=== PATIENT | female | born 1955 | race Caucasian/White ===

== ENCOUNTER 2019-06-20 14:08 | Inpatient (IN) | payer MEDICARE, MEDICAID ==
[~2019-06-20] VITALS: Ht 167.6 cm; Wt 67.1 kg
[~2019-06-20 14:08] MED LIST: ACETAMINOP160 MG/54 ORAL; ALBUTEROL2.5 MG/3 M INH; ATIVAN0.5 MG ORAL; DOCUSATE SODIU100 MG ORAL; FLEET ENEMA133 ML RECTAL; HEPARIN SO5000 UNIT2 SUBQ; KEPPRA500 MG ORAL; LOPRESSOR25 M1 ORAL; PRAVACHOL20 MG ORAL; ZANTAC150 MG ORAL
--- NOTE | 2019-06-20 14:40 | NUR ---
ED Nurse Note: Patient brought in by ambulance from [facility] due to dislodged g-tube since 1000 AM this morning. unknown size. g-tube stoma noted, no tube was noted on the stoma. dressing applied. patient changed into hospital gown.
[2019-06-20 15:42] VITALS: BP 98/62
[2019-06-20 15:54] LABS: BASOPHILS % (AUTO) 1.5 % (0.0-2.0); EOSINOPHILS % (AUTO) 0.7 % (0.0-3.0); HEMATOCRIT 43.5 % (37.0-47.0); HEMOGLOBIN 14.6 G/DL (12.0-16.0); LYMPHOCYTES % (AUTO) 27.4 % (20.0-45.0); MEAN CORPUSCULAR VOLUME 91 FL (80-99); MONOCYTES % (AUTO) 8.1 % (1.0-10.0); NEUTROPHILS % (AUTO) 62.3 % (45.0-75.0); PLATELET COUNT 241 K/UL (150-450); RED BLOOD COUNT 4.79 M/UL (4.20-5.40); RED CELL DISTRIBUTION WIDTH 11.3 % (11.6-14.8); WHITE BLOOD COUNT 6.9 K/UL (4.8-10.8)
--- NOTE | 2019-06-20 16:01 | Emergency Room Report ---
History of Present Illness General Chief Complaint: Malfunctioning Gastric Tube Source: Medical Record, EMS, PMD Present Illness HPI 63-year-old female here for G-tube replacement. It came out, it is unclear when. Patient is bedbound nonverbal she is not able to give any kind of history. The charts note that the last time she was here was 2014. She does not appear to be in any distress. 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 Hx Seizures: Yes Review of Systems All Other Systems: negative except mentioned in HPI Physical Exam Vital Signs Date Time Temp Pulse Resp B/P (MAP) Pulse Ox O2 Delivery O2 Flow Rate FiO2 06/20/19 14:31 98.1 68 18 94/64 (74) 99 Room Air Sp02 EP Interpretation: reviewed, normal General Appearance: non-toxic, other - nad, Chronically Ill Head: normocephalic, atraumatic Eyes: bilateral eye normal inspection, bilateral eye PERRL, bilateral eye EOMI ENT: normal ENT inspection, normal pharynx, moist mucus membranes Neck: normal inspection, full range of motion, supple Respiratory: normal inspection, lungs clear, normal breath sounds, no respiratory distress, no wheezing, speaking full sentences, chest symmetrical Cardiovascular #1: normal inspection, regular rate, rhythm, normal capillary refill Cardiovascular #2: 2+ radial (R), 2+ radial (L) Gastrointestinal: non tender, soft, non-distended, no guarding, other - G-tube stoma appears closed or very small. Minimal surrounding erythema. Nontender exam Musculoskeletal: back normal, non-tender Neurologic: alert, other - nonverbal Medical Decision Making Diagnostic Impression: Primary Impression: Dislodged gastrostomy tube ER Course 63-year-old female here for dislodged G-tube DDX: disLodged G-tube Plan: Obtain labs, ua, EKG, CXR ER course: Patient has been monitored during ED stay, HD stable I attempted to place G-tube twice, once with a 18 [place] and another with 14 [place]. Was unsuccessful point both times Disposition: Patient is to be admitted to [facility] D/W hospitalist Dr Choi Please note that this Emergency Department Report was dictated using [employer]food critic technology software, occasionally this can lead to erroneous entry secondary to interpretation by the dictation equipment. EKG Diagnostic Results EP Interpretation: Yes Rate: normal Rhythm: NSR ST Segments: No acute changes ASA given to patient: No Rhythm Strip EP Interpretation: Yes Rate: 90 Rhythm: NSR, no PVCs, no ectopy Chest X-ray CXR: Ordered: Yes 1 view Indication: Preop EP interpretation: Yes Interpretation: No consolidation, no effusion, no PTX, no acute cardiopulmonary disease Impression: No acute disease Electronically signed by Benigno Chaudhary MD Laboratory Tests Test 06/20/19 15:36 06/20/19 16:15 White Blood Count 6.9 K/UL (4.8-10.8) Red Blood Count 4.79 M/UL (4.20-5.40) Hemoglobin 14.6 G/DL (12.0-16.0) Hematocrit 43.5 % (37.0-47.0) Mean Corpuscular Volume 91 FL (80-99) Mean Corpuscular Hemoglobin 30.6 PG (27.0-31.0) Mean Corpuscular Hemoglobin Concent 33.6 G/DL (32.0-36.0) Red Cell Distribution Width 11.3 % (11.6-14.8) L Platelet Count 241 K/UL (150-450) Mean Platelet Volume 6.4 FL (6.5-10.1) L Neutrophils (%) (Auto) 62.3 % (45.0-75.0) Lymphocytes (%) (Auto) 27.4 % (20.0-45.0) Monocytes (%) (Auto) 8.1 % (1.0-10.0) Eosinophils (%) (Auto) 0.7 % (0.0-3.0) Basophils (%) (Auto) 1.5 % (0.0-2.0) Prothrombin Time 10.3 SEC (9.30-11.50) Prothrombin Time INR 1.0 (0.9-1.1) PTT 27 SEC (23-33) Sodium Level 142 MMOL/L (136-145) Potassium Level 4.3 MMOL/L (3.5-5.1) Chloride Level 105 MMOL/L (98-107) Carbon Dioxide Level 26 MMOL/L (21-32) Anion Gap 11 mmol/L (5-15) Blood Urea Nitrogen 21 mg/dL (7-18) H Creatinine 0.7 MG/DL (0.55-1.30) Estimate Glomerular Filtration Rate > 60 mL/min (>60) Glucose Level 73 MG/DL (74-106) L Calcium Level 9.0 MG/DL (8.5-10.1) Total Bilirubin Pending Aspartate Amino Transferase (AST) Pending Alanine Aminotransferase (ALT) Pending Alkaline Phosphatase Pending Total Protein Pending Albumin Pending Globulin Pending Last Vital Signs Date Time Temp Pulse Resp B/P (MAP) Pulse Ox O2 Delivery O2 Flow Rate FiO2 06/20/19 15:42 98.1 62 17 98/62 100 Room Air Disposition: ADMITTED INPATIENT Condition: Serious Benigno Chaudhary M.D. Jun 20, 2019 16:01
--- NOTE | 2019-06-20 16:24 | NUR ---
ED Nurse Note: Dr. Chaudhary attempted to place the gtube, unsuccessful.
[2019-06-20] MEDS ORDERED: VIMPAT50 MG GT (16:37)
--- NOTE | 2019-06-20 16:59 | Diagnostic Imaging Report ---
Indication: Dyspnea Comparison: 08/18/2015 A single view chest radiograph was obtained. Findings: There is scarring in the right perihilar region in a configuration and appearance very similar to 2015. Lung volumes are low bilaterally. Bones are osteopenic. Heart is borderline enlarged. The aorta is mildly ectatic. Apparent osseous structures are noted in the right shoulder region may be soft tissue in nature. IMPRESSION: No acute disease
[2019-06-20 17:08] LABS: ANION GAP 11 mmol/L (5-15); BLOOD UREA NITROGEN 21 mg/dL (7-18); CARBON DIOXIDE 26 MMOL/L (21-32); CHLORIDE 105 MMOL/L (98-107); CREATININE 0.7 MG/DL (0.55-1.30); POTASSIUM 4.3 MMOL/L (3.5-5.1); SODIUM 142 MMOL/L (136-145)
[2019-06-20 17:24] LABS: ALANINE AMINOTRANSFERASE 36 U/L (12-78); ALBUMIN 3.3 G/DL (3.4-5.0); ALBUMIN/GLOBULIN RATIO 0.8 (1.0-2.7); ALKALINE PHOSPHATASE 83 U/L (46-116); ASPARTATE AMINO TRANSFERASE 21 U/L (15-37)
--- NOTE | 2019-06-20 18:37 | NUR ---
ED Nurse Note: Report given to Afsoon RN, endorsed all plan of care to Afsoon RN.
--- NOTE | 2019-06-20 18:42 | NUR ---
ED Nurse Note: patient transferred to 4 E with all of her belongings.
--- NOTE | 2019-06-20 18:50 | NUR ---
NURSE NOTES: Received pt from ER. Pt is nonverbal. all belongings are with pt. pt is in RA, no SOB or acute respiratory distress noted. pt has a g tube site on the abd. pt has intact iv access LFA 20G. V/S stable. all needs attended, bed is locked and is in the lowest position, call light within easy reach. will continue to monitor.
[2019-06-20 19:00] VITALS: BP 143/73
--- NOTE | 2019-06-20 19:19 | NUR ---
HAND-OFF: Report given to RN LUISA/GUTIERREZ. Endorsed to F/U for consent.
[2019-06-20 20:00] VITALS: BP_SYST 102; BP_SYST 142; BP_DIAS 52; BP_DIAS 85
--- NOTE | 2019-06-20 20:00 | NUR ---
NURSE NOTES: received pt in bed. flat affect, passive behavior and non-verbal response. pt was removed G-tube Addendum: 06/21/19 at 0217 by Lynda Escamilla RN IV fluid 1/2 NS running @ 60 ml/hr. no acute distress this time. call light within reach and bed is the lowest position. will continue to provide plan of care.
--- NOTE | 2019-06-20 20:30 | NUR ---
NURSE NOTES: Admission orders received from Dr. Brasher. Will carry out as ordered.
--- NOTE | 2019-06-20 21:00 | NUR ---
NURSE NOTES: consent for PEG placement authorized by pt's daughter(Sumi Scott) by phone call. witness by 2 RN's (Mikala and Lynda) d/t pt is non-verbal.
[2019-06-20] MEDS ORDERED: DOCUSATE SODIU100 M2 GT (22:27)
[2019-06-20] MEDS ORDERED: MILK OF MA400 MG/51 GT (22:27)
[2019-06-20] MEDS ORDERED: ACETAMINOPHEN325 M1 GT (22:27)
[2019-06-21] VITALS (9 sets, daily range): BP systolic 98–131; BP diastolic 43–80
[2019-06-21] MEDS ORDERED: ceFAZolin sod 1 GM in D5W 55 ML IVPB SCH (05:30)
[2019-06-21] MEDS ORDERED: Midazolam 2mg/2ml Inj IVP PRN (06:30)
[2019-06-21] MEDS ORDERED: DiphenhydrAMINE 50mg/ml Inj IVP PRN (06:30)
[2019-06-21] MEDS ORDERED: Atropine Inj 1mg/10ml Syr IV PRN (06:30)
[2019-06-21] MEDS ORDERED: fentaNYL 100 mcg/2 mL IV PRN (06:30)
--- NOTE | 2019-06-21 06:33 | Anethesia Preoperative Eval ---
Anesthesia Pre-op PMH/ROS General Date of Evaluation: Jun 21, 2019 Time of Evaluation: 06:29 Anesthesiologist: edgardo ASA Score: ASA 4 Mallampati Score Class I : Soft palate, uvula, fauces, pillars visible Class II: Soft palate, uvula, fauces visible Class III: Soft palate, base of uvula visible Class IV: Only hard plate visible Mallampati Classification: Class II Surgeon: luly Diagnosis: dislodged g-tube Surgical Procedure: g-tube placement Anesthesia History: none Social History: smoking - nonsmoker Family History: no anesthesia problems Allergies: Coded Allergies: CHLORHEXIDINE (Verified Allergy, Mild, 07/12/15) Medications: see eMAR Patient NPO?: Yes Past Medical History Cardiovascular: Reports: HTN, other - hypercholesterolemia, Pulmonary: Reports: other - respiratory failure Gastrointestinal/Genitourinary: Reports: GERD, other - dialysis, bladder dysfunction Neurologic/Psychiatric: Reports: CVA, depression/anxiety, other - seizure dz, encephalitis, hemiparesis, dysphasia Anesthesia Pre-op Phys. Exam Physician Exam Last Vital Signs Date Time Temp Pulse Resp B/P (MAP) Pulse Ox O2 Delivery O2 Flow Rate FiO2 06/21/19 04:00 97.6 81 20 131/80 (97) 94 06/20/19 19:30 Room Air Constitutional: NAD Neurologic: CN 2-12 intact, other - hemiparesis, contracted right upper extremity Cardiovascular: RRR Respiratory: CTA Gastrointestinal: other - stoma for previous g-tube Airway Exam Mallampati Score: Class II MO: limited Neck: flexible TMD: 2fb ROM: limited Teeth: missing Anesthesia Pre-op A/P Labs Hematology Test 06/20/19 15:36 White Blood Count 6.9 K/UL (4.8-10.8) Red Blood Count 4.79 M/UL (4.20-5.40) Hemoglobin 14.6 G/DL (12.0-16.0) Hematocrit 43.5 % (37.0-47.0) Mean Corpuscular Volume 91 FL (80-99) Mean Corpuscular Hemoglobin 30.6 PG (27.0-31.0) Mean Corpuscular Hemoglobin Concent 33.6 G/DL (32.0-36.0) Red Cell Distribution Width 11.3 % (11.6-14.8) L Platelet Count 241 K/UL (150-450) Mean Platelet Volume 6.4 FL (6.5-10.1) L Neutrophils (%) (Auto) 62.3 % (45.0-75.0) Lymphocytes (%) (Auto) 27.4 % (20.0-45.0) Monocytes (%) (Auto) 8.1 % (1.0-10.0) Eosinophils (%) (Auto) 0.7 % (0.0-3.0) Basophils (%) (Auto) 1.5 % (0.0-2.0) Coagulation Test 06/20/19 15:36 Prothrombin Time 10.3 SEC (9.30-11.50) Prothromb Time International Ratio 1.0 (0.9-1.1) Activated Partial Thromboplast Time 27 SEC (23-33) Chemistry Test 06/20/19 16:15 Sodium Level 142 MMOL/L (136-145) Potassium Level 4.3 MMOL/L (3.5-5.1) Chloride Level 105 MMOL/L (98-107) Carbon Dioxide Level 26 MMOL/L (21-32) Anion Gap 11 mmol/L (5-15) Blood Urea Nitrogen 21 mg/dL (7-18) H Creatinine 0.7 MG/DL (0.55-1.30) Estimat Glomerular Filtration Rate > 60 mL/min (>60) Glucose Level 73 MG/DL (74-106) L Calcium Level 9.0 MG/DL (8.5-10.1) Total Bilirubin 1.0 MG/DL (0.2-1.0) Aspartate Amino Transf (AST/SGOT) 21 U/L (15-37) Alanine Aminotransferase (ALT/SGPT) 36 U/L (12-78) Alkaline Phosphatase 83 U/L (46-116) Total Protein 7.3 G/DL (6.4-8.2) Albumin 3.3 G/DL (3.4-5.0) L Globulin 4.0 g/dL Albumin/Globulin Ratio 0.8 (1.0-2.7) L Risk Assessment & Plan Assessment: asa4 Plan: mac Status Change Before Surgery: No Pre-Antibiotics Drug: Snow Henson MD Jun 21, 2019 06:33
--- NOTE | 2019-06-21 06:54 | General Progress Note ---
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 Subjective Allergies: Coded Allergies: CHLORHEXIDINE (Verified Allergy, Mild, 07/12/15) Subjective GI CONSULT cc: ATSP for GT re-insertion HPI: 63 y/o WW with chronic GT here since GT fell out and ostomy closed. Patient non-verbal. 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 SNF, no recent smoke/EtOH, Daughters make decisions ROS Unobtainable Objective Last 24 Hour Vital Signs Date Time Temp Pulse Resp B/P (MAP) Pulse Ox O2 Delivery O2 Flow Rate FiO2 06/21/19 04:00 97.6 81 20 131/80 (97) 94 06/21/19 00:00 97.1 70 20 98/63 (75) 95 06/20/19 20:00 97.3 63 20 102/52 (69) 94 06/20/19 19:30 Room Air 06/20/19 19:00 98.1 70 18 143/73 (96) 97 06/20/19 18:41 98.1 62 17 98/62 100 Room Air 06/20/19 15:42 98.1 62 17 98/62 100 Room Air 06/20/19 14:31 98.1 68 18 94/64 (74) 99 Room Air Intake and Output 06/20/19 06/21/19 18:59 06:59 Intake Total 445 ml Output Total 0 ml Balance 0 ml 445 ml Intake IV Total 445 ml Output Urine Total 0 ml # Voids 2 # Bowel Movements 1 Laboratory Tests 06/20/19 15:36: White Blood Count 6.9, Red Blood Count 4.79, Hemoglobin 14.6, Hematocrit 43.5, Mean Corpuscular Volume 91, Mean Corpuscular Hemoglobin 30.6, Mean Corpuscular Hemoglobin Concent 33.6, Red Cell Distribution Width 11.3L, Platelet Count 241, Mean Platelet Volume 6.4L, Neutrophils (%) (Auto) 62.3, Lymphocytes (%) (Auto) 27.4, Monocytes (%) (Auto) 8.1, Eosinophils (%) (Auto) 0.7, Basophils (%) (Auto ) 1.5, Prothrombin Time 10.3, Prothromb Time International Ratio 1.0, Activated Partial Thromboplast Time 27 06/20/19 16:15: Sodium Level 142, Potassium Level 4.3, Chloride Level 105, Carbon Dioxide Level 26, Anion Gap 11, Blood Urea Nitrogen 21H, Creatinine 0.7, Estimat Glomerular Filtration Rate > 60, Glucose Level 73L, Calcium Level 9.0, Total Bilirubin 1.0 , Aspartate Amino Transf (AST/SGOT) 21, Alanine Aminotransferase (ALT/SGPT) 36, Alkaline Phosphatase 83, Total Protein 7.3, Albumin 3.3L, Globulin 4.0, Albumin/ Globulin Ratio 0.8L Height (Feet): 5 Height (Inches): 6.00 Weight (Pounds): 148 Objective PE HEENT: Surgical defect, (L) skull supple CTA RRR abd soft, close prior GT site no edema awake, non verbal, non cooperative Miguel Boyce MD Jun 21, 2019 06:54
--- NOTE | 2019-06-21 06:54 | Pre-Procedure Note/Attestation ---
Pre-Procedure Note/Attestation Complete Prior to Procedure Planned Procedure: not applicable Procedure Narrative: EGD / PEG Indications for Procedure Pre-Operative Diagnosis: dysphagia Attestation I attest that I discussed the nature of the procedure; its benefits; risks and complications; and alternatives (and the risks and benefits of such alternatives ), prior to the procedure, with the patient (or the patient's legal manufacturing sales representative). I attest that, if there was a reasonable possibility of needing a blood transfusion, the patient (or the patient's legal manufacturing sales representative) was given the [facility] standardized written summary, pursuant to the Chris Oliver Blood Safety Act ([place] Health and Safety Code # 1645, as amended). I attest that I re-evaluated the patient just prior to the surgery and that there has been no change in the patient's H&P, except as documented below: Miguel Boyce MD Jun 21, 2019 06:54
[2019-06-21] MEDS ORDERED: Lidocaine 1% MPF 10mg/ml 5ml ONE (07:00)
[2019-06-21] MEDS ORDERED: Propofol 200mg/20ml IV ONE (07:00)
--- NOTE | 2019-06-21 07:17 | NUR ---
HAND-OFF: Report given to Aisha GARG.
--- NOTE | 2019-06-21 07:25 | NUR ---
NURSE NOTES: Received pt from RN NARA/GUTIERREZ. Pt is nonverbal. pt is in RA, no SOB or acute respiratory distress noted. pt has a g tube site on the abd. pt has intact iv access LFA 20G is running well. pt is NPO. all needs attended, bed is locked and is in the lowest position, call light within easy reach. Pt left unit to gi lab now.
--- NOTE | 2019-06-21 07:28 | NUR ---
NURSE NOTES: Patient transported by Dr. Boyce to GI lab for procedure.
[2019-06-21] MEDS ORDERED: NS 500ML IVPB ONE (07:40)
--- NOTE | 2019-06-21 08:52 | NUR ---
NURSE NOTES: pT CAME BACK FROM GI lab, awake and non verbal. no stress. gt has g tube on abd covered with abd binder. will continue to monitor.
--- NOTE | 2019-06-21 10:25 | Immediate Post-Op Evaluation ---
Immediate Post-Op Evalulation Immediate Post-Op Evalulation Procedure: g-tube placement Date of Evaluation: Jun 21, 2019 Time of Evaluation: 08:24 IV Fluids: 400ml 0.9ns Blood Products: none Estimated Blood Loss: neglgible Blood Pressure Systolic: 116 Blood Pressure Diastolic: 59 Pulse Rate: 65 Respiratory Rate: 18 O2 Sat by Pulse Oximetry: 100 Temperature (Fahrenheit): 97.1 Pain Score (1-10): 0 Nausea: No Vomiting: No Complications none Patient Status: awake, reacts, patent Hydration Status: adequate Drug: Snow Henson MD Jun 21, 2019 10:25
--- NOTE | 2019-06-21 10:26 | 48 Hour Post Anesthesia Eval ---
Post Anesthesia Evaluation Procedure: g-tube placement Date of Evaluation: Jun 21, 2019 Time of Evaluation: 08:24 Blood Pressure Systolic: 119 0: 43 Pulse Rate: 64 Respiratory Rate: 18 Temperature (Fahrenheit): 97.1 O2 Sat by Pulse Oximetry: 100 Airway: patent Nausea: No Vomiting: No Pain Intensity: 0 Hydration Status: adequate Cardiopulmonary Status: stable Mental Status/LOC: patient returned to baseline Post-Anesthesia Complications: none Follow-up care needed: N/A Snow Cassidy MD Jun 21, 2019 10:26
--- NOTE | 2019-06-21 13:37 | NUR ---
DISCHARGE PLANNING DISCHARGE ORDER NOTED Patient has been accepted to; [facility] [id number] [place] [address] Bed:30-B Skilled [phone] for Nurse to Nurse report [facility] ETA for transportation: 14:45
--- NOTE | 2019-06-21 15:09 | NUR ---
NURSE NOTES: Pt has discharge order, all discharge assessments and instructions done and pt verbally confirmed to understand all. pt is stable, V/S stable. g tube feeding started as order with 10ml/hr and pt tolerated well. pt given bed bath and g tube4 dressing changed and pt tolerated well. Report given to SNF [facility]ART[facility]. IV access D/C and pt left hospital with accompany of hospital personnel.
[2019-06-21] MEDS ORDERED: Tubing IV Secondary IV ONE (15:13)
[2019-06-21] MEDS ORDERED: 1/2 NS 1000ml IV ONE (15:13)
--- NOTE | 2019-06-21 16:44 | Cardiology Report ---
APPROVED REPORT EKG Measurement Heart [id number] Suspect arm lead reversal, interpretation assumes no reversal Normal sinus rhythm Right axis deviation Abnormal ECG
--- NOTE | 2019-06-21 16:46 | Cardiology Report ---
APPROVED REPORT EKG Measurement Heart [id number] Normal sinus rhythm Low voltage QRS Borderline ECG
--- NOTE | 2019-06-21 17:31 | Endoscopy Procedure Note ---
Endoscopy Procedure Note General Indication for Procedure: Dysphagia Procedures Performed: EGD, PEG Operative Findings/Diagnosis: thickened antrum folds - biopsied Specimen: yes Pt Tolerated Procedure Well: Yes Estimated Blood Loss: none Anesthesia Anesthesiologist: Vasquez Denise Anesthesia: MAC, moderate sedation Medications Medication Given: see anesthesia record Inserted Devices Implant(s) used?: No GI Core Measures 50 yrs or older w/o bx or poly: Not Applicable 10yrs. F/U recommended: Not Applicable Miguel Boyce MD Jun 21, 2019 17:31
--- NOTE | 2019-06-21 17:35 | Brief Operative Note ---
Immediate Post Operative Note Operative Note Chief Complaint: dysphagia Pre-op Diagnosis: dysphagia Procedure: EGD, PEG, Bx Post-op Diagnosis: gastric folds - biopsed PEG placed once prior orifice opened Surgeon: luly Anesthesiologist: Vasquez Denise Anesthesia: MAC Specimen: yes Complications: none Condition: stable Fluids: see anesth record Implant(s) used?: No Miguel Boyce MD Jun 21, 2019 17:35
--- NOTE | 2019-06-21 19:15 | History and Physical Report ---
DATE OF ADMISSION: 06/20/2019 HISTORY OF PRESENT ILLNESS: The patient also had G-tube removed. The nursing staff were not able to put a Sweeney to keep the stoma open. The patient needs a feeding tube. The patient denies any acute events. Initial plan is to admit him for observation for PEG placement and if there is no complications, afterwards no issues, afterwards we will discharge the patient once cleared by Dr. Boyce. The patient denies nausea, vomiting, or diarrhea. No fever or chills. PAST MEDICAL HISTORY: Hypertension, history of gastrointestinal bleed, history of neuromuscular dysfunction of the bladder, history of seizures, history of CVA with right-sided weakness, hypertension, constipation. PAST SURGICAL HISTORY: PEG. MEDICATIONS: Vimpat, Colace, hydralazine. ALLERGIES: Chlorhexidine. FAMILY HISTORY: Noncontributory. SOCIAL HISTORY: No history of alcohol or illicit drugs. Comes from a senior care. REVIEW OF SYSTEMS: HEENT: Denies headaches. RESPIRATORY: Denies shortness of breath. Denies cough. CARDIOVASCULAR: Denies chest pain. Denies nausea, vomiting, diarrhea. EXTREMITIES: The patient is currently a poor historian. PHYSICAL EXAMINATION: VITAL SIGNS: Temperature 97.6, pulse 81, blood pressure is 131/80. HEENT: PERRLA. NECK: Supple. No lymphadenopathy. CHEST: Clear to auscultation. CARDIOVASCULAR: Regular rate and rhythm ABDOMEN: Soft. Positive bowel sounds. EXTREMITIES: No edema. Reflexes on both sides. Right-sided weakness from previous stroke. LABORATORY DATA: WBC of 6.9, hemoglobin of 14.6, platelets 241. Sodium 142, potassium 4.3, BUN of 21, creatinine 0.7, glucose of 73. ASSESSMENT: Dysphagia, needs PEG replacement. The patient has a lot of comorbidities. Dr. Boyce has been consulted for PEG placement. Ruthann Brasher M.D. DR: Kimmy JOB#: [id number] CC:
--- NOTE | 2019-06-21 20:00 | Procedure Note ---
DATE OF PROCEDURE: 06/21/2019 GASTROENTEROLOGY PROCEDURE PROCEDURE: Upper gastrointestinal endoscopy with gastrostomy tube placement and biopsy. SURGEON: Miguel Boyce M.D. ANESTHESIA: Please see the separate anesthesiologist notes for details. PRE-ENDOSCOPIC DIAGNOSIS: Dysphagia. POST-ENDOSCOPIC DIAGNOSES: 1. Thickened fold in the gastric antrum of doubtful significance, status post biopsy. 2. Status post gastrostomy tube placement. DESCRIPTION OF PROCEDURE: The procedure, its risks, indications, alternatives, and possible complications were explained to the patient's family and informed consent was obtained. The diagnostic upper endoscope was introduced into oropharynx and advanced to the duodenum. The mucosa was examined carefully. Some thickening of the antral folds were identified, which were biopsied, but this was of doubtful significance. The gastrostomy site appeared to be close and initial plans were made to create a separate gastrostomy site; however, after insufflation , a small distinct amount of blood was seen coming through and therefore a guidewire was used to place through the hole into the stomach, which was grabbed and brought out through the mouth and attached to a gastrostomy device, which was placed using a standard pull technique. The patient was sent to recovery in good condition. COMPLICATIONS: None. RECOMMENDATIONS: 1. Resume tube feeding diet. 2. Follow up biopsy results. Miguel Boyce M.D. DR: ARTHUR JOB#: [id number] CC:
--- NOTE | 2019-06-23 08:28 | Discharge Summary ---
Discharge Summary Discharge Summary _ DATE OF ADMISSION: 06/20/2019 DATE OF DISCHARGE: 06/21/2019 DISCHARGED BY: Dr. Brasher REASON FOR ADMISSION: 63 years old female with past medical history of CVA with right-sided weakness, seizure disorder, hypertension, presented from the alf facility for G-tube replacement. Apparently G-tube came out at the facility. Patient by herself was bedbound, nonverbal and was unable to provide any kind of history. Vital signs were stable . Patient did not appear to be in any distress. Laboratory work-up revealed no leukocytosis , stable hemoglobin and hematocrit. Stable electrolytes and renal parameters. Albumin 3.3. Chest x-ray revealed no acute cardiopulmonary pathology. EKG revealed sinus rhythm , no acute ischemic changes. Emergency room physician attempted to place G-tube twice: once with a 18 Faroese gauge and another with a 14 Faroese gauge . However, both attempts were unsuccessful. Patient subsequently admitted to medical surgical floor for replacement of G tube. CONSULTANTS: GI specialist Dr. Boyce [facility] COURSE: Patient admitted to medical surgical floor and started on the IV fluids. GI specialist consulted. Patient subsequently undergone upper endoscopy with gastrostomy tube placement and biopsy. Patient tolerated procedure well. During the procedure was found thickened fold in the gastric antrum of doubtful significance. Pathology of the gastric antrum revealed benign mucosa with no significant histopathological abnormality. Negative for H. pylori. Negative for intestinal metaplasia, dysplasia, or malignancy. Patient started on tube feeding with strict aspiration/reflux precautions. G-tube site care provided. SNF medication resumed. Pain management was addressed as needed. Patient was able to tolerate tube feeding . Patient was stable for transfer back to alf facility for continuation of care. Due to rapid and unexpected improvement in patient condition, patient was discharged in 1 day. FINAL DIAGNOSES: Dislodged G-tube Status post upper endoscopy with gastrostomy tube placement and biopsy Dysphagia History of CVA DISCHARGE MEDICATIONS: See Medication Reconciliation list. DISCHARGE INSTRUCTIONS: Patient was discharged to the alf facility. Follow up with medical doctor at the facility. I have been assigned to dictate discharge summary for this account. I was not involved in the patient's management. Sandy Puga NP Jun 23, 2019 08:28
== END 2019-06-21 15:14 | DRG 394 ==
LOC: EDBD 14:08 → EMR 14:40 → 4E 16:17 → EDBEDREQ 16:54
PROC: 0DH63UZ Insertion of Feeding Device into Stomach, Percutaneous Approach (ICD-10-PCS; principal; 2019-06-21 07:44)
PROC: 0DB78ZX Excision of Stomach, Pylorus, Via Natural or Artificial Opening Endoscopic, Diagnostic (ICD-10-PCS; principal; 2019-06-21 07:44)
DX: Z43.1 Encounter for attention to gastrostomy (principal); I69.351 Hemiplegia and hemiparesis following cerebral infarction affecting right dominant side; R13.10 Dysphagia, unspecified; F03.90 Unspecified dementia, unspecified severity, without behavioral disturbance, psychotic disturbance, mood disturbance, and anxiety; G40.909 Epilepsy, unspecified, not intractable, without status epilepticus
CPT/HCPCS: 36415; 71045; 80053; 85025; 85610; 85730; 87081; 93005; 94003; 94150; 96361; 96374; 99285; J7030

== ENCOUNTER 2020-05-05 08:40 | Inpatient (IN) | payer MEDICARE, MEDICAID ==
[~2020-05-05] VITALS: Ht 167.6 cm; Wt 75.0 kg
[~2020-05-05 08:40] MED LIST changes: +ACETAMINOPHEN325 M1 GT; +DOCUSATE SODIU100 M2 GT; +MILK OF MA400 MG/51 GT; +VIMPAT50 MG GT
--- NOTE | 2020-05-05 08:44 | Emergency Room Report ---
History of Present Illness General Chief Complaint: G-tube malfunction Source: Medical Record, EMS, PMD - Dr. Brasher Present Illness HPI Patient is a 64-year-old female brought into the emergency room from her extended care facility by EMS after pulling out her G-tube. Per patient's primary care physician she also is altered from her baseline. Unable to obtain further history at this time as the patient is nonverbal. Allergies: Coded Allergies: CHLORHEXIDINE (Verified Allergy, Mild, 07/12/15) Patient History Reviewed Nursing Documentation: PMH: Agreed; PSxH: Agreed Review of Systems All Other Systems: limited - non-verbal Physical Exam Sp02 EP Interpretation: reviewed, normal - 98% on room air General Appearance: other - Nonverbal Head: normocephalic, atraumatic ENT: dry mucus membranes Neck: full range of motion, supple Respiratory: no accessory muscle use Cardiovascular #1: regular rate, rhythm Gastrointestinal: non tender, soft, no guarding, no rebound, other - G-tube stoma in the epigastric region with dark red gastric contents, overweight Rectal: deferred Neurologic: oriented x3 - Alert and oriented x0 patient is nonverbal Psychiatric: other - Unable to assess as patient is nonverbal Skin: no rash Lymphatic: no adenopathy Procedures Critical Care Time Critical Care Time Total critical care time: Approximately 35 minutes. Due to a high probability of clinically significant, life threatening deterioration, the patient required my highest level of preparedness to intervene emergently and I personally spent this critical care time directly and personally managing the patient. This critical care time included obtaining a history; examining the patient; pulse oximetry; ordering and review of studies; arranging urgent treatment with development of a management plan; evaluation of patient's response to treatment ; frequent reassessment; and, discussions with other providers.This critical care time was performed to assess and manage the high probability of imminent, life-threatening deterioration that could result in multi-organ failure. It was exclusive of separately billable procedures and treating other patients and teaching time. Please see MDM section and the rest of the note for further information on patient assessment and treatment. Additional Procedure Procedure Narrative G-tube replacement 14 Libyan Epigastric region 5 cc of normal saline inflated in the cuff X-ray ordered for confirmation Medical Decision Making Diagnostic Impression: Primary Impression: Dislodged gastrostomy tube Additional Impression: GI bleed ER Course Initially Gastrografin injected by bedside RN to the balloon port. The Gastrografin has been removed and a new x-ray has been ordered. Patient has an upper GI bleed. Patient given 80 mg of IV Protonix and started on a drip at 8 mg/h. Patient also has UTI. Urine sent for culture. Patient started on Rocephin IV. Patient will be admitted for further treatment and evaluation. Laboratory Tests Test 05/05/20 09:20 White Blood Count 10.8 K/UL (4.8-10.8) Red Blood Count 4.51 M/UL (4.20-5.40) Hemoglobin 13.6 G/DL (12.0-16.0) Hematocrit 41.0 % (37.0-47.0) Mean Corpuscular Volume 91 FL (80-99) Mean Corpuscular Hemoglobin 30.2 PG (27.0-31.0) Mean Corpuscular Hemoglobin Concent 33.3 G/DL (32.0-36.0) Red Cell Distribution Width 14.2 % (11.6-14.8) Platelet Count 262 K/UL (150-450) Mean Platelet Volume 6.4 FL (6.5-10.1) L Neutrophils (%) (Auto) 81.6 % (45.0-75.0) H Lymphocytes (%) (Auto) 13.0 % (20.0-45.0) L Monocytes (%) (Auto) 3.9 % (1.0-10.0) Eosinophils (%) (Auto) 1.3 % (0.0-3.0) Basophils (%) (Auto) 0.2 % (0.0-2.0) Prothrombin Time 10.9 SEC (9.30-11.50) Prothrombin Time INR 1.0 (0.9-1.1) Activated Partial Thromboplast Time 24 SEC (23-33) Urine Color Pale yellow Urine Appearance Turbid Urine pH 8 (4.5-8.0) Urine Specific [place] 1.015 (1.005-1.035) Urine Protein Negative (NEGATIVE) Urine Glucose (UA) Negative (NEGATIVE) Urine Ketones 1+ (NEGATIVE) H Urine Blood 2+ (NEGATIVE) H Urine Nitrite Negative (NEGATIVE) Urine Bilirubin Negative (NEGATIVE) Urine Urobilinogen Normal MG/DL (0.0-1.0) Urine Leukocyte Esterase 3+ (NEGATIVE) H Urine RBC 10-15 /HPF (0 - 2) H Urine WBC Tntc /HPF (0 - 2) H Urine Squamous Epithelial Cells Moderate /LPF (NONE/OCC) H Urine Amorphous Sediment Many /LPF (NONE) H Urine Bacteria Moderate /HPF (NONE) H Sodium Level 136 MMOL/L (136-145) Potassium Level 3.9 MMOL/L (3.5-5.1) Chloride Level 100 MMOL/L (98-107) Carbon Dioxide Level 32 MMOL/L (21-32) Anion Gap 4 mmol/L (5-15) L Blood Urea Nitrogen 18 mg/dL (7-18) Creatinine 0.7 MG/DL (0.55-1.30) Estimated Glomerular Filtration Rate > 60 mL/min (>60) Glucose Level 99 MG/DL (74-106) Lactic Acid Level 1.10 mmol/L (0.4-2.0) Calcium Level 8.3 MG/DL (8.5-10.1) L Magnesium Level 2.2 MG/DL (1.8-2.4) Total Bilirubin 0.6 MG/DL (0.2-1.0) Aspartate Amino Transferase (AST) 22 U/L (15-37) Alanine Aminotransferase (ALT) 36 U/L (12-78) Alkaline Phosphatase 90 U/L (46-116) Total Creatine Kinase 56 U/L (26-308) Troponin I 0.000 ng/mL (0.000-0.056) Pro-B-Type Natriuretic Peptide 258 pg/mL (0-125) H Total Protein 6.4 G/DL (6.4-8.2) Albumin 2.5 G/DL (3.4-5.0) L Globulin 3.9 g/dL Albumin/Globulin Ratio 0.6 (1.0-2.7) L EKG Diagnostic Results EKG Time: 08:49 EP Interpretation: Angelika Jones MD Rhythm: NSR ST Segments: no acute changes ASA given to the pt in ED: No Rhythm Strip Diag. Results Rhythm Strip Time: 08:58 EP Interpretation: yes - Angelika Jones MD Rate: 85 bpm Rhythm: NSR, no PVC's, no ectopy Chest X-Ray Diagnostic Results Chest X-Ray Diagnostic Results : Chest X-Ray Ordered: Yes # of Views/Limited/Complete: 1 View Indication: Other - Altered mental status EP Interpretation: Yes Interpretation: no consolidation, no effusion, no pneumothorax, other - Low lung volumes Impression: No acute disease Electronically Signed by: Angelika Jones MD Other X-Ray Diagnostic Results Other X-Ray Diagnostic Results : X-Ray ordered: abdomen # of Views/Limited Vs Complete: 1 View Indication: Other - g-tube replacement EP Interpretation: Yes Interpretation: nonspecific bowel gas, no sbo, other - Gastrografin appears to be within the stomach Impression: Other - Satisfactory G-tube replacement Electronically Signed by: Angelika Jones MD Disposition: ADMITTED INPATIENT - Telemetry Condition: Critical Physician Consult: Additional Instructions: Please note that this report is being documented using [employer] technology. This can lead to erroneous entry secondary to incorrect interpretation by the dictating instrument. Angelika Jones M.D. May 05, 2020 08:44
[2020-05-05] MEDS ORDERED: Gastrograffin 30ml ORAL ONE (08:45)
[2020-05-05 08:50] VITALS: BP 106/67
[2020-05-05] MEDS ORDERED: Pantoprazole 80 MG in NS 250 ML IV ONE (09:00)
[2020-05-05] MEDS ORDERED: Pantoprazole Inj IVP ONE (09:00)
[2020-05-05 10:11] LABS: BASOPHILS % (AUTO) 0.2 % (0.0-2.0); EOSINOPHILS % (AUTO) 1.3 % (0.0-3.0); HEMOGLOBIN 13.6 G/DL (12.0-16.0); MEAN CORPUSCULAR VOLUME 91 FL (80-99); MONOCYTES % (AUTO) 3.9 % (1.0-10.0); NEUTROPHILS % (AUTO) 81.6 % (45.0-75.0); PLATELET COUNT 262 K/UL (150-450); RED BLOOD COUNT 4.51 M/UL (4.20-5.40); RED CELL DISTRIBUTION WIDTH 14.2 % (11.6-14.8); WHITE BLOOD COUNT 10.8 K/UL (4.8-10.8)
[2020-05-05 10:13] LABS: ANION GAP 4 mmol/L (5-15); BLOOD UREA NITROGEN 18 mg/dL (7-18); CALCIUM 8.3 MG/DL (8.5-10.1); CARBON DIOXIDE 32 MMOL/L (21-32); CHLORIDE 100 MMOL/L (98-107); CREATININE 0.7 MG/DL (0.55-1.30); POTASSIUM 3.9 MMOL/L (3.5-5.1); SODIUM 136 MMOL/L (136-145)
[2020-05-05 10:16] LABS: APPEARANCE,URINE TURBID; BILIRUBIN, URINE NEGATIVE (NEGATIVE); COLOR,URINE PALE YELLOW; GLUCOSE, URINE (UA) NEGATIVE (NEGATIVE); KETONES,URINE 1+ (NEGATIVE); LEUKOCYTE ESTERASE ,URINE 3+ (NEGATIVE); NITRITE,URINE NEGATIVE (NEGATIVE); PH,URINE 8 (4.5-8.0); PROTEIN,URINE NEGATIVE (NEGATIVE); UROBILINOGEN,URINE NORMAL MG/DL (0.0-1.0)
[2020-05-05 10:28] LABS: ALANINE AMINOTRANSFERASE 36 U/L (12-78); ALBUMIN 2.5 G/DL (3.4-5.0); ALBUMIN/GLOBULIN RATIO 0.6 (1.0-2.7); ALKALINE PHOSPHATASE 90 U/L (46-116); ASPARTATE AMINO TRANSFERASE 22 U/L (15-37); BILIRUBIN,TOTAL 0.6 MG/DL (0.2-1.0); CREATINE KINASE 56 U/L (26-308)
[2020-05-05] MEDS ORDERED: cefTRIAXone 1 GM in NS 55 ML IVPB ONE (10:30)
--- NOTE | 2020-05-05 10:55 | Diagnostic Imaging Report ---
EXAM: XR Abdomen, 2 Views CLINICAL HISTORY: PAIN TECHNIQUE: Frontal view of the abdomen/pelvis with upright view of the abdomen. COMPARISON: Abdominal radiograph on 05/05/2020 at 953 hours FINDINGS: Hardware: Contrast injected through the G-tube is noted within the stomach, suggesting correct placement of the G-tube. Abdomen: Nonobstructive bowel gas pattern. No free air. Bones: Degenerative changes of the spine. Soft tissues: Normal. Lower chest: Prominent elevation of the right hemidiaphragm. IMPRESSION: Contrast injected through the G-tube is noted within the stomach, suggesting correct placement of the G-tube.
[2020-05-05 11:44] VITALS: BP 102/61
--- NOTE | 2020-05-05 15:34 | Cardiac Electrophysiology PN ---
Subjective Subjective [id number] Objective Last 24 Hour Vital Signs Date Time Temp Pulse Resp B/P (MAP) Pulse Ox O2 Delivery O2 Flow Rate FiO2 05/05/20 11:44 98.9 81 18 102/61 98 Room Air 05/05/20 08:50 98.5 76 17 106/67 96 Room Air 05/05/20 08:41 97.7 90 20 112/74 (87) 92 Room Air Laboratory Tests Test 05/05/20 09:20 White Blood Count 10.8 K/UL (4.8-10.8) Red Blood Count 4.51 M/UL (4.20-5.40) Hemoglobin 13.6 G/DL (12.0-16.0) Hematocrit 41.0 % (37.0-47.0) Mean Corpuscular Volume 91 FL (80-99) Mean Corpuscular Hemoglobin 30.2 PG (27.0-31.0) Mean Corpuscular Hemoglobin Concent 33.3 G/DL (32.0-36.0) Red Cell Distribution Width 14.2 % (11.6-14.8) Platelet Count 262 K/UL (150-450) Mean Platelet Volume 6.4 FL (6.5-10.1) L Neutrophils (%) (Auto) 81.6 % (45.0-75.0) H Lymphocytes (%) (Auto) 13.0 % (20.0-45.0) L Monocytes (%) (Auto) 3.9 % (1.0-10.0) Eosinophils (%) (Auto) 1.3 % (0.0-3.0) Basophils (%) (Auto) 0.2 % (0.0-2.0) Prothrombin Time 10.9 SEC (9.30-11.50) Prothromb Time International Ratio 1.0 (0.9-1.1) Activated Partial Thromboplast Time 24 SEC (23-33) Urine Color Pale yellow Urine Appearance Turbid Urine pH 8 (4.5-8.0) Urine Specific [place] 1.015 (1.005-1.035) Urine Protein Negative (NEGATIVE) Urine Glucose (UA) Negative (NEGATIVE) Urine Ketones 1+ (NEGATIVE) H Urine Blood 2+ (NEGATIVE) H Urine Nitrite Negative (NEGATIVE) Urine Bilirubin Negative (NEGATIVE) Urine Urobilinogen Normal MG/DL (0.0-1.0) Urine Leukocyte Esterase 3+ (NEGATIVE) H Urine RBC 10-15 /HPF (0 - 2) H Urine WBC Tntc /HPF (0 - 2) H Urine Squamous Epithelial Cells Moderate /LPF (NONE/OCC) H Urine Amorphous Sediment Many /LPF (NONE) H Urine Bacteria Moderate /HPF (NONE) H Sodium Level 136 MMOL/L (136-145) Potassium Level 3.9 MMOL/L (3.5-5.1) Chloride Level 100 MMOL/L (98-107) Carbon Dioxide Level 32 MMOL/L (21-32) Anion Gap 4 mmol/L (5-15) L Blood Urea Nitrogen 18 mg/dL (7-18) Creatinine 0.7 MG/DL (0.55-1.30) Estimat Glomerular Filtration Rate > 60 mL/min (>60) Glucose Level 99 MG/DL (74-106) Lactic Acid Level 1.10 mmol/L (0.4-2.0) Calcium Level 8.3 MG/DL (8.5-10.1) L Magnesium Level 2.2 MG/DL (1.8-2.4) Total Bilirubin 0.6 MG/DL (0.2-1.0) Aspartate Amino Transf (AST/SGOT) 22 U/L (15-37) Alanine Aminotransferase (ALT/SGPT) 36 U/L (12-78) Alkaline Phosphatase 90 U/L (46-116) Total Creatine Kinase 56 U/L (26-308) Troponin I 0.000 ng/mL (0.000-0.056) Pro-B-Type Natriuretic Peptide 258 pg/mL (0-125) H Total Protein 6.4 G/DL (6.4-8.2) Albumin 2.5 G/DL (3.4-5.0) L Globulin 3.9 g/dL Albumin/Globulin Ratio 0.6 (1.0-2.7) L Microbiology Date/Time Source Procedure Growth Status 05/05/20 09:20 Nasopharynx SARS-CoV-2 RdRp Gene Assay - Final Complete Salas Reyez MD May 05, 2020 15:34
[2020-05-05 16:00] VITALS: BP 93/59
[2020-05-05 20:00] VITALS: BP 93/60
--- NOTE | 2020-05-05 21:00 | Consultation ---
DATE OF CONSULTATION: 05/05/2020 GASTROLOGY CONSULTATION REFERRING PHYSICIAN: Ruthann Brasher M.D. CHIEF COMPLAINT: I was asked to see this patient by Dr. Ruthann Brasher today for evaluation of gastrostomy tube complication. HISTORY OF PRESENT ILLNESS: The patient is a 64-year-old white woman with dementia. A gastrostomy tube was brought into the hospital since she pulled her gastrostomy tube. gastrostomy tube was recently placed at an outside hospital, so details are not clear and the patient is unable to give any history. The patient does have a previous history of gastrostomy tube placement back in late 2019, but it is not clear whether this is the same gastrostomy placed back then. The gastrostomy tract was intubated by the emergency room physician with a 14-gauge gastrostomy replacement catheter and subsequent contrast x-rays confirmed placement in the stomach. The patient is not able to provide any further history and most of the information is only available from her chart. PAST MEDICAL HISTORY: History of hypertension, history of gastrointestinal bleeding, history of neuromuscular dysfunction of the bladder, seizure disorder, stroke with right-sided weakness, hypertension, constipation. FAMILY HISTORY: Noncontributory. SOCIAL HISTORY: The patient has had no chart history of smoking or drinking. She usually resides in a long term. REVIEW OF SYSTEMS: Otherwise negative. PHYSICAL EXAMINATION: GENERAL: A debilitated white woman, seen in the emergency room. HEENT: Normocephalic and atraumatic. NECK: Supple. CHEST: Clear to auscultation. CARDIOVASCULAR: Regular rate. ABDOMEN: Soft with a 14-Haitian gastrostomy catheter. EXTREMITIES: No edema. NEUROLOGIC: Significant for obtundation. LABORATORY DATA: Noted. ASSESSMENT: This patient has had a gastrostomy tube replaced with a 14-Haitian catheter. It is not clear to me how this original gastrostomy was. Therefore, I will wait until next week to find out. She may need some more time for the tract to mature before a larger gastrostomy tube can be placed. In the meantime, the current gastrostomy catheter is appropriately placed and feeding can be resumed as needed. RECOMMENDATIONS: Per above discussion and per orders written in the chart. Thank you for asking me to participate in the care of this patient. Miguel Boyce M.D. DR: REGINE JOB#: [id number] CC:
--- NOTE | 2020-05-05 22:29 | Consultation ---
DATE OF CONSULTATION: 05/05/2020 Cardiology Consultation REFERRING PHYSICIAN: Ruthann Brasher M.D. REASON FOR CONSULTATION: Tachycardia. HISTORY OF PRESENT ILLNESS: The patient is a 64-year-old lady with history of advanced dementia, nonverbal, dysphagia, status post G-tube placement, who was brought to the emergency room after pulling out her G-tube. The patient also had dark blood coming from it. The patient was evaluated by Infectious Disease and GI for GI bleed. The patient Protonix. Cardiology consultation was obtained for further evaluation. REVIEW OF SYSTEMS: Cannot be obtained. PAST MEDICAL HISTORY: As mentioned above. FAMILY HISTORY: Noncontributory. SOCIAL HISTORY: She is a alf resident. PHYSICAL EXAMINATION: VITAL SIGNS: Blood pressure 102/61, pulse is 95, respirations 18, and temperature 98. HEAD AND NECK: No JVD. LUNGS: Coarse rhonchi. CARDIOVASCULAR: Regular S1 and S2 with no gallop. ABDOMEN: Soft with G-tube. EXTREMITIES: No pitting edema. LABORATORY AND DIAGNOSTIC DATA: White count of 10.8, hemoglobin 13.2, hematocrit of 41, and platelet count is 262. Sodium 136, potassium 3.9, BUN of 18, creatinine of 0.7, and glucose 99. Troponin was negative. ASSESSMENT AND PLAN: 1. Tachycardia, sinus tach, due to probable GI bleed. We will repeat the EKG and get an echocardiogram for further evaluation. 2. Possible GI bleed. Further evaluation by GI. 3. Dysphagia, status post PEG placement. 4. Dementia. 5. Urinary tract infection. The patient received ceftriaxone. Thank you very much for allowing me to participate in the care of this patient. Please do not hesitate to contact me for any questions regarding my evaluation. Salas Reyez M.D. DR: Jonnathan JOB#: [id number] CC:
[2020-05-06] VITALS: BP 109/59
--- NOTE | 2020-05-06 01:45 | History and Physical Report ---
DATE OF ADMISSION: 05/05/2020 HISTORY: The patient is nonverbal, poor historian, cannot get reliable history from her. The patient removed the G-tube again, and the patient has been admitted for UTI and GI bleed, blood is coming out from the G-tube. Admitted for those reasons. I also spoke with the daughter deeply and the patient is DNR and she is thinking of comfort measures. She is going to think it over and talk with the licensed clinical social worker in the meanwhile. Again, cannot get any history from the patient. PAST MEDICAL HISTORY: Advanced dementia as well as dysphagia. Also constipation, history of aneurysm. PAST SURGICAL HISTORY: Feeding tube. ALLERGIES: Chlorhexidine. FAMILY HISTORY: Noncontributory. SOCIAL HISTORY: Unable to obtain. REVIEW OF SYSTEMS: Unable to obtain. The patient is nonverbal. PHYSICAL EXAMINATION: VITAL SIGNS: Temperature is 97.7, pulse is 90, blood pressure 112/74. HEENT: PERRLA. CHEST: Clear to auscultation. CARDIOVASCULAR: Regular rate and rhythm. ABDOMEN: Soft. G-tube is replaced. No organomegaly. EXTREMITIES: No edema. NEUROLOGIC: Does not follow neurological exam. Dorsalis pedis pulses are present. LABORATORY DATA: WBC of 10.8, hemoglobin of 13.6. up to 62. Sodium 136, potassium 3.9, BUN of 18, creatinine 0.7. ASSESSMENT/PLAN: G-tube is removed by the patient. . The patient also has GI bleed, dark red blood coming from the feeding tube. The patient has also been admitted for UTI. Again, assessment and plan is UTI, GI bleed, removal of PEG. DNR. I have consulted Dr. Srinivasan, Dr. Reyez, Dr. Nowak, and Dr. Francesco Howell to see the patient for the agitation and acute as well as for the NG tube and GI bleed as well as for further treatment of the UTI. Antibiotics per Dr. Francesco Howell. Ruthann Brasher M.D. DR: LEIDA JOB#: [id number] CC:
[2020-05-06 04:00] VITALS: BP 104/62
[2020-05-06 08:35] VITALS: BP 108/58
[2020-05-06 10:16] LABS: HEMATOCRIT 43.6 % (37.0-47.0); HEMOGLOBIN 13.8 G/DL (12.0-16.0); MEAN CORPUSCULAR VOLUME 92 FL (80-99); PLATELET COUNT 230 K/UL (150-450); RED BLOOD COUNT 4.72 M/UL (4.20-5.40); RED CELL DISTRIBUTION WIDTH 14.6 % (11.6-14.8); WHITE BLOOD COUNT 9.7 K/UL (4.8-10.8)
[2020-05-06 10:39] LABS: ALANINE AMINOTRANSFERASE 30 U/L (12-78); ALBUMIN 2.3 G/DL (3.4-5.0); ALBUMIN/GLOBULIN RATIO 0.6 (1.0-2.7); ALKALINE PHOSPHATASE 71 U/L (46-116); ANION GAP 8 mmol/L (5-15); ASPARTATE AMINO TRANSFERASE 23 U/L (15-37); BILIRUBIN,TOTAL 1.1 MG/DL (0.2-1.0); BLOOD UREA NITROGEN 17 mg/dL (7-18); CALCIUM 7.8 MG/DL (8.5-10.1); CARBON DIOXIDE 27 MMOL/L (21-32); CHLORIDE 103 MMOL/L (98-107); CREATININE 0.8 MG/DL (0.55-1.30); POTASSIUM 4.5 MMOL/L (3.5-5.1); SODIUM 138 MMOL/L (136-145)
[2020-05-06 10:42] LABS: BILIRUBIN,DIRECT 0.2 MG/DL (0.0-0.3)
[2020-05-06 12:00] VITALS: BP 110/62
[2020-05-06] MEDS ORDERED: cefTRIAXone 1 GM in D5W 55 ML IVPB SCH (15:15)
[2020-05-06 16:00] VITALS: BP 114/62
[2020-05-06] MEDS ORDERED: Vancomycin 1.25gm/NS Premix IVPB ONE (17:00)
--- NOTE | 2020-05-06 19:02 | Cardiac Electrophysiology PN ---
Assessment/Plan Assessment/Plan 1. Sinus tachycardia, due to probable GI bleed. Echocardiogram pending 2. Possible GI bleed. Further evaluation by GI. 3. Dysphagia, status post PEG placement. 4. Dementia. 5. Urinary tract infection. The patient received ceftriaxone. Subjective Subjective Blood Cx now positive for GPC on iv Abx. Non verbal. PEG is clamped and is NPO on iv fluids Objective Last 24 Hour Vital Signs Date Time Temp Pulse Resp B/P (MAP) Pulse Ox O2 Delivery O2 Flow Rate FiO2 05/06/20 16:00 104 05/06/20 16:00 98.4 104 17 114/62 (79) 96 05/06/20 12:00 97.6 87 18 110/62 (78) 97 05/06/20 12:00 91 05/06/20 08:35 98.8 83 19 108/58 (75) 98 05/06/20 08:26 Room Air 05/06/20 08:00 90 05/06/20 04:00 97.5 100 22 104/62 (76) 95 05/06/20 04:00 82 05/06/20 00:00 97.3 74 20 109/59 (76) 94 05/06/20 00:00 96 05/05/20 21:00 Room Air 05/05/20 20:00 72 05/05/20 20:00 97.5 80 18 93/60 (71) 98 Intake and Output 05/05/20 05/06/20 19:00 07:00 Intake Total 0 ml 430 ml Output Total 650 ml Balance 0 ml -220 ml Intake Oral 0 ml IV Total 430 ml Output Urine Total 650 ml # Bowel Movements 1 Laboratory Tests Test 05/06/20 09:30 White Blood Count 9.7 K/UL (4.8-10.8) Red Blood Count 4.72 M/UL (4.20-5.40) Hemoglobin 13.8 G/DL (12.0-16.0) Hematocrit 43.6 % (37.0-47.0) Mean Corpuscular Volume 92 FL (80-99) Mean Corpuscular Hemoglobin 29.3 PG (27.0-31.0) Mean Corpuscular Hemoglobin Concent 31.7 G/DL (32.0-36.0) L Red Cell Distribution Width 14.6 % (11.6-14.8) Platelet Count 230 K/UL (150-450) Mean Platelet Volume 6.7 FL (6.5-10.1) Neutrophils (%) (Auto) % (45.0-75.0) Lymphocytes (%) (Auto) % (20.0-45.0) Monocytes (%) (Auto) % (1.0-10.0) Eosinophils (%) (Auto) % (0.0-3.0) Basophils (%) (Auto) % (0.0-2.0) Differential Total Cells Counted 100 Neutrophils % (Manual) 85 % (45-75) H Lymphocytes % (Manual) 8 % (20-45) L Monocytes % (Manual) 5 % (1-10) Eosinophils % (Manual) 2 % (0-3) Basophils % (Manual) 0 % (0-2) Band Neutrophils 0 % (0-8) Platelet Estimate Adequate Platelet Morphology Normal Red Blood Cell Morphology Normal Sodium Level 138 MMOL/L (136-145) Potassium Level 4.5 MMOL/L (3.5-5.1) Chloride Level 103 MMOL/L (98-107) Carbon Dioxide Level 27 MMOL/L (21-32) Anion Gap 8 mmol/L (5-15) Blood Urea Nitrogen 17 mg/dL (7-18) Creatinine 0.8 MG/DL (0.55-1.30) Estimat Glomerular Filtration Rate > 60 mL/min (>60) Glucose Level 84 MG/DL (74-106) Calcium Level 7.8 MG/DL (8.5-10.1) L Total Bilirubin 1.1 MG/DL (0.2-1.0) H Direct Bilirubin 0.2 MG/DL (0.0-0.3) Aspartate Amino Transf (AST/SGOT) 23 U/L (15-37) Alanine Aminotransferase (ALT/SGPT) 30 U/L (12-78) Alkaline Phosphatase 71 U/L (46-116) Total Protein 6.1 G/DL (6.4-8.2) L Albumin 2.3 G/DL (3.4-5.0) L Globulin 3.8 g/dL Albumin/Globulin Ratio 0.6 (1.0-2.7) L Microbiology Date/Time Source Procedure Growth Status 05/05/20 09:20 Blood Blood Culture - Preliminary Resulted 05/05/20 09:20 Nasopharynx SARS-CoV-2 RdRp Gene Assay - Final Complete Objective HEAD AND NECK: No JVD. LUNGS: Coarse rhonchi. CARDIOVASCULAR: Regular S1 and S2 with no gallop. ABDOMEN: Soft with G-tube. EXTREMITIES: No pitting edema. Salas Reyez MD May 06, 2020 19:02
[2020-05-06 20:00] VITALS: BP 123/52
--- NOTE | 2020-05-06 21:11 | General Progress Note ---
Assessment/Plan Problem List: (1) Sepsis ICD Codes: A41.9 - Sepsis, unspecified organism SNOMED: 47365940 (2) Dislodged gastrostomy tube ICD Codes: Z43.1 - Encounter for attention to gastrostomy SNOMED: 133429704 (3) GI bleed ICD Codes: K92.2 - Gastrointestinal hemorrhage, unspecified SNOMED: 93425662 Status: progressing Assessment/Plan: check h/h gi bleed afebrile replaced peg dnr comfort care Subjective ROS Limited/Unobtainable: Yes Allergies: Coded Allergies: CHLORHEXIDINE (Verified Allergy, Mild, 07/12/15) Objective Last 24 Hour Vital Signs Date Time Temp Pulse Resp B/P (MAP) Pulse Ox O2 Delivery O2 Flow Rate FiO2 05/06/20 16:00 104 05/06/20 16:00 98.4 104 17 114/62 (79) 96 05/06/20 12:00 97.6 87 18 110/62 (78) 97 05/06/20 12:00 91 05/06/20 08:35 98.8 83 19 108/58 (75) 98 05/06/20 08:26 Room Air 05/06/20 08:00 90 05/06/20 04:00 97.5 100 22 104/62 (76) 95 05/06/20 04:00 82 05/06/20 00:00 97.3 74 20 109/59 (76) 94 05/06/20 00:00 96 Intake and Output 05/05/20 05/06/20 19:00 07:00 Intake Total 0 ml 430 ml Output Total 650 ml Balance 0 ml -220 ml Intake Oral 0 ml IV Total 430 ml Output Urine Total 650 ml # Bowel Movements 1 Laboratory Tests 05/06/20 09:30: White Blood Count 9.7, Red Blood Count 4.72, Hemoglobin 13.8, Hematocrit 43.6, Mean Corpuscular Volume 92, Mean Corpuscular Hemoglobin 29.3, Mean Corpuscular Hemoglobin Concent 31.7L, Red Cell Distribution Width 14.6, Platelet Count 230, Mean Platelet Volume 6.7, Neutrophils (%) (Auto) , Lymphocytes (%) (Auto) , Monocytes (%) (Auto) , Eosinophils (%) (Auto) , Basophils (%) (Auto) , Differential Total Cells Counted 100, Neutrophils % (Manual) 85H, Lymphocytes % (Manual) 8L, Monocytes % (Manual) 5, Eosinophils % (Manual) 2, Basophils % ( Manual) 0, Band Neutrophils 0, Platelet Estimate Adequate, Platelet Morphology Normal, Red Blood Cell Morphology Normal, Sodium Level 138, Potassium Level 4.5 , Chloride Level 103, Carbon Dioxide Level 27, Anion Gap 8, Blood Urea Nitrogen 17, Creatinine 0.8, Estimat Glomerular Filtration Rate > 60, Glucose Level 84, Calcium Level 7.8L, Total Bilirubin 1.1H, Direct Bilirubin 0.2, Aspartate Amino Transf (AST/SGOT) 23, Alanine Aminotransferase (ALT/SGPT) 30, Alkaline Phosphatase 71, Total Protein 6.1L, Albumin 2.3L, Globulin 3.8, Albumin/ Globulin Ratio 0.6L Height (Feet): 5 Height (Inches): 6.00 Weight (Pounds): 154 Ruthann Brasher MD May 06, 2020 21:11
--- NOTE | 2020-05-06 22:01 | General Progress Note ---
Assessment/Plan Status: progressing Assessment/Plan: Assessment - OBS - s/p Recent PEG placement - s/p dislodged GT --> replaced with 14 Fr catheter and verified Recommendations - GT site care - GT to be upsized once tract mature Subjective Allergies: Coded Allergies: CHLORHEXIDINE (Verified Allergy, Mild, 07/12/15) Subjective Above noted calm, NAD no bleeding from GT per RN Objective Last 24 Hour Vital Signs Date Time Temp Pulse Resp B/P (MAP) Pulse Ox O2 Delivery O2 Flow Rate FiO2 05/06/20 16:00 104 05/06/20 16:00 98.4 104 17 114/62 (79) 96 05/06/20 12:00 97.6 87 18 110/62 (78) 97 05/06/20 12:00 91 05/06/20 08:35 98.8 83 19 108/58 (75) 98 05/06/20 08:26 Room Air 05/06/20 08:00 90 05/06/20 04:00 97.5 100 22 104/62 (76) 95 05/06/20 04:00 82 05/06/20 00:00 97.3 74 20 109/59 (76) 94 05/06/20 00:00 96 Intake and Output 05/05/20 05/06/20 19:00 07:00 Intake Total 0 ml 430 ml Output Total 650 ml Balance 0 ml -220 ml Intake Oral 0 ml IV Total 430 ml Output Urine Total 650 ml # Bowel Movements 1 Laboratory Tests 05/06/20 09:30: White Blood Count 9.7, Red Blood Count 4.72, Hemoglobin 13.8, Hematocrit 43.6, Mean Corpuscular Volume 92, Mean Corpuscular Hemoglobin 29.3, Mean Corpuscular Hemoglobin Concent 31.7L, Red Cell Distribution Width 14.6, Platelet Count 230, Mean Platelet Volume 6.7, Neutrophils (%) (Auto) , Lymphocytes (%) (Auto) , Monocytes (%) (Auto) , Eosinophils (%) (Auto) , Basophils (%) (Auto) , Differential Total Cells Counted 100, Neutrophils % (Manual) 85H, Lymphocytes % (Manual) 8L, Monocytes % (Manual) 5, Eosinophils % (Manual) 2, Basophils % ( Manual) 0, Band Neutrophils 0, Platelet Estimate Adequate, Platelet Morphology Normal, Red Blood Cell Morphology Normal, Sodium Level 138, Potassium Level 4.5 , Chloride Level 103, Carbon Dioxide Level 27, Anion Gap 8, Blood Urea Nitrogen 17, Creatinine 0.8, Estimat Glomerular Filtration Rate > 60, Glucose Level 84, Calcium Level 7.8L, Total Bilirubin 1.1H, Direct Bilirubin 0.2, Aspartate Amino Transf (AST/SGOT) 23, Alanine Aminotransferase (ALT/SGPT) 30, Alkaline Phosphatase 71, Total Protein 6.1L, Albumin 2.3L, Globulin 3.8, Albumin/ Globulin Ratio 0.6L Height (Feet): 5 Height (Inches): 6.00 Weight (Pounds): 154 Objective Elderly woman NAD NCAT supple CTA RR abd soft (+) GT no edema Miguel Boyce MD May 06, 2020 22:01
--- NOTE | 2020-05-06 22:59 | Consultation ---
DATE OF CONSULTATION: 05/06/2020 INFECTIOUS DISEASE CONSULTATION CONSULTING PHYSICIAN: Francesco Howell MD. PRIMARY ATTENDING: Ruthann Brasher MD. REASON FOR CONSULTATION: Pyuria, UTI. HISTORY OF PRESENT ILLNESS: Patient is a 64-year-old white female admitted yesterday from a nursing facility after she took her G-tube out. According to primary physician also has altered mental status. Patient's G-tube was replaced in ER. Patient is not a source of history. PAST MEDICAL HISTORY: She has a history of CVA, right hemiplegia. Has history of GI bleeding, hypertension. Had admission to [facility] in 2019 with dislodgment of G-tube. Has constipation, seizure disorder. Seems to have left craniotomy. ALLERGIES: Allergic to chlorhexidine. MEDICATIONS: Getting sodium chloride. SOCIAL HISTORY: , residential resident. No other history obtainable by the patient. CODE STATUS: DNR. PHYSICAL EXAMINATION: VITAL SIGNS: Temperature 97.6, pulse 87, blood pressure 110/62. GENERAL APPEARANCE: No acute distress. Seems to be confused. HEAD AND NECK: Prospect conjunctivae. HEART: Normal rate. LUNGS: Clear. ABDOMEN: Soft. There is a tubing placed. EXTREMITIES: Has no edema. Has flexion contracture of right wrist. LABORATORY DATA: COVID-19 test was negative. UA showed wbc too numerous to count, rbc 10 to 15, nitrite negative, blood 2+. WBC 9.7, hemoglobin 13.8, hematocrit 43.6, platelets 230. Sodium 130, potassium 4.5, chloride 103, bicarb 27, BUN 17, creatinine 0.8, glucose 84. Albumin is 2.3. IMPRESSION: Pyuria. May have UTI. According to primary attending has some altered mental status. Has dislodgment of G-tube that was replaced. Has hypertension. Has CVA with aphasia and right hemiparesis, seizure disorder. RECOMMENDATION: May benefit from short-term antibiotic. Started on ceftriaxone. We will follow up the cultures. At the end of my exam, I thank Dr. Brasher for involving me in the care of this patient. Francesco Howell M.D. DR: BRANDON JOB#: [id number] CC:
[2020-05-06] MEDS ORDERED: Pantoprazole Inj IVP SCH (23:00)
[2020-05-07] VITALS (12 sets, daily range): BP systolic 66–127; BP diastolic 38–82
[2020-05-07] MEDS ORDERED: DiphenhydrAMINE 25mg/10ml Elixir GT PRN ×2 (00:50→07:00)
[2020-05-07] MEDS ORDERED: Acetaminophen 650mg/20.3ml GT PRN ×2 (03:30→04:17)
[2020-05-07] MEDS ORDERED: Milk of Magnesia 30ml Ud GT PRN (04:00)
[2020-05-07] MEDS ORDERED: Vancomycin 750mg/NS 275ml IVPB SCH ×2 (05:00)
[2020-05-07 07:17] LABS: HEMATOCRIT 43.3 % (37.0-47.0); HEMOGLOBIN 13.9 G/DL (12.0-16.0); MEAN CORPUSCULAR VOLUME 92 FL (80-99); PLATELET COUNT 202 K/UL (150-450); RED BLOOD COUNT 4.73 M/UL (4.20-5.40); RED CELL DISTRIBUTION WIDTH 14.5 % (11.6-14.8); WHITE BLOOD COUNT 19.9 K/UL (4.8-10.8)
[2020-05-07] MEDS ORDERED: Solu-MEDROL 125mg Inj IVP SCH (08:30)
[2020-05-07] MEDS: Lacosamide 50mg tablet ORAL SCH ×2 (08:36→22:15)
[2020-05-07] MEDS: Docusate 100mg cap ORAL SCH (08:37)
--- NOTE | 2020-05-07 08:46 | Consultation ---
Consult Note Consult Note I received a message from Dr. Choi evaluated this patient who was in telemetry and transfer to ICU for an allergic reaction. Patient nurse Nusrat. States that the patient had allergic reaction to vancomycin Currently the patient has a blood pressure of around 80 systolic. The patient is DNR/DNI. Patient originally admitted 2 days ago. Admitting diagnosis UTI and altered level of consciousness and also dislodged G-tube On examination the patient is nonverbal, tachycardic, blood pressure 70-80 systolic, Not in respiratory distress. Pulse ox 96%. . Assessment/Plan Hypotension: Likely due to Vancomycin allergy Labs indicative of normal renal parameters Suggestions: 1 dose of Solu-Medrol 125 mg IV IV bolus Albumin then Saline IV fluid No labs were drawn today. Will order stat chemistry panel CBC and electrolytes. Will clarify the extent of our treatment plan while the patient currently in ICU however is DNR and DNI !!!! Sid Boo MD May 07, 2020 08:46
[2020-05-07] MEDS ORDERED: Pantoprazole Inj IVP SCH (09:00)
--- NOTE | 2020-05-07 09:20 | Infectious Diseases Prog Note ---
Assessment/Plan Assessment/Plan IMPRESSION: SIRS Pyuria/ UTI. Positive blood culture Allergic drug reaction to Vancomycin Altered mental status. Dislodgment of G-tube that was replaced. Hypertension. Has CVA with aphasia and right hemiparesis, Seizure disorder. RECOMMENDATION: Continue ceftriaxone. Will f/u cultures Case was D/W microbiology Subjective ROS Limited/Unobtainable: Yes Constitutional: Reports: fever, other - Lt=238.4, transferred to ICU Skin: Reports: rash Allergies: Coded Allergies: CHLORHEXIDINE (Verified Allergy, Mild, 07/12/15) VANCOMYCIN (Verified Adverse Reaction, Severe, red man syndrome, pruritus , 05/07/20) Objective Last 24 Hour Vital Signs Date Time Temp Pulse Resp B/P (MAP) Pulse Ox O2 Delivery O2 Flow Rate FiO2 05/07/20 09:00 97.7 87 23 67/38 (48) 97 05/07/20 08:00 83 05/07/20 08:00 97.7 97 23 66/49 (55) 96 05/07/20 06:00 96.2 104 26 74/60 (65) 96 05/07/20 05:00 100.3 117 24 104/41 (62) 98 05/07/20 04:00 103.4 124 29 89/56 (67) 97 05/07/20 03:42 129 05/07/20 02:35 100.6 98/50 (66) 05/07/20 01:45 147 05/07/20 01:00 Room Air 05/07/20 00:00 99.1 126 28 109/54 (72) 100 05/07/20 00:00 126 05/06/20 21:00 Room Air 05/06/20 20:00 98.1 72 28 123/52 (75) 100 05/06/20 20:00 130 05/06/20 16:00 104 05/06/20 16:00 98.4 104 17 114/62 (79) 96 05/06/20 12:00 97.6 87 18 110/62 (78) 97 05/06/20 12:00 91 Height (Feet): 5 Height (Inches): 6.00 Weight (Pounds): 154 HEENT: mucous membranes moist, other - scar of Left craniotomy Respiratory/Chest: lungs clear Cardiovascular: normal rate Abdomen: soft, non tender Extremities: no edema, other - Contracted R hand Skin: rash Neurologic/Psychiatric: responsive, aphasia Microbiology Date/Time Source Procedure Growth Status 05/05/20 09:20 Blood Blood Culture - Preliminary Resulted 05/05/20 09:20 Blood Blood Culture - Preliminary NO GROWTH AFTER 24 HOURS Resulted 05/05/20 09:20 Nasopharynx SARS-CoV-2 RdRp Gene Assay - Final Complete 05/05/20 17:15 Rectum - Final NO CARBAPENEM-RESISTANT ENTEROBACTERI... Complete 05/05/20 09:20 Rectum VRE Culture - Final Enterococcus Faecalis - Vre Complete Laboratory Tests Test 05/06/20 09:30 05/07/20 05:50 White Blood Count 9.7 K/UL (4.8-10.8) 19.9 K/UL (4.8-10.8) #H Red Blood Count 4.72 M/UL (4.20-5.40) 4.73 M/UL (4.20-5.40) Hemoglobin 13.8 G/DL (12.0-16.0) 13.9 G/DL (12.0-16.0) Hematocrit 43.6 % (37.0-47.0) 43.3 % (37.0-47.0) Mean Corpuscular Volume 92 FL (80-99) 92 FL (80-99) Mean Corpuscular Hemoglobin 29.3 PG (27.0-31.0) 29.5 PG (27.0-31.0) Mean Corpuscular Hemoglobin Concent 31.7 G/DL (32.0-36.0) L 32.2 G/DL (32.0-36.0) Red Cell Distribution Width 14.6 % (11.6-14.8) 14.5 % (11.6-14.8) Platelet Count 230 K/UL (150-450) 202 K/UL (150-450) Mean Platelet Volume 6.7 FL (6.5-10.1) 6.8 FL (6.5-10.1) Neutrophils (%) (Auto) % (45.0-75.0) % (45.0-75.0) Lymphocytes (%) (Auto) % (20.0-45.0) % (20.0-45.0) Monocytes (%) (Auto) % (1.0-10.0) % (1.0-10.0) Eosinophils (%) (Auto) % (0.0-3.0) % (0.0-3.0) Basophils (%) (Auto) % (0.0-2.0) % (0.0-2.0) Differential Total Cells Counted 100 100 Neutrophils % (Manual) 85 % (45-75) H 94 % (45-75) H Lymphocytes % (Manual) 8 % (20-45) L 4 % (20-45) L Monocytes % (Manual) 5 % (1-10) 1 % (1-10) Eosinophils % (Manual) 2 % (0-3) 1 % (0-3) Basophils % (Manual) 0 % (0-2) 0 % (0-2) Band Neutrophils 0 % (0-8) 0 % (0-8) Platelet Estimate Adequate Adequate Platelet Morphology Normal Normal Red Blood Cell Morphology Normal Normal Sodium Level 138 MMOL/L (136-145) Potassium Level 4.5 MMOL/L (3.5-5.1) Chloride Level 103 MMOL/L (98-107) Carbon Dioxide Level 27 MMOL/L (21-32) Anion Gap 8 mmol/L (5-15) Blood Urea Nitrogen 17 mg/dL (7-18) Creatinine 0.8 MG/DL (0.55-1.30) Estimat Glomerular Filtration Rate > 60 mL/min (>60) Glucose Level 84 MG/DL (74-106) Calcium Level 7.8 MG/DL (8.5-10.1) L Total Bilirubin 1.1 MG/DL (0.2-1.0) H Direct Bilirubin 0.2 MG/DL (0.0-0.3) Aspartate Amino Transf (AST/SGOT) 23 U/L (15-37) Alanine Aminotransferase (ALT/SGPT) 30 U/L (12-78) Alkaline Phosphatase 71 U/L (46-116) Total Protein 6.1 G/DL (6.4-8.2) L Albumin 2.3 G/DL (3.4-5.0) L Globulin 3.8 g/dL Albumin/Globulin Ratio 0.6 (1.0-2.7) L Current Medications Medications (Trade) Dose Ordered Sig/Veronika Route PRN Reason Start Time Stop Time Status Last Admin Dose Admin Acetaminophen (Tylenol) 650 mg Q4H PRN GT Temp >100.5 05/07/20 04:17 06/06/20 04:16 Acetaminophen (Tylenol) 650 mg Q4H PRN ORAL MILD/TEMP 05/07/20 04:00 06/06/20 03:59 Albumin Human 500 ml @ 0 mls/hr Q0M IV 05/07/20 08:45 05/07/20 10:00 Ceftriaxone Sodium 1 gm/ Dextrose 55 ml @ 110 mls/hr Q24H IVPB 05/07/20 15:15 05/13/20 15:14 Dextrose/Sodium Chloride 1,000 ml @ 100 mls/hr Q10H IV 05/07/20 09:00 06/06/20 08:59 Diphenhydramine HCl (Benadryl) 25 mg Q6H PRN GT Itching/Pruritis 05/07/20 07:00 06/06/20 00:49 Docusate Sodium (Colace) 200 mg DAILY ORAL 05/07/20 09:00 06/06/20 08:59 05/07/20 08:37 Lacosamide (Vimpat) 50 mg Q12HR ORAL 05/07/20 09:00 08/05/20 08:59 05/07/20 08:36 Magnesium Hydroxide (Mom) 30 ml DAILY PRN GT Constipation 05/07/20 04:00 06/06/20 03:59 Methylprednisolone Sodium Succinate (Solu-MEDROL) 125 mg ONCE IVP 05/07/20 08:30 05/07/20 10:00 05/07/20 08:37 Pantoprazole (Protonix) 40 mg DAILY IVP 05/07/20 09:00 06/05/20 22:59 05/07/20 08:37 Francesco Howell MD May 07, 2020 09:20
[2020-05-07] MEDS: D5NS 1,000 ML IV SCH ×2 (10:00→12:22)
--- NOTE | 2020-05-07 10:31 | Diagnostic Imaging Report ---
EXAM: XRAY Abdomen 1v HISTORY: Abdominal pain COMPARISON: None. TECHNIQUE: Frontal view of the abdomen obtained. FINDINGS: There is a nonobstructed bowel gas pattern. There is a G-tube in place. The apparent button/bumper of the G-tube appears radiopaque. No definite pathologic calcifications identified. There is no sign of free air. Right hemidiaphragm is elevated with colonic interposition. IMPRESSION: APPARENT G-TUBE IN PLACE. NO ACUTE ABNORMALITY SEEN.
--- NOTE | 2020-05-07 10:32 | Diagnostic Imaging Report ---
Procedure: XRAY Chest 1v Reason for study: Shortness of breath. Comparison films: 05/05/2020. FINDINGS: Right hemidiaphragm is elevated. Vascularity is normal. The lung lin are clear bilaterally. Cardiac and mediastinal silhouette are within normal limits. CP angles are sharp. The bony thorax appear unremarkable. IMPRESSION: Elevated right hemidiaphragm. No acute alveolar process.
--- NOTE | 2020-05-07 10:42 | General Progress Note ---
Advance Care Planning Advance Care Planning Advance Care Planning Additional 30 minutes of non face to face time was spent in review of medical records, arrangement of care and discussion with consultants involved with care Date of Discussion: 05/07/20 A [id number] discussion with the patient regarding the patient's advanced care planning took place during this hospitalization on the above date. The discussion included the explanation and discussion of advance directives and associated forms/documents, as well as the patient's current code status. We also discussed at length the patient's medical conditions (both acute and chronic), general prognosis, treatment options, and goals of care. The following summarizes the discussion: Advance Care Planning/Goals of Care: - Will attempt to fill out an AD and/or POLST with the patient prior to discharge, if not already completed - Continue current evaluation and management of any acute and chronic medical issues - Will continue to support the patient/family - Will continue to discuss both short- and long-term goals of care DPOA-HC/Surrogate Decision Maker: None currently appointed : family Code Status: DNR Advanced Care Planning Forms/Documents Completed: Deferred until later encounter A total of 31 minutes was spent on this discussion, including counseling, answering questions, and completing, if any, pertinent advanced care planning forms/documents. Time of note may not reflect time of encounter. Leander Golden MD May 07, 2020 10:42
--- NOTE | 2020-05-07 10:44 | Consultation ---
Consult Note Consult Note DATE OF CONSULTATION: 05/07/2020 Pulmonary Consultation REFERRING PHYSICIAN: Ruthann Brasher M.D. REASON FOR CONSULTATION: Tachycardia and hypotension HISTORY OF PRESENT ILLNESS: The patient is a 64-year-old lady with history of advanced dementia, nonverbal, dysphagia, status post G-tube placement, who was brought to the emergency room after pulling out her G-tube. The patient also had dark blood coming from it. The patient was evaluated by Infectious Disease and GI for GI bleed. The patient started on Protonix. She was transferred to ICU for hypotension REVIEW OF SYSTEMS: Cannot be obtained. PAST MEDICAL HISTORY: As mentioned above. FAMILY HISTORY: Noncontributory. SOCIAL HISTORY: She is a snf resident. PHYSICAL EXAMINATION: VITAL SIGNS: Blood pressure 102/61, pulse is 95, respirations 18, and temperature 98. HEAD AND NECK: No JVD. LUNGS: Coarse rhonchi. CARDIOVASCULAR: Regular S1 and S2 with no gallop. ABDOMEN: Soft with G-tube. EXTREMITIES: No pitting edema. LABORATORY AND DIAGNOSTIC DATA: White count of 10.8, hemoglobin 13.2, hematocrit of 41, and platelet count is 262. Sodium 136, potassium 3.9, BUN of 18, creatinine of 0.7, and glucose 99. Troponin was negative. ASSESSMENT AND PLAN: 1. Tachycardia, sinus tach, due to probable GI bleed. 2. Possible GI bleed. Further evaluation by GI. 3. Dysphagia, status post PEG placement. 4. Dementia. 5. Urinary tract infection. The patient received ceftriaxone. 6. Hypotension; family refused pressors; Will transfer to med surg Comfort care Leander Duckworth M.D., MD May 07, 2020 10:44
--- NOTE | 2020-05-07 12:05 | General Progress Note ---
Assessment/Plan Status: progressing Assessment/Plan: Assessment - OBS - s/p Recent PEG placement - s/p dislodged GT --> replaced with 14 Fr catheter and verified Recommendations - GT site care - GT to be upsized once tract mature Subjective ROS Limited/Unobtainable: No Allergies: Coded Allergies: CHLORHEXIDINE (Verified Allergy, Mild, 07/12/15) VANCOMYCIN (Verified Adverse Reaction, Severe, red man syndrome, pruritus , 05/07/20) Objective Last 24 Hour Vital Signs Date Time Temp Pulse Resp B/P (MAP) Pulse Ox O2 Delivery O2 Flow Rate FiO2 05/07/20 11:00 93 27 99/50 (66) 97 05/07/20 10:00 90 26 96/53 (67) 97 05/07/20 09:00 97.7 87 23 67/38 (48) 97 05/07/20 08:00 83 05/07/20 08:00 97.7 97 23 66/49 (55) 96 05/07/20 06:00 96.2 104 26 74/60 (65) 96 05/07/20 05:00 100.3 117 24 104/41 (62) 98 05/07/20 04:00 103.4 124 29 89/56 (67) 97 05/07/20 03:42 129 05/07/20 02:35 100.6 98/50 (66) 05/07/20 01:45 147 05/07/20 01:00 Room Air 05/07/20 00:00 99.1 126 28 109/54 (72) 100 05/07/20 00:00 126 05/06/20 21:00 Room Air 05/06/20 20:00 98.1 72 28 123/52 (75) 100 05/06/20 20:00 130 05/06/20 16:00 104 05/06/20 16:00 98.4 104 17 114/62 (79) 96 05/06/20 12:00 97.6 87 18 110/62 (78) 97 05/06/20 12:00 91 Intake and Output 05/06/20 05/07/20 19:00 07:00 Intake Total 100 ml Output Total 500 ml 370 ml Balance -500 ml -270 ml IV Total 100 ml Output Urine Total 500 ml 370 ml Laboratory Tests 05/07/20 05:50: White Blood Count 19.9#H, Red Blood Count 4.73, Hemoglobin 13.9, Hematocrit 43.3 , Mean Corpuscular Volume 92, Mean Corpuscular Hemoglobin 29.5, Mean Corpuscular Hemoglobin Concent 32.2, Red Cell Distribution Width 14.5, Platelet Count 202, Mean Platelet Volume 6.8, Neutrophils (%) (Auto) , Lymphocytes (%) ( Auto) , Monocytes (%) (Auto) , Eosinophils (%) (Auto) , Basophils (%) (Auto) , Differential Total Cells Counted 100, Neutrophils % (Manual) 94H, Lymphocytes % (Manual) 4L, Monocytes % (Manual) 1, Eosinophils % (Manual) 1, Basophils % ( Manual) 0, Band Neutrophils 0, Platelet Estimate Adequate, Platelet Morphology Normal, Red Blood Cell Morphology Normal Height (Feet): 5 Height (Inches): 6.00 Weight (Pounds): 154 General Appearance: lethargic EENT: normal ENT inspection Neck: supple Cardiovascular: normal rate Respiratory/Chest: decreased breath sounds Abdomen: normal bowel sounds, non tender, soft Extremities: non-tender Natan Nowak MD May 07, 2020 12:05
[2020-05-07 14:16] LABS: HEMATOCRIT 40.3 % (37.0-47.0); HEMOGLOBIN 13.2 G/DL (12.0-16.0); MEAN CORPUSCULAR VOLUME 91 FL (80-99); PLATELET COUNT 196 K/UL (150-450); RED BLOOD COUNT 4.41 M/UL (4.20-5.40); RED CELL DISTRIBUTION WIDTH 14.1 % (11.6-14.8); WHITE BLOOD COUNT 21.7 K/UL (4.8-10.8)
[2020-05-07 14:25] LABS: CALCIUM 7.6 MG/DL (8.5-10.1); CREATININE 1.1 MG/DL (0.55-1.30); POTASSIUM 4.4 MMOL/L (3.5-5.1)
[2020-05-07 14:37] LABS: ALBUMIN/GLOBULIN RATIO 0.6 (1.0-2.7); BILIRUBIN,TOTAL 1.2 MG/DL (0.2-1.0); PHOSPHORUS 2.6 MG/DL (2.5-4.9)
[2020-05-07 14:38] LABS: BILIRUBIN,DIRECT 0.2 MG/DL (0.0-0.3)
--- NOTE | 2020-05-07 14:52 | Cardiac Electrophysiology PN ---
Assessment/Plan Assessment/Plan 1. Sinus tachycardia, due to GI bleed and sepsis. Echocardiogram pending 2. Hypotension. Better after iv fluid and Decadron and Benadryl Allergic drug reaction to Vancomycin 3. GI bleed. Further evaluation by GI. 4. Dysphagia, status post PEG placement. 5. Urinary tract infection. The patient received ceftriaxone. 6. DRI and DNI. 7. Dementia DW RN Subjective Subjective Blood Cx positive for GPC on iv Abx. Non verbal. PEG is clamped and is NPO on iv fluids. Developed hypotension after allergic reaction to Vanco and transferred to ICU but family made her DNR and DNI and now on non monitored bed. BP in 90s now Objective Last 24 Hour Vital Signs Date Time Temp Pulse Resp B/P (MAP) Pulse Ox O2 Delivery O2 Flow Rate FiO2 05/07/20 12:30 100.6 112 28 92/52 (65) 84 05/07/20 11:00 93 27 99/50 (66) 97 05/07/20 10:00 90 26 96/53 (67) 97 05/07/20 09:00 97.7 87 23 67/38 (48) 97 05/07/20 08:00 83 05/07/20 08:00 97.7 97 23 66/49 (55) 96 05/07/20 06:00 96.2 104 26 74/60 (65) 96 05/07/20 05:00 100.3 117 24 104/41 (62) 98 05/07/20 04:00 103.4 124 29 89/56 (67) 97 05/07/20 03:42 129 05/07/20 02:35 100.6 98/50 (66) 05/07/20 01:45 147 05/07/20 01:00 Room Air 05/07/20 00:00 99.1 126 28 109/54 (72) 100 05/07/20 00:00 126 05/06/20 21:00 Room Air 05/06/20 20:00 98.1 72 28 123/52 (75) 100 05/06/20 20:00 130 05/06/20 16:00 104 05/06/20 16:00 98.4 104 17 114/62 (79) 96 Intake and Output 05/06/20 05/07/20 19:00 07:00 Intake Total 100 ml Output Total 500 ml 370 ml Balance -500 ml -270 ml IV Total 100 ml Output Urine Total 500 ml 370 ml Laboratory Tests Test 05/07/20 05:50 05/07/20 14:00 White Blood Count 19.9 K/UL (4.8-10.8) #H 21.7 K/UL (4.8-10.8) H Red Blood Count 4.73 M/UL (4.20-5.40) 4.41 M/UL (4.20-5.40) Hemoglobin 13.9 G/DL (12.0-16.0) 13.2 G/DL (12.0-16.0) Hematocrit 43.3 % (37.0-47.0) 40.3 % (37.0-47.0) Mean Corpuscular Volume 92 FL (80-99) 91 FL (80-99) Mean Corpuscular Hemoglobin 29.5 PG (27.0-31.0) 30.0 PG (27.0-31.0) Mean Corpuscular Hemoglobin Concent 32.2 G/DL (32.0-36.0) 32.9 G/DL (32.0-36.0) Red Cell Distribution Width 14.5 % (11.6-14.8) 14.1 % (11.6-14.8) Platelet Count 202 K/UL (150-450) 196 K/UL (150-450) Mean Platelet Volume 6.8 FL (6.5-10.1) 7.2 FL (6.5-10.1) Neutrophils (%) (Auto) % (45.0-75.0) % (45.0-75.0) Lymphocytes (%) (Auto) % (20.0-45.0) % (20.0-45.0) Monocytes (%) (Auto) % (1.0-10.0) % (1.0-10.0) Eosinophils (%) (Auto) % (0.0-3.0) % (0.0-3.0) Basophils (%) (Auto) % (0.0-2.0) % (0.0-2.0) Differential Total Cells Counted 100 Neutrophils % (Manual) 94 % (45-75) H Pending Lymphocytes % (Manual) 4 % (20-45) L Pending Monocytes % (Manual) 1 % (1-10) Eosinophils % (Manual) 1 % (0-3) Basophils % (Manual) 0 % (0-2) Band Neutrophils 0 % (0-8) Platelet Estimate Adequate Pending Platelet Morphology Normal Pending Red Blood Cell Morphology Normal Sodium Level 132 MMOL/L (136-145) L Potassium Level 4.4 MMOL/L (3.5-5.1) Chloride Level 101 MMOL/L (98-107) Carbon Dioxide Level 19 MMOL/L (21-32) L Anion Gap 12 mmol/L (5-15) Blood Urea Nitrogen 18 mg/dL (7-18) Creatinine 1.1 MG/DL (0.55-1.30) Estimat Glomerular Filtration Rate 50.0 mL/min (>60) Glucose Level 118 MG/DL (74-106) H Uric Acid 5.2 MG/DL (2.6-7.2) Calcium Level 7.6 MG/DL (8.5-10.1) L Phosphorus Level 2.6 MG/DL (2.5-4.9) Magnesium Level 1.6 MG/DL (1.8-2.4) L Total Bilirubin 1.2 MG/DL (0.2-1.0) H Direct Bilirubin 0.2 MG/DL (0.0-0.3) Aspartate Amino Transf (AST/SGOT) 20 U/L (15-37) Alanine Aminotransferase (ALT/SGPT) 21 U/L (12-78) Alkaline Phosphatase 60 U/L (46-116) C-Reactive Protein, Quantitative 17.6 mg/dL (0.00-0.90) H Pro-B-Type Natriuretic Peptide 714 pg/mL (0-125) H Total Protein 5.6 G/DL (6.4-8.2) L Albumin 2.0 G/DL (3.4-5.0) L Globulin 3.6 g/dL Albumin/Globulin Ratio 0.6 (1.0-2.7) L Thyroid Stimulating Hormone (TSH) 0.337 uiU/mL (0.358-3.740) Microbiology Date/Time Source Procedure Growth Status 05/05/20 09:20 Blood Blood Culture - Preliminary Resulted 05/05/20 09:20 Blood Blood Culture - Preliminary NO GROWTH AFTER 24 HOURS Resulted 05/05/20 09:20 Nasal Nares MRSA Culture - Final Staphylococcus Aureus - Mrsa Complete 05/05/20 09:20 Nasopharynx SARS-CoV-2 RdRp Gene Assay - Final Complete 05/05/20 17:15 Rectum - Final NO CARBAPENEM-RESISTANT ENTEROBACTERI... Complete 05/05/20 09:20 Rectum VRE Culture - Final Enterococcus Faecalis - Vre Complete Objective HEAD AND NECK: No JVD. LUNGS: Coarse rhonchi. CARDIOVASCULAR: Regular S1 and S2 with no gallop. ABDOMEN: Soft with G-tube. EXTREMITIES: No pitting edema. Salas Reyez MD May 07, 2020 14:52
[2020-05-07] MEDS ORDERED: cefTRIAXone 1 GM in D5W 55 ML IVPB SCH (15:15)
--- NOTE | 2020-05-07 22:15 | General Progress Note ---
Assessment/Plan Problem List: (1) Sepsis ICD Codes: A41.9 - Sepsis, unspecified organism SNOMED: 99604969 (2) Dislodged gastrostomy tube ICD Codes: Z43.1 - Encounter for attention to gastrostomy SNOMED: 822075178 (3) GI bleed ICD Codes: K92.2 - Gastrointestinal hemorrhage, unspecified SNOMED: 51631382 Status: progressing Assessment/Plan: went to icu for hypoentive and then went back to floor since ángelwe wants comfort care afebrile no acute ends replaced peg dnr comfort care Subjective ROS Limited/Unobtainable: Yes Allergies: Coded Allergies: CHLORHEXIDINE (Verified Allergy, Mild, 07/12/15) VANCOMYCIN (Verified Adverse Reaction, Severe, red man syndrome, pruritus , 05/07/20) Objective Last 24 Hour Vital Signs Date Time Temp Pulse Resp B/P (MAP) Pulse Ox O2 Delivery O2 Flow Rate FiO2 05/07/20 16:00 97.7 105 20 94/55 (68) 93 05/07/20 15:16 97.7 05/07/20 12:30 100.6 112 28 92/52 (65) 84 05/07/20 11:00 93 27 99/50 (66) 97 05/07/20 10:00 90 26 96/53 (67) 97 05/07/20 09:00 97.7 87 23 67/38 (48) 97 05/07/20 08:00 83 05/07/20 08:00 97.7 97 23 66/49 (55) 96 05/07/20 06:00 96.2 104 26 74/60 (65) 96 05/07/20 05:00 100.3 117 24 104/41 (62) 98 05/07/20 04:00 103.4 124 29 89/56 (67) 97 05/07/20 03:42 129 05/07/20 02:35 100.6 98/50 (66) 05/07/20 01:45 147 05/07/20 01:00 Room Air 05/07/20 00:00 99.1 126 28 109/54 (72) 100 05/07/20 00:00 126 Intake and Output 05/06/20 05/07/20 19:00 07:00 Intake Total 100 ml Output Total 500 ml 370 ml Balance -500 ml -270 ml IV Total 100 ml Output Urine Total 500 ml 370 ml Laboratory Tests 05/07/20 05:50: White Blood Count 19.9#H, Red Blood Count 4.73, Hemoglobin 13.9, Hematocrit 43.3 , Mean Corpuscular Volume 92, Mean Corpuscular Hemoglobin 29.5, Mean Corpuscular Hemoglobin Concent 32.2, Red Cell Distribution Width 14.5, Platelet Count 202, Mean Platelet Volume 6.8, Neutrophils (%) (Auto) , Lymphocytes (%) ( Auto) , Monocytes (%) (Auto) , Eosinophils (%) (Auto) , Basophils (%) (Auto) , Differential Total Cells Counted 100, Neutrophils % (Manual) 94H, Lymphocytes % (Manual) 4L, Monocytes % (Manual) 1, Eosinophils % (Manual) 1, Basophils % ( Manual) 0, Band Neutrophils 0, Platelet Estimate Adequate, Platelet Morphology Normal, Red Blood Cell Morphology Normal 05/07/20 14:00: White Blood Count 21.7H, Red Blood Count 4.41, Hemoglobin 13.2, Hematocrit 40.3 , Mean Corpuscular Volume 91, Mean Corpuscular Hemoglobin 30.0, Mean Corpuscular Hemoglobin Concent 32.9, Red Cell Distribution Width 14.1, Platelet Count 196, Mean Platelet Volume 7.2, Neutrophils (%) (Auto) , Lymphocytes (%) ( Auto) , Monocytes (%) (Auto) , Eosinophils (%) (Auto) , Basophils (%) (Auto) , Differential Total Cells Counted 100, Neutrophils % (Manual) 90H, Lymphocytes % (Manual) 3L, Monocytes % (Manual) 6, Eosinophils % (Manual) 1, Basophils % ( Manual) 0, Band Neutrophils 0, Platelet Estimate Adequate, Platelet Morphology Normal, Red Blood Cell Morphology Normal, Sodium Level 132L, Potassium Level 4.4 , Chloride Level 101, Carbon Dioxide Level 19L, Anion Gap 12, Blood Urea Nitrogen 18, Creatinine 1.1, Estimat Glomerular Filtration Rate 50.0, Glucose Level 118H, Uric Acid 5.2, Calcium Level 7.6L, Phosphorus Level 2.6, Magnesium Level 1.6L, Total Bilirubin 1.2H, Direct Bilirubin 0.2, Aspartate Amino Transf ( AST/SGOT) 20, Alanine Aminotransferase (ALT/SGPT) 21, Alkaline Phosphatase 60, C -Reactive Protein, Quantitative 17.6H, Pro-B-Type Natriuretic Peptide 714H, Total Protein 5.6L, Albumin 2.0L, Globulin 3.6, Albumin/Globulin Ratio 0.6L, Thyroid Stimulating Hormone (TSH) 0.337L Height (Feet): 5 Height (Inches): 6.00 Weight (Pounds): 154 Ruthann Brasher MD May 07, 2020 22:15
[2020-05-08] VITALS: BP 101/68
[2020-05-08 04:00] VITALS: BP 99/54
[2020-05-08] MEDS: D5NS 1,000 ML IV SCH ×2 (05:00→09:39)
[2020-05-08 08:00] VITALS: BP 98/49
--- NOTE | 2020-05-08 08:49 | General Progress Note ---
Assessment/Plan Status: progressing Assessment/Plan: Assessment - OBS - s/p Recent PEG placement - s/p dislodged GT --> replaced with 14 Fr catheter and verified Recommendations - GT site care - GT to be upsized once tract mature -start GTF Subjective ROS Limited/Unobtainable: No Allergies: Coded Allergies: CHLORHEXIDINE (Verified Allergy, Mild, 07/12/15) VANCOMYCIN (Verified Adverse Reaction, Severe, red man syndrome, pruritus , 05/07/20) Objective Last 24 Hour Vital Signs Date Time Temp Pulse Resp B/P (MAP) Pulse Ox O2 Delivery O2 Flow Rate FiO2 05/08/20 04:00 100.0 109 20 99/54 (69) 05/08/20 00:00 96.8 110 20 101/68 (79) 05/07/20 21:00 Room Air 05/07/20 20:00 98.2 92 21 127/82 (97) 96 05/07/20 16:00 97.7 105 20 94/55 (68) 93 05/07/20 15:16 97.7 05/07/20 12:30 100.6 112 28 92/52 (65) 84 05/07/20 11:00 93 27 99/50 (66) 97 05/07/20 10:00 90 26 96/53 (67) 97 05/07/20 09:00 97.7 87 23 67/38 (48) 97 Intake and Output 05/07/20 05/08/20 19:00 07:00 Output Total 120 ml 50 ml Balance -120 ml -50 ml Output Urine Total 120 ml 50 ml Laboratory Tests 05/07/20 14:00: White Blood Count 21.7H, Red Blood Count 4.41, Hemoglobin 13.2, Hematocrit 40.3 , Mean Corpuscular Volume 91, Mean Corpuscular Hemoglobin 30.0, Mean Corpuscular Hemoglobin Concent 32.9, Red Cell Distribution Width 14.1, Platelet Count 196, Mean Platelet Volume 7.2, Neutrophils (%) (Auto) , Lymphocytes (%) ( Auto) , Monocytes (%) (Auto) , Eosinophils (%) (Auto) , Basophils (%) (Auto) , Differential Total Cells Counted 100, Neutrophils % (Manual) 90H, Lymphocytes % (Manual) 3L, Monocytes % (Manual) 6, Eosinophils % (Manual) 1, Basophils % ( Manual) 0, Band Neutrophils 0, Platelet Estimate Adequate, Platelet Morphology Normal, Red Blood Cell Morphology Normal, Sodium Level 132L, Potassium Level 4.4 , Chloride Level 101, Carbon Dioxide Level 19L, Anion Gap 12, Blood Urea Nitrogen 18, Creatinine 1.1, Estimat Glomerular Filtration Rate 50.0, Glucose Level 118H, Uric Acid 5.2, Calcium Level 7.6L, Phosphorus Level 2.6, Magnesium Level 1.6L, Total Bilirubin 1.2H, Direct Bilirubin 0.2, Aspartate Amino Transf ( AST/SGOT) 20, Alanine Aminotransferase (ALT/SGPT) 21, Alkaline Phosphatase 60, C -Reactive Protein, Quantitative 17.6H, Pro-B-Type Natriuretic Peptide 714H, Total Protein 5.6L, Albumin 2.0L, Globulin 3.6, Albumin/Globulin Ratio 0.6L, Thyroid Stimulating Hormone (TSH) 0.337L Height (Feet): 5 Height (Inches): 6.00 Weight (Pounds): 154 General Appearance: no apparent distress EENT: normal ENT inspection Neck: supple Cardiovascular: normal rate Respiratory/Chest: decreased breath sounds Abdomen: normal bowel sounds, non tender, soft Extremities: non-tender Natan Nowak MD May 08, 2020 08:49
[2020-05-08] MEDS ORDERED: Solu-MEDROL 125mg Inj IVP SCH (09:30)
--- NOTE | 2020-05-08 09:32 | Nephrology Progress Note ---
Assessment/Plan Problem List: (1) Hypotension (2) UTI (urinary tract infection) (3) Allergic reaction due to antibacterial drug (4) PEG (percutaneous endoscopic gastrostomy) status (5) DNR no code (do not resuscitate) Assessment Allergic reaction to vancomycin, episode of hypotension treated with Solu-Medrol UTI, sepsis Previous GI bleed PEG Dementia DNR/DNI Plan Discussed with RN IV site is swollen needs to be fixed Will decrease IV fluid to 50 cc an hour Another dose of Solu-Medrol [id number]-[id number] Benadryl through GT Continue to monitor electrolytes Patient remains DNR/DNI Subjective ROS Limited/Unobtainable: Yes Objective Objective Last 24 Hour Vital Signs Date Time Temp Pulse Resp B/P (MAP) Pulse Ox O2 Delivery O2 Flow Rate FiO2 05/08/20 08:00 99.1 78 19 98/49 (65) 91 05/08/20 04:00 100.0 109 20 99/54 (69) 05/08/20 00:00 96.8 110 20 101/68 (79) 05/07/20 21:00 Room Air 05/07/20 20:00 98.2 92 21 127/82 (97) 96 05/07/20 16:00 97.7 105 20 94/55 (68) 93 05/07/20 15:16 97.7 05/07/20 12:30 100.6 112 28 92/52 (65) 84 05/07/20 11:00 93 27 99/50 (66) 97 05/07/20 10:00 90 26 96/53 (67) 97 Intake and Output 05/07/20 05/08/20 19:00 07:00 Output Total 120 ml 50 ml Balance -120 ml -50 ml Output Urine Total 120 ml 50 ml Current Medications Medications (Trade) Dose Ordered Sig/Veronika Route PRN Reason Start Time Stop Time Status Last Admin Dose Admin Acetaminophen (Tylenol) 650 mg Q4H PRN GT Temp >100.5 05/07/20 04:17 06/06/20 04:16 05/07/20 14:46 Acetaminophen (Tylenol) 650 mg Q4H PRN ORAL MILD/TEMP 05/07/20 04:00 06/06/20 03:59 Ceftriaxone Sodium 1 gm/ Dextrose 55 ml @ 110 mls/hr Q24H IVPB 05/07/20 15:15 05/13/20 15:14 05/07/20 14:44 Dextrose/Sodium Chloride 1,000 ml @ 50 mls/hr Q20H IV 05/09/20 09:00 06/06/20 08:59 UNV Diphenhydramine HCl (Benadryl) 25 mg Q6H PRN GT Itching/Pruritis 05/07/20 07:00 06/06/20 00:49 Docusate Sodium (Colace) 200 mg DAILY ORAL 05/07/20 09:00 06/06/20 08:59 05/07/20 08:37 Lacosamide (Vimpat) 50 mg Q12HR ORAL 05/07/20 09:00 08/05/20 08:59 05/07/20 22:15 Magnesium Hydroxide (Mom) 30 ml DAILY PRN GT Constipation 05/07/20 04:00 06/06/20 03:59 Pantoprazole (Protonix) 40 mg Q12HR IVP 05/08/20 21:00 06/05/20 22:59 UNV Laboratory Tests 05/07/20 14:00: White Blood Count 21.7H, Red Blood Count 4.41, Hemoglobin 13.2, Hematocrit 40.3 , Mean Corpuscular Volume 91, Mean Corpuscular Hemoglobin 30.0, Mean Corpuscular Hemoglobin Concent 32.9, Red Cell Distribution Width 14.1, Platelet Count 196, Mean Platelet Volume 7.2, Neutrophils (%) (Auto) , Lymphocytes (%) ( Auto) , Monocytes (%) (Auto) , Eosinophils (%) (Auto) , Basophils (%) (Auto) , Differential Total Cells Counted 100, Neutrophils % (Manual) 90H, Lymphocytes % (Manual) 3L, Monocytes % (Manual) 6, Eosinophils % (Manual) 1, Basophils % ( Manual) 0, Band Neutrophils 0, Platelet Estimate Adequate, Platelet Morphology Normal, Red Blood Cell Morphology Normal, Sodium Level 132L, Potassium Level 4.4 , Chloride Level 101, Carbon Dioxide Level 19L, Anion Gap 12, Blood Urea Nitrogen 18, Creatinine 1.1, Estimat Glomerular Filtration Rate 50.0, Glucose Level 118H, Uric Acid 5.2, Calcium Level 7.6L, Phosphorus Level 2.6, Magnesium Level 1.6L, Total Bilirubin 1.2H, Direct Bilirubin 0.2, Aspartate Amino Transf ( AST/SGOT) 20, Alanine Aminotransferase (ALT/SGPT) 21, Alkaline Phosphatase 60, C -Reactive Protein, Quantitative 17.6H, Pro-B-Type Natriuretic Peptide 714H, Total Protein 5.6L, Albumin 2.0L, Globulin 3.6, Albumin/Globulin Ratio 0.6L, Thyroid Stimulating Hormone (TSH) 0.337L Height (Feet): 5 Height (Inches): 6.00 Weight (Pounds): 154 General Appearance: mild distress, other - Allergic skin reaction over the thighs and lower abdomen Abdomen: other - GT in place Sid Boo MD May 08, 2020 09:32
[2020-05-08] MEDS: Docusate 100mg cap ORAL SCH (09:38)
[2020-05-08] MEDS: DiphenhydrAMINE 25mg/10ml Elixir GT SCH ×3 (09:38→21:05)
[2020-05-08] MEDS: Lacosamide 50mg tablet ORAL SCH ×2 (09:38→21:05)
--- NOTE | 2020-05-08 10:13 | Cardiac Electrophysiology PN ---
Assessment/Plan Assessment/Plan 1. Sinus tachycardia due to GI bleed and sepsis. Echocardiogram pending 2. Hypotension. Better after iv fluid and Decadron and Benadryl Allergic drug reaction to Vancomycin 3. GI bleed. Further evaluation by GI. 4. Dysphagia, status post PEG placement. 5. Urinary tract infection. The patient received ceftriaxone. 6. DRI and DNI. 7. Dementia DW RN Subjective Subjective Blood Cx positive for GPC on iv Abx. Non verbal. PEG is clamped and is NPO on iv fluids. Developed hypotension after allergic reaction to Vanco and transferred to ICU but family made her DNR and DNI Confused in restraints Objective Last 24 Hour Vital Signs Date Time Temp Pulse Resp B/P (MAP) Pulse Ox O2 Delivery O2 Flow Rate FiO2 05/08/20 08:00 99.1 78 19 98/49 (65) 91 05/08/20 04:00 100.0 109 20 99/54 (69) 05/08/20 00:00 96.8 110 20 101/68 (79) 05/07/20 21:00 Room Air 05/07/20 20:00 98.2 92 21 127/82 (97) 96 05/07/20 16:00 97.7 105 20 94/55 (68) 93 05/07/20 15:16 97.7 05/07/20 12:30 100.6 112 28 92/52 (65) 84 05/07/20 11:00 93 27 99/50 (66) 97 Intake and Output 05/07/20 05/08/20 19:00 07:00 Output Total 120 ml 50 ml Balance -120 ml -50 ml Output Urine Total 120 ml 50 ml Laboratory Tests Test 05/07/20 14:00 White Blood Count 21.7 K/UL (4.8-10.8) H Red Blood Count 4.41 M/UL (4.20-5.40) Hemoglobin 13.2 G/DL (12.0-16.0) Hematocrit 40.3 % (37.0-47.0) Mean Corpuscular Volume 91 FL (80-99) Mean Corpuscular Hemoglobin 30.0 PG (27.0-31.0) Mean Corpuscular Hemoglobin Concent 32.9 G/DL (32.0-36.0) Red Cell Distribution Width 14.1 % (11.6-14.8) Platelet Count 196 K/UL (150-450) Mean Platelet Volume 7.2 FL (6.5-10.1) Neutrophils (%) (Auto) % (45.0-75.0) Lymphocytes (%) (Auto) % (20.0-45.0) Monocytes (%) (Auto) % (1.0-10.0) Eosinophils (%) (Auto) % (0.0-3.0) Basophils (%) (Auto) % (0.0-2.0) Differential Total Cells Counted 100 Neutrophils % (Manual) 90 % (45-75) H Lymphocytes % (Manual) 3 % (20-45) L Monocytes % (Manual) 6 % (1-10) Eosinophils % (Manual) 1 % (0-3) Basophils % (Manual) 0 % (0-2) Band Neutrophils 0 % (0-8) Platelet Estimate Adequate Platelet Morphology Normal Red Blood Cell Morphology Normal Sodium Level 132 MMOL/L (136-145) L Potassium Level 4.4 MMOL/L (3.5-5.1) Chloride Level 101 MMOL/L (98-107) Carbon Dioxide Level 19 MMOL/L (21-32) L Anion Gap 12 mmol/L (5-15) Blood Urea Nitrogen 18 mg/dL (7-18) Creatinine 1.1 MG/DL (0.55-1.30) Estimat Glomerular Filtration Rate 50.0 mL/min (>60) Glucose Level 118 MG/DL (74-106) H Uric Acid 5.2 MG/DL (2.6-7.2) Calcium Level 7.6 MG/DL (8.5-10.1) L Phosphorus Level 2.6 MG/DL (2.5-4.9) Magnesium Level 1.6 MG/DL (1.8-2.4) L Total Bilirubin 1.2 MG/DL (0.2-1.0) H Direct Bilirubin 0.2 MG/DL (0.0-0.3) Aspartate Amino Transf (AST/SGOT) 20 U/L (15-37) Alanine Aminotransferase (ALT/SGPT) 21 U/L (12-78) Alkaline Phosphatase 60 U/L (46-116) C-Reactive Protein, Quantitative 17.6 mg/dL (0.00-0.90) H Pro-B-Type Natriuretic Peptide 714 pg/mL (0-125) H Total Protein 5.6 G/DL (6.4-8.2) L Albumin 2.0 G/DL (3.4-5.0) L Globulin 3.6 g/dL Albumin/Globulin Ratio 0.6 (1.0-2.7) L Thyroid Stimulating Hormone (TSH) 0.337 uiU/mL (0.358-3.740) Microbiology Date/Time Source Procedure Growth Status 05/05/20 17:15 Rectum - Final NO CARBAPENEM-RESISTANT ENTEROBACTERI... Complete Objective HEAD AND NECK: No JVD. LUNGS: Coarse rhonchi. CARDIOVASCULAR: Regular S1 and S2 with no gallop. ABDOMEN: Soft with G-tube. EXTREMITIES: No pitting edema. Salas Reyez MD May 08, 2020 10:13
--- NOTE | 2020-05-08 10:21 | Pulmonology Progress Note ---
Subjective ROS Limited/Unobtainable: Yes Interval Events: None new HEENT: Repors: no symptoms Respiratory: Reports: no symptoms Cardiovascular: Reports: no symptoms Gastrointestinal/Abdominal: Reports: no symptoms Skin: Reports: rash Allergies: Coded Allergies: CHLORHEXIDINE (Verified Allergy, Mild, 07/12/15) VANCOMYCIN (Verified Adverse Reaction, Severe, red man syndrome, pruritus , 05/07/20) Objective Last 24 Hour Vital Signs Date Time Temp Pulse Resp B/P (MAP) Pulse Ox O2 Delivery O2 Flow Rate FiO2 05/08/20 09:00 Room Air 05/08/20 08:00 99.1 78 19 98/49 (65) 91 05/08/20 04:00 100.0 109 20 99/54 (69) 05/08/20 00:00 96.8 110 20 101/68 (79) 05/07/20 21:00 Room Air 05/07/20 20:00 98.2 92 21 127/82 (97) 96 05/07/20 16:00 97.7 105 20 94/55 (68) 93 05/07/20 15:16 97.7 05/07/20 12:30 100.6 112 28 92/52 (65) 84 05/07/20 11:00 93 27 99/50 (66) 97 Intake and Output 05/07/20 05/08/20 19:00 07:00 Output Total 120 ml 50 ml Balance -120 ml -50 ml Output Urine Total 120 ml 50 ml General Appearance: no acute distress HEENT: normocephalic Respiratory: chest wall non-tender Cardiovascular: normal peripheral pulses Abdomen: normal bowel sounds Microbiology Date/Time Source Procedure Growth Status 05/05/20 17:15 Rectum - Final NO CARBAPENEM-RESISTANT ENTEROBACTERI... Complete Laboratory Tests 05/07/20 14:00: White Blood Count 21.7H, Red Blood Count 4.41, Hemoglobin 13.2, Hematocrit 40.3 , Mean Corpuscular Volume 91, Mean Corpuscular Hemoglobin 30.0, Mean Corpuscular Hemoglobin Concent 32.9, Red Cell Distribution Width 14.1, Platelet Count 196, Mean Platelet Volume 7.2, Neutrophils (%) (Auto) , Lymphocytes (%) ( Auto) , Monocytes (%) (Auto) , Eosinophils (%) (Auto) , Basophils (%) (Auto) , Differential Total Cells Counted 100, Neutrophils % (Manual) 90H, Lymphocytes % (Manual) 3L, Monocytes % (Manual) 6, Eosinophils % (Manual) 1, Basophils % ( Manual) 0, Band Neutrophils 0, Platelet Estimate Adequate, Platelet Morphology Normal, Red Blood Cell Morphology Normal, Sodium Level 132L, Potassium Level 4.4 , Chloride Level 101, Carbon Dioxide Level 19L, Anion Gap 12, Blood Urea Nitrogen 18, Creatinine 1.1, Estimat Glomerular Filtration Rate 50.0, Glucose Level 118H, Uric Acid 5.2, Calcium Level 7.6L, Phosphorus Level 2.6, Magnesium Level 1.6L, Total Bilirubin 1.2H, Direct Bilirubin 0.2, Aspartate Amino Transf ( AST/SGOT) 20, Alanine Aminotransferase (ALT/SGPT) 21, Alkaline Phosphatase 60, C -Reactive Protein, Quantitative 17.6H, Pro-B-Type Natriuretic Peptide 714H, Total Protein 5.6L, Albumin 2.0L, Globulin 3.6, Albumin/Globulin Ratio 0.6L, Thyroid Stimulating Hormone (TSH) 0.337L Current Medications Medications (Trade) Dose Ordered Sig/Veronika Route PRN Reason Start Time Stop Time Status Last Admin Dose Admin Acetaminophen (Tylenol) 650 mg Q4H PRN GT Temp >100.5 05/07/20 04:17 06/06/20 04:16 05/07/20 14:46 Acetaminophen (Tylenol) 650 mg Q4H PRN ORAL MILD/TEMP 05/07/20 04:00 06/06/20 03:59 Ceftriaxone Sodium 1 gm/ Dextrose 55 ml @ 110 mls/hr Q24H IVPB 05/07/20 15:15 05/13/20 15:14 05/07/20 14:44 Dextrose/Sodium Chloride 1,000 ml @ 50 mls/hr Q20H IV 05/08/20 09:30 06/07/20 09:29 05/08/20 09:39 Diphenhydramine HCl (Benadryl) 25 mg Q6H GT 05/08/20 10:00 06/07/20 09:59 05/08/20 09:38 Diphenhydramine HCl (Benadryl) 25 mg Q6H PRN GT Itching/Pruritis 05/07/20 07:00 06/06/20 00:49 Docusate Sodium (Colace) 200 mg DAILY ORAL 05/07/20 09:00 06/06/20 08:59 05/08/20 09:38 Lacosamide (Vimpat) 50 mg Q12HR ORAL 05/07/20 09:00 08/05/20 08:59 05/08/20 09:38 Magnesium Hydroxide (Mom) 30 ml DAILY PRN GT Constipation 05/07/20 04:00 06/06/20 03:59 Methylprednisolone Sodium Succinate (Solu-MEDROL) 125 mg ONCE IVP 05/08/20 09:30 05/08/20 12:00 05/08/20 09:38 Pantoprazole (Protonix) 40 mg Q12HR IVP 05/08/20 21:00 06/05/20 22:59 Assessment/Plan Assessment/Plan ASSESSMENT AND PLAN: 1. Tachycardia, sinus tach, due to probable GI bleed. 2. Possible GI bleed. Further evaluation by GI. 3. Dysphagia, status post PEG placement. 4. Dementia. 5. Urinary tract infection. The patient received ceftriaxone. 6. Hypotension; family refused pressors; Now in med surg Comfort care She is running low garde temp BP and SaO2 low Leander Duckworth M.D., MD May 08, 2020 10:21
--- NOTE | 2020-05-08 11:08 | Infectious Diseases Prog Note ---
Assessment/Plan Assessment/Plan IMPRESSION: SIRS Proteus UTI. Positive blood culture, likely contamination Allergic drug reaction to Vancomycin Altered mental status. Dislodgment of G-tube that was replaced. Hypertension. Has CVA with aphasia and right hemiparesis, Seizure disorder. RECOMMENDATION: Change ceftriaxone to Meropenem Subjective ROS Limited/Unobtainable: Yes Constitutional: Reports: fever, other - T=100 Neurologic: Reports: confusion, other - on restraint Allergies: Coded Allergies: CHLORHEXIDINE (Verified Allergy, Mild, 07/12/15) VANCOMYCIN (Verified Adverse Reaction, Severe, red man syndrome, pruritus , 05/07/20) Objective Last 24 Hour Vital Signs Date Time Temp Pulse Resp B/P (MAP) Pulse Ox O2 Delivery O2 Flow Rate FiO2 05/08/20 09:00 Room Air 05/08/20 08:00 99.1 78 19 98/49 (65) 91 05/08/20 04:00 100.0 109 20 99/54 (69) 05/08/20 00:00 96.8 110 20 101/68 (79) 05/07/20 21:00 Room Air 05/07/20 20:00 98.2 92 21 127/82 (97) 96 05/07/20 16:00 97.7 105 20 94/55 (68) 93 05/07/20 15:16 97.7 05/07/20 12:30 100.6 112 28 92/52 (65) 84 Height (Feet): 5 Height (Inches): 6.00 Weight (Pounds): 154 General Appearance: no acute distress Respiratory/Chest: lungs clear Cardiovascular: normal rate Abdomen: soft, non tender, other - GT feeding Extremities: no edema Skin: other - decreasing rash Neurologic/Psychiatric: alert, responsive, aphasia Microbiology Date/Time Source Procedure Growth Status 05/05/20 17:15 Rectum - Final NO CARBAPENEM-RESISTANT ENTEROBACTERI... Complete Laboratory Tests Test 05/07/20 14:00 White Blood Count 21.7 K/UL (4.8-10.8) H Red Blood Count 4.41 M/UL (4.20-5.40) Hemoglobin 13.2 G/DL (12.0-16.0) Hematocrit 40.3 % (37.0-47.0) Mean Corpuscular Volume 91 FL (80-99) Mean Corpuscular Hemoglobin 30.0 PG (27.0-31.0) Mean Corpuscular Hemoglobin Concent 32.9 G/DL (32.0-36.0) Red Cell Distribution Width 14.1 % (11.6-14.8) Platelet Count 196 K/UL (150-450) Mean Platelet Volume 7.2 FL (6.5-10.1) Neutrophils (%) (Auto) % (45.0-75.0) Lymphocytes (%) (Auto) % (20.0-45.0) Monocytes (%) (Auto) % (1.0-10.0) Eosinophils (%) (Auto) % (0.0-3.0) Basophils (%) (Auto) % (0.0-2.0) Differential Total Cells Counted 100 Neutrophils % (Manual) 90 % (45-75) H Lymphocytes % (Manual) 3 % (20-45) L Monocytes % (Manual) 6 % (1-10) Eosinophils % (Manual) 1 % (0-3) Basophils % (Manual) 0 % (0-2) Band Neutrophils 0 % (0-8) Platelet Estimate Adequate Platelet Morphology Normal Red Blood Cell Morphology Normal Sodium Level 132 MMOL/L (136-145) L Potassium Level 4.4 MMOL/L (3.5-5.1) Chloride Level 101 MMOL/L (98-107) Carbon Dioxide Level 19 MMOL/L (21-32) L Anion Gap 12 mmol/L (5-15) Blood Urea Nitrogen 18 mg/dL (7-18) Creatinine 1.1 MG/DL (0.55-1.30) Estimat Glomerular Filtration Rate 50.0 mL/min (>60) Glucose Level 118 MG/DL (74-106) H Uric Acid 5.2 MG/DL (2.6-7.2) Calcium Level 7.6 MG/DL (8.5-10.1) L Phosphorus Level 2.6 MG/DL (2.5-4.9) Magnesium Level 1.6 MG/DL (1.8-2.4) L Total Bilirubin 1.2 MG/DL (0.2-1.0) H Direct Bilirubin 0.2 MG/DL (0.0-0.3) Aspartate Amino Transf (AST/SGOT) 20 U/L (15-37) Alanine Aminotransferase (ALT/SGPT) 21 U/L (12-78) Alkaline Phosphatase 60 U/L (46-116) C-Reactive Protein, Quantitative 17.6 mg/dL (0.00-0.90) H Pro-B-Type Natriuretic Peptide 714 pg/mL (0-125) H Total Protein 5.6 G/DL (6.4-8.2) L Albumin 2.0 G/DL (3.4-5.0) L Globulin 3.6 g/dL Albumin/Globulin Ratio 0.6 (1.0-2.7) L Thyroid Stimulating Hormone (TSH) 0.337 uiU/mL (0.358-3.740) Current Medications Medications (Trade) Dose Ordered Sig/Veronika Route PRN Reason Start Time Stop Time Status Last Admin Dose Admin Acetaminophen (Tylenol) 650 mg Q4H PRN GT Temp >100.5 05/07/20 04:17 06/06/20 04:16 05/07/20 14:46 Acetaminophen (Tylenol) 650 mg Q4H PRN ORAL MILD/TEMP 05/07/20 04:00 06/06/20 03:59 Ceftriaxone Sodium 1 gm/ Dextrose 55 ml @ 110 mls/hr Q24H IVPB 05/07/20 15:15 05/13/20 15:14 05/07/20 14:44 Dextrose/Sodium Chloride 1,000 ml @ 50 mls/hr Q20H IV 05/08/20 09:30 06/07/20 09:29 05/08/20 09:39 Diphenhydramine HCl (Benadryl) 25 mg Q6H GT 05/08/20 10:00 06/07/20 09:59 05/08/20 09:38 Diphenhydramine HCl (Benadryl) 25 mg Q6H PRN GT Itching/Pruritis 05/07/20 07:00 06/06/20 00:49 Docusate Sodium (Colace) 200 mg DAILY ORAL 05/07/20 09:00 06/06/20 08:59 05/08/20 09:38 Lacosamide (Vimpat) 50 mg Q12HR ORAL 05/07/20 09:00 08/05/20 08:59 05/08/20 09:38 Magnesium Hydroxide (Mom) 30 ml DAILY PRN GT Constipation 05/07/20 04:00 06/06/20 03:59 Methylprednisolone Sodium Succinate (Solu-MEDROL) 125 mg ONCE IVP 05/08/20 09:30 05/08/20 12:00 05/08/20 09:38 Pantoprazole (Protonix) 40 mg Q12HR IVP 05/08/20 21:00 06/05/20 22:59 Francesco Howell MD May 08, 2020 11:08
[2020-05-08 12:00] VITALS: BP 112/62
[2020-05-08] MEDS: Meropenem 500 MG in NS 55 ML IVPB SCH ×2 (14:53→21:06)
[2020-05-08] MEDS ORDERED: D5NS 1000ml IV ONE (15:33)
[2020-05-08 16:00] VITALS: BP 147/64
[2020-05-08 20:00] VITALS: BP 103/54
[2020-05-08] MEDS: Pantoprazole Inj IVP SCH (21:13)
--- NOTE | 2020-05-08 21:26 | General Progress Note ---
Assessment/Plan Problem List: (1) Sepsis ICD Codes: A41.9 - Sepsis, unspecified organism SNOMED: 21251368 (2) Dislodged gastrostomy tube ICD Codes: Z43.1 - Encounter for attention to gastrostomy SNOMED: 494515459 (3) GI bleed ICD Codes: K92.2 - Gastrointestinal hemorrhage, unspecified SNOMED: 65004185 Status: progressing Assessment/Plan: replaced peg dc to snf per dpoa she wants comfort care nonverbal dnr comfort care Subjective ROS Limited/Unobtainable: Yes Allergies: Coded Allergies: CHLORHEXIDINE (Verified Allergy, Mild, 07/12/15) VANCOMYCIN (Verified Adverse Reaction, Severe, red man syndrome, pruritus , 05/07/20) Objective Last 24 Hour Vital Signs Date Time Temp Pulse Resp B/P (MAP) Pulse Ox O2 Delivery O2 Flow Rate FiO2 05/08/20 20:00 97.8 102 26 103/54 (70) 95 05/08/20 16:00 98.2 113 20 147/64 (91) 95 05/08/20 12:00 98.2 78 18 112/62 (79) 100 05/08/20 09:00 Room Air 05/08/20 08:00 99.1 78 19 98/49 (65) 91 05/08/20 04:00 100.0 109 20 99/54 (69) 05/08/20 00:00 96.8 110 20 101/68 (79) Intake and Output 05/07/20 05/08/20 19:00 07:00 Output Total 120 ml 50 ml Balance -120 ml -50 ml Output Urine Total 120 ml 50 ml Height (Feet): 5 Height (Inches): 6.00 Weight (Pounds): 154 Ruthann Brasher MD May 08, 2020 21:26
[2020-05-09] VITALS: BP 129/57
[2020-05-09 04:00] VITALS: BP 117/56
[2020-05-09] MEDS: DiphenhydrAMINE 25mg/10ml Elixir GT SCH ×3 (05:00→16:51)
[2020-05-09] MEDS: D5NS 1,000 ML IV SCH (05:08)
[2020-05-09] MEDS: Meropenem 500 MG in NS 55 ML IVPB SCH ×2 (05:11→13:12)
[2020-05-09 08:00] VITALS: BP 92/50
--- NOTE | 2020-05-09 08:25 | General Progress Note ---
Assessment/Plan Status: progressing Assessment/Plan: Assessment - OBS - s/p Recent PEG placement - s/p dislodged GT --> replaced with 14 Fr catheter and verified Recommendations - GT site care - GT to be upsized once tract mature -GTF Subjective ROS Limited/Unobtainable: No Allergies: Coded Allergies: CHLORHEXIDINE (Verified Allergy, Mild, 07/12/15) VANCOMYCIN (Verified Adverse Reaction, Severe, red man syndrome, pruritus, 05/07/20) Objective Last 24 Hour Vital Signs Date Time Temp Pulse Resp B/P (MAP) Pulse Ox O2 Delivery O2 Flow Rate FiO2 05/09/20 04:00 97.2 78 20 117/56 (76) 95 05/09/20 00:00 97.7 108 26 129/57 (81) 93 05/08/20 21:00 Room Air 05/08/20 20:00 97.8 102 26 103/54 (70) 95 05/08/20 16:00 98.2 113 20 147/64 (91) 95 05/08/20 12:00 98.2 78 18 112/62 (79) 100 05/08/20 09:00 Room Air Intake and Output 05/08/20 05/09/20 19:00 07:00 Output Total 300 ml Balance -300 ml Output Urine Total 300 ml Height (Feet): 5 Height (Inches): 6.00 Weight (Pounds): 154 General Appearance: no apparent distress EENT: normal ENT inspection Neck: supple Cardiovascular: normal rate Respiratory/Chest: decreased breath sounds Abdomen: normal bowel sounds, non tender, soft Extremities: non-tender Natan Nowak MD May 09, 2020 08:25
[2020-05-09] MEDS: Docusate 100mg cap ORAL SCH (09:36)
[2020-05-09] MEDS: Lacosamide 50mg tablet ORAL SCH (09:36)
[2020-05-09] MEDS: Pantoprazole Inj IVP SCH (09:36)
--- NOTE | 2020-05-09 10:22 | Pulmonology Progress Note ---
Subjective ROS Limited/Unobtainable: No Interval Events: None new Constitutional: Reports: fever, other - T=100 HEENT: Repors: no symptoms Respiratory: Reports: no symptoms Cardiovascular: Reports: no symptoms Gastrointestinal/Abdominal: Reports: no symptoms Skin: Reports: rash Allergies: Coded Allergies: CHLORHEXIDINE (Verified Allergy, Mild, 07/12/15) VANCOMYCIN (Verified Adverse Reaction, Severe, red man syndrome, pruritus, 05/07/20) Objective Last 24 Hour Vital Signs Date Time Temp Pulse Resp B/P (MAP) Pulse Ox O2 Delivery O2 Flow Rate FiO2 05/09/20 08:00 97.2 71 19 92/50 (64) 94 05/09/20 04:00 97.2 78 20 117/56 (76) 95 05/09/20 00:00 97.7 108 26 129/57 (81) 93 05/08/20 21:00 Room Air 05/08/20 20:00 97.8 102 26 103/54 (70) 95 05/08/20 16:00 98.2 113 20 147/64 (91) 95 05/08/20 12:00 98.2 78 18 112/62 (79) 100 Intake and Output 05/08/20 05/09/20 19:00 07:00 Output Total 300 ml Balance -300 ml Output Urine Total 300 ml General Appearance: no acute distress HEENT: normocephalic Respiratory: chest wall non-tender Cardiovascular: normal peripheral pulses Abdomen: normal bowel sounds Current Medications Medications (Trade) Dose Ordered Sig/Veronika Route PRN Reason Start Time Stop Time Status Last Admin Dose Admin Acetaminophen (Tylenol) 650 mg Q4H PRN GT Temp >100.5 05/07/20 04:17 06/06/20 04:16 05/07/20 14:46 Acetaminophen (Tylenol) 650 mg Q4H PRN ORAL MILD/TEMP 05/07/20 04:00 06/06/20 03:59 Dextrose/Sodium Chloride 1,000 ml @ 50 mls/hr Q20H IV 05/08/20 09:30 06/07/20 09:29 05/09/20 05:08 Diphenhydramine HCl (Benadryl) 25 mg Q6H GT 05/08/20 10:00 06/07/20 09:59 05/09/20 05:00 Diphenhydramine HCl (Benadryl) 25 mg Q6H PRN GT Itching/Pruritis 05/07/20 07:00 06/06/20 00:49 Docusate Sodium (Colace) 200 mg DAILY ORAL 05/07/20 09:00 06/06/20 08:59 05/09/20 09:36 Lacosamide (Vimpat) 50 mg Q12HR ORAL 05/07/20 09:00 08/05/20 08:59 05/09/20 09:36 Magnesium Hydroxide (Mom) 30 ml DAILY PRN GT Constipation 05/07/20 04:00 06/06/20 03:59 Meropenem 500 mg/ Sodium Chloride 55 ml @ 110 mls/hr EVERY 8 HOURS IVPB 05/08/20 14:00 05/13/20 13:59 05/09/20 05:11 Pantoprazole (Protonix) 40 mg Q12HR IVP 05/08/20 21:00 06/05/20 22:59 05/09/20 09:36 Assessment/Plan Assessment/Plan ASSESSMENT AND PLAN: 1. Tachycardia, sinus tach, due to probable GI bleed. 2. Possible GI bleed. Further evaluation by GI. 3. Dysphagia, status post PEG placement. 4. Dementia. 5. Urinary tract infection. The patient received ceftriaxone. 6. Hypotension; family refused pressors; Now in med surg Comfort care She is running low garde temp BP and SaO2 low Leander Duckworth M.D., MD May 09, 2020 10:22
--- NOTE | 2020-05-09 10:27 | Nephrology Progress Note ---
Assessment/Plan Problem List: (1) Hypotension (2) UTI (urinary tract infection) (3) Allergic reaction due to antibacterial drug (4) PEG (percutaneous endoscopic gastrostomy) status (5) DNR no code (do not resuscitate) Assessment Allergic reaction to vancomycin, episode of hypotension treated with Solu-Medrol UTI, sepsis Previous GI bleed PEG Dementia DNR/DNI Plan May 09: No chemistry panel today. Will order labs for tomorrow. We will start the patient on Midodrin. Will change IV Protonix to Pepcid through the GI tract. Medication list reviewed. Continue to rest. Previously: Discussed with RN IV site is swollen needs to be fixed Will decrease IV fluid to 50 cc an hour Another dose of Solu-Medrol [id number] Benadryl through GT Continue to monitor electrolytes Patient remains DNR/DNI Subjective ROS Limited/Unobtainable: No Constitutional: Reports: malaise, weakness Objective Objective Last 24 Hour Vital Signs Date Time Temp Pulse Resp B/P (MAP) Pulse Ox O2 Delivery O2 Flow Rate FiO2 05/09/20 08:00 97.2 71 19 92/50 (64) 94 05/09/20 04:00 97.2 78 20 117/56 (76) 95 05/09/20 00:00 97.7 108 26 129/57 (81) 93 05/08/20 21:00 Room Air 05/08/20 20:00 97.8 102 26 103/54 (70) 95 05/08/20 16:00 98.2 113 20 147/64 (91) 95 05/08/20 12:00 98.2 78 18 112/62 (79) 100 Intake and Output 05/08/20 05/09/20 19:00 07:00 Output Total 300 ml Balance -300 ml Output Urine Total 300 ml Height (Feet): 5 Height (Inches): 6.00 Weight (Pounds): 154 General Appearance: no apparent distress Cardiovascular: tachycardia, other - Variable rate Respiratory/Chest: decreased breath sounds Abdomen: distended Sid Boo MD May 09, 2020 10:27
[2020-05-09 12:00] VITALS: BP 92/55
[2020-05-09] MEDS ORDERED: Acetaminophen 650mg/20.3ml GT PRN (13:00)
[2020-05-09] MEDS ORDERED: MEROPENEM500 MG IV (14:04)
--- NOTE | 2020-05-09 14:54 | Infectious Diseases Prog Note ---
Assessment/Plan Assessment/Plan IMPRESSION: SIRS Proteus UTI. Positive blood culture, likely contamination Allergic drug reaction to Vancomycin Altered mental status. Dislodgment of G-tube that was replaced. Hypertension. Has CVA with aphasia and right hemiparesis, Seizure disorder. RECOMMENDATION: Continue Meropenem X 4 days If IV antibiotic is not possible Fosfomyciin 3 gram X1 by GT Daniel D/W RN Subjective ROS Limited/Unobtainable: Yes Allergies: Coded Allergies: CHLORHEXIDINE (Verified Allergy, Mild, 07/12/15) VANCOMYCIN (Verified Adverse Reaction, Severe, red man syndrome, pruritus, 05/07/20) Objective Last 24 Hour Vital Signs Date Time Temp Pulse Resp B/P (MAP) Pulse Ox O2 Delivery O2 Flow Rate FiO2 05/09/20 12:00 97.5 69 18 92/55 (67) 93 05/09/20 09:00 Room Air 05/09/20 08:00 97.2 71 19 92/50 (64) 94 05/09/20 04:00 97.2 78 20 117/56 (76) 95 05/09/20 00:00 97.7 108 26 129/57 (81) 93 05/08/20 21:00 Room Air 05/08/20 20:00 97.8 102 26 103/54 (70) 95 05/08/20 16:00 98.2 113 20 147/64 (91) 95 Height (Feet): 5 Height (Inches): 6.00 Weight (Pounds): 154 General Appearance: no acute distress HEENT: mucous membranes moist, other - left teporal craniotomy scar Respiratory/Chest: lungs clear Cardiovascular: normal rate Abdomen: soft, non tender, other - GT feeding Extremities: other - contracted R hand Skin: rash Neurologic/Psychiatric: other - sleeping Current Medications Medications (Trade) Dose Ordered Sig/Veronika Route PRN Reason Start Time Stop Time Status Last Admin Dose Admin Acetaminophen (Tylenol) 650 mg Q4H PRN GT Temp >100.5 05/07/20 04:17 06/06/20 04:16 05/07/20 14:46 Acetaminophen (Tylenol) 650 mg Q4H PRN GT Mild Pain (Pain Scale 1-3) 05/09/20 13:00 06/08/20 12:59 Dextrose/Sodium Chloride 1,000 ml @ 50 mls/hr Q20H IV 05/08/20 09:30 06/07/20 09:29 05/09/20 05:08 Diphenhydramine HCl (Benadryl) 25 mg Q6H GT 05/08/20 10:00 06/07/20 09:59 05/09/20 11:12 Diphenhydramine HCl (Benadryl) 25 mg Q6H PRN GT Itching/Pruritis 05/07/20 07:00 06/06/20 00:49 Docusate Sodium (Colace) 200 mg DAILY GT 05/10/20 09:00 06/09/20 08:59 Famotidine (Pepcid) 20 mg BID GT 05/09/20 11:30 08/07/20 11:29 05/09/20 11:13 Lacosamide (Vimpat) 50 mg Q12HR ORAL 05/09/20 21:00 08/07/20 20:59 Magnesium Hydroxide (Mom) 30 ml DAILY PRN GT Constipation 05/07/20 04:00 06/06/20 03:59 Meropenem 500 mg/ Sodium Chloride 55 ml @ 110 mls/hr EVERY 8 HOURS IVPB 05/08/20 14:00 05/13/20 13:59 05/09/20 13:12 Midodrine (Pro-Amatine) 2.5 mg Q6HR GT 05/09/20 12:00 08/07/20 11:59 05/09/20 11:13 Francesco Howell MD May 09, 2020 14:54
[2020-05-09 16:00] VITALS: BP 94/56
--- NOTE | 2020-05-09 16:59 | Cardiology Progress Note ---
Assessment/Plan Status: stable Assessment/Plan Assessment/Plan Assessment/Plan 1. Sinus tachycardia due to GI bleed and sepsis. Echocardiogram pending 2. Hypotension. Better after iv fluid and Decadron and Benadryl Allergic drug reaction to Vancomycin 3. GI bleed. Further evaluation by GI. 4. Dysphagia, status post PEG placement. 5. Urinary tract infection. The patient received ceftriaxone. 6. DRI and DNI. 7. Dementia Subjective Cardiovascular: Reports: no symptoms Respiratory: Reports: no symptoms Gastrointestinal/Abdominal: Reports: no symptoms Genitourinary: Reports: no symptoms Subjective C[employer]AGE FOR [employer] Objective Last 24 Hour Vital Signs Date Time Temp Pulse Resp B/P (MAP) Pulse Ox O2 Delivery O2 Flow Rate FiO2 05/09/20 12:00 97.5 69 18 92/55 (67) 93 05/09/20 09:00 Room Air 05/09/20 08:00 97.2 71 19 92/50 (64) 94 05/09/20 04:00 97.2 78 20 117/56 (76) 95 05/09/20 00:00 97.7 108 26 129/57 (81) 93 05/08/20 21:00 Room Air 05/08/20 20:00 97.8 102 26 103/54 (70) 95 General Appearance: no apparent distress, alert EENT: PERRL/EOMI, normal ENT inspection, TMs normal Neck: non-tender, normal alignment, supple Rhythm: NSR Cardiovascular: normal peripheral pulses, normal rate, regular rhythm Respiratory/Chest: chest wall non-tender, lungs clear, normal breath sounds Abdomen: normal bowel sounds, non tender, soft Extremities: normal range of motion, non-tender, normal inspection, no calf tenderness, no swelling 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
[2020-05-09] MEDS ORDERED: Lacosamide 50mg tablet ORAL SCH (21:00)
--- NOTE | 2020-05-09 21:08 | General Progress Note ---
Subjective ROS Limited/Unobtainable: Yes Allergies: Coded Allergies: CHLORHEXIDINE (Verified Allergy, Mild, 07/12/15) VANCOMYCIN (Verified Adverse Reaction, Severe, red man syndrome, pruritus, 05/07/20) Objective Last 24 Hour Vital Signs Date Time Temp Pulse Resp B/P (MAP) Pulse Ox O2 Delivery O2 Flow Rate FiO2 05/09/20 16:00 97.9 89 18 94/56 (69) 93 05/09/20 12:00 97.5 69 18 92/55 (67) 93 05/09/20 09:00 Room Air 05/09/20 08:00 97.2 71 19 92/50 (64) 94 05/09/20 04:00 97.2 78 20 117/56 (76) 95 05/09/20 00:00 97.7 108 26 129/57 (81) 93 Intake and Output 05/08/20 05/09/20 19:00 07:00 Output Total 300 ml Balance -300 ml Output Urine Total 300 ml Height (Feet): 5 Height (Inches): 6.00 Weight (Pounds): 154 Assessment/Plan Problem List: (1) Sepsis ICD Codes: A41.9 - Sepsis, unspecified organism SNOMED: 27513264 (2) Dislodged gastrostomy tube ICD Codes: Z43.1 - Encounter for attention to gastrostomy SNOMED: 626325710 (3) GI bleed ICD Codes: K92.2 - Gastrointestinal hemorrhage, unspecified SNOMED: 83334670 Status: stable Assessment/Plan: DAUGHTER wants comfort care gave dc order to snf gi bleed s/p replacement of peg dnr comfort care Ruthann Brasher MD May 09, 2020 21:08
--- NOTE | 2020-05-09 21:42 | Cardiology Report ---
APPROVED REPORT EXAM: Two-dimensional and M-mode echocardiogram with Doppler and color Doppler. INDICATION Tachycardia M-Mode DIMENSIONS IVSd0.8 (0.7-1.1cm)Left Atrium (MM)3.0 (1.6-4.0cm) LVDd4.4 (3.5-5.6cm)Aortic Root3.1 (2.0-3.7cm) PWd1.0 (0.7-1.1cm)Aortic Cusp Exc.1.6 (1.5-2.0cm) IVSs0.9 cm LVDs2.7 (2.5-4.0cm) PWs1.3 cm <Conclusion> Technically difficult study due to poor acoustical windows. Normal left ventricular chamber size, systolic function and wall motion to extent visualized. Left ventricular ejection fraction estimated to be 60%. Anterior Echo-free space, may be due to pericardial fat or effusion. All other cardiac chamber sizes are within normal limits. Calcification of aortic valve with adequate cusp excursion. Thickened mitral valve leaflets with normal excursion. Mitral annulus and aortic root calcification. Pulmonic valve not well visualized. Normal tricuspid valve structure. IVC at normal size with physiologic collapse. Dilated coronary sinus. A color flow and spectral Doppler study was performed and revealed: Trace mitral regurgitation. Mitral diastolic velocities suggest reduced left ventricular relaxation c/w mild LV diastolic dysfunction (Grade I ). Trace to mild tricuspid regurgitation. Tricuspid systolic velocities suggests peak right ventricular systolic pressure of 15 mmHg.
[2020-05-10] MEDS ORDERED: Docusate 100mg/10ml Liq GT SCH (09:00)
--- NOTE | 2020-05-11 08:54 | Discharge Summary ---
Discharge Summary Discharge Summary _ DATE OF ADMISSION: 05/05/2020 DATE OF DISCHARGE: 05/09/2020 DISCHARGED BY: Dr. 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 In emergency department G-tube was replaced by emergency room physician. KUB confirmed placement. Chest x-ray revealed no acute cardiopulmonary process. Laboratory work-up revealed no leukocytosis, stable hemoglobin, hematocrit and platelet count. Stable electrolytes and renal parameters. Troponin negative, pro BNP 258. In epigastric region noted dark red gastric contents, suggestive of possible GI bleeding. Urinalysis revealed pyuria ,+3 leukocyte esterase , and moderate bacteria. Patient received IV Protonix and started on Protonix drip. Patient pancultured, started on empiric antibiotic . Patient subsequently admitted to medical surgical floor for further management. Rapid COVID-19 was negative CONSULTANTS: collet maker Dr. Moe pulmonary Dr. Golden ID specialist Dr. Francesco Howell GI specialist Dr. Nowak associate professor of art history Dr. Boo HOSPITAL COURSE: Patient admitted to medical surgical floor and started on IV fluids and empiric antibiotics. GI specialist seen and evaluated . Per GI specialist, current gastrostomy catheter was appropriately placed . GI specialist cleared to start tube feeding with strict aspiration precaution. G-tube site care provided. GI prophylaxis provided. GI specialist recommended upsize the G-tube when tract matured. No evidence of further GI bleeding. Hemoglobin and hematocrit remained stable. Antibiotic provided as per ID specialist recommendation. Blood culture revealed Staph coagulase negative , 1 out of 2, likely contaminant. Urine culture revealed Proteus mirabilis ESBL. Antibiotic optimized as per ID recommendation . Patient will need to continue antibiotic for additional 4 days at the facility. Patient developed leukocytosis and had intermittent fevers , antibiotic continued as per ID specialist recommendations. Patient demonstrated sinus tachycardia . Fur Glazer followed. Echocardiogram demonstrated preserved ejection fraction of 60%. No evidence of wall motion abnormality to the extent visualized. Noted hypotension , but family declined pressors Blood pressure responded to IV hydration and steroid. Patient started on midodrine . Blood pressure improved. Seizure precaution maintained. Vimpat continued. No evidence of seizure activity while in the hospital. Patient is a DNR/DNI status . Family requested comfort care. Patient clinically stabilized and was ready fro transfer to the alf facility for comfort care. FINAL DIAGNOSES: Dislodged G-tube ( status post replacement with 14 [place] catheter and verification with KUB) Status post recent PEG placement Possible GI bleeding Proteus ESBL UTI Sepsis Hypotension Seizure disorder CVA with aphasia and right hemiparesis Dementia DNR/DNI status DISCHARGE MEDICATIONS: See Medication Reconciliation list. DISCHARGE INSTRUCTIONS: Patient was discharged to the alf facility. Follow up with medical doctor at the facility. I have been assigned to dictate discharge summary for this account. I was not involved in the patient's management. Sandy Puga NP May 11, 2020 08:55
== END 2020-05-09 21:30 | DRG 872 ==
LOC: EDBD 08:40 → EMR 08:50 → EDBEDREQ 08:54 → 2E 09:08 → EDBEDREQ 10:29 → ICU 05-07 04:00 → 4E 05-07 11:30
PROC: 0D20XUZ Change Feeding Device in Upper Intestinal Tract, External Approach (ICD-10-PCS; principal; 2020-05-05)
DX: A41.9 Sepsis, unspecified organism (principal); Z43.1 Encounter for attention to gastrostomy; K92.2 Gastrointestinal hemorrhage, unspecified; I69.359 Hemiplegia and hemiparesis following cerebral infarction affecting unspecified side; N39.0 Urinary tract infection, site not specified; I69.351 Hemiplegia and hemiparesis following cerebral infarction affecting right dominant side; Z51.5 Encounter for palliative care; B96.4 Proteus (mirabilis) (morganii) as the cause of diseases classified elsewhere; Z66 Do not resuscitate; I69.320 Aphasia following cerebral infarction; G40.909 Epilepsy, unspecified, not intractable, without status epilepticus; Z88.8 Allergy status to other drugs, medicaments and biological substances; I69.318 Other symptoms and signs involving cognitive functions following cerebral infarction; I69.391 Dysphagia following cerebral infarction; R13.10 Dysphagia, unspecified; I10 Essential (primary) hypertension; I95.2 Hypotension due to drugs; T36.8X5A Adverse effect of other systemic antibiotics, initial encounter; R00.0 Tachycardia, unspecified
CPT/HCPCS: 36415; 71045; 74018; 80053; 81003; 82248; 82550; 83605; 83735; 83880; 84100; 84443; 84484; 84550; 85007; 85025; 85610; 85730; 86140; 86850; 86900; 86901; 87040; 87081; 87086; 87181; 93306; 96365; 96367; 96375; 99291; J7030; U0002

== ENCOUNTER 2020-05-22 10:13 | Inpatient (IN) | payer MEDICARE, MEDICAID ==
[~2020-05-22] VITALS: Ht 162.6 cm; Wt 66.3 kg
[2020-05-22 10:13] VITALS: BP 112/75
[~2020-05-22 10:13] MED LIST changes: +MEROPENEM500 MG IV
--- NOTE | 2020-05-22 10:13 | NUR ---
ED Nurse Note: Patient from [facility] and brought in by [facility] for G tube replacement. Per EMS, pt pulled out her G tube size 14 Fr found at the bed side. Pt is awake but non verbal. No signs of distress. Noted dry dressing on G tube site with no block attached.
[2020-05-22] MEDS ORDERED: CALAZIME TOPIC (10:18)
--- NOTE | 2020-05-22 10:45 | Emergency Room Report ---
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 Patient History Reviewed Nursing Documentation: PMH: Agreed; PSxH: Agreed Nursing Documentation-PMH Past Medical History: No History, Except For Hx Cardiac Problems: Yes Hx Hypertension: Yes Hx Gastrointestinal Problems: Yes - dysphagia Hx Dialysis: No - NEUROMUSCULAR DYSFUNCTION OF BLADDER Hx Neurological Problems: Yes - dysphagia Hx Cerebrovascular Accident: Yes - rupt aneurysm 2012,2014 Hx Seizures: Yes Hx Dysphasia: Yes - dysphagia Hx Neurologic Surgery: Yes - crainiotomy Physical Exam Vital Signs Date Time Temp Pulse Resp B/P (MAP) Pulse Ox O2 Delivery O2 Flow Rate FiO2 05/22/20 10:13 97.5 98 24 112/75 98 Room Air Procedures Critical Care Time Critical Care Time Total Critical Care Time: 90 min bedside evaluation and treatment excludes procedures (EKG, G-tube replacement). Reason for critical care: Evaluation of respiratory distress, subtle signs of sepsis, IV bolus, antibiotics, respiratory distress Possible complications: hypotension, hypertension, CO, shock, arrhythmias, metabolic acidosis, end organ damage, respiratory failure. Interventions: G-tube insertion, sepsis work-up, sepsis resuscitation, antibiotic administration, repeat evaluations, discussion of level of care, evaluation of blood gas, BiPAP Course: Patient presented for G-tube replacement. Based on physical examination patient with respiratory distress. Sepsis evaluation reveals right lower lobe pneumonia, UTI and elevated lactate. 30 mg/kg bolus administered with antibiotic coverage. Patient developed respiratory distress. COVID-19 testing negative. Nebulized treatment ineffective for relieving respiratory distress. BiPAP ordered. Improvement on BiPAP. Radiologist discussion with possible extravasation of Gastrografin with a G-tube. CT scan ordered. CT scan excludes extravasation of Gastrografin. Patient improved with treatment. Consultations: nursing staff, EMS, respiratory therapy, radiologist, admitting physician Performed by: Dr. Tate Tolerated well condition = serious Additional Procedure Procedure Narrative G-tube inserted with ease. Good flush and aspiration. Guaiac + material. Abdominal film ordered. Patient tolerated well. Medical Decision Making Diagnostic Impression: Primary Impression: Sepsis Qualified Codes: A41.9 - Sepsis, unspecified organism Additional Impressions: RLL pneumonia Qualified Codes: J18.9 - Pneumonia, unspecified organism UTI (urinary tract infection) Qualified Codes: N39.0 - Urinary tract infection, site not specified Malfunction of gastrostomy tube UGI bleed COVID-19 ruled out by laboratory testing ER Course Patient sent in for G-tube replacement. Clinically however the patient appears ill with dyspnea. In addition there is guaiac positive material at the G-tube site. The G-tube will be replaced. However due to the ill appearance with subtle but obvious respiratory distress we need to exclude sepsis, pneumonia, urinary tract infection, acute myocardial infarction and others. In addition the patient has guaiac positive material from the gastrostomy tube. Protonix is ordered. There is no inflammation of the skin in that area. Evaluation of POLST for appropriateness of work-up and treatment. After evaluation a full septic work-up ordered. G-tube replaced with ease. No aspiration of coffee grounds. EKG sinus tachycardia. Chest x-ray with right lower lobe dense infiltrate. Normal white count without left shift. Labs with elevated BUN normal renal function. Normal troponin. Elevated C-reactive protein. Elevated lactate. Bolus and abx. 1212 sepsis reevaluation. Patient still without respiratory distress at this time. Mentation unchanged. Capillary refill normal. The patient developed fairly acute resp distress. Duoneb ordered. Still with resp distress. BIPAP ordered and increased level of care 1332 This was discussed in detail with admitting physician. Patient markedly improved on BiPAP. Repeat lactic acid improved. 1510 Question of if G tube might have peritoneal leak as reported by radiologist.. CT ordered. CT without extravasation of Gastrografin. Patient improved and admitted to stepdown unit. Condition improved but guarded prognosis. Laboratory Tests Test 05/22/20 11:00 05/22/20 11:33 05/22/20 11:52 05/22/20 13:37 White Blood Count 7.9 K/UL (4.8-10.8) Red Blood Count 4.56 M/UL (4.20-5.40) Hemoglobin 13.2 G/DL (12.0-16.0) Hematocrit 40.6 % (37.0-47.0) Mean Corpuscular Volume 89 FL (80-99) Mean Corpuscular Hemoglobin 29.0 PG (27.0-31.0) Mean Corpuscular Hemoglobin Concent 32.6 G/DL (32.0-36.0) Red Cell Distribution Width 13.9 % (11.6-14.8) Platelet Count 428 K/UL (150-450) Mean Platelet Volume 6.0 FL (6.5-10.1) L Neutrophils (%) (Auto) 62.8 % (45.0-75.0) Lymphocytes (%) (Auto) 23.3 % (20.0-45.0) Monocytes (%) (Auto) 9.0 % (1.0-10.0) Eosinophils (%) (Auto) 2.7 % (0.0-3.0) Basophils (%) (Auto) 2.3 % (0.0-2.0) H Prothrombin Time 10.7 SEC (9.30-11.50) Prothrombin Time INR 1.0 (0.9-1.1) Activated Partial Thromboplast Time 22 SEC (23-33) L Sodium Level 142 MMOL/L (136-145) Potassium Level 4.8 MMOL/L (3.5-5.1) Chloride Level 107 MMOL/L (98-107) Carbon Dioxide Level 27 MMOL/L (21-32) Anion Gap 8 mmol/L (5-15) Blood Urea Nitrogen 20 mg/dL (7-18) H Creatinine 0.8 MG/DL (0.55-1.30) Estimated Glomerular Filtration Rate > 60 mL/min (>60) Glucose Level 117 MG/DL (74-106) H Lactic Acid Level 3.10 mmol/L (0.4-2.0) H 1.60 mmol/L (0.66-2.22) Calcium Level 8.9 MG/DL (8.5-10.1) Magnesium Level 2.1 MG/DL (1.8-2.4) Ferritin 186 NG/ML (8-388) Total Bilirubin 0.5 MG/DL (0.2-1.0) Aspartate Amino Transferase (AST) 35 U/L (15-37) Alanine Aminotransferase (ALT) 24 U/L (12-78) Alkaline Phosphatase 117 U/L (46-116) H Lactate Dehydrogenase 306 U/L (81-234) H Total Creatine Kinase 57 U/L (26-308) Troponin I 0.000 ng/mL (0.000-0.056) C-Reactive Protein, Quantitative 2.0 mg/dL (0.00-0.90) H Pro-B-Type Natriuretic Peptide 144 pg/mL (0-125) H Total Protein 7.5 G/DL (6.4-8.2) Albumin 2.8 G/DL (3.4-5.0) L Globulin 4.7 g/dL Albumin/Globulin Ratio 0.6 (1.0-2.7) L Lipase 110 U/L (73-393) Urine Color Pale yellow Urine Appearance Cloudy Urine pH 8 (4.5-8.0) Urine Specific [place] 1.010 (1.005-1.035) Urine Protein 2+ (NEGATIVE) H Urine Glucose (UA) Negative (NEGATIVE) Urine Ketones Negative (NEGATIVE) Urine Blood 5+ (NEGATIVE) H Urine Nitrite Negative (NEGATIVE) Urine Bilirubin Negative (NEGATIVE) Urine Urobilinogen Normal MG/DL (0.0-1.0) Urine Leukocyte Esterase 3+ (NEGATIVE) H Urine RBC 20-30 /HPF (0 - 2) H Urine WBC 15-20 /HPF (0 - 2) H Urine Squamous Epithelial Cells Few /LPF (NONE/OCC) Urine Amorphous Sediment Many /LPF (NONE) H Urine Bacteria Few /HPF (NONE) Venous Blood pH 7.378 Venous Blood Partial Pressure CO2 46.9 Venous Blood Partial Pressure O2 41.2 Venous Blood HCO3 27.0 Venous Blood Total Carbon Dioxide 46.9 Venous Blood Base Excess 1.3 Venous Blood Carboxyhemoglobin 0.2 % (0.5-1.5) L Methemoglobin 0.5 Microbiology Date/Time Source Procedure Growth Status 05/22/20 11:14 Nasopharynx SARS-CoV-2 RdRp Gene Assay - Final Complete Rhythm Strip Diag. Results EP Interpretation: yes Rhythm: no PVC's, no ectopy, other - ST Chest X-Ray Diagnostic Results Chest X-Ray Diagnostic Results : Chest X-Ray Ordered: Yes # of Views/Limited/Complete: 1 View Indication: Shortness of Breath EP Interpretation: Yes Interpretation: no pneumothorax, other - RLL dense infiltrate, possible collapse, cannot exclude effusion Impression: Other Electronically Signed by: Electronically signed by Jean-Paul Tate MD Other X-Ray Diagnostic Results Other X-Ray Diagnostic Results : X-Ray ordered: abd # of Views/Limited Vs Complete: 3 View Indication: Other EP Interpretation: Yes Interpretation: nonspecific bowel gas, no sbo, other - gastrograffin in stomach but also might be in peritoneum. RLL infiltrate and ? effusion CT/MRI/US Diagnostic Results CT/MRI/US Diagnostic Results : Imaging Test Ordered: Abdomen and pelvis Impression 1. No evidence of contrast extravasation in the peritoneum. Appropriate positioned gastrostomy tube in the gastric lumen. 2. Indeterminate right renal mass. Consider further evaluation on nonemergent basis with MRI or CT with contrast (renal protocol) to exclude neoplasm. 3. Cholelithiasis without evidence of acute cholecystitis. 4. Colonic diverticulosis without evidence of acute diverticulitis. 5. Right lower lobe airspace consolidation, which likely represents compressive atelectasis given elevation right hemidiaphragm, but pneumonia should be excluded on a clinical basis Last Vital Signs Date Time Temp Pulse Resp B/P (MAP) Pulse Ox O2 Delivery O2 Flow Rate FiO2 05/22/20 20:10 Nasal Cannula 2.0 05/22/20 20:00 85 05/22/20 19:30 20 100 40 05/22/20 18:13 97.2 129/80 (96) Status: improved Disposition: ADMITTED INPATIENT Condition: Serious Jean-Paul Tate MD May 22, 2020 10:45
[2020-05-22] MEDS ORDERED: Pantoprazole Inj IVP ONE (11:00)
--- NOTE | 2020-05-22 11:00 | NUR ---
ED Nurse Note: Noted pt to be tachypneic at 24-26 RR/min. Sats 95-97% in room air.
[2020-05-22 11:15] LABS: BASOPHILS % (AUTO) 2.3 % (0.0-2.0); EOSINOPHILS % (AUTO) 2.7 % (0.0-3.0); HEMATOCRIT 40.6 % (37.0-47.0); HEMOGLOBIN 13.2 G/DL (12.0-16.0); LYMPHOCYTES % (AUTO) 23.3 % (20.0-45.0); MEAN CORPUSCULAR VOLUME 89 FL (80-99); NEUTROPHILS % (AUTO) 62.8 % (45.0-75.0); PLATELET COUNT 428 K/UL (150-450); RED BLOOD COUNT 4.56 M/UL (4.20-5.40); RED CELL DISTRIBUTION WIDTH 13.9 % (11.6-14.8); WHITE BLOOD COUNT 7.9 K/UL (4.8-10.8)
[2020-05-22 11:30] LABS: ANION GAP 8 mmol/L (5-15); BLOOD UREA NITROGEN 20 mg/dL (7-18); CALCIUM 8.9 MG/DL (8.5-10.1); CARBON DIOXIDE 27 MMOL/L (21-32); CHLORIDE 107 MMOL/L (98-107); CREATININE 0.8 MG/DL (0.55-1.30); POTASSIUM 4.8 MMOL/L (3.5-5.1); SODIUM 142 MMOL/L (136-145)
[2020-05-22 11:45] LABS: APPEARANCE,URINE CLOUDY; BILIRUBIN, URINE NEGATIVE (NEGATIVE); GLUCOSE, URINE (UA) NEGATIVE (NEGATIVE); KETONES,URINE NEGATIVE (NEGATIVE); LEUKOCYTE ESTERASE ,URINE 3+ (NEGATIVE); NITRITE,URINE NEGATIVE (NEGATIVE); PH,URINE 8 (4.5-8.0); PROTEIN,URINE 2+ (NEGATIVE); UROBILINOGEN,URINE NORMAL MG/DL (0.0-1.0)
[2020-05-22 11:48] LABS: ALANINE AMINOTRANSFERASE 24 U/L (12-78); ALBUMIN 2.8 G/DL (3.4-5.0); ALBUMIN/GLOBULIN RATIO 0.6 (1.0-2.7); ALKALINE PHOSPHATASE 117 U/L (46-116); ASPARTATE AMINO TRANSFERASE 35 U/L (15-37); BILIRUBIN,TOTAL 0.5 MG/DL (0.2-1.0); CREATINE KINASE 57 U/L (26-308); FERRITIN 186 NG/ML (8-388); LACTATE DEHYDROGENASE 306 U/L (81-234)
[2020-05-22 11:58] LABS: COLOR,URINE PALE YELLOW
[2020-05-22 12:10] VITALS: BP 125/69
[2020-05-22] MEDS ORDERED: cefTRIAXone 1 GM in NS 55 ML IVPB ONE (12:15)
--- NOTE | 2020-05-22 12:55 | NUR ---
ED Nurse Note: Repeat lactic acid sent.
--- NOTE | 2020-05-22 13:00 | NUR ---
ED Nurse Note: Noted audible wheezing sounds. Dr Tate aware. Waiting for new orders.
[2020-05-22] MEDS ORDERED: Albuterol/Ipratropium 3ml neb HHN ONE (13:15)
--- NOTE | 2020-05-22 13:30 | NUR ---
ED Nurse Note: RT at the bed side for breathing treatment. Dr Tate ordered Bipap at this time.
[2020-05-22 14:10] VITALS: BP 129/83
--- NOTE | 2020-05-22 15:37 | Diagnostic Imaging Report ---
Indication: Reason For Exam: TUBE PLCMT Technique: AP views of the abdomen before and after injection of contrast through indwelling gastrostomy tube. Comparison: Abdominal radiographs dated 05/05/2020 Findings: Bowel gas pattern is nonobstructive. Gastrostomy tube projects over the mid upper abdomen. After injection of contrast, there is opacification of gastric rugae and proximal duodenal loops. There is additional hyperdensity which appears extra gastric. Lung bases demonstrate elevation right hemidiaphragm. There is a right pleural effusion with associated atelectasis. IMPRESSION: Injection of indwelling gastrostomy tube with contrast, demonstrating at least partial positioning within the lumen given appropriate opacification of the stomach. However, additional contrast pattern cannot be explained by luminal contrast, and may be intraperitoneal or extracorporeal. Further evaluation with abdominal CT is recommended. Discussed with Dr. Tate at 1330 on 05/22/2020
--- NOTE | 2020-05-22 15:55 | NUR ---
ED Nurse Note: Patient taken to CT with oxygen via NR at 15LPM.
[2020-05-22 16:05] VITALS: BP 122/72
--- NOTE | 2020-05-22 16:08 | NUR ---
ED Nurse Note: Patient came back from CT with non rebreather mask at 15LPM.
--- NOTE | 2020-05-22 16:21 | Diagnostic Imaging Report ---
CT ABDOMEN AND PELVIS WITHOUT CONTRAST INDICATION: Abdominal pain; concern for gastrostomy tube dislodgment. TECHNIQUE: Continuous helical transaxial imaging of the abdomen and pelvis was obtained from the lung bases to the pubic symphysis. Coronal 2-D reformats were also obtained. Study obtained in a Siemens sensation [address] Automatic Exposure Control was utilized. Total Dose length Product (DLP): 454.[address] Dose Index Volume (CTDIvol): 8.2 mGy COMPARISON: Same day abdominal radiograph FINDINGS: Study limited due to motion artifact. Lower chest:: There is elevation right hemidiaphragm. There is a trace right pleural effusion with associated compressive atelectasis there is left basilar subsegmental atelectasis. Hepatobiliary:: Cholelithiasis without CT evidence of acute cholecystitis. Genitourinary:: No hydronephrosis or nephrolithiasis. Punctate nonobstructing left nephrolithiasis. There is a exophytic left renal cyst. There is an intermediate density mass in the right midpole measuring 4.2 x 4.3 cm Adrenals:: Unremarkable Pancreas:: Unremarkable Gastrointestinal:: Gastrostomy tube in good position within the gastric lumen. No evidence of contrast extravasation. No evidence of obstruction. Appendix is normal. Scattered colonic diverticulosis without evidence of acute diverticulitis. Spleen: : Unremarkable Peritoneum:: Small low anterior abdominal wall hernia containing nonobstructed loops of bowel. Bones and soft tissues:: Hyperdense material is noted layering along the patient's anterior abdominal skin at the level of the gastrostomy. There are multilevel discogenic degenerative changes of the visualized spine. Mild multilevel wedging of T11-L2, likely chronic. Grade 1 retrolisthesis of L4 on L5 without associated pars fracture. Vasculature:: Incompletely evaluated in the absence of intravenous contrast. Severe aortoiliac atherosclerotic calcification. IMPRESSION: 1. No evidence of contrast extravasation in the peritoneum. Appropriate positioned gastrostomy tube in the gastric lumen. 2. Indeterminate right renal mass. Consider further evaluation on nonemergent basis with MRI or CT with contrast (renal protocol) to exclude neoplasm. 3. Cholelithiasis without evidence of acute cholecystitis. 4. Colonic diverticulosis without evidence of acute diverticulitis. 5. Right lower lobe airspace consolidation, which likely represents compressive atelectasis given elevation right hemidiaphragm, but pneumonia should be excluded on a clinical basis The CT scanner at [facility] is accredited by the [employer] and the scans are performed using protocols designed to limit radiation exposure to as low as reasonably achievable to attain images of sufficient resolution adequate for diagnostic evaluation
--- NOTE | 2020-05-22 16:23 | Diagnostic Imaging Report ---
Indication: Reason For Exam: DYSPNEA Technique: Single AP view of the chest. Comparison: Same day CT abdomen and pelvis; chest radiograph dated 05/05/2020 Findings: The cardiomediastinal silhouette is unchanged in appearance. Persistent elevation of the right hemidiaphragm. Likely trace right pleural effusion with associated patchy airspace opacities. Left basilar subsegmental atelectasis. No acute osseous abnormality. IMPRESSION: Suspected trace right pleural effusion with associated airspace opacity which likely represents compressive atelectasis but pneumonia should be excluded clinically.
--- NOTE | 2020-05-22 16:45 | NUR ---
ED Nurse Note: Report given to Neyda GARG of SDU.
[2020-05-22] MEDS ORDERED: Acetaminophen 650mg/20.3ml GT PRN ×2 (17:00)
[2020-05-22] MEDS ORDERED: Milk of Magnesia 30ml Ud ORAL PRN (17:15)
[2020-05-22 18:13] VITALS: BP 129/80
[2020-05-22] MEDS: D5 1/2NS 1,000 ML IV SCH (18:15)
--- NOTE | 2020-05-22 18:15 | NUR ---
NURSE NOTES: Received report from BENY Duncan RN. Pt is transfered via gurney. On non-rebreather mask, tachypneic, SOB. family support specialist initiated, belongings checked, vital signs taken and recorded. Pt is put on Bipap 15/5, FiO2 40%, Pressure support 18. Sinus Rhythm on the 90s. Vital signs stable. GT oozing from the stoma, and dressing soaked. IV on the right forearm G 20. Skin issues noted. Will continue to monitor pt.
[2020-05-22] MEDS ORDERED: Albuterol/Ipratropium 3ml neb HHN SCH (19:00)
[2020-05-22] MEDS ORDERED: Milk of Magnesia 30ml Ud GT PRN (19:00)
--- NOTE | 2020-05-22 19:23 | NUR ---
NURSE HAND-OFF REPORT: Important Events on Shift:new admission from ER Patient Status: DNR with comfort measures Diet: vital AF @50 Pending Orders: cbc, cmp sonu Pending Results/Labs:[] Pending MD notification:[] Latest Vital Signs: Temperature 97.2 , Pulse 93 , B/P 129 /80 , Respiratory Rate 22 , O2 SAT 97 , Bi-pap, O2 Flow Rate . Vital Sign Comment: stable EKG Rhythm: Sinus Rhythm Rhythm change?: MD Notified?: - MD Response: Latest [place] Fall Score: 35 Fall Risk: Safety Measures: Call light , Bed Alarm , Side Rails , Bed position . Fall Precautions: Report given to wendy contreras.
--- NOTE | 2020-05-22 19:56 | NUR ---
NURSE NOTES: Report received from BRITANY Gabriel. New admit. Pt lying in the bed, confused, aphasic. SR on compliance monitor. On bipap at this time, saturating at 100%, will try to wean to NC if pt can tolerate, wheezing noted. GT intact, GT feeding will be started. Purewick in-placed. Redness on perineal area, picture will be taken and uploaded. IV on R FA 20G, running D5 1/2 NS at 75cc.hr. Bed in the lowest position. Side rails up x3. Will continue to monitor.
[2020-05-22 20:00] VITALS: BP 127/68
[2020-05-22] MEDS: Lacosamide 50mg tablet ORAL SCH (20:57)
[2020-05-22] MEDS: Heparin 5000 units/ml inj SUBQ SCH (20:59)
--- NOTE | 2020-05-22 23:00 | NUR ---
NURSE NOTES: Noted pt upper body becomes red and warm, wheezing noted, saturating 98% on NC 2L, notified and new order received and carried out.
[2020-05-22] MEDS: DiphenhydrAMINE 25mg/10ml Elixir GT PRN (23:07)
--- NOTE | 2020-05-22 23:19 | Pulmonology Progress Note ---
Subjective ROS Limited/Unobtainable: Yes Allergies: Coded Allergies: CHLORHEXIDINE (Verified Allergy, Mild, 07/12/15) VANCOMYCIN (Verified Adverse Reaction, Severe, red man syndrome, pruritus, 05/07/20) Objective Last 24 Hour Vital Signs Date Time Temp Pulse Resp B/P (MAP) Pulse Ox O2 Delivery O2 Flow Rate FiO2 05/22/20 21:00 2.0 28 05/22/20 20:10 Nasal Cannula 2.0 05/22/20 20:00 85 05/22/20 19:30 86 20 100 40 05/22/20 18:13 97.2 93 22 129/80 (96) 97 05/22/20 18:07 79 20 98 Bi-Pap 40 05/22/20 18:02 79 20 98 40 05/22/20 17:36 98.7 79 16 118/73 99 Bi-pap 40 05/22/20 16:05 98.2 84 19 122/72 100 Bi-pap 40 05/22/20 14:10 97.5 82 16 129/83 100 Bi-pap 40 05/22/20 13:45 91 18 99 40 05/22/20 13:45 40 05/22/20 13:26 90 26 98 Room Air 21 79 26 90 05/22/20 12:10 97.5 72 22 125/69 95 Room Air 05/22/20 10:13 97.5 98 24 112/75 (87) 98 Room Air 05/22/20 10:13 97.5 98 24 112/75 98 Room Air Microbiology Date/Time Source Procedure Growth Status 05/22/20 11:14 Nasopharynx SARS-CoV-2 RdRp Gene Assay - Final Complete Laboratory Tests 05/22/20 11:00: White Blood Count 7.9, Red Blood Count 4.56, Hemoglobin 13.2, Hematocrit 40.6, Mean Corpuscular Volume 89, Mean Corpuscular Hemoglobin 29.0, Mean Corpuscular Hemoglobin Concent 32.6, Red Cell Distribution Width 13.9, Platelet Count 428, Mean Platelet Volume 6.0L, Neutrophils (%) (Auto) 62.8, Lymphocytes (%) (Auto) 23.3, Monocytes (%) (Auto) 9.0, Eosinophils (%) (Auto) 2.7, Basophils (%) (Auto) 2.3H, Prothrombin Time 10.7, Prothromb Time International Ratio 1.0, Activated Partial Thromboplast Time 22L, Sodium Level 142, Potassium Level 4.8, Chloride Level 107, Carbon Dioxide Level 27, Anion Gap 8, Blood Urea Nitrogen 20H, Creatinine 0.8, Estimat Glomerular Filtration Rate > 60, Glucose Level 117H, Lactic Acid Level 3.10H, Calcium Level 8.9, Magnesium Level 2.1, Ferritin 186, Total Bilirubin 0.5, Aspartate Amino Transf (AST/SGOT) 35, Alanine Aminotransferase (ALT/SGPT) 24, Alkaline Phosphatase 117H, Lactate Dehydrogenase 306H, Total Creatine Kinase 57, Troponin I 0.000, C-Reactive Protein, Quantitative 2.0H, Pro-B-Type Natriuretic Peptide 144H, Total Protein 7.5, Albumin 2.8L, Globulin 4.7, Albumin/Globulin Ratio 0.6L, Lipase 110 05/22/20 11:33: Urine Color Pale yellow, Urine Appearance Cloudy, Urine pH 8, Urine Specific [place] 1.010, Urine Protein 2+H, Urine Glucose (UA) Negative, Urine Ketones Negative, Urine Blood 5+H, Urine Nitrite Negative, Urine Bilirubin Negative, Urine Urobilinogen Normal, Urine Leukocyte Esterase 3+H, Urine RBC 20-30H, Urine WBC 15-20H, Urine Squamous Epithelial Cells Few, Urine Amorphous Sediment ManyH, Urine Bacteria Few 05/22/20 11:52: Venous Blood pH 7.378, Venous Blood Partial Pressure CO2 46.9, Venous Blood Partial Pressure O2 41.2, Venous Blood HCO3 27.0, Venous Blood Total Carbon Dioxide 46.9, Venous Blood Base Excess 1.3, Venous Blood Carboxyhemoglobin 0.2L, Methemoglobin 0.5 05/22/20 13:37: Lactic Acid Level 1.60 Current Medications Medications (Trade) Dose Ordered Sig/Veronika Route PRN Reason Start Time Stop Time Status Last Admin Dose Admin Acetaminophen (Tylenol) 650 mg Q6H PRN GT Mild Pain (Pain Scale 1-3) 05/22/20 17:00 06/21/20 16:59 Acetaminophen (Tylenol) 650 mg Q6H PRN GT Temp >100.5 05/22/20 17:00 06/21/20 16:59 Albuterol/ Ipratropium (Albuterol/ Ipratropium) 3 ml Q6HRT HHN 9/29/20 19:00 05/27/20 18:59 Dextrose/Sodium Chloride 1,000 ml @ 75 mls/hr [id number] IV 05/22/20 17:15 05/23/20 06:00 05/22/20 18:15 Diphenhydramine HCl (Benadryl) 25 mg Q6H PRN GT Itching 05/22/20 23:00 06/21/20 22:59 05/22/20 23:07 Docusate Sodium (Colace) 200 mg DAILY GT 05/23/20 09:00 06/22/20 08:59 Heparin Sodium (Porcine) (Heparin 5000 units/ml) 5,000 units EVERY 12 HOURS SUBQ 05/22/20 21:00 07/06/20 20:59 05/22/20 20:59 Lacosamide (Vimpat) 50 mg Q12HR ORAL 05/22/20 21:00 08/20/20 20:59 05/22/20 20:57 Magnesium Hydroxide (Mom) 30 ml DAILYPRN PRN GT Constipation 05/22/20 19:00 06/21/20 17:14 Meropenem 500 mg/ Sodium Chloride 55 ml @ 110 mls/hr DAILY IVPB 05/23/20 09:00 05/28/20 08:59 UNV Pantoprazole (Protonix) 40 mg DAILY IVP 05/23/20 09:00 06/22/20 08:59 Assessment/Plan Assessment/Plan PULMONARY CONSULTATION HISTORY OF PRESENT ILLNESS: Patient is a 64-year-old white female admitted from a nursing facility after her G-tube became dislodged. H/o previous CVA, aneurism clipped, craniotomy, AMS, on meropenem for UTI. Patient's G-tube was replaced in ER. Noted to have skin erythema, possible allergic reaction, Cefrtriaxone DC,Benadryl PRN PAST MEDICAL HISTORY: Hypertension, CVA, aneurism ruptute , Craniotomy, right hemiplegia. H/o GI bleeding, h/o constipation, seizure disorder,bladder dysfunction ALLERGIES: Allergic to chlorhexidine,Vancomycin. SOCIAL HISTORY: , long-term resident. FH:NC ROS:NA CODE STATUS: DNR. Physical Exam Vital Signs Noted Date Time Temp Pulse Resp B/P (MAP) Pulse Ox O2 Delivery O2 Flow Rate FiO2 05/22/20 10:13 97.5 98 24 112/75 98 Room Air GENERAL APPEARANCE: No acute distress. AMS HEAD AND NECK: Previous Craniotomy HEART: Normal rate. LUNGS: Clear. ABDOMEN: Soft. GT CDI EXTREMITIES: Has no edema. Has flexion contracture of right wrist. 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 UA evidence UTI EKG sinus tachycardia. 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 - Monitor labs Laboratory Tests noted Test 05/22/20 11:00 05/22/20 11:33 05/22/20 11:52 05/22/20 13:37 White Blood Count 7.9 K/UL (4.8-10.8) Red Blood Count 4.56 M/UL (4.20-5.40) Hemoglobin 13.2 G/DL (12.0-16.0) Hematocrit 40.6 % (37.0-47.0) Mean Corpuscular Volume 89 FL (80-99) Mean Corpuscular Hemoglobin 29.0 PG (27.0-31.0) Mean Corpuscular Hemoglobin Concent 32.6 G/DL (32.0-36.0) Red Cell Distribution Width 13.9 % (11.6-14.8) Platelet Count 428 K/UL (150-450) Mean Platelet Volume 6.0 FL (6.5-10.1) L Neutrophils (%) (Auto) 62.8 % (45.0-75.0) Lymphocytes (%) (Auto) 23.3 % (20.0-45.0) Monocytes (%) (Auto) 9.0 % (1.0-10.0) Eosinophils (%) (Auto) 2.7 % (0.0-3.0) Basophils (%) (Auto) 2.3 % (0.0-2.0) H Prothrombin Time 10.7 SEC (9.30-11.50) Prothrombin Time INR 1.0 (0.9-1.1) Activated Partial Thromboplast Time 22 SEC (23-33) L Sodium Level 142 MMOL/L (136-145) Potassium Level 4.8 MMOL/L (3.5-5.1) Chloride Level 107 MMOL/L (98-107) Carbon Dioxide Level 27 MMOL/L (21-32) Anion Gap 8 mmol/L (5-15) Blood Urea Nitrogen 20 mg/dL (7-18) H Creatinine 0.8 MG/DL (0.55-1.30) Estimated Glomerular Filtration Rate > 60 mL/min (>60) Glucose Level 117 MG/DL (74-106) H Lactic Acid Level 3.10 mmol/L (0.4-2.0) H 1.60 mmol/L (0.66-2.22) Calcium Level 8.9 MG/DL (8.5-10.1) Magnesium Level 2.1 MG/DL (1.8-2.4) Ferritin 186 NG/ML (8-388) Total Bilirubin 0.5 MG/DL (0.2-1.0) Aspartate Amino Transferase (AST) 35 U/L (15-37) Alanine Aminotransferase (ALT) 24 U/L (12-78) Alkaline Phosphatase 117 U/L (46-116) H Lactate Dehydrogenase 306 U/L (81-234) H Total Creatine Kinase 57 U/L (26-308) Troponin I 0.000 ng/mL (0.000-0.056) C-Reactive Protein, Quantitative 2.0 mg/dL (0.00-0.90) H Pro-B-Type Natriuretic Peptide 144 pg/mL (0-125) H Total Protein 7.5 G/DL (6.4-8.2) Albumin 2.8 G/DL (3.4-5.0) L Globulin 4.7 g/dL Albumin/Globulin Ratio 0.6 (1.0-2.7) L Lipase 110 U/L (73-393) Urine Color Pale yellow Urine Appearance Cloudy Urine pH 8 (4.5-8.0) Urine Specific [place] 1.010 (1.005-1.035) Urine Protein 2+ (NEGATIVE) H Urine Glucose (UA) Negative (NEGATIVE) Urine Ketones Negative (NEGATIVE) Urine Blood 5+ (NEGATIVE) H Urine Nitrite Negative (NEGATIVE) Urine Bilirubin Negative (NEGATIVE) Urine Urobilinogen Normal MG/DL (0.0-1.0) Urine Leukocyte Esterase 3+ (NEGATIVE) H Urine RBC 20-30 /HPF (0 - 2) H Urine WBC 15-20 /HPF (0 - 2) H Urine Squamous Epithelial Cells Few /LPF (NONE/OCC) Urine Amorphous Sediment Many /LPF (NONE) H Urine Bacteria Few /HPF (NONE) Venous Blood pH 7.378 Venous Blood Partial Pressure CO2 46.9 Venous Blood Partial Pressure O2 41.2 Venous Blood HCO3 27.0 Venous Blood Total Carbon Dioxide 46.9 Venous Blood Base Excess 1.3 Venous Blood Carboxyhemoglobin 0.2 % (0.5-1.5) L Methemoglobin 0.5 Chest X-Ray: no pneumothorax, other - RLL infiltrate versus atelectasis CT; Abdomen and pelvis 1. No evidence of contrast extravasation in the peritoneum. Appropriate positioned gastrostomy tube in the gastric lumen. 2. Indeterminate right renal mass. Consider further evaluation on nonemergent basis with MRI or CT with contrast (renal protocol) to exclude neoplasm. 3. Cholelithiasis without evidence of acute cholecystitis. 4. Colonic diverticulosis without evidence of acute diverticulitis. 5. Right lower lobe airspace consolidation, which likely represents compressive atelectasis given elevation right hemidiaphragm, but pneumonia should be excluded on a clinical basis Jean-Paul Angel MD May 22, 2020 23:18
[2020-05-22] MEDS ORDERED: HydrALAZINE 25mg tab GT PRN (23:45)
[2020-05-22] MEDS ORDERED: Albuterol/Ipratropium 3ml neb HHN PRN (23:45)
[2020-05-23] VITALS: BP 119/73
[2020-05-23] MEDS: D5 1/2NS 1,000 ML IV SCH (00:36)
--- NOTE | 2020-05-23 01:00 | History and Physical Report ---
DATE OF ADMISSION: 05/22/2020 HISTORY OF PRESENT ILLNESS: The patient is being admitted for sepsis, pneumonia, UTI, on BiPAP, hypoxia, DNR. PEG was pulled out, replaced by the ER doctor. The patient also basically is coming in today, poor historian, cannot get any history from the patient, and the patient was admitted for those reasons. The patient requires BiPAP and is altered and is being admitted for sepsis, UTI, pneumonia, and respiratory failure. PAST MEDICAL HISTORY: Hypertension, dysphagia, history of CVA, history of seizures, and constipation. PAST SURGICAL HISTORY: PEG and craniotomy. ALLERGIES: Vancomycin and chlorhexidine. MEDICATIONS: Colace, Vimpat, and magnesium. FAMILY HISTORY: Noncontributory. SOCIAL HISTORY: Denies history of smoking, alcohol, or illicit drugs. Comes from a half-way. REVIEW OF SYSTEMS: Unable to obtain. Poor historian. PHYSICAL EXAMINATION: VITAL SIGNS: Temperature 98.2, pulse 84, and blood pressure 120/70. HEENT: PERRLA. CHEST: Bibasilar rales. CARDIOVASCULAR: Regular rate and rhythm. No murmurs or extra sounds. GI: Soft and nontender. G-tube site is intact. Positive bowel sounds. No organomegaly. EXTREMITIES: No edema. NEUROLOGICAL: Does not follow neurological exam, which is her baseline. Dorsalis pedis pulses are present. LABORATORY DATA: WBC of 7.9, hemoglobin 13.2, platelets 428. Sodium 142, potassium 4.8, BUN of 20, creatinine 0.8, and glucose of 117. ASSESSMENT AND PLAN: Hypoxia, respiratory insufficiency, on BiPAP, pneumonia, sepsis, UTI, and history of cancer. I have consulted Dr. Francesco Howell, Dr. Angel, Dr. Miguel Boyce, Dr. Reyez, and Dr. Nowak to help with the management of the above-mentioned abnormalities and symptoms and abnormal imaging findings to help with the management of this complex patient. Ruthnan Brasher M.D. DR: Miguel JOB#: [id number] CC:
[2020-05-23 04:00] VITALS: BP 103/59
[2020-05-23 05:14] LABS: HEMOGLOBIN 11.4 G/DL (12.0-16.0); MEAN CORPUSCULAR VOLUME 90 FL (80-99); PLATELET COUNT 398 K/UL (150-450); RED BLOOD COUNT 3.89 M/UL (4.20-5.40); RED CELL DISTRIBUTION WIDTH 14.2 % (11.6-14.8); WHITE BLOOD COUNT 8.5 K/UL (4.8-10.8)
[2020-05-23 05:28] LABS: ANION GAP 9 mmol/L (5-15); BLOOD UREA NITROGEN 16 mg/dL (7-18); CARBON DIOXIDE 25 MMOL/L (21-32); CHLORIDE 109 MMOL/L (98-107); CREATININE 0.7 MG/DL (0.55-1.30); POTASSIUM 3.5 MMOL/L (3.5-5.1); SODIUM 143 MMOL/L (136-145)
--- NOTE | 2020-05-23 06:36 | Consultation ---
History of Present Illness General Chief Complaint: Malfunctioning Gastric Tube Present Illness Allergies: Coded Allergies: CHLORHEXIDINE (Verified Allergy, Mild, 07/12/15) VANCOMYCIN (Verified Adverse Reaction, Severe, red man syndrome, pruritus, 05/07/20) Medication History Scheduled Docusate Sodium (Docusate Sodium), 200 MG GT DAILY, (Reported) Lacosamide (Vimpat), 50 MG GT Q12HR, (Reported) Meropenem (Meropenem), 500 MG IV Q8HR, (Reported) Scheduled PRN Acetaminophen* (Acetaminophen 325MG Tablet*), 650 MG GT Q4H PRN for Mild Pain/Temp > 100.5, (Reported) Magnesium Hydroxide* (Milk Of Magnesia*), 30 ML GT DAILY PRN for Constipation, (Reported) Miscellaneous Medications [Calazime], (Reported) Patient History Healthcare decision maker Resuscitation status Advanced Directive on File Physical Exam Last 24 Hour Vital Signs Date Time Temp Pulse Resp B/P (MAP) Pulse Ox O2 Delivery O2 Flow Rate FiO2 05/23/20 04:00 Nasal Cannula 2.0 05/23/20 04:00 99.0 101 24 103/59 (74) 96 05/23/20 04:00 2.0 05/23/20 04:00 102 05/23/20 00:00 Nasal Cannula 2.0 05/23/20 00:00 2.0 05/23/20 00:00 88 05/23/20 00:00 98.1 86 24 119/73 (88) 96 05/22/20 21:00 2.0 28 05/22/20 20:10 Nasal Cannula 2.0 05/22/20 20:00 85 05/22/20 20:00 98.2 86 12 127/68 (87) 100 05/22/20 19:30 86 20 100 40 05/22/20 18:13 97.2 93 22 129/80 (96) 97 05/22/20 18:07 79 20 98 Bi-Pap 40 05/22/20 18:02 79 20 98 40 05/22/20 17:36 98.7 79 16 118/73 99 Bi-pap 40 05/22/20 16:05 98.2 84 19 122/72 100 Bi-pap 40 05/22/20 14:10 97.5 82 16 129/83 100 Bi-pap 40 05/22/20 13:45 91 18 99 40 05/22/20 13:45 40 05/22/20 13:26 90 26 98 Room Air 21 79 26 90 05/22/20 12:10 97.5 72 22 125/69 95 Room Air 05/22/20 10:13 97.5 98 24 112/75 (87) 98 Room Air 05/22/20 10:13 97.5 98 24 112/75 98 Room Air Intake and Output 05/22/20 05/23/20 18:59 06:59 Intake Total 3055 ml 1050 ml Output Total 200 ml Balance 3055 ml 850 ml Intake Oral 0 ml Free Water 130 ml IV Total 3055 ml 670 ml Tube Feeding 250 ml Output Urine Total 200 ml # Bowel Movements 2 Laboratory Tests Test 05/22/20 11:00 05/22/20 11:33 05/22/20 11:52 05/22/20 13:37 White Blood Count 7.9 K/UL (4.8-10.8) Red Blood Count 4.56 M/UL (4.20-5.40) Hemoglobin 13.2 G/DL (12.0-16.0) Hematocrit 40.6 % (37.0-47.0) Mean Corpuscular Volume 89 FL (80-99) Mean Corpuscular Hemoglobin 29.0 PG (27.0-31.0) Mean Corpuscular Hemoglobin Concent 32.6 G/DL (32.0-36.0) Red Cell Distribution Width 13.9 % (11.6-14.8) Platelet Count 428 K/UL (150-450) Mean Platelet Volume 6.0 FL (6.5-10.1) L Neutrophils (%) (Auto) 62.8 % (45.0-75.0) Lymphocytes (%) (Auto) 23.3 % (20.0-45.0) Monocytes (%) (Auto) 9.0 % (1.0-10.0) Eosinophils (%) (Auto) 2.7 % (0.0-3.0) Basophils (%) (Auto) 2.3 % (0.0-2.0) H Prothrombin Time 10.7 SEC (9.30-11.50) Prothromb Time International Ratio 1.0 (0.9-1.1) Activated Partial Thromboplast Time 22 SEC (23-33) L Sodium Level 142 MMOL/L (136-145) Potassium Level 4.8 MMOL/L (3.5-5.1) Chloride Level 107 MMOL/L (98-107) Carbon Dioxide Level 27 MMOL/L (21-32) Anion Gap 8 mmol/L (5-15) Blood Urea Nitrogen 20 mg/dL (7-18) H Creatinine 0.8 MG/DL (0.55-1.30) Estimat Glomerular Filtration Rate > 60 mL/min (>60) Glucose Level 117 MG/DL (74-106) H Lactic Acid Level 3.10 mmol/L (0.4-2.0) H 1.60 mmol/L (0.66-2.22) Calcium Level 8.9 MG/DL (8.5-10.1) Magnesium Level 2.1 MG/DL (1.8-2.4) Ferritin 186 NG/ML (8-388) Total Bilirubin 0.5 MG/DL (0.2-1.0) Aspartate Amino Transf (AST/SGOT) 35 U/L (15-37) Alanine Aminotransferase (ALT/SGPT) 24 U/L (12-78) Alkaline Phosphatase 117 U/L (46-116) H Lactate Dehydrogenase 306 U/L (81-234) H Total Creatine Kinase 57 U/L (26-308) Troponin I 0.000 ng/mL (0.000-0.056) C-Reactive Protein, Quantitative 2.0 mg/dL (0.00-0.90) H Pro-B-Type Natriuretic Peptide 144 pg/mL (0-125) H Total Protein 7.5 G/DL (6.4-8.2) Albumin 2.8 G/DL (3.4-5.0) L Globulin 4.7 g/dL Albumin/Globulin Ratio 0.6 (1.0-2.7) L Lipase 110 U/L (73-393) Urine Color Pale yellow Urine Appearance Cloudy Urine pH 8 (4.5-8.0) Urine Specific [place] 1.010 (1.005-1.035) Urine Protein 2+ (NEGATIVE) H Urine Glucose (UA) Negative (NEGATIVE) Urine Ketones Negative (NEGATIVE) Urine Blood 5+ (NEGATIVE) H Urine Nitrite Negative (NEGATIVE) Urine Bilirubin Negative (NEGATIVE) Urine Urobilinogen Normal MG/DL (0.0-1.0) Urine Leukocyte Esterase 3+ (NEGATIVE) H Urine RBC 20-30 /HPF (0 - 2) H Urine WBC 15-20 /HPF (0 - 2) H Urine Squamous Epithelial Cells Few /LPF (NONE/OCC) Urine Amorphous Sediment Many /LPF (NONE) H Urine Bacteria Few /HPF (NONE) Venous Blood pH 7.378 Venous Blood Partial Pressure CO2 46.9 Venous Blood Partial Pressure O2 41.2 Venous Blood HCO3 27.0 Venous Blood Total Carbon Dioxide 46.9 Venous Blood Base Excess 1.3 Venous Blood Carboxyhemoglobin 0.2 % (0.5-1.5) L Methemoglobin 0.5 Test 05/23/20 02:40 White Blood Count 8.5 K/UL (4.8-10.8) Red Blood Count 3.89 M/UL (4.20-5.40) L Hemoglobin 11.4 G/DL (12.0-16.0) L Hematocrit 35.0 % (37.0-47.0) L Mean Corpuscular Volume 90 FL (80-99) Mean Corpuscular Hemoglobin 29.3 PG (27.0-31.0) Mean Corpuscular Hemoglobin Concent 32.5 G/DL (32.0-36.0) Red Cell Distribution Width 14.2 % (11.6-14.8) Platelet Count 398 K/UL (150-450) Mean Platelet Volume 5.7 FL (6.5-10.1) L Neutrophils (%) (Auto) % (45.0-75.0) Lymphocytes (%) (Auto) % (20.0-45.0) Monocytes (%) (Auto) % (1.0-10.0) Eosinophils (%) (Auto) % (0.0-3.0) Basophils (%) (Auto) % (0.0-2.0) Sodium Level 143 MMOL/L (136-145) Potassium Level 3.5 MMOL/L (3.5-5.1) Chloride Level 109 MMOL/L (98-107) H Carbon Dioxide Level 25 MMOL/L (21-32) Anion Gap 9 mmol/L (5-15) Blood Urea Nitrogen 16 mg/dL (7-18) Creatinine 0.7 MG/DL (0.55-1.30) Estimat Glomerular Filtration Rate > 60 mL/min (>60) Glucose Level 93 MG/DL (74-106) Calcium Level 8.0 MG/DL (8.5-10.1) L Microbiology Date/Time Source Procedure Growth Status 05/22/20 11:33 Urine,Clean Catch Urine Culture - Preliminary Gram Negative Navi Resulted 05/22/20 11:14 Nasopharynx SARS-CoV-2 RdRp Gene Assay - Final Complete Height (Feet): 5 Height (Inches): 4.00 Weight (Pounds): 136 Medications Current Medications Medications (Trade) Dose Ordered Sig/Veronika Route PRN Reason Start Time Stop Time Status Last Admin Dose Admin Acetaminophen (Tylenol) 650 mg Q6H PRN GT Mild Pain (Pain Scale 1-3) 05/22/20 17:00 06/21/20 16:59 Acetaminophen (Tylenol) 650 mg Q6H PRN GT Temp >100.5 05/22/20 17:00 06/21/20 16:59 Albuterol/ Ipratropium (Albuterol/ Ipratropium) 3 ml Q6HRT PRN HHN Shortness of Breath 05/22/20 23:45 06/21/20 23:45 Diphenhydramine HCl (Benadryl) 25 mg Q6H PRN GT Itching 05/22/20 23:00 06/21/20 22:59 05/22/20 23:07 Docusate Sodium (Colace) 200 mg DAILY GT 05/23/20 09:00 06/22/20 08:59 Heparin Sodium (Porcine) (Heparin 5000 units/ml) 5,000 units EVERY 12 HOURS SUBQ 05/22/20 21:00 07/06/20 20:59 05/22/20 20:59 Hydralazine HCl (Apresoline) 25 mg Q6H PRN GT SBP >180 05/22/20 23:45 08/20/20 23:44 Lacosamide (Vimpat) 50 mg Q12HR ORAL 05/22/20 21:00 08/20/20 20:59 05/22/20 20:57 Magnesium Hydroxide (Mom) 30 ml DAILYPRN PRN GT Constipation 05/22/20 19:00 06/21/20 17:14 Meropenem 500 mg/ Sodium Chloride 55 ml @ 110 mls/hr DAILY IVPB 05/23/20 09:00 05/28/20 08:59 UNV Pantoprazole (Protonix) 40 mg DAILY IVP 05/23/20 09:00 06/22/20 08:59 Assessment/Plan Assessment/Plan: Hematology Consultation REQ MD: Ruthann Choi RFC: GI bleeding, cancer eval DOS: 05/23/20 ID [id number] old female, has been here before, the patient was sent in after the G-tube was displaced. No.catheter was inserted. The patient is post stroke and unable to communicate. She has right hemiparesis. She is a DNR on her POLST which directs for comfort care. There is no further history provided. There is no history of fever or vomiting. Apparently with hx of ca, but patient unable to relay this. Review of systems: Limited Social history from intermediate facility Allergies: chlohexidine, vancomycin Nursing Documentation-PMH Past Medical History: No History, Except For Hx Cardiac Problems: Yes Hx Hypertension: Yes Hx Gastrointestinal Problems: Yes - dysphagia Hx Dialysis: No - NEUROMUSCULAR DYSFUNCTION OF BLADDER Hx Neurological Problems: Yes - dysphagia Hx Cerebrovascular Accident: Yes - rupt aneurysm 2012,2014 Hx Seizures: Yes Hx Dysphasia: Yes - dysphagia Hx Neurologic Surgery: Yes - crainiotomy Physical exam: See documented vital signs. HEENT: Moist mucous membranes, on nrm Neck supple no meningismus Lungs slight tachypnea and decreased breath sounds no rales CV rrr, no mgr Abd: gtube has been replaced Ext: no cce Neuro: alert, mumbling, tracks, unable to converse Labs: reviewed Imaging: noted Assessment and Recs # Anemia due to underlying gi bleed per outside report --> per gi eval --> occult is pending x 3 --> hgb 13-->11 --> no evidence of hemolysis # Indeterminate right renal mass. Consider further evaluation on nonemergent basis with MRI or CT with contrast (renal protocol) to exclude neoplasm. --> outpatient followup, reimage 3 mo # Dysphagia is s/p G-tube inserted with ease. --> continue per peg feeds # Sepsis due to RLL pneumonia, uti --> ABX jr/levaquin -> abx per pulm, id # UTI (urinary tract infection) --> also abx # EKG sinus tachycardia. # Cholelithiasis without evidence of acute cholecystitis. # Colonic diverticulosis without evidence of acute diverticulitis. # CVA # Craniotomy # Right hemiplegia # Seizure history # Bladder dysfunction # Dnr Appreciate consultation and dw Arturo Maria MD May 23, 2020 06:35
--- NOTE | 2020-05-23 07:26 | NUR ---
NURSE HAND-OFF REPORT: Important Events on Shift: admission, wcp inititaed. Patient Status: no acute distress noted. Diet: Vital AF Pending Orders: n Pending Results/Labs:n Pending MD notification:n Latest Vital Signs: Temperature 99.0 , Pulse 101 , B/P 103 /59 , Respiratory Rate 24 , O2 SAT 96 , Nasal Cannula, O2 Flow Rate 2.0 . Vital Sign Comment: EKG Rhythm: Sinus Rhythm Rhythm change?: N MD Notified?: - MD Response: Latest [place] Fall Score: 70 Fall Risk: High Risk Safety Measures: Call light Within Reach, Bed Alarm Zone 1, Side Rails Side Rails x3, Bed position Low and Locked. Fall Precautions: Report given to BRITANY Woods.
--- NOTE | 2020-05-23 07:45 | NUR ---
NURSE NOTES: Report received from Tu RN. Patient is observed in bed, awake, confused, and, unable to make needs known. Respiratory even and unlabored. Audible wheezing noted on expiration. IV site is asymptomatic, patent, and intact. G-tube site is leaking; will address as appropriate. HOB is elevated. Bed is in lowest position with side rails up x2 and brakes are engaged. Bed alarm is on.
[2020-05-23 08:00] VITALS: BP 104/73
[2020-05-23] MEDS: Docusate 100mg/10ml Liq GT SCH ×2 (08:53→09:00)
[2020-05-23] MEDS: Pantoprazole Inj IVP SCH (08:54)
[2020-05-23] MEDS: Lacosamide 50mg tablet ORAL SCH ×3 (08:54→21:24)
[2020-05-23] MEDS: Heparin 5000 units/ml inj SUBQ SCH ×2 (08:55→21:24)
[2020-05-23] MEDS ORDERED: Docusate 100mg/10ml Liq NG SCH (09:00)
[2020-05-23] MEDS ORDERED: cefTRIAXone 1 GM in D5W 55 ML IVPB SCH (09:00)
--- NOTE | 2020-05-23 09:23 | NUR ---
NURSE NOTES: Notified Dr. Brasher regarding patient's g-tube site leakage. Unable to give medication and resume tube feeding. Awaiting call back.
--- NOTE | 2020-05-23 09:52 | NUR ---
NURSE NOTES: Notified Dr. Nowak regarding new consult, awaiting call back.
--- NOTE | 2020-05-23 10:33 | NUR ---
NURSE NOTES: Contacted Dr. Brasher regarding patient having mild reaction to rocephin and/or levaquin last night, pharmacist recommended ID on the case, notified Dr. Brasher, awaiting call back.
[2020-05-23 12:18] VITALS: BP 106/74
--- NOTE | 2020-05-23 12:47 | NUR ---
RD ASSESSMENT & RECOMMENDATIONS SEE CARE ACTIVITY FOR COMPLETE ASSESSMENT DAILY ESTIMATED NEEDS: Needs based on sepsis, wound 58.4kg abw 25-30 kcals/kg [id number] total kcals 1.25-1.5 g protein/kg 73-88 g total protein 25-30 mL/kg 1641-9241 total fluid mLs NUTRITION DIAGNOSIS: Swallowing difficulty R/t dysphagia as evidenced by pt is GT dep, nwo w/ GT leak, TF held. CURRENT TF: Vital 1.2 @50ml/hr - NOW HELD ENTERAL NUTRITION RECOMMENDATIONS: Jevity 1.2 goal of 60ml/hr x24 hrs to provide 1440ml, 1728 kcal, 80g pro, 1162ml free H2O - No indications for elemental formula, rec Jevity 1.2. - Start @30ml/hr for 6 hrs. Advance as tolerated 10ml/hr q4-6 hrs to goal. - Flush per MD. HOB over 30 degrees. ADDITIONAL RECOMMENDATIONS: 1) TF recs as above 2) WC eval for sacral wound 3) Monitor BG-> need for carb control formula and/or niss 4) replete lytes, check daily 5) Maintain daily calibrated bed scale wts
--- NOTE | 2020-05-23 13:34 | NUR ---
CASE MANAGEMENT: REVIEW 64 YEAR OLD FEMALE BIBA FROM [facility] CC: G-TUBE MALFUNCTION SI: GI BLEED . G-TUBE MALFUNCTION G-TUBE REPLACEMENT 05/22 T 97.5 HR 98 RR 26 BP 112/75 SAT 96% NC/2L LACTIC ACID 3.10 UA: LEUKOCYTE ESTERASE 3+ WBC 15-20 IS: NS IVF BOLUS X1 PROTONIX IV X1 CEFTRIAXONE IV X1 LEVAQUIN IV X1 ALBUTEROL HHN X1 G-TUBE FEEDING PATIENT ADMITTED TO STEP DOWN UNIT 05/22/2020 DCP: PATIENT IS FROM [facility]
[2020-05-23] MEDS: Meropenem 500 MG in NS 55 ML IVPB SCH ×2 (14:19→21:29)
--- NOTE | 2020-05-23 14:42 | NUR ---
NURSE NOTES:WOUND ASSESSMENT PATIENT AWAKE WITH LEFT WRIST RESTRAINT IN PLACE. SKIN ASSESSMENT DONE. NOTED DIFFUSE RED RASH ON TRUNK AND EXTREMITIES. SKIN WARM AND DRY AND FLAKING IN PLACES. BING PROMINENCES INTACT. RECOMMEND -CONTINUED WOUND PREVENTION PROTOCOLS. REPOSITION AT LEAST EVERY 2 HOURS AND FLOAT/ELEVATE HEELS WITH PILLOWS.
--- NOTE | 2020-05-23 15:11 | General Progress Note ---
Subjective ROS Limited/Unobtainable: No Allergies: Coded Allergies: CHLORHEXIDINE (Verified Allergy, Mild, 07/12/15) VANCOMYCIN (Verified Adverse Reaction, Severe, red man syndrome, pruritus, 05/07/20) Objective Last 24 Hour Vital Signs Date Time Temp Pulse Resp B/P (MAP) Pulse Ox O2 Delivery O2 Flow Rate FiO2 05/23/20 12:18 99.5 119 24 106/74 (85) 96 05/23/20 12:12 2.0 05/23/20 12:00 Nasal Cannula 2.0 05/23/20 11:43 118 05/23/20 08:00 98.0 106 24 104/73 (83) 96 05/23/20 08:00 2.0 05/23/20 08:00 Nasal Cannula 2.0 05/23/20 07:43 102 05/23/20 04:00 Nasal Cannula 2.0 05/23/20 04:00 99.0 101 24 103/59 (74) 96 05/23/20 04:00 2.0 05/23/20 04:00 102 05/23/20 00:00 Nasal Cannula 2.0 05/23/20 00:00 2.0 05/23/20 00:00 88 05/23/20 00:00 98.1 86 24 119/73 (88) 96 05/22/20 21:00 2.0 28 05/22/20 20:10 Nasal Cannula 2.0 05/22/20 20:00 85 05/22/20 20:00 98.2 86 12 127/68 (87) 100 05/22/20 19:30 86 20 100 40 05/22/20 18:13 97.2 93 22 129/80 (96) 97 05/22/20 18:07 79 20 98 Bi-Pap 40 05/22/20 18:02 79 20 98 40 05/22/20 17:36 98.7 79 16 118/73 99 Bi-pap 40 05/22/20 16:05 98.2 84 19 122/72 100 Bi-pap 40 Intake and Output 05/22/20 05/23/20 18:59 06:59 Intake Total 3055 ml 1050 ml Output Total 200 ml Balance 3055 ml 850 ml Intake Oral 0 ml Free Water 130 ml IV Total 3055 ml 670 ml Tube Feeding 250 ml Output Urine Total 200 ml # Bowel Movements 2 Laboratory Tests 05/23/20 02:40: White Blood Count 8.5, Red Blood Count 3.89L, Hemoglobin 11.4L, Hematocrit 35.0L , Mean Corpuscular Volume 90, Mean Corpuscular Hemoglobin 29.3, Mean Corpuscular Hemoglobin Concent 32.5, Red Cell Distribution Width 14.2, Platelet Count 398, Mean Platelet Volume 5.7L, Neutrophils (%) (Auto) , Lymphocytes (%) (Auto) , Monocytes (%) (Auto) , Eosinophils (%) (Auto) , Basophils (%) (Auto) , Sodium Level 143, Potassium Level 3.5, Chloride Level 109H, Carbon Dioxide Level 25, Anion Gap 9, Blood Urea Nitrogen 16, Creatinine 0.7, Estimat Glomerular Filtration Rate > 60, Glucose Level 93, Calcium Level 8.0L Height (Feet): 5 Height (Inches): 4.00 Weight (Pounds): 136 General Appearance: lethargic EENT: normal ENT inspection Neck: supple Cardiovascular: normal rate Respiratory/Chest: decreased breath sounds Abdomen: normal bowel sounds, non tender, soft Extremities: non-tender Assessment/Plan Problem List: (1) PEG (percutaneous endoscopic gastrostomy) status ICD Codes: Z93.1 - Gastrostomy status SNOMED: 728760281, 765670285 (2) UGI bleed ICD Codes: K92.2 - Gastrointestinal hemorrhage, unspecified SNOMED: 27049090 (3) DNR no code (do not resuscitate) ICD Codes: Z66 - Do not resuscitate SNOMED: 310405184 (4) Dislodged gastrostomy tube ICD Codes: Z43.1 - Encounter for attention to gastrostomy SNOMED: 383090590 Assessment/Plan: will change the GT at the bedside to 20 FR GT care and flush skin care Natan Nowak MD May 23, 2020 15:11
[2020-05-23] MEDS ORDERED: VIMPAT10 MG/1 ML GT (15:31)
[2020-05-23] MEDS ORDERED: VITAMIN C500 M1 GT (15:31)
--- NOTE | 2020-05-23 15:35 | NUR ---
NURSE NOTES: Dr. Nowak at bedside, replaced gastrostomy tube. No leaking noted. Per MD, resume feeding.
[2020-05-23] MEDS ORDERED: VITAMIN A & D454 GM TOP (15:36)
[2020-05-23] MEDS ORDERED: BACITRACIN ZIN1 EACH TOPIC (15:40)
[2020-05-23 16:00] VITALS: BP 114/71
--- NOTE | 2020-05-23 16:15 | Consultation ---
DATE OF CONSULTATION: 05/23/2020 INFECTIOUS DISEASE CONSULTATION CONSULTING PHYSICIAN: Francesco Howell MD. PRIMARY ATTENDING PHYSICIAN: Ruthann Brasher MD. REASON FOR CONSULTATION: UTI, atelectasis and likely pneumonia. HISTORY OF PRESENT ILLNESS: This is a 64-year-old white female admitted yesterday from a senior care facility with G-tube dislodgement that was replaced in the ER. The patient has abnormal UA and chest x-ray. She was started on ceftriaxone and Levaquin and developed some allergic reaction to it with a rash. The patient is demented, is not a source of history. 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 ALLERGIES: Allergic to vancomycin. MEDICATIONS: Getting meropenem, Protonix, hydralazine, albuterol ipratropium, magnesium hydroxide, heparin, lacosamide, diphenhydramine, Tylenol. SOCIAL HISTORY: , long-term resident. No other history obtainable. PHYSICAL EXAMINATION: VITAL SIGNS: Temperature 99.5, pulse 119, blood pressure 106/74. GENERAL APPEARANCE: No acute distress, confused, on restraints. HEAD AND NECK: She has craniotomy in the left side. HEART: Tachycardic. LUNGS: Clear. ABDOMEN: Soft, has G-tube, small leaking around G-tube. EXTREMITIES: No edema, has contraction in the right side of the body. NEUROLOGIC: Awake, responsive, disoriented. SKIN: Has some erythematous rash that happened last time in the hospital. LABORATORY AND DIAGNOSTIC DATA: UA showed wbc's of 15 to 20, rbc 20 to 30, leukocyte esterase 2+, blood 5+. Sodium 143, potassium 3.5, chloride 109, bicarb 29, BUN 16, creatinine 0.7. CT scan of the abdomen and pelvis, no evidence contrast extravasation in the peritoneum, cholelithiasis without cholecystitis , colonic diverticulosis, right lower lobe airspace consolidation, compressive atelectasis. Given elevation of right hemidiaphragm atelectasis pneumonia cannot be ruled out. Chest x-ray showed right basilar pleural effusion, airspace opacity, which represent atelectasis, but pneumonia should be excluded clinically. IMPRESSION: Pyuria may have UTI, has atelectasis, less likely pneumonia, dislodgement of G-tube, has allergic reaction to ceftriaxone and Levaquin, history of CVA and right hemiplegia, anemia, diverticulosis, cholelithiasis. RECOMMENDATION: I agree with continuing of meropenem. We will follow up the cultures and try to shorten the course of antibiotics soon. At the end of my exam, I thank Dr. Brasher for involving me in the care of this patient. Francesco Howell M.D. DR: JENNIFER JOB#: [id number] CC: TOSIN
--- NOTE | 2020-05-23 16:39 | Cardiac Electrophysiology PN ---
Subjective Subjective [id number] Objective Last 24 Hour Vital Signs Date Time Temp Pulse Resp B/P (MAP) Pulse Ox O2 Delivery O2 Flow Rate FiO2 05/23/20 16:12 2.0 05/23/20 16:00 Nasal Cannula 2.0 05/23/20 12:18 99.5 119 24 106/74 (85) 96 05/23/20 12:12 2.0 05/23/20 12:00 Nasal Cannula 2.0 05/23/20 11:43 118 05/23/20 08:00 98.0 106 24 104/73 (83) 96 05/23/20 08:00 2.0 05/23/20 08:00 Nasal Cannula 2.0 05/23/20 07:43 102 05/23/20 04:00 Nasal Cannula 2.0 05/23/20 04:00 99.0 101 24 103/59 (74) 96 05/23/20 04:00 2.0 05/23/20 04:00 102 05/23/20 00:00 Nasal Cannula 2.0 05/23/20 00:00 2.0 05/23/20 00:00 88 05/23/20 00:00 98.1 86 24 119/73 (88) 96 05/22/20 21:00 2.0 28 05/22/20 20:10 Nasal Cannula 2.0 05/22/20 20:00 85 05/22/20 20:00 98.2 86 12 127/68 (87) 100 05/22/20 19:30 86 20 100 40 05/22/20 18:13 97.2 93 22 129/80 (96) 97 05/22/20 18:07 79 20 98 Bi-Pap 40 05/22/20 18:02 79 20 98 40 05/22/20 17:36 98.7 79 16 118/73 99 Bi-pap 40 Intake and Output 05/22/20 05/23/20 19:00 07:00 Intake Total 3130 ml 1015 ml Output Total 200 ml Balance 3130 ml 815 ml Intake Oral 0 ml Free Water 130 ml IV Total 3130 ml 595 ml Tube Feeding 290 ml Output Urine Total 200 ml # Bowel Movements 2 Laboratory Tests Test 05/23/20 02:40 White Blood Count 8.5 K/UL (4.8-10.8) Red Blood Count 3.89 M/UL (4.20-5.40) L Hemoglobin 11.4 G/DL (12.0-16.0) L Hematocrit 35.0 % (37.0-47.0) L Mean Corpuscular Volume 90 FL (80-99) Mean Corpuscular Hemoglobin 29.3 PG (27.0-31.0) Mean Corpuscular Hemoglobin Concent 32.5 G/DL (32.0-36.0) Red Cell Distribution Width 14.2 % (11.6-14.8) Platelet Count 398 K/UL (150-450) Mean Platelet Volume 5.7 FL (6.5-10.1) L Neutrophils (%) (Auto) % (45.0-75.0) Lymphocytes (%) (Auto) % (20.0-45.0) Monocytes (%) (Auto) % (1.0-10.0) Eosinophils (%) (Auto) % (0.0-3.0) Basophils (%) (Auto) % (0.0-2.0) Sodium Level 143 MMOL/L (136-145) Potassium Level 3.5 MMOL/L (3.5-5.1) Chloride Level 109 MMOL/L (98-107) H Carbon Dioxide Level 25 MMOL/L (21-32) Anion Gap 9 mmol/L (5-15) Blood Urea Nitrogen 16 mg/dL (7-18) Creatinine 0.7 MG/DL (0.55-1.30) Estimat Glomerular Filtration Rate > 60 mL/min (>60) Glucose Level 93 MG/DL (74-106) Calcium Level 8.0 MG/DL (8.5-10.1) L Microbiology Date/Time Source Procedure Growth Status 05/22/20 11:33 Urine,Clean Catch Urine Culture - Preliminary Gram Negative Navi Resulted 05/22/20 11:14 Nasopharynx SARS-CoV-2 RdRp Gene Assay - Final Complete Salas Reyez MD May 23, 2020 16:39
--- NOTE | 2020-05-23 17:30 | Pulmonology Progress Note ---
Subjective ROS Limited/Unobtainable: No Allergies: Coded Allergies: CHLORHEXIDINE (Verified Allergy, Mild, 07/12/15) VANCOMYCIN (Verified Adverse Reaction, Severe, red man syndrome, pruritus, 05/07/20) Objective Last 24 Hour Vital Signs Date Time Temp Pulse Resp B/P (MAP) Pulse Ox O2 Delivery O2 Flow Rate FiO2 05/23/20 16:12 2.0 05/23/20 16:00 Nasal Cannula 2.0 05/23/20 16:00 99.0 115 21 114/71 (85) 95 05/23/20 12:18 99.5 119 24 106/74 (85) 96 05/23/20 12:12 2.0 05/23/20 12:00 Nasal Cannula 2.0 05/23/20 11:43 118 05/23/20 08:00 98.0 106 24 104/73 (83) 96 05/23/20 08:00 2.0 05/23/20 08:00 Nasal Cannula 2.0 05/23/20 07:43 102 05/23/20 04:00 Nasal Cannula 2.0 05/23/20 04:00 99.0 101 24 103/59 (74) 96 05/23/20 04:00 2.0 05/23/20 04:00 102 05/23/20 00:00 Nasal Cannula 2.0 05/23/20 00:00 2.0 05/23/20 00:00 88 05/23/20 00:00 98.1 86 24 119/73 (88) 96 05/22/20 21:00 2.0 28 05/22/20 20:10 Nasal Cannula 2.0 05/22/20 20:00 85 05/22/20 20:00 98.2 86 12 127/68 (87) 100 05/22/20 19:30 86 20 100 40 05/22/20 18:13 97.2 93 22 129/80 (96) 97 05/22/20 18:07 79 20 98 Bi-Pap 40 05/22/20 18:02 79 20 98 40 05/22/20 17:36 98.7 79 16 118/73 99 Bi-pap 40 Intake and Output 05/22/20 05/23/20 18:59 06:59 Intake Total 3055 ml 1050 ml Output Total 200 ml Balance 3055 ml 850 ml Intake Oral 0 ml Free Water 130 ml IV Total 3055 ml 670 ml Tube Feeding 250 ml Output Urine Total 200 ml # Bowel Movements 2 Objective WDWN NAD reduced breath sounds bilaterally with some rhonchi [id number] without MRG NABS nontender no CCE Microbiology Date/Time Source Procedure Growth Status 05/22/20 11:33 Urine,Clean Catch Urine Culture - Preliminary Gram Negative Navi Resulted 05/22/20 11:14 Nasopharynx SARS-CoV-2 RdRp Gene Assay - Final Complete Laboratory Tests 05/23/20 02:40: White Blood Count 8.5, Red Blood Count 3.89L, Hemoglobin 11.4L, Hematocrit 35.0L , Mean Corpuscular Volume 90, Mean Corpuscular Hemoglobin 29.3, Mean Corpuscular Hemoglobin Concent 32.5, Red Cell Distribution Width 14.2, Platelet Count 398, Mean Platelet Volume 5.7L, Neutrophils (%) (Auto) , Lymphocytes (%) (Auto) , Monocytes (%) (Auto) , Eosinophils (%) (Auto) , Basophils (%) (Auto) , Sodium Level 143, Potassium Level 3.5, Chloride Level 109H, Carbon Dioxide Level 25, Anion Gap 9, Blood Urea Nitrogen 16, Creatinine 0.7, Estimat Glomerular Filtration Rate > 60, Glucose Level 93, Calcium Level 8.0L Current Medications Medications (Trade) Dose Ordered Sig/Veronika Route PRN Reason Start Time Stop Time Status Last Admin Dose Admin Acetaminophen (Tylenol) 650 mg Q6H PRN GT Mild Pain (Pain Scale 1-3) 05/22/20 17:00 06/21/20 16:59 Acetaminophen (Tylenol) 650 mg Q6H PRN GT Temp >100.5 05/22/20 17:00 06/21/20 16:59 Albuterol/ Ipratropium (Albuterol/ Ipratropium) 3 ml Q6HRT PRN HHN Shortness of Breath 05/22/20 23:45 06/21/20 23:45 Diphenhydramine HCl (Benadryl) 25 mg Q6H PRN GT Itching 05/22/20 23:00 06/21/20 22:59 05/22/20 23:07 Docusate Sodium (Colace) 200 mg DAILY GT 05/23/20 09:00 06/22/20 08:59 Heparin Sodium (Porcine) (Heparin 5000 units/ml) 5,000 units EVERY 12 HOURS SUBQ 05/22/20 21:00 07/06/20 20:59 05/23/20 08:55 Hydralazine HCl (Apresoline) 25 mg Q6H PRN GT SBP >180 05/22/20 23:45 08/20/20 23:44 Lacosamide (Vimpat) 50 mg Q12HR ORAL 05/22/20 21:00 08/20/20 20:59 05/22/20 20:57 Magnesium Hydroxide (Mom) 30 ml DAILYPRN PRN GT Constipation 05/22/20 19:00 06/21/20 17:14 Meropenem 500 mg/ Sodium Chloride 55 ml @ 110 mls/hr Q8HR IVPB 05/23/20 14:00 05/28/20 13:59 05/23/20 14:19 Pantoprazole (Protonix) 40 mg DAILY IVP 05/23/20 09:00 06/22/20 08:59 05/23/20 08:54 Zinc Oxide (Zinc Oxide) 1 applic THREE TIMES A DAY TOPIC 05/23/20 18:00 08/21/20 17:59 Assessment/Plan Assessment/Plan Impression: UTI Right LL Pneumonia Sepsis Malfunction of gastrostomy tube Previous UGI bleed COVID-19 ruled out by laboratory testing Hypertension CVA Craniotomy Right hemiplegia Seizure history Bladder dysfunction Plan - IV Meropenem,Levaquin - O2 PRN, Bipap PRN - Duonebs - Sweeney catheter - PPX - Protonix - DNR - Benadryl PRN - [employer] meds - Monitor labs Aquilino Purcell MD May 23, 2020 17:30
[2020-05-23] MEDS: Zinc Oxide Oint 2oz TOPIC SCH (18:00)
--- NOTE | 2020-05-23 18:00 | Consultation ---
DATE OF CONSULTATION: 05/23/2020 CARDIOLOGY CONSULTATION CONSULTING PHYSICIAN: Salas Reyez MD. REFERRING PHYSICIAN: Ruthann Brasher MD. REASON FOR CONSULTATION: Hypertension and tachycardia. HISTORY OF PRESENT ILLNESS: Patient is a 64-year-old lady who was transferred from assisted as her G-tube was displaced. Patient has history of stroke and is not able to communicate and has right hemiplegia. Patient is also DNR. Patient did not have any fever or vomiting. Patient was admitted and a Cardiology consultation was requested for further evaluation. Patient's lactic acid was elevated at 3.1. Initial troponin was negative. Patient's LDH and alkaline phosphate is also elevated and BNP is 44. REVIEW OF SYSTEMS: Negative other than what was mentioned in history of present illness based on the records. Patient is nonverbal. PAST MEDICAL HISTORY: As mentioned above. FAMILY HISTORY: Noncontributory. SOCIAL HISTORY: assisted resident. PHYSICAL EXAMINATION: VITAL SIGNS: Blood pressure 110/70, pulse is 80, respirations 18. HEAD AND NECK: No JVD. LUNGS: Coarse rhonchi. CARDIOVASCULAR: Shows regular S1 and S2 with no gallop. ABDOMEN: Soft. Status post G-tube. EXTREMITIES: No pitting edema. LABORATORY DATA: Labs show white count of 8.5, hemoglobin 11.4, hematocrit 35, and platelet count is 398. Sodium 143, potassium is 3.5, BUN of 16, creatinine 0.7. Lactic acid 3.1. INR is 1. ASSESSMENT AND PLAN: 1. Lactic acidosis and tachycardia, likely due to sepsis. Patient is on meropenem. 2. History of hypertension. Keep the patient only on p.r.n. hydralazine. 3. Dysphagia, status post PEG placement. 4. History of CVA. 5. History of craniotomy and seizures. 6. History of hypoxemia, respiratory failure, on BiPAP. 7. UTI and possible pneumonia, on meropenem per Dr. Francesco Howell. Thank you very much for allowing me to participate in the care of this patient. Please do not hesitate to contact me for any questions regarding my evaluation. Salas Reyez M.D. DR: LIA JOB#: [id number] CC:
--- NOTE | 2020-05-23 18:35 | NUR ---
TRANSFER TO FLOOR: Patient transferred to . Patient is transferred via gurney without any incident. Report given to Donn GARG. Patient is in stable condition.
--- NOTE | 2020-05-23 19:09 | NUR ---
NURSE NOTES: Upon transfer and patient assessment skin was intact but red but blanchable.
--- NOTE | 2020-05-23 19:27 | NUR ---
HAND-OFF: Report given to Francie Carlson, endorsed left side restraint only due to right paralysis, Gtube running, body redness due to medication given while in ED. [].
[2020-05-23 20:00] VITALS: BP 100/56
--- NOTE | 2020-05-23 22:45 | History and Physical Report ---
DATE OF ADMISSION: 05/22/2020 The patient is a very poor historian, cannot get any reliable history from the patient. The patient removed G-tube. Sweeney was placed to keep the stoma open. The patient was found to have pneumonia, urinary tract infection, on BiPAP, hypoxic, DNR. PEG was replaced by the ER doctor. She was admitted for pneumonia, UTI, respiratory failure, hypoxia, on BiPAP, to [facility], and also rule out GI bleed. Again, cannot get any history from the patient. PAST MEDICAL HISTORY: Bladder dysfunction, seizure disorder, CVA with hemiplegia, diabetic, history of diverticulosis, history of sinus tachycardia, history of UTI, history of sepsis, history of dysphagia. The patient also has a history of seizures. PAST SURGICAL HISTORY: Craniotomy and PEG. MEDICATIONS: Vitamin C, docusate, and Vimpat. FAMILY HISTORY: Unable to obtain. SOCIAL HISTORY: Unable to obtain. REVIEW OF SYSTEMS: Unable to obtain. PHYSICAL EXAMINATION: VITAL SIGNS: Temperature is 99.5, pulse is 119, blood pressure 106/74. HEENT: PERRLA. CHEST: Clear to auscultation. CARDIOVASCULAR: Regular rate and rhythm. GI: Soft. Positive bowel sounds. G-tube site is intact. EXTREMITIES: No edema. Dorsalis pedis pulses are present. NEUROLOGIC: Does not follow neurological exam. Other supple as pulse is present. LABORATORY DATA: WBC of 7.9, hemoglobin 13, platelets of 428. Sodium 140, potassium 4.8, BUN of 20, creatinine 0.8. ASSESSMENT/PLAN: UTI, sepsis, pneumonia, respiratory insufficiency, hypoxia. G-tube was replaced by the ER doctor, DNR. I have consulted , Dr. Francesco Howell, Dr. Arturo Varma, Dr. Reyez, and Dr. Nowak. Ruthann Brasher M.D. DR: LEIDA JOB#: [id number] CC:
[2020-05-24] VITALS: BP 127/65
[2020-05-24 04:00] VITALS: BP 121/74
[2020-05-24] MEDS: Meropenem 500 MG in NS 55 ML IVPB SCH ×3 (06:01→21:17)
--- NOTE | 2020-05-24 06:34 | Hematology/Onc Progress Note ---
Assessment/Plan Assessment/Plan Assessment and Recs # Anemia due to underlying gi bleed per outside report --> per gi eval --> occult is pending x 3 --> hgb 13-->11 --> no evidence of hemolysis # Indeterminate right renal mass. --> Consider further evaluation on nonemergent basis with MRI or CT with contrast (renal protocol) to exclude neoplasm. --> outpatient followup, reimage 3 mo # Dysphagia is s/p G-tube inserted with ease. --> continue per peg feeds # Sepsis due to RLL pneumonia, uti --> ABX jr/levaquin -> abx per pulm, id # UTI (urinary tract infection) --> also abx # EKG sinus tachycardia. # Cholelithiasis without evidence of acute cholecystitis. # Colonic diverticulosis without evidence of acute diverticulitis. # CVA # Craniotomy # Right hemiplegia # Seizure history # Bladder dysfunction # Dnr # Dvt ppx scds Appreciate consultation and dw RN Subjective Constitutional: Denies: no symptoms, chills, fever, malaise, weakness, other HEENT: Denies: no symptoms, eye pain, blurred vision, tearing, double vision, ear pain, ear discharge, nose pain, nose congestion, throat pain, throat swelling, mouth pain, mouth swelling, other Cardiovascular: Denies: no symptoms, chest pain, edema, irregular heart rate, lightheadedness, palpitations, syncope, other Respiratory: Denies: no symptoms, cough, shortness of breath, SOB with excertion, SOB at rest, sputum, wheezing, other Neurologic/Psychiatric: Denies: no symptoms, anxiety, depressed, emotional problems, headache, numbness, paresthesia, pre-existing deficit, seizure, tingling, tremors, weakness, other Endocrine: Denies: no symptoms, excessive sweating, flushing, intolerance to cold, intolerance to heat, increased hunger, increased thirst, increased urine, unexplained weight gain, unexplained weight loss, other Hematologic/Lymphatic: Denies: no symptoms, anemia, easy bleeding, easy bruising, adenopathy, other Allergies: Coded Allergies: CHLORHEXIDINE (Verified Allergy, Mild, 07/12/15) VANCOMYCIN (Verified Adverse Reaction, Severe, red man syndrome, pruritus, 05/07/20) Subjective 10/1 labs noted, no bleeding, sleepy in am, cbc pend Objective Objective Current Medications Medications (Trade) Dose Ordered Sig/Veronika Route PRN Reason Start Time Stop Time Status Last Admin Dose Admin Acetaminophen (Tylenol) 650 mg Q6H PRN GT Mild Pain (Pain Scale 1-3) 05/22/20 17:00 06/21/20 16:59 Acetaminophen (Tylenol) 650 mg Q6H PRN GT Temp >100.5 05/22/20 17:00 06/21/20 16:59 Albuterol/ Ipratropium (Albuterol/ Ipratropium) 3 ml Q6HRT PRN HHN Shortness of Breath 05/22/20 23:45 06/21/20 23:45 Diphenhydramine HCl (Benadryl) 25 mg Q6H PRN GT Itching 05/22/20 23:00 06/21/20 22:59 05/22/20 23:07 Docusate Sodium (Colace) 200 mg DAILY GT 05/23/20 09:00 06/22/20 08:59 Heparin Sodium (Porcine) (Heparin 5000 units/ml) 5,000 units EVERY 12 HOURS SUBQ 05/22/20 21:00 07/06/20 20:59 05/23/20 21:24 Hydralazine HCl (Apresoline) 25 mg Q6H PRN GT SBP >180 05/22/20 23:45 08/20/20 23:44 Lacosamide (Vimpat) 50 mg Q12HR ORAL 05/22/20 21:00 08/20/20 20:59 05/23/20 21:24 Magnesium Hydroxide (Mom) 30 ml DAILYPRN PRN GT Constipation 05/22/20 19:00 06/21/20 17:14 Meropenem 500 mg/ Sodium Chloride 55 ml @ 110 mls/hr Q8HR IVPB 05/23/20 14:00 05/28/20 13:59 05/24/20 06:01 Pantoprazole (Protonix) 40 mg DAILY IVP 05/23/20 09:00 06/22/20 08:59 05/23/20 08:54 Zinc Oxide (Zinc Oxide) 1 applic THREE TIMES A DAY TOPIC 05/23/20 18:00 08/21/20 17:59 05/23/20 18:00 Last 24 Hour Vital Signs Date Time Temp Pulse Resp B/P (MAP) Pulse Ox O2 Delivery O2 Flow Rate FiO2 05/24/20 04:06 119 05/24/20 00:00 Nasal Cannula 2.0 05/24/20 00:00 118 05/24/20 00:00 98.2 100 20 127/65 (85) 97 05/23/20 20:00 121 05/23/20 20:00 97.7 105 20 100/56 (71) 100 05/23/20 20:00 Nasal Cannula 2.0 05/23/20 16:12 2.0 05/23/20 16:00 Nasal Cannula 2.0 05/23/20 16:00 99.0 115 21 114/71 (85) 95 05/23/20 15:24 112 05/23/20 12:18 99.5 119 24 106/74 (85) 96 05/23/20 12:12 2.0 05/23/20 12:00 Nasal Cannula 2.0 05/23/20 11:43 118 05/23/20 08:00 98.0 106 24 104/73 (83) 96 05/23/20 08:00 2.0 05/23/20 08:00 Nasal Cannula 2.0 05/23/20 07:43 102 05/23/20 04:00 Nasal Cannula 2.0 05/23/20 04:00 99.0 101 24 103/59 (74) 96 05/23/20 04:00 2.0 05/23/20 04:00 102 05/23/20 00:00 Nasal Cannula 2.0 05/23/20 00:00 2.0 05/23/20 00:00 88 05/23/20 00:00 98.1 86 24 119/73 (88) 96 05/22/20 21:00 2.0 28 05/22/20 20:10 Nasal Cannula 2.0 05/22/20 20:00 85 05/22/20 20:00 98.2 86 12 127/68 (87) 100 05/22/20 19:30 86 20 100 40 05/22/20 18:13 97.2 93 22 129/80 (96) 97 05/22/20 18:07 79 20 98 Bi-Pap 40 05/22/20 18:02 79 20 98 40 05/22/20 17:36 98.7 79 16 118/73 99 Bi-pap 40 05/22/20 16:05 98.2 84 19 122/72 100 Bi-pap 40 05/22/20 14:10 97.5 82 16 129/83 100 Bi-pap 40 05/22/20 13:45 91 18 99 40 05/22/20 13:45 40 05/22/20 13:26 90 26 98 Room Air 21 79 26 90 05/22/20 12:10 97.5 72 22 125/69 95 Room Air 05/22/20 10:13 97.5 98 24 112/75 (87) 98 Room Air 05/22/20 10:13 97.5 98 24 112/75 98 Room Air Intake and Output 05/23/20 05/24/20 19:00 07:00 Output Total 150 ml 200 ml Balance -150 ml -200 ml Output Urine Total 150 ml 200 ml # Bowel Movements 2 Labs Test 05/22/20 11:00 05/22/20 11:33 05/22/20 11:52 05/22/20 13:37 White Blood Count 7.9 K/UL (4.8-10.8) Red Blood Count 4.56 M/UL (4.20-5.40) Hemoglobin 13.2 G/DL (12.0-16.0) Hematocrit 40.6 % (37.0-47.0) Mean Corpuscular Volume 89 FL (80-99) Mean Corpuscular Hemoglobin 29.0 PG (27.0-31.0) Mean Corpuscular Hemoglobin Concent 32.6 G/DL (32.0-36.0) Red Cell Distribution Width 13.9 % (11.6-14.8) Platelet Count 428 K/UL (150-450) Mean Platelet Volume 6.0 FL (6.5-10.1) Neutrophils (%) (Auto) 62.8 % (45.0-75.0) Lymphocytes (%) (Auto) 23.3 % (20.0-45.0) Monocytes (%) (Auto) 9.0 % (1.0-10.0) Eosinophils (%) (Auto) 2.7 % (0.0-3.0) Basophils (%) (Auto) 2.3 % (0.0-2.0) Prothrombin Time 10.7 SEC (9.30-11.50) Prothromb Time International Ratio 1.0 (0.9-1.1) Activated Partial Thromboplast Time 22 SEC (23-33) Sodium Level 142 MMOL/L (136-145) Potassium Level 4.8 MMOL/L (3.5-5.1) Chloride Level 107 MMOL/L (98-107) Carbon Dioxide Level 27 MMOL/L (21-32) Anion Gap 8 mmol/L (5-15) Blood Urea Nitrogen 20 mg/dL (7-18) Creatinine 0.8 MG/DL (0.55-1.30) Estimat Glomerular Filtration Rate > 60 mL/min (>60) Glucose Level 117 MG/DL (74-106) Lactic Acid Level 3.10 mmol/L (0.4-2.0) 1.60 mmol/L (0.66-2.22) Calcium Level 8.9 MG/DL (8.5-10.1) Magnesium Level 2.1 MG/DL (1.8-2.4) Ferritin 186 NG/ML (8-388) Total Bilirubin 0.5 MG/DL (0.2-1.0) Aspartate Amino Transf (AST/SGOT) 35 U/L (15-37) Alanine Aminotransferase (ALT/SGPT) 24 U/L (12-78) Alkaline Phosphatase 117 U/L (46-116) Lactate Dehydrogenase 306 U/L (81-234) Total Creatine Kinase 57 U/L (26-308) Troponin I 0.000 ng/mL (0.000-0.056) C-Reactive Protein, Quantitative 2.0 mg/dL (0.00-0.90) Pro-B-Type Natriuretic Peptide 144 pg/mL (0-125) Total Protein 7.5 G/DL (6.4-8.2) Albumin 2.8 G/DL (3.4-5.0) Globulin 4.7 g/dL Albumin/Globulin Ratio 0.6 (1.0-2.7) Lipase 110 U/L (73-393) Urine Color Pale yellow Urine Appearance Cloudy Urine pH 8 (4.5-8.0) Urine Specific [place] 1.010 (1.005-1.035) Urine Protein 2+ (NEGATIVE) Urine Glucose (UA) Negative (NEGATIVE) Urine Ketones Negative (NEGATIVE) Urine Blood 5+ (NEGATIVE) Urine Nitrite Negative (NEGATIVE) Urine Bilirubin Negative (NEGATIVE) Urine Urobilinogen Normal MG/DL (0.0-1.0) Urine Leukocyte Esterase 3+ (NEGATIVE) Urine RBC 20-30 /HPF (0 - 2) Urine WBC 15-20 /HPF (0 - 2) Urine Squamous Epithelial Cells Few /LPF (NONE/OCC) Urine Amorphous Sediment Many /LPF (NONE) Urine Bacteria Few /HPF (NONE) Venous Blood pH 7.378 Venous Blood Partial Pressure CO2 46.9 Venous Blood Partial Pressure O2 41.2 Venous Blood HCO3 27.0 Venous Blood Total Carbon Dioxide 46.9 Venous Blood Base Excess 1.3 Venous Blood Carboxyhemoglobin 0.2 % (0.5-1.5) Methemoglobin 0.5 Test 05/23/20 02:40 White Blood Count 8.5 K/UL (4.8-10.8) Red Blood Count 3.89 M/UL (4.20-5.40) Hemoglobin 11.4 G/DL (12.0-16.0) Hematocrit 35.0 % (37.0-47.0) Mean Corpuscular Volume 90 FL (80-99) Mean Corpuscular Hemoglobin 29.3 PG (27.0-31.0) Mean Corpuscular Hemoglobin Concent 32.5 G/DL (32.0-36.0) Red Cell Distribution Width 14.2 % (11.6-14.8) Platelet Count 398 K/UL (150-450) Mean Platelet Volume 5.7 FL (6.5-10.1) Neutrophils (%) (Auto) % (45.0-75.0) Lymphocytes (%) (Auto) % (20.0-45.0) Monocytes (%) (Auto) % (1.0-10.0) Eosinophils (%) (Auto) % (0.0-3.0) Basophils (%) (Auto) % (0.0-2.0) Sodium Level 143 MMOL/L (136-145) Potassium Level 3.5 MMOL/L (3.5-5.1) Chloride Level 109 MMOL/L (98-107) Carbon Dioxide Level 25 MMOL/L (21-32) Anion Gap 9 mmol/L (5-15) Blood Urea Nitrogen 16 mg/dL (7-18) Creatinine 0.7 MG/DL (0.55-1.30) Estimat Glomerular Filtration Rate > 60 mL/min (>60) Glucose Level 93 MG/DL (74-106) Calcium Level 8.0 MG/DL (8.5-10.1) Height (Feet): 5 Height (Inches): 4.00 Weight (Pounds): 136 Objective Physical exam: See documented vital signs. HEENT: Moist mucous membranes, on nrm Neck supple no meningismus Lungs slight tachypnea and decreased breath sounds no rales CV rrr, no mgr Abd: gtube has been replaced Ext: no cce Neuro: alert, mumbling, tracks, unable to converse Arturo Varma MD May 24, 2020 06:34
[2020-05-24 07:19] LABS: HEMATOCRIT 32.9 % (37.0-47.0); HEMOGLOBIN 10.7 G/DL (12.0-16.0); MEAN CORPUSCULAR VOLUME 89 FL (80-99); PLATELET COUNT 353 K/UL (150-450); RED BLOOD COUNT 3.68 M/UL (4.20-5.40); WHITE BLOOD COUNT 8.4 K/UL (4.8-10.8)
[2020-05-24 07:30] LABS: ANION GAP 9 mmol/L (5-15); BLOOD UREA NITROGEN 16 mg/dL (7-18); CALCIUM 8.4 MG/DL (8.5-10.1); CARBON DIOXIDE 24 MMOL/L (21-32); CHLORIDE 111 MMOL/L (98-107); CREATININE 0.7 MG/DL (0.55-1.30); POTASSIUM 3.9 MMOL/L (3.5-5.1); SODIUM 144 MMOL/L (136-145)
[2020-05-24 08:00] VITALS: BP 135/67
--- NOTE | 2020-05-24 08:03 | NUR ---
NURSE NOTES: Received report from Elma Carlson RN. Patient sitting HOB at 45 degrees, 2 liters nasal cannula, side rials up x 3, padded side rails, bed in lowest position, call light within reach, patient is sleeping, respirations at 15 breaths per minute, in no apparent distress. Patient has a generalized rash.
--- NOTE | 2020-05-24 08:05 | NUR ---
NURSE HAND-OFF REPORT: Important Events on Shift: EKG completed Patient Status: stable Diet: Vital AF @ 40ml/hr via GT Pending Orders: none Pending Results/Labs: BMP, CBC, CXR, trop., Pending MD notification: none Latest Vital Signs: Temperature 98.0 , Pulse 119 , B/P 121 /74 , Respiratory Rate 20 , O2 SAT 95 , Nasal Cannula, O2 Flow Rate 2.0 . Vital Sign Comment: EKG Rhythm: Sinus Tachycardia Rhythm change?: N MD Notified?: - MD Response: Latest [place] Fall Score: 70 Fall Risk: High Risk Safety Measures: Call light Within Reach, Bed Alarm Zone 1, Side Rails Side Rails x3, Bed position Low and Locked. Fall Precautions: yes Yellow Socks yes Yellow Gown yes Door Sign yes Report given to Rosendo Colunga RN
[2020-05-24] MEDS: Docusate 100mg/10ml Liq GT SCH (08:39)
[2020-05-24] MEDS: Pantoprazole Inj IVP SCH (08:40)
[2020-05-24] MEDS: Lacosamide 50mg tablet ORAL SCH ×2 (08:40→21:18)
[2020-05-24] MEDS: Heparin 5000 units/ml inj SUBQ SCH ×2 (08:42→21:18)
[2020-05-24] MEDS: Zinc Oxide Oint 2oz TOPIC SCH ×3 (08:43→18:05)
--- NOTE | 2020-05-24 10:01 | NUR ---
RADIOLOGY DEPT., CHEST X-RAY DONE.-P.DYE
--- NOTE | 2020-05-24 10:42 | Diagnostic Imaging Report ---
Indication: Shortness of breath Technique: One view of the chest Comparison: 05/22/2020 Findings: There is marked elevation the right hemidiaphragm. There is some basilar atelectasis on the right. There is some left lateral basilar scarring versus atelectasis. Findings are unchanged Impression: Unchanged, over 2 days, findings as above.
--- NOTE | 2020-05-24 11:40 | General Progress Note ---
Subjective ROS Limited/Unobtainable: No Allergies: Coded Allergies: CHLORHEXIDINE (Verified Allergy, Mild, 07/12/15) VANCOMYCIN (Verified Adverse Reaction, Severe, red man syndrome, pruritus, 05/07/20) Objective Last 24 Hour Vital Signs Date Time Temp Pulse Resp B/P (MAP) Pulse Ox O2 Delivery O2 Flow Rate FiO2 05/24/20 08:00 98.3 64 18 135/67 (89) 96 05/24/20 08:00 76 05/24/20 04:06 119 05/24/20 04:00 98.0 108 20 121/74 (90) 95 05/24/20 00:00 Nasal Cannula 2.0 05/24/20 00:00 118 05/24/20 00:00 98.2 100 20 127/65 (85) 97 05/23/20 20:00 121 05/23/20 20:00 97.7 105 20 100/56 (71) 100 05/23/20 20:00 Nasal Cannula 2.0 05/23/20 16:12 2.0 05/23/20 16:00 Nasal Cannula 2.0 05/23/20 16:00 99.0 115 21 114/71 (85) 95 05/23/20 15:24 112 05/23/20 12:18 99.5 119 24 106/74 (85) 96 05/23/20 12:12 2.0 05/23/20 12:00 Nasal Cannula 2.0 05/23/20 11:43 118 Intake and Output 05/23/20 05/24/20 19:00 07:00 Output Total 150 ml 200 ml Balance -150 ml -200 ml Output Urine Total 150 ml 200 ml # Bowel Movements 2 Laboratory Tests 05/24/20 06:17: White Blood Count 8.4, Red Blood Count 3.68L, Hemoglobin 10.7L, Hematocrit 32.9L , Mean Corpuscular Volume 89, Mean Corpuscular Hemoglobin 29.1, Mean Corpuscular Hemoglobin Concent 32.6, Red Cell Distribution Width 14.0, Platelet Count 353, Mean Platelet Volume 5.4L, Neutrophils (%) (Auto) , Lymphocytes (%) (Auto) , Monocytes (%) (Auto) , Eosinophils (%) (Auto) , Basophils (%) (Auto) , Differential Total Cells Counted 100, Neutrophils % (Manual) 90H, Lymphocytes % (Manual) 3L, Monocytes % (Manual) 6, Eosinophils % (Manual) 1, Basophils % (Manual) 0, Band Neutrophils 0, Platelet Estimate Adequate, Platelet Morphology Normal, Hypochromasia 1+, Sodium Level 144, Potassium Level 3.9, Chloride Level 111H, Carbon Dioxide Level 24, Anion Gap 9, Blood Urea Nitrogen 16, Creatinine 0.7, Estimat Glomerular Filtration Rate > 60, Glucose Level 103, Calcium Level 8.4L, Troponin I 0.000 Height (Feet): 5 Height (Inches): 4.00 Weight (Pounds): 136 General Appearance: no apparent distress EENT: normal ENT inspection Neck: supple Cardiovascular: normal rate Respiratory/Chest: decreased breath sounds Abdomen: hypoactive bowel sounds Extremities: non-tender Assessment/Plan Problem List: (1) PEG (percutaneous endoscopic gastrostomy) status ICD Codes: Z93.1 - Gastrostomy status SNOMED: 108046001, 568873835 (2) UGI bleed ICD Codes: K92.2 - Gastrointestinal hemorrhage, unspecified SNOMED: 09648148 (3) DNR no code (do not resuscitate) ICD Codes: Z66 - Do not resuscitate SNOMED: 033586885 (4) Dislodged gastrostomy tube ICD Codes: Z43.1 - Encounter for attention to gastrostomy SNOMED: 621230160 Assessment/Plan: GT has been changed at the bedside to 20 FR GT care and flush skin care Natan Nowak MD May 24, 2020 11:40
[2020-05-24] MEDS ORDERED: NS 275ml ONE (11:51)
[2020-05-24] MEDS ORDERED: NS Irrig 1000ml ONE (11:51)
[2020-05-24 12:00] VITALS: BP 114/61
--- NOTE | 2020-05-24 13:01 | Infectious Diseases Prog Note ---
Assessment/Plan Assessment/Plan IMPRESSION: Pyuria /UTI, Atelectasis, less pneumonia, dDslodgement of G-tube, allergic reaction to ceftriaxone and Levaquin, history of CVA and right hemiplegia, anemia, Diverticulosis, cholelithiasis. RECOMMENDATION: continue meropenem Subjective ROS Limited/Unobtainable: Yes Constitutional: Denies: fever Allergies: Coded Allergies: CHLORHEXIDINE (Verified Allergy, Mild, 07/12/15) VANCOMYCIN (Verified Adverse Reaction, Severe, red man syndrome, pruritus, 05/07/20) Objective Last 24 Hour Vital Signs Date Time Temp Pulse Resp B/P (MAP) Pulse Ox O2 Delivery O2 Flow Rate FiO2 05/24/20 08:00 98.3 64 18 135/67 (89) 96 05/24/20 08:00 76 05/24/20 04:06 119 05/24/20 04:00 98.0 108 20 121/74 (90) 95 05/24/20 00:00 Nasal Cannula 2.0 05/24/20 00:00 118 05/24/20 00:00 98.2 100 20 127/65 (85) 97 05/23/20 20:00 121 05/23/20 20:00 97.7 105 20 100/56 (71) 100 05/23/20 20:00 Nasal Cannula 2.0 05/23/20 16:12 2.0 05/23/20 16:00 Nasal Cannula 2.0 05/23/20 16:00 99.0 115 21 114/71 (85) 95 05/23/20 15:24 112 Height (Feet): 5 Height (Inches): 4.00 Weight (Pounds): 136 General Appearance: no acute distress HEENT: mucous membranes moist Respiratory/Chest: lungs clear Cardiovascular: normal rate Abdomen: soft, non tender Extremities: no edema Skin: rash, other - decreasing Neurologic/Psychiatric: other - left craniotomy, right hemiplegia Microbiology Date/Time Source Procedure Growth Status 05/22/20 11:33 Urine,Clean Catch Urine Culture - Final Mixed Urogenital Contaminants Complete 05/22/20 11:14 Nasopharynx SARS-CoV-2 RdRp Gene Assay - Final Complete Laboratory Tests Test 05/24/20 06:17 White Blood Count 8.4 K/UL (4.8-10.8) Red Blood Count 3.68 M/UL (4.20-5.40) L Hemoglobin 10.7 G/DL (12.0-16.0) L Hematocrit 32.9 % (37.0-47.0) L Mean Corpuscular Volume 89 FL (80-99) Mean Corpuscular Hemoglobin 29.1 PG (27.0-31.0) Mean Corpuscular Hemoglobin Concent 32.6 G/DL (32.0-36.0) Red Cell Distribution Width 14.0 % (11.6-14.8) Platelet Count 353 K/UL (150-450) Mean Platelet Volume 5.4 FL (6.5-10.1) L Neutrophils (%) (Auto) % (45.0-75.0) Lymphocytes (%) (Auto) % (20.0-45.0) Monocytes (%) (Auto) % (1.0-10.0) Eosinophils (%) (Auto) % (0.0-3.0) Basophils (%) (Auto) % (0.0-2.0) Differential Total Cells Counted 100 Neutrophils % (Manual) 90 % (45-75) H Lymphocytes % (Manual) 3 % (20-45) L Monocytes % (Manual) 6 % (1-10) Eosinophils % (Manual) 1 % (0-3) Basophils % (Manual) 0 % (0-2) Band Neutrophils 0 % (0-8) Platelet Estimate Adequate Platelet Morphology Normal Hypochromasia 1+ Sodium Level 144 MMOL/L (136-145) Potassium Level 3.9 MMOL/L (3.5-5.1) Chloride Level 111 MMOL/L (98-107) H Carbon Dioxide Level 24 MMOL/L (21-32) Anion Gap 9 mmol/L (5-15) Blood Urea Nitrogen 16 mg/dL (7-18) Creatinine 0.7 MG/DL (0.55-1.30) Estimat Glomerular Filtration Rate > 60 mL/min (>60) Glucose Level 103 MG/DL (74-106) Calcium Level 8.4 MG/DL (8.5-10.1) L Troponin I 0.000 ng/mL (0.000-0.056) Current Medications Medications (Trade) Dose Ordered Sig/Veronika Route PRN Reason Start Time Stop Time Status Last Admin Dose Admin Acetaminophen (Tylenol) 650 mg Q6H PRN GT Mild Pain (Pain Scale 1-3) 05/22/20 17:00 06/21/20 16:59 Acetaminophen (Tylenol) 650 mg Q6H PRN GT Temp >100.5 05/22/20 17:00 06/21/20 16:59 Albuterol/ Ipratropium (Albuterol/ Ipratropium) 3 ml Q6HRT PRN HHN Shortness of Breath 05/22/20 23:45 06/21/20 23:45 Diphenhydramine HCl (Benadryl) 25 mg Q6H PRN GT Itching 05/22/20 23:00 06/21/20 22:59 05/22/20 23:07 Docusate Sodium (Colace) 200 mg DAILY GT 05/23/20 09:00 06/22/20 08:59 05/24/20 08:39 Heparin Sodium (Porcine) (Heparin 5000 units/ml) 5,000 units EVERY 12 HOURS SUBQ 05/22/20 21:00 07/06/20 20:59 05/24/20 08:42 Hydralazine HCl (Apresoline) 25 mg Q6H PRN GT SBP >180 05/22/20 23:45 08/20/20 23:44 Lacosamide (Vimpat) 50 mg Q12HR ORAL 05/22/20 21:00 08/20/20 20:59 05/24/20 08:40 Magnesium Hydroxide (Mom) 30 ml DAILYPRN PRN GT Constipation 05/22/20 19:00 06/21/20 17:14 Meropenem 500 mg/ Sodium Chloride 55 ml @ 110 mls/hr Q8HR IVPB 05/23/20 14:00 05/28/20 13:59 05/24/20 06:01 Pantoprazole (Protonix) 40 mg DAILY IVP 05/23/20 09:00 06/22/20 08:59 05/24/20 08:40 Zinc Oxide (Zinc Oxide) 1 applic THREE TIMES A DAY TOPIC 05/23/20 18:00 08/21/20 17:59 05/24/20 08:43 Francesco Howell MD May 24, 2020 13:01
--- NOTE | 2020-05-24 15:21 | Cardiac Electrophysiology PN ---
Assessment/Plan Assessment/Plan 1. Lactic acidosis and tachycardia, likely due to sepsis. Patient is on meropenem. 2. History of hypertension. On p.r.n. hydralazine 25 gt q 6 hr 3. Dysphagia, status post PEG placement. 4. History of CVA. 5. History of craniotomy and seizures. 6. History of hypoxemia, respiratory failure, on BiPAP. 7. UTI and possible pneumonia, on meropenem per Dr. Francesco Howell. Subjective Subjective Nonverbal. GT feeding ongoing Objective Last 24 Hour Vital Signs Date Time Temp Pulse Resp B/P (MAP) Pulse Ox O2 Delivery O2 Flow Rate FiO2 05/24/20 12:00 99.5 95 17 114/61 (78) 94 05/24/20 12:00 92 05/24/20 09:00 Nasal Cannula 2.0 05/24/20 08:00 98.3 64 18 135/67 (89) 96 05/24/20 08:00 76 05/24/20 04:06 119 05/24/20 04:00 98.0 108 20 121/74 (90) 95 05/24/20 00:00 Nasal Cannula 2.0 05/24/20 00:00 118 05/24/20 00:00 98.2 100 20 127/65 (85) 97 05/23/20 20:00 121 05/23/20 20:00 97.7 105 20 100/56 (71) 100 05/23/20 20:00 Nasal Cannula 2.0 05/23/20 16:12 2.0 05/23/20 16:00 Nasal Cannula 2.0 05/23/20 16:00 99.0 115 21 114/71 (85) 95 05/23/20 15:24 112 Intake and Output 05/23/20 05/24/20 19:00 07:00 Output Total 150 ml 200 ml Balance -150 ml -200 ml Output Urine Total 150 ml 200 ml # Bowel Movements 2 Laboratory Tests Test 05/24/20 06:17 White Blood Count 8.4 K/UL (4.8-10.8) Red Blood Count 3.68 M/UL (4.20-5.40) L Hemoglobin 10.7 G/DL (12.0-16.0) L Hematocrit 32.9 % (37.0-47.0) L Mean Corpuscular Volume 89 FL (80-99) Mean Corpuscular Hemoglobin 29.1 PG (27.0-31.0) Mean Corpuscular Hemoglobin Concent 32.6 G/DL (32.0-36.0) Red Cell Distribution Width 14.0 % (11.6-14.8) Platelet Count 353 K/UL (150-450) Mean Platelet Volume 5.4 FL (6.5-10.1) L Neutrophils (%) (Auto) % (45.0-75.0) Lymphocytes (%) (Auto) % (20.0-45.0) Monocytes (%) (Auto) % (1.0-10.0) Eosinophils (%) (Auto) % (0.0-3.0) Basophils (%) (Auto) % (0.0-2.0) Differential Total Cells Counted 100 Neutrophils % (Manual) 90 % (45-75) H Lymphocytes % (Manual) 3 % (20-45) L Monocytes % (Manual) 6 % (1-10) Eosinophils % (Manual) 1 % (0-3) Basophils % (Manual) 0 % (0-2) Band Neutrophils 0 % (0-8) Platelet Estimate Adequate Platelet Morphology Normal Hypochromasia 1+ Sodium Level 144 MMOL/L (136-145) Potassium Level 3.9 MMOL/L (3.5-5.1) Chloride Level 111 MMOL/L (98-107) H Carbon Dioxide Level 24 MMOL/L (21-32) Anion Gap 9 mmol/L (5-15) Blood Urea Nitrogen 16 mg/dL (7-18) Creatinine 0.7 MG/DL (0.55-1.30) Estimat Glomerular Filtration Rate > 60 mL/min (>60) Glucose Level 103 MG/DL (74-106) Calcium Level 8.4 MG/DL (8.5-10.1) L Troponin I 0.000 ng/mL (0.000-0.056) Microbiology Date/Time Source Procedure Growth Status 05/22/20 11:33 Urine,Clean Catch Urine Culture - Final Mixed Urogenital Contaminants Complete 05/22/20 11:14 Nasopharynx SARS-CoV-2 RdRp Gene Assay - Final Complete Objective HEAD AND NECK: No JVD. LUNGS: Coarse rhonchi. CARDIOVASCULAR: Shows regular S1 and S2 with no gallop. ABDOMEN: Soft. Status post G-tube. EXTREMITIES: No pitting edema. Salas Reyez MD May 24, 2020 15:21
[2020-05-24 16:00] VITALS: BP 117/72
--- NOTE | 2020-05-24 16:47 | Pulmonology Progress Note ---
Subjective ROS Limited/Unobtainable: Yes Constitutional: Denies: fever Allergies: Coded Allergies: CHLORHEXIDINE (Verified Allergy, Mild, 07/12/15) CEFTRIAXONE (Unverified Allergy, Unknown, 05/24/20) per Dr. Walker (ID) note LEVOFLOXACIN (Unverified Allergy, Unknown, 05/24/20) Per Dr. Walker (ID) note VANCOMYCIN (Verified Adverse Reaction, Severe, red man syndrome, pruritus, 05/07/20) Objective Last 24 Hour Vital Signs Date Time Temp Pulse Resp B/P (MAP) Pulse Ox O2 Delivery O2 Flow Rate FiO2 05/24/20 16:00 97.2 70 19 117/72 (87) 97 05/24/20 12:00 99.5 95 17 114/61 (78) 94 05/24/20 12:00 92 05/24/20 09:00 Nasal Cannula 2.0 05/24/20 08:00 98.3 64 18 135/67 (89) 96 05/24/20 08:00 76 05/24/20 04:06 119 05/24/20 04:00 98.0 108 20 121/74 (90) 95 05/24/20 00:00 Nasal Cannula 2.0 05/24/20 00:00 118 05/24/20 00:00 98.2 100 20 127/65 (85) 97 05/23/20 20:00 121 05/23/20 20:00 97.7 105 20 100/56 (71) 100 05/23/20 20:00 Nasal Cannula 2.0 Intake and Output 05/23/20 05/24/20 19:00 07:00 Output Total 150 ml 200 ml Balance -150 ml -200 ml Output Urine Total 150 ml 200 ml # Bowel Movements 2 Objective WDWN NAD reduced breath sounds bilaterally with some rhonchi [id number] without MRG NABS nontender no CCE Microbiology Date/Time Source Procedure Growth Status 05/22/20 11:33 Urine,Clean Catch Urine Culture - Final Mixed Urogenital Contaminants Complete 05/22/20 11:14 Nasopharynx SARS-CoV-2 RdRp Gene Assay - Final Complete Laboratory Tests 05/24/20 06:17: White Blood Count 8.4, Red Blood Count 3.68L, Hemoglobin 10.7L, Hematocrit 32.9L , Mean Corpuscular Volume 89, Mean Corpuscular Hemoglobin 29.1, Mean Corpuscular Hemoglobin Concent 32.6, Red Cell Distribution Width 14.0, Platelet Count 353, Mean Platelet Volume 5.4L, Neutrophils (%) (Auto) , Lymphocytes (%) (Auto) , Monocytes (%) (Auto) , Eosinophils (%) (Auto) , Basophils (%) (Auto) , Diff erential Total Cells Counted 100, Neutrophils % (Manual) 90H, Lymphocytes % (Manual) 3L, Monocytes % (Manual) 6, Eosinophils % (Manual) 1, Basophils % (Manual) 0, Band Neutrophils 0, Platelet Estimate Adequate, Platelet Morphology Normal, Hypochromasia 1+, Sodium Level 144, Potassium Level 3.9, Chloride Level 111H, Carbon Dioxide Level 24, Anion Gap 9, Blood Urea Nitrogen 16, Creatinine 0.7, Estimat Glomerular Filtration Rate > 60, Glucose Level 103, Calcium Level 8.4L, Troponin I 0.000 Current Medications Medications (Trade) Dose Ordered Sig/Veronika Route PRN Reason Start Time Stop Time Status Last Admin Dose Admin Acetaminophen (Tylenol) 650 mg Q6H PRN GT Mild Pain (Pain Scale 1-3) 05/22/20 17:00 06/21/20 16:59 Acetaminophen (Tylenol) 650 mg Q6H PRN GT Temp >100.5 05/22/20 17:00 06/21/20 16:59 Albuterol/ Ipratropium (Albuterol/ Ipratropium) 3 ml Q6HRT PRN HHN Shortness of Breath 05/22/20 23:45 06/21/20 23:45 Diphenhydramine HCl (Benadryl) 25 mg Q6H PRN GT Itching 05/22/20 23:00 06/21/20 22:59 05/22/20 23:07 Docusate Sodium (Colace) 200 mg DAILY GT 05/23/20 09:00 06/22/20 08:59 05/24/20 08:39 Heparin Sodium (Porcine) (Heparin 5000 units/ml) 5,000 units EVERY 12 HOURS SUBQ 05/22/20 21:00 07/06/20 20:59 05/24/20 08:42 Hydralazine HCl (Apresoline) 25 mg Q6H PRN GT SBP >180 05/22/20 23:45 08/20/20 23:44 Lacosamide (Vimpat) 50 mg Q12HR ORAL 05/22/20 21:00 08/20/20 20:59 05/24/20 08:40 Magnesium Hydroxide (Mom) 30 ml DAILYPRN PRN GT Constipation 05/22/20 19:00 06/21/20 17:14 Meropenem 500 mg/ Sodium Chloride 55 ml @ 110 mls/hr Q8HR IVPB 05/23/20 14:00 05/28/20 13:59 05/24/20 16:44 Pantoprazole (Protonix) 40 mg DAILY IVP 05/23/20 09:00 06/22/20 08:59 05/24/20 08:40 Zinc Oxide (Zinc Oxide) 1 applic THREE TIMES A DAY TOPIC 05/23/20 18:00 08/21/20 17:59 05/24/20 16:45 Assessment/Plan Assessment/Plan Impression: UTI Right LL Pneumonia Sepsis Malfunction of gastrostomy tube Previous UGI bleed COVID-19 ruled out by laboratory testing Hypertension CVA Craniotomy Right hemiplegia Seizure history Bladder dysfunction Plan - IV Meropenem,Levaquin - O2 PRN - Duonebs - Sweeney catheter - PPX - Protonix - DNR - Benadryl PRN - 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
--- NOTE | 2020-05-24 17:31 | Cardiology Report ---
APPROVED REPORT EKG Measurement Heart [id number] <Conclusion> Normal sinus rhythm Low voltage QRS Borderline ECG
--- NOTE | 2020-05-24 17:52 | NUR ---
NURSE NOTES: Patient has been turned and changed, sacral bandage PPX changed, one loose stool, medium sized, brown, patient's G-tube site leaking, informed Dr. Natan Nowak. Leaking stopped, checked residual, zero residual, patent G-tube. Restraint placed on left arm, patient is lethargic. Rash is still on body, other, in no apparent distress.
--- NOTE | 2020-05-24 18:00 | NUR ---
NURSE NOTES: Attempted to report G-tube site leaking through abdominal wall to Dr. Natan Nowak, however, emergency number jung is full ([phone]). Addendum: 05/24/20 at 1801 by EMERALD BYRNE RN G-tube site is currently not leaking. I have held the feeding. I will hold it for one hour. There is zero residual and the G-tube line is patent.
--- NOTE | 2020-05-24 19:02 | NUR ---
NURSE HAND-OFF REPORT: Important Events on Shift:Belem Bernstein RN. Patient's G-tube site leaked. Holding G-tube feeding, perhaps slow feeding rate, zero residual, patent G-tube site. Attempted to notify Dr. Natan Nowak on emergency line, however, mailbox is full. Endorsing follow-up to Belem Bernstein RN. Patient Status: Stable Diet: Viatl AF 40 at 40cc/hour, goal 50 cc/hour. Pending Orders: N/A Pending Results/Labs:None Pending MD notification:Calcium=8.4, troponin=0.000 Latest Vital Signs: Temperature 97.2 , Pulse 76 , B/P 117 /72 , Respiratory Rate 19 , O2 SAT 97 , Nasal Cannula, O2 Flow Rate 2.0 . Vital Sign Comment: N/A EKG Rhythm: Sinus Rhythm Rhythm change?: N MD Notified?: N - MD Response: Latest Guadarrama Fall Score: 70 Fall Risk: High Risk Safety Measures: Call light Within Reach, Bed Alarm Zone 1, Side Rails Side Rails x3, Bed position Low and Locked. Fall Precautions: Yellow Socks Yellow Gown Door Sign Report given to Belem Bernstein RN.
--- NOTE | 2020-05-24 19:48 | NUR ---
NURSE NOTES: Received report from BRITANY Robbins. Patient is on bed, alert and oriented x 0. monitoring coordinator is in place, shows sinus rhythm. With oxygen via nasal cannula @ 2Lpm. With g-tube on vital AF, goal of 50, but at this time, it has been stopped due to leakage around the g-tube site. Patient is on fall precaution, restraint on left wrist, assessment will be done every 2 hours. IV site is on right hand g-22 saline lock that is patent and intact. Safety measures are in place, bed in lowest and locked position, side rails up x 2. Will continue plan of care.
[2020-05-24 20:00] VITALS: BP 108/55
[2020-05-25] VITALS: BP 94/57
[2020-05-25 04:00] VITALS: BP 100/51
[2020-05-25] MEDS: Meropenem 500 MG in NS 55 ML IVPB SCH ×3 (06:01→21:36)
--- NOTE | 2020-05-25 07:07 | Hematology/Onc Progress Note ---
Assessment/Plan Assessment/Plan Assessment and Recs # Anemia due to underlying gi bleed per outside report --> per gi eval --> occult is pending x 3 --> hgb 13-->11-->10.7 --> no evidence of hemolysis # Indeterminate right renal mass. --> Consider further evaluation on nonemergent basis with MRI or CT with contrast (renal protocol) to exclude neoplasm. --> outpatient followup, reimage 3 mo # Dysphagia is s/p G-tube inserted with ease. --> continue per peg feeds # Sepsis due to RLL pneumonia, uti --> ABX jr/levaquin -> abx per pulm, id # UTI (urinary tract infection) --> also abx # EKG sinus tachycardia. # Cholelithiasis without evidence of acute cholecystitis. # Colonic diverticulosis without evidence of acute diverticulitis. # CVA # Craniotomy # Right hemiplegia # Seizure history # Bladder dysfunction # Dnr # Dvt ppx heparin sq Appreciate consultation and robb RN Subjective HEENT: Denies: no symptoms, eye pain, blurred vision, tearing, double vision, ear pain, ear discharge, nose pain, nose congestion, throat pain, throat swelling, mouth pain, mouth swelling, other Cardiovascular: Denies: no symptoms, chest pain, edema, irregular heart rate, lightheadedness, palpitations, syncope, other Respiratory: Denies: no symptoms, cough, shortness of breath, SOB with excertion, SOB at rest, sputum, wheezing, other Gastrointestinal/Abdominal: Denies: no symptoms, abdomen distended, abdominal pain, black stools, tarry stools, blood in stool, constipated, diarrhea, difficulty swallowing, nausea, poor appetite, poor fluid intake, rectal bleeding, vomiting, other Genitourinary: Denies: no symptoms, burning, discharge, frequency, flank pain, hematuria, incontinence, pain, urgency, other Neurologic/Psychiatric: Denies: no symptoms, anxiety, depressed, emotional problems, headache, numbness, paresthesia, pre-existing deficit, seizure, tingling, tremors, weakness, other Endocrine: Denies: no symptoms, excessive sweating, flushing, intolerance to cold, intolerance to heat, increased hunger, increased thirst, increased urine, unexplained weight gain, unexplained weight loss, other Hematologic/Lymphatic: Denies: no symptoms, anemia, easy bleeding, easy bruising, adenopathy, other Allergies: Coded Allergies: CHLORHEXIDINE (Verified Allergy, Mild, 07/12/15) CEFTRIAXONE (Unverified Allergy, Unknown, 05/24/20) per Dr. Walker (ID) note LEVOFLOXACIN (Unverified Allergy, Unknown, 05/24/20) Per Dr. Walker (ID) note VANCOMYCIN (Verified Adverse Reaction, Severe, red man syndrome, pruritus, 05/07/20) Subjective 05/24 labs noted, no bleeding, sleepy in am, cbc pend 05/25 labs reviewed, on jr and levaquin, meds noted, no night sweats Objective Objective Current Medications Medications (Trade) Dose Ordered Sig/Veronika Route PRN Reason Start Time Stop Time Status Last Admin Dose Admin Acetaminophen (Tylenol) 650 mg Q6H PRN GT Mild Pain (Pain Scale 1-3) 05/22/20 17:00 06/21/20 16:59 Acetaminophen (Tylenol) 650 mg Q6H PRN GT Temp >100.5 05/22/20 17:00 06/21/20 16:59 Albuterol/ Ipratropium (Albuterol/ Ipratropium) 3 ml Q6HRT PRN HHN Shortness of Breath 05/22/20 23:45 06/21/20 23:45 Diphenhydramine HCl (Benadryl) 25 mg Q6H PRN GT Itching 05/22/20 23:00 06/21/20 22:59 05/22/20 23:07 Docusate Sodium (Colace) 200 mg DAILY GT 05/23/20 09:00 06/22/20 08:59 05/24/20 08:39 Heparin Sodium (Porcine) (Heparin 5000 units/ml) 5,000 units EVERY 12 HOURS SUBQ 05/22/20 21:00 07/06/20 20:59 05/24/20 21:18 Hydralazine HCl (Apresoline) 25 mg Q6H PRN GT SBP >180 05/22/20 23:45 08/20/20 23:44 Lacosamide (Vimpat) 50 mg Q12HR ORAL 05/22/20 21:00 08/20/20 20:59 05/24/20 21:18 Magnesium Hydroxide (Mom) 30 ml DAILYPRN PRN GT Constipation 05/22/20 19:00 06/21/20 17:14 Meropenem 500 mg/ Sodium Chloride 55 ml @ 110 mls/hr Q8HR IVPB 05/23/20 14:00 05/28/20 13:59 05/25/20 06:01 Pantoprazole (Protonix) 40 mg DAILY IVP 05/23/20 09:00 06/22/20 08:59 05/24/20 08:40 Zinc Oxide (Zinc Oxide) 1 applic THREE TIMES A DAY TOPIC 05/23/20 18:00 08/21/20 17:59 05/24/20 18:05 Last 24 Hour Vital Signs Date Time Temp Pulse Resp B/P (MAP) Pulse Ox O2 Delivery O2 Flow Rate FiO2 05/25/20 04:00 98.9 85 21 100/51 (67) 95 05/25/20 04:00 77 05/25/20 00:00 98.4 79 20 94/57 (69) 97 05/25/20 00:00 78 05/24/20 21:00 Nasal Cannula 2.0 05/24/20 20:00 98.2 72 20 108/55 (72) 99 05/24/20 20:00 75 05/24/20 16:00 97.2 70 19 117/72 (87) 97 05/24/20 16:00 76 05/24/20 12:00 99.5 95 17 114/61 (78) 94 05/24/20 12:00 92 05/24/20 09:00 Nasal Cannula 2.0 05/24/20 08:00 98.3 64 18 135/67 (89) 96 05/24/20 08:00 76 05/24/20 04:06 119 05/24/20 04:00 98.0 108 20 121/74 (90) 95 05/24/20 00:00 Nasal Cannula 2.0 05/24/20 00:00 118 05/24/20 00:00 98.2 100 20 127/65 (85) 97 05/23/20 20:00 121 05/23/20 20:00 97.7 105 20 100/56 (71) 100 05/23/20 20:00 Nasal Cannula 2.0 05/23/20 16:12 2.0 05/23/20 16:00 Nasal Cannula 2.0 05/23/20 16:00 99.0 115 21 114/71 (85) 95 05/23/20 15:24 112 05/23/20 12:18 99.5 119 24 106/74 (85) 96 05/23/20 12:12 2.0 05/23/20 12:00 Nasal Cannula 2.0 05/23/20 11:43 118 05/23/20 08:00 98.0 106 24 104/73 (83) 96 05/23/20 08:00 2.0 05/23/20 08:00 Nasal Cannula 2.0 05/23/20 07:43 102 Intake and Output 05/24/20 05/25/20 19:00 07:00 Intake Total 455 ml Balance 455 ml IV Total 55 ml Tube Feeding 400 ml # Bowel Movements 1 Labs Test 05/22/20 11:00 05/22/20 11:33 05/22/20 11:52 05/22/20 13:37 White Blood Count 7.9 K/UL (4.8-10.8) Red Blood Count 4.56 M/UL (4.20-5.40) Hemoglobin 13.2 G/DL (12.0-16.0) Hematocrit 40.6 % (37.0-47.0) Mean Corpuscular Volume 89 FL (80-99) Mean Corpuscular Hemoglobin 29.0 PG (27.0-31.0) Mean Corpuscular Hemoglobin Concent 32.6 G/DL (32.0-36.0) Red Cell Distribution Width 13.9 % (11.6-14.8) Platelet Count 428 K/UL (150-450) Mean Platelet Volume 6.0 FL (6.5-10.1) Neutrophils (%) (Auto) 62.8 % (45.0-75.0) Lymphocytes (%) (Auto) 23.3 % (20.0-45.0) Monocytes (%) (Auto) 9.0 % (1.0-10.0) Eosinophils (%) (Auto) 2.7 % (0.0-3.0) Basophils (%) (Auto) 2.3 % (0.0-2.0) Prothrombin Time 10.7 SEC (9.30-11.50) Prothromb Time International Ratio 1.0 (0.9-1.1) Activated Partial Thromboplast Time 22 SEC (23-33) Sodium Level 142 MMOL/L (136-145) Potassium Level 4.8 MMOL/L (3.5-5.1) Chloride Level 107 MMOL/L (98-107) Carbon Dioxide Level 27 MMOL/L (21-32) Anion Gap 8 mmol/L (5-15) Blood Urea Nitrogen 20 mg/dL (7-18) Creatinine 0.8 MG/DL (0.55-1.30) Estimat Glomerular Filtration Rate > 60 mL/min (>60) Glucose Level 117 MG/DL (74-106) Lactic Acid Level 3.10 mmol/L (0.4-2.0) 1.60 mmol/L (0.66-2.22) Calcium Level 8.9 MG/DL (8.5-10.1) Magnesium Level 2.1 MG/DL (1.8-2.4) Ferritin 186 NG/ML (8-388) Total Bilirubin 0.5 MG/DL (0.2-1.0) Aspartate Amino Transf (AST/SGOT) 35 U/L (15-37) Alanine Aminotransferase (ALT/SGPT) 24 U/L (12-78) Alkaline Phosphatase 117 U/L (46-116) Lactate Dehydrogenase 306 U/L (81-234) Total Creatine Kinase 57 U/L (26-308) Troponin I 0.000 ng/mL (0.000-0.056) C-Reactive Protein, Quantitative 2.0 mg/dL (0.00-0.90) Pro-B-Type Natriuretic Peptide 144 pg/mL (0-125) Total Protein 7.5 G/DL (6.4-8.2) Albumin 2.8 G/DL (3.4-5.0) Globulin 4.7 g/dL Albumin/Globulin Ratio 0.6 (1.0-2.7) Lipase 110 U/L (73-393) Urine Color Pale yellow Urine Appearance Cloudy Urine pH 8 (4.5-8.0) Urine Specific [place] 1.010 (1.005-1.035) Urine Protein 2+ (NEGATIVE) Urine Glucose (UA) Negative (NEGATIVE) Urine Ketones Negative (NEGATIVE) Urine Blood 5+ (NEGATIVE) Urine Nitrite Negative (NEGATIVE) Urine Bilirubin Negative (NEGATIVE) Urine Urobilinogen Normal MG/DL (0.0-1.0) Urine Leukocyte Esterase 3+ (NEGATIVE) Urine RBC 20-30 /HPF (0 - 2) Urine WBC 15-20 /HPF (0 - 2) Urine Squamous Epithelial Cells Few /LPF (NONE/OCC) Urine Amorphous Sediment Many /LPF (NONE) Urine Bacteria Few /HPF (NONE) Venous Blood pH 7.378 Venous Blood Partial Pressure CO2 46.9 Venous Blood Partial Pressure O2 41.2 Venous Blood HCO3 27.0 Venous Blood Total Carbon Dioxide 46.9 Venous Blood Base Excess 1.3 Venous Blood Carboxyhemoglobin 0.2 % (0.5-1.5) Methemoglobin 0.5 Test 05/23/20 02:40 05/24/20 06:17 05/25/20 06:32 White Blood Count 8.5 K/UL (4.8-10.8) 8.4 K/UL (4.8-10.8) Red Blood Count 3.89 M/UL (4.20-5.40) 3.68 M/UL (4.20-5.40) Hemoglobin 11.4 G/DL (12.0-16.0) 10.7 G/DL (12.0-16.0) Hematocrit 35.0 % (37.0-47.0) 32.9 % (37.0-47.0) Mean Corpuscular Volume 90 FL (80-99) 89 FL (80-99) Mean Corpuscular Hemoglobin 29.3 PG (27.0-31.0) 29.1 PG (27.0-31.0) Mean Corpuscular Hemoglobin Concent 32.5 G/DL (32.0-36.0) 32.6 G/DL (32.0-36.0) Red Cell Distribution Width 14.2 % (11.6-14.8) 14.0 % (11.6-14.8) Platelet Count 398 K/UL (150-450) 353 K/UL (150-450) Mean Platelet Volume 5.7 FL (6.5-10.1) 5.4 FL (6.5-10.1) Neutrophils (%) (Auto) % (45.0-75.0) % (45.0-75.0) Lymphocytes (%) (Auto) % (20.0-45.0) % (20.0-45.0) Monocytes (%) (Auto) % (1.0-10.0) % (1.0-10.0) Eosinophils (%) (Auto) % (0.0-3.0) % (0.0-3.0) Basophils (%) (Auto) % (0.0-2.0) % (0.0-2.0) Sodium Level 143 MMOL/L (136-145) 144 MMOL/L (136-145) Potassium Level 3.5 MMOL/L (3.5-5.1) 3.9 MMOL/L (3.5-5.1) Chloride Level 109 MMOL/L (98-107) 111 MMOL/L (98-107) Carbon Dioxide Level 25 MMOL/L (21-32) 24 MMOL/L (21-32) Anion Gap 9 mmol/L (5-15) 9 mmol/L (5-15) Blood Urea Nitrogen 16 mg/dL (7-18) 16 mg/dL (7-18) Creatinine 0.7 MG/DL (0.55-1.30) 0.7 MG/DL (0.55-1.30) Estimat Glomerular Filtration Rate > 60 mL/min (>60) > 60 mL/min (>60) Glucose Level 93 MG/DL (74-106) 103 MG/DL (74-106) Calcium Level 8.0 MG/DL (8.5-10.1) 8.4 MG/DL (8.5-10.1) Differential Total Cells Counted 100 Neutrophils % (Manual) 90 % (45-75) Lymphocytes % (Manual) 3 % (20-45) Monocytes % (Manual) 6 % (1-10) Eosinophils % (Manual) 1 % (0-3) Basophils % (Manual) 0 % (0-2) Band Neutrophils 0 % (0-8) Platelet Estimate Adequate Platelet Morphology Normal Hypochromasia 1+ Troponin I 0.000 ng/mL (0.000-0.056) Height (Feet): 5 Height (Inches): 4.00 Weight (Pounds): 136 Objective Physical exam: See documented vital signs. HEENT: Moist mucous membranes, on nrm Neck supple no meningismus Lungs slight tachypnea and decreased breath sounds no rales CV rrr, no mgr Abd: gtube has been replaced Ext: no cce Neuro: alert, mumbling, tracks, unable to converse Arturo Varma MD May 25, 2020 07:07
[2020-05-25 07:33] LABS: BASOPHILS % (AUTO) 0.9 % (0.0-2.0); EOSINOPHILS % (AUTO) 12.1 % (0.0-3.0); HEMATOCRIT 29.2 % (37.0-47.0); HEMOGLOBIN 9.7 G/DL (12.0-16.0); LYMPHOCYTES % (AUTO) 9.2 % (20.0-45.0); MEAN CORPUSCULAR VOLUME 89 FL (80-99); MONOCYTES % (AUTO) 8.8 % (1.0-10.0); NEUTROPHILS % (AUTO) 68.9 % (45.0-75.0); PLATELET COUNT 305 K/UL (150-450); RED BLOOD COUNT 3.26 M/UL (4.20-5.40); RED CELL DISTRIBUTION WIDTH 14.3 % (11.6-14.8); WHITE BLOOD COUNT 5.2 K/UL (4.8-10.8)
[2020-05-25 07:36] LABS: ANION GAP 7 mmol/L (5-15); BLOOD UREA NITROGEN 19 mg/dL (7-18); CALCIUM 8.1 MG/DL (8.5-10.1); CARBON DIOXIDE 27 MMOL/L (21-32); CHLORIDE 112 MMOL/L (98-107); CREATININE 0.7 MG/DL (0.55-1.30); POTASSIUM 3.6 MMOL/L (3.5-5.1); SODIUM 145 MMOL/L (136-145)
--- NOTE | 2020-05-25 07:54 | NUR ---
NURSE HAND-OFF REPORT: Important Events on Shift: Patient has been resting well the whole shift. No leakage noted on g-tube site. Patient Status: Patient is in stable condition, plan of care endorsed. No residual nor leakage noted on the g-tube site the whole night, Diet: Vital A.F 1.2 @ 50 cc/hour Pending Orders: none Pending Results/Labs: none Pending MD notification: none Latest Vital Signs: Temperature 98.9 , Pulse 85 , B/P 100 /51 , Respiratory Rate 21 , O2 SAT 95 , Nasal Cannula, O2 Flow Rate 2.0 . Vital Sign Comment: stable EKG Rhythm: Sinus Rhythm Rhythm change?: N MD Notified?: N - MD Response: Latest Guadarrama Fall Score: 70 Fall Risk: High Risk Safety Measures: Call light Within Reach, Bed Alarm Zone 1, Side Rails Side Rails x2, Bed position Low and Locked. Fall Precautions: Yellow Socks Yellow Gown Door Sign Report given to BRITANY Alvarez.
[2020-05-25 08:00] VITALS: BP 95/50
--- NOTE | 2020-05-25 08:15 | NUR ---
NURSE NOTES: Received report from BRITANY Patricia. Patient is laying in bed nonverbal, able to open eyes. Pt is on NC @ 2L with O2 sat 98%, no sign of sob or resp distress. 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 Gtube is noted running vital AF @ 50ml/ hr which is at goal. G tube dressing was changed to monitor for any active leakage. PT was changed, large liquid bowel movement skin was assessed. Pt has left wrist restraint only, no signs of swelling or skin breakdown. IV site was removed due to leakage. new IV site on Left arm upper arm 22g. Bed in lowest and locked position, side rails up x 2. Will continue plan of care.
--- NOTE | 2020-05-25 08:36 | Pulmonology Progress Note ---
Subjective ROS Limited/Unobtainable: Yes Constitutional: Denies: fever Allergies: Coded Allergies: CHLORHEXIDINE (Verified Allergy, Mild, 07/12/15) CEFTRIAXONE (Unverified Allergy, Unknown, 05/24/20) per Dr. Walker (ID) note LEVOFLOXACIN (Unverified Allergy, Unknown, 05/24/20) Per Dr. Walker (ID) note VANCOMYCIN (Verified Adverse Reaction, Severe, red man syndrome, pruritus, 05/07/20) Subjective confused low flow on feeds Objective Last 24 Hour Vital Signs Date Time Temp Pulse Resp B/P (MAP) Pulse Ox O2 Delivery O2 Flow Rate FiO2 05/25/20 04:00 98.9 85 21 100/51 (67) 95 05/25/20 04:00 77 05/25/20 00:00 98.4 79 20 94/57 (69) 97 05/25/20 00:00 78 05/24/20 21:00 Nasal Cannula 2.0 05/24/20 20:00 98.2 72 20 108/55 (72) 99 05/24/20 20:00 75 05/24/20 16:00 97.2 70 19 117/72 (87) 97 05/24/20 16:00 76 05/24/20 12:00 99.5 95 17 114/61 (78) 94 05/24/20 12:00 92 05/24/20 09:00 Nasal Cannula 2.0 Intake and Output 05/24/20 05/25/20 19:00 07:00 Intake Total 455 ml 490 ml Output Total 560 ml Balance 455 ml -70 ml Free Water 150 ml IV Total 55 ml Tube Feeding 400 ml 340 ml Output Urine Total 560 ml # Bowel Movements 1 Objective WDWN NAD reduced breath sounds bilaterally with some rhonchi [id number] without MRG NABS nontender no CCE Microbiology Date/Time Source Procedure Growth Status 05/22/20 11:33 Urine,Clean Catch Urine Culture - Final Mixed Urogenital Contaminants Complete 05/22/20 11:14 Nasopharynx SARS-CoV-2 RdRp Gene Assay - Final Complete Laboratory Tests 05/25/20 06:32: White Blood Count 5.2, Red Blood Count 3.26L, Hemoglobin 9.7L, Hematocrit 29.2L, Mean Corpuscular Volume 89, Mean Corpuscular Hemoglobin 29.8, Mean Corpuscular Hemoglobin Concent 33.4, Red Cell Distribution Width 14.3, Platelet Count 305, Mean Platelet Volume 5.8L, Neutrophils (%) (Auto) 68.9, Lymphocytes (%) (Auto) 9.2L, Monocytes (%) (Auto) 8.8, Eosinophils (%) (Auto) 12.1H, Basophils (%) (Auto) 0.9, Sodium Level 145, Potassium Level 3.6, Chloride Level 112H, Carbon Dioxide Level 27, Anion Gap 7, Blood Urea Nitrogen 19H, Creatinine 0.7, Estimat Glomerular Filtration Rate > 60, Glucose Level 110H, Calcium Level 8.1L Current Medications Medications (Trade) Dose Ordered Sig/Veronika Route PRN Reason Start Time Stop Time Status Last Admin Dose Admin Acetaminophen (Tylenol) 650 mg Q6H PRN GT Mild Pain (Pain Scale 1-3) 05/22/20 17:00 06/21/20 16:59 Acetaminophen (Tylenol) 650 mg Q6H PRN GT Temp >100.5 05/22/20 17:00 06/21/20 16:59 Albuterol/ Ipratropium (Albuterol/ Ipratropium) 3 ml Q6HRT PRN HHN Shortness of Breath 05/22/20 23:45 06/21/20 23:45 Diphenhydramine HCl (Benadryl) 25 mg Q6H PRN GT Itching 05/22/20 23:00 06/21/20 22:59 05/22/20 23:07 Docusate Sodium (Colace) 200 mg DAILY GT 05/23/20 09:00 06/22/20 08:59 05/24/20 08:39 Heparin Sodium (Porcine) (Heparin 5000 units/ml) 5,000 units EVERY 12 HOURS SUBQ 05/22/20 21:00 07/06/20 20:59 05/24/20 21:18 Hydralazine HCl (Apresoline) 25 mg Q6H PRN GT SBP >180 05/22/20 23:45 08/20/20 23:44 Lacosamide (Vimpat) 50 mg Q12HR ORAL 05/22/20 21:00 08/20/20 20:59 05/24/20 21:18 Magnesium Hydroxide (Mom) 30 ml DAILYPRN PRN GT Constipation 05/22/20 19:00 06/21/20 17:14 Meropenem 500 mg/ Sodium Chloride 55 ml @ 110 mls/hr Q8HR IVPB 05/23/20 14:00 05/28/20 13:59 05/25/20 06:01 Pantoprazole (Protonix) 40 mg DAILY IVP 05/23/20 09:00 06/22/20 08:59 05/24/20 08:40 Zinc Oxide (Zinc Oxide) 1 applic THREE TIMES A DAY TOPIC 05/23/20 18:00 08/21/20 17:59 05/24/20 18:05 Assessment/Plan Assessment/Plan Impression: UTI Right LL Pneumonia Sepsis Malfunction of gastrostomy tube Previous UGI bleed COVID-19 ruled out by laboratory testing Hypertension CVA Craniotomy Right hemiplegia Seizure history Bladder dysfunction Plan - IV Meropenem - O2 PRN - Duonebs - Sweeney catheter - PPX - Protonix - DNR - Benadryl PRN - 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
[2020-05-25] MEDS: Docusate 100mg/10ml Liq GT SCH (08:56)
[2020-05-25] MEDS: Lacosamide 50mg tablet ORAL SCH ×2 (09:00→20:25)
[2020-05-25] MEDS: Pantoprazole Inj IVP SCH (09:01)
[2020-05-25] MEDS: Heparin 5000 units/ml inj SUBQ SCH ×2 (09:02→20:27)
[2020-05-25] MEDS: Zinc Oxide Oint 2oz TOPIC SCH ×3 (09:04→16:41)
--- NOTE | 2020-05-25 09:51 | General Progress Note ---
Subjective ROS Limited/Unobtainable: No Allergies: Coded Allergies: CHLORHEXIDINE (Verified Allergy, Mild, 07/12/15) CEFTRIAXONE (Unverified Allergy, Unknown, 05/24/20) per Dr. Walker (ID) note LEVOFLOXACIN (Unverified Allergy, Unknown, 05/24/20) Per Dr. Walker (ID) note VANCOMYCIN (Verified Adverse Reaction, Severe, red man syndrome, pruritus, 05/07/20) Objective Last 24 Hour Vital Signs Date Time Temp Pulse Resp B/P (MAP) Pulse Ox O2 Delivery O2 Flow Rate FiO2 05/25/20 08:00 100.0 74 20 95/50 (65) 95 05/25/20 04:00 98.9 85 21 100/51 (67) 95 05/25/20 04:00 77 05/25/20 00:00 98.4 79 20 94/57 (69) 97 05/25/20 00:00 78 05/24/20 21:00 Nasal Cannula 2.0 05/24/20 20:00 98.2 72 20 108/55 (72) 99 05/24/20 20:00 75 05/24/20 16:00 97.2 70 19 117/72 (87) 97 05/24/20 16:00 76 05/24/20 12:00 99.5 95 17 114/61 (78) 94 05/24/20 12:00 92 Intake and Output 05/24/20 05/25/20 19:00 07:00 Intake Total 455 ml 490 ml Output Total 560 ml Balance 455 ml -70 ml Free Water 150 ml IV Total 55 ml Tube Feeding 400 ml 340 ml Output Urine Total 560 ml # Bowel Movements 1 Laboratory Tests 05/25/20 06:32: White Blood Count 5.2, Red Blood Count 3.26L, Hemoglobin 9.7L, Hematocrit 29.2L, Mean Corpuscular Volume 89, Mean Corpuscular Hemoglobin 29.8, Mean Corpuscular Hemoglobin Concent 33.4, Red Cell Distribution Width 14.3, Platelet Count 305, Mean Platelet Volume 5.8L, Neutrophils (%) (Auto) 68.9, Lymphocytes (%) (Auto) 9.2L, Monocytes (%) (Auto) 8.8, Eosinophils (%) (Auto) 12.1H, Basophils (%) (Auto) 0.9, Sodium Level 145, Potassium Level 3.6, Chloride Level 112H, Carbon Dioxide Level 27, Anion Gap 7, Blood Urea Nitrogen 19H, Creatinine 0.7, Estimat Glomerular Filtration Rate > 60, Glucose Level 110H, Calcium Level 8.1L Height (Feet): 5 Height (Inches): 4.00 Weight (Pounds): 136 General Appearance: no apparent distress EENT: normal ENT inspection Neck: supple Cardiovascular: normal rate Respiratory/Chest: decreased breath sounds Abdomen: normal bowel sounds, non tender, soft Extremities: non-tender Assessment/Plan Problem List: (1) PEG (percutaneous endoscopic gastrostomy) status ICD Codes: Z93.1 - Gastrostomy status SNOMED: 513396899, 657004043 (2) UGI bleed ICD Codes: K92.2 - Gastrointestinal hemorrhage, unspecified SNOMED: 12137382 (3) DNR no code (do not resuscitate) ICD Codes: Z66 - Do not resuscitate SNOMED: 925641917 (4) Dislodged gastrostomy tube ICD Codes: Z43.1 - Encounter for attention to gastrostomy SNOMED: 335934888 Assessment/Plan: GT has been changed at the bedside to 20 FR GT care and flush monitor for residuals skin care Natan Nowak MD May 25, 2020 09:51
--- NOTE | 2020-05-25 11:24 | Infectious Diseases Prog Note ---
Assessment/Plan Assessment/Plan IMPRESSION: Pyuria /UTI, Atelectasis, less pneumonia, dDslodgement of G-tube, allergic reaction to ceftriaxone and Levaquin, history of CVA and right hemiplegia, anemia, Diverticulosis, cholelithiasis. RECOMMENDATION: continue meropenem Subjective ROS Limited/Unobtainable: Yes Constitutional: Reports: fever, other - T=100 Neurologic: Reports: confusion, other - on restraint Allergies: Coded Allergies: CHLORHEXIDINE (Verified Allergy, Mild, 07/12/15) CEFTRIAXONE (Unverified Allergy, Unknown, 05/24/20) per Dr. Walker (ID) note LEVOFLOXACIN (Unverified Allergy, Unknown, 05/24/20) Per Dr. Walker (ID) note VANCOMYCIN (Verified Adverse Reaction, Severe, red man syndrome, pruritus, 05/07/20) Objective Last 24 Hour Vital Signs Date Time Temp Pulse Resp B/P (MAP) Pulse Ox O2 Delivery O2 Flow Rate FiO2 05/25/20 08:00 100.0 74 20 95/50 (65) 95 05/25/20 04:00 98.9 85 21 100/51 (67) 95 05/25/20 04:00 77 05/25/20 00:00 98.4 79 20 94/57 (69) 97 05/25/20 00:00 78 05/24/20 21:00 Nasal Cannula 2.0 05/24/20 20:00 98.2 72 20 108/55 (72) 99 05/24/20 20:00 75 05/24/20 16:00 97.2 70 19 117/72 (87) 97 05/24/20 16:00 76 05/24/20 12:00 99.5 95 17 114/61 (78) 94 05/24/20 12:00 92 Height (Feet): 5 Height (Inches): 4.00 Weight (Pounds): 136 General Appearance: no acute distress HEENT: mucous membranes moist Respiratory/Chest: lungs clear Cardiovascular: normal rate Abdomen: soft, non tender, other - GT Extremities: no edema Skin: rash, other - erythema of torso & arms Neurologic/Psychiatric: aphasia Microbiology Date/Time Source Procedure Growth Status 05/25/20 06:20 Rectum Received 05/22/20 11:33 Urine,Clean Catch Urine Culture - Final Mixed Urogenital Contaminants Complete Laboratory Tests Test 05/25/20 06:32 White Blood Count 5.2 K/UL (4.8-10.8) Red Blood Count 3.26 M/UL (4.20-5.40) L Hemoglobin 9.7 G/DL (12.0-16.0) L Hematocrit 29.2 % (37.0-47.0) L Mean Corpuscular Volume 89 FL (80-99) Mean Corpuscular Hemoglobin 29.8 PG (27.0-31.0) Mean Corpuscular Hemoglobin Concent 33.4 G/DL (32.0-36.0) Red Cell Distribution Width 14.3 % (11.6-14.8) Platelet Count 305 K/UL (150-450) Mean Platelet Volume 5.8 FL (6.5-10.1) L Neutrophils (%) (Auto) 68.9 % (45.0-75.0) Lymphocytes (%) (Auto) 9.2 % (20.0-45.0) L Monocytes (%) (Auto) 8.8 % (1.0-10.0) Eosinophils (%) (Auto) 12.1 % (0.0-3.0) H Basophils (%) (Auto) 0.9 % (0.0-2.0) Sodium Level 145 MMOL/L (136-145) Potassium Level 3.6 MMOL/L (3.5-5.1) Chloride Level 112 MMOL/L (98-107) H Carbon Dioxide Level 27 MMOL/L (21-32) Anion Gap 7 mmol/L (5-15) Blood Urea Nitrogen 19 mg/dL (7-18) H Creatinine 0.7 MG/DL (0.55-1.30) Estimat Glomerular Filtration Rate > 60 mL/min (>60) Glucose Level 110 MG/DL (74-106) H Calcium Level 8.1 MG/DL (8.5-10.1) L Current Medications Medications (Trade) Dose Ordered Sig/Veronika Route PRN Reason Start Time Stop Time Status Last Admin Dose Admin Acetaminophen (Tylenol) 650 mg Q6H PRN GT Mild Pain (Pain Scale 1-3) 05/22/20 17:00 06/21/20 16:59 Acetaminophen (Tylenol) 650 mg Q6H PRN GT Temp >100.5 05/22/20 17:00 06/21/20 16:59 Albuterol/ Ipratropium (Albuterol/ Ipratropium) 3 ml Q6HRT PRN HHN Shortness of Breath 05/22/20 23:45 06/21/20 23:45 Diphenhydramine HCl (Benadryl) 25 mg Q6H PRN GT Itching 05/22/20 23:00 06/21/20 22:59 05/22/20 23:07 Docusate Sodium (Colace) 200 mg DAILY GT 05/23/20 09:00 06/22/20 08:59 05/24/20 08:39 Heparin Sodium (Porcine) (Heparin 5000 units/ml) 5,000 units EVERY 12 HOURS SUBQ 05/22/20 21:00 07/06/20 20:59 05/25/20 09:02 Hydralazine HCl (Apresoline) 25 mg Q6H PRN GT SBP >180 05/22/20 23:45 08/20/20 23:44 Lacosamide (Vimpat) 50 mg Q12HR ORAL 05/22/20 21:00 08/20/20 20:59 05/25/20 09:00 Magnesium Hydroxide (Mom) 30 ml DAILYPRN PRN GT Constipation 05/22/20 19:00 06/21/20 17:14 Meropenem 500 mg/ Sodium Chloride 55 ml @ 110 mls/hr Q8HR IVPB 05/23/20 14:00 05/28/20 13:59 05/25/20 06:01 Pantoprazole (Protonix) 40 mg DAILY IVP 05/23/20 09:00 06/22/20 08:59 05/25/20 09:01 Zinc Oxide (Zinc Oxide) 1 applic THREE TIMES A DAY TOPIC 05/23/20 18:00 08/21/20 17:59 05/25/20 09:04 Francesco Howell MD May 25, 2020 11:24
[2020-05-25 12:00] VITALS: BP 97/52
--- NOTE | 2020-05-25 15:04 | NUR ---
CASE MANAGEMENT: REVIEW 05/25/2020 SI:SEPSIS. PNA. VS: T 100.2 HR 69 RR 22 B/P 97/52 SATS 98% ON 2L/NC LABS: CL 112 BUN 19 GLU 110 CA 8.1 IS:PROTONIX IV QD VIMPAT PO Q12H MEROPENEM IV Q8H TELE Plan GT has been changed at the bedside to 20 FR - IV Meropenem - O2 PRN - Duonebs - Sweeney catheter - PPX - Protonix
[2020-05-25 16:00] VITALS: BP 96/48
--- NOTE | 2020-05-25 16:05 | Cardiac Electrophysiology PN ---
Assessment/Plan Assessment/Plan 1. Lactic acidosis and tachycardia, likely due to sepsis. Patient is on meropenem. 2. History of hypertension. On p.r.n. hydralazine 25 gt q 6 hr 3. Dysphagia, status post PEG placement. 4. History of CVA. 5. History of craniotomy and seizures. 6. History of hypoxemia, respiratory failure, on 2 liter NC 7. UTI and possible pneumonia, on meropenem per Dr. Francesco Howell. Subjective Subjective Nonverbal. GT feeding ongoing. Objective Last 24 Hour Vital Signs Date Time Temp Pulse Resp B/P (MAP) Pulse Ox O2 Delivery O2 Flow Rate FiO2 05/25/20 12:00 80 05/25/20 12:00 100.2 69 22 97/52 (67) 98 05/25/20 09:00 Nasal Cannula 2.0 05/25/20 08:00 100.0 74 20 95/50 (65) 95 05/25/20 08:00 78 05/25/20 04:00 98.9 85 21 100/51 (67) 95 05/25/20 04:00 77 05/25/20 00:00 98.4 79 20 94/57 (69) 97 05/25/20 00:00 78 05/24/20 21:00 Nasal Cannula 2.0 05/24/20 20:00 98.2 72 20 108/55 (72) 99 05/24/20 20:00 75 Intake and Output 05/24/20 05/25/20 19:00 07:00 Intake Total 455 ml 490 ml Output Total 560 ml Balance 455 ml -70 ml Free Water 150 ml IV Total 55 ml Tube Feeding 400 ml 340 ml Output Urine Total 560 ml # Bowel Movements 1 Laboratory Tests Test 05/25/20 06:32 White Blood Count 5.2 K/UL (4.8-10.8) Red Blood Count 3.26 M/UL (4.20-5.40) L Hemoglobin 9.7 G/DL (12.0-16.0) L Hematocrit 29.2 % (37.0-47.0) L Mean Corpuscular Volume 89 FL (80-99) Mean Corpuscular Hemoglobin 29.8 PG (27.0-31.0) Mean Corpuscular Hemoglobin Concent 33.4 G/DL (32.0-36.0) Red Cell Distribution Width 14.3 % (11.6-14.8) Platelet Count 305 K/UL (150-450) Mean Platelet Volume 5.8 FL (6.5-10.1) L Neutrophils (%) (Auto) 68.9 % (45.0-75.0) Lymphocytes (%) (Auto) 9.2 % (20.0-45.0) L Monocytes (%) (Auto) 8.8 % (1.0-10.0) Eosinophils (%) (Auto) 12.1 % (0.0-3.0) H Basophils (%) (Auto) 0.9 % (0.0-2.0) Sodium Level 145 MMOL/L (136-145) Potassium Level 3.6 MMOL/L (3.5-5.1) Chloride Level 112 MMOL/L (98-107) H Carbon Dioxide Level 27 MMOL/L (21-32) Anion Gap 7 mmol/L (5-15) Blood Urea Nitrogen 19 mg/dL (7-18) H Creatinine 0.7 MG/DL (0.55-1.30) Estimat Glomerular Filtration Rate > 60 mL/min (>60) Glucose Level 110 MG/DL (74-106) H Calcium Level 8.1 MG/DL (8.5-10.1) L Microbiology Date/Time Source Procedure Growth Status 05/25/20 06:20 Rectum Received Objective HEAD AND NECK: No JVD. LUNGS: Coarse rhonchi. CARDIOVASCULAR: Shows regular S1 and S2 with no gallop. ABDOMEN: Soft. Status post G-tube. EXTREMITIES: No pitting edema. Salas Reyez MD May 25, 2020 16:05
--- NOTE | 2020-05-25 19:15 | NUR ---
NURSE NOTES: Received report from BRITANY Alvarez. Pt in bed awake, eyes open, non-verbal. On O2 via NC at 2L/min, no SOB noted. On cardiac monitoring. F/C in place & patent draining to gravity yellow urine. Left hand soft wrist restraint in place no swelling noted on left hand on skin break down noted. IV in place &patent on left upper arm, no s/s infiltration noted. Bed in low position & locked, side rails up x3. Bed alarm on, call light with in reach.
[2020-05-25 20:00] VITALS: BP 128/61
--- NOTE | 2020-05-25 22:00 | General Progress Note ---
Subjective ROS Limited/Unobtainable: Yes Allergies: Coded Allergies: CHLORHEXIDINE (Verified Allergy, Mild, 07/12/15) CEFTRIAXONE (Unverified Allergy, Unknown, 05/24/20) per Dr. Walker (ID) note LEVOFLOXACIN (Unverified Allergy, Unknown, 05/24/20) Per Dr. Walker (ID) note VANCOMYCIN (Verified Adverse Reaction, Severe, red man syndrome, pruritus, 05/07/20) Objective Last 24 Hour Vital Signs Date Time Temp Pulse Resp B/P (MAP) Pulse Ox O2 Delivery O2 Flow Rate FiO2 05/25/20 16:00 73 05/25/20 16:00 99.0 74 20 96/48 (64) 97 05/25/20 15:11 99.0 05/25/20 12:00 80 05/25/20 12:00 100.2 69 22 97/52 (67) 98 05/25/20 09:00 Nasal Cannula 2.0 05/25/20 08:00 100.0 74 20 95/50 (65) 95 05/25/20 08:00 78 05/25/20 04:00 98.9 85 21 100/51 (67) 95 05/25/20 04:00 77 05/25/20 00:00 98.4 79 20 94/57 (69) 97 05/25/20 00:00 78 Intake and Output 05/24/20 05/25/20 19:00 07:00 Intake Total 455 ml 490 ml Output Total 560 ml Balance 455 ml -70 ml Free Water 150 ml IV Total 55 ml Tube Feeding 400 ml 340 ml Output Urine Total 560 ml # Bowel Movements 1 Laboratory Tests 05/25/20 06:32: White Blood Count 5.2, Red Blood Count 3.26L, Hemoglobin 9.7L, Hematocrit 29.2L, Mean Corpuscular Volume 89, Mean Corpuscular Hemoglobin 29.8, Mean Corpuscular Hemoglobin Concent 33.4, Red Cell Distribution Width 14.3, Platelet Count 305, Mean Platelet Volume 5.8L, Neutrophils (%) (Auto) 68.9, Lymphocytes (%) (Auto) 9.2L, Monocytes (%) (Auto) 8.8, Eosinophils (%) (Auto) 12.1H, Basophils (%) (Auto) 0.9, Sodium Level 145, Potassium Level 3.6, Chloride Level 112H, Carbon Dioxide Level 27, Anion Gap 7, Blood Urea Nitrogen 19H, Creatinine 0.7, Estimat Glomerular Filtration Rate > 60, Glucose Level 110H, Calcium Level 8.1L Height (Feet): 5 Height (Inches): 4.00 Weight (Pounds): 136 Assessment/Plan Problem List: (1) Sepsis ICD Codes: A41.9 - Sepsis, unspecified organism SNOMED: 91173688 Qualifiers: Qualified Codes: A41.9 - Sepsis, unspecified organism (2) UGI bleed ICD Codes: K92.2 - Gastrointestinal hemorrhage, unspecified SNOMED: 99521824 (3) RLL pneumonia ICD Codes: J18.9 - Pneumonia, unspecified organism SNOMED: 078904342 Qualifiers: Qualified Codes: J18.9 - Pneumonia, unspecified organism (4) UTI (urinary tract infection) ICD Codes: N39.0 - Urinary tract infection, site not specified SNOMED: 74000121 Qualifiers: Qualified Codes: N39.0 - Urinary tract infection, site not specified (5) DNR no code (do not resuscitate) ICD Codes: Z66 - Do not resuscitate SNOMED: 039566456 Status: progressing Assessment/Plan: afebrile sepsis uti pna not hypoxic s/p replacement of peg malnutrtiion poor prognosis Ruthann Brasher MD May 25, 2020 22:00
[2020-05-26] VITALS: BP 110/60
[2020-05-26 04:00] VITALS: BP 121/58
[2020-05-26] MEDS: Meropenem 500 MG in NS 55 ML IVPB SCH ×3 (05:37→21:11)
--- NOTE | 2020-05-26 07:19 | NUR ---
NURSE NOTES: Received patient in bed awake. O2 via NC at 2LPM, no SOB or acute distress. IV line intact. Gtube intact, feeding ongoing. FC intact, draining yellow colored urine. Left wrist restraint intact, peripheral pulse palpable, no skin issues noted on site. HOB elevated. Bed locked in low position. Call light within reach. Will continue plan of care.
--- NOTE | 2020-05-26 07:19 | NUR ---
NURSE HAND-OFF REPORT: Important Events on Shift:N/A Patient Status: stable Diet: vital af at 50cc/hr Pending Orders: [] Pending Results/Labs:[] Pending MD notification:[] Latest Vital Signs: Temperature 98.4 , Pulse 78 , B/P 121 /58 , Respiratory Rate 20 , O2 SAT 97 , Nasal Cannula, O2 Flow Rate 2.0 . Vital Sign Comment: [] EKG Rhythm: Sinus Rhythm Rhythm change?: N MD Notified?: N - MD Response: Latest [place] Fall Score: 70 Fall Risk: High Risk Safety Measures: Call light Within Reach, Bed Alarm Zone 1, Side Rails Side Rails x2, Bed position Low and Locked. Fall Precautions: Yellow Socks Yellow Gown Door Sign Report given to BRITANY Mohan.
--- NOTE | 2020-05-26 07:22 | NUR ---
RD ASSESSMENT & RECOMMENDATIONS SEE CARE ACTIVITY FOR COMPLETE ASSESSMENT DAILY ESTIMATED NEEDS: Needs based on sepsis, wound 58.4kg abw 25-30 kcals/kg 7251-5992 total kcals 1.25-1.5 g protein/kg 73-88 g total protein 25-30 mL/kg 6829-6067 total fluid mLs NUTRITION DIAGNOSIS: Swallowing difficulty R/t dysphagia as evidenced by pt is GT dep, nwo w/ GT leak, TF held. CURRENT TF: Vital 1.2 @50ml/hr - NOW HELD ENTERAL NUTRITION RECOMMENDATIONS: Jevity 1.2 goal of 60ml/hr x24 hrs to provide 1440ml, 1728 kcal, 80g pro, 1162ml free H2O - No indications for elemental formula, rec Jevity 1.2. - Start @30ml/hr for 6 hrs. Advance as tolerated 10ml/hr q4-6 hrs to goal. - Flush per MD. HOB over 30 degrees. ADDITIONAL RECOMMENDATIONS: 1) TF recs as above 2) Monitor BG-> need for carb control formula and/or niss 3) replete lytes, check daily 4) Daily calibrated bed scale wts . .
--- NOTE | 2020-05-26 07:33 | General Progress Note ---
Subjective ROS Limited/Unobtainable: No Allergies: Coded Allergies: CHLORHEXIDINE (Verified Allergy, Mild, 07/12/15) CEFTRIAXONE (Unverified Allergy, Unknown, 05/24/20) per Dr. Walker (ID) note LEVOFLOXACIN (Unverified Allergy, Unknown, 05/24/20) Per Dr. Walker (ID) note VANCOMYCIN (Verified Adverse Reaction, Severe, red man syndrome, pruritus, 05/07/20) Objective Last 24 Hour Vital Signs Date Time Temp Pulse Resp B/P (MAP) Pulse Ox O2 Delivery O2 Flow Rate FiO2 05/26/20 04:00 78 05/26/20 04:00 98.4 78 20 121/58 (79) 97 05/26/20 00:00 98.1 76 20 110/60 (77) 99 05/26/20 00:00 69 05/25/20 21:00 Nasal Cannula 2.0 05/25/20 20:00 75 05/25/20 20:00 97.1 73 20 128/61 (83) 98 05/25/20 16:00 73 05/25/20 16:00 99.0 74 20 96/48 (64) 97 05/25/20 15:11 99.0 05/25/20 12:00 80 05/25/20 12:00 100.2 69 22 97/52 (67) 98 05/25/20 09:00 Nasal Cannula 2.0 05/25/20 08:00 100.0 74 20 95/50 (65) 95 05/25/20 08:00 78 Intake and Output 05/25/20 05/26/20 19:00 07:00 Intake Total 550 ml Output Total 400 ml Balance -400 ml 550 ml Tube Feeding 550 ml Output Urine Total 400 ml # Bowel Movements 2 Height (Feet): 5 Height (Inches): 4.00 Weight (Pounds): 136 General Appearance: no apparent distress EENT: normal ENT inspection Neck: supple Cardiovascular: normal rate Respiratory/Chest: decreased breath sounds Abdomen: normal bowel sounds, non tender, soft Extremities: non-tender Assessment/Plan Problem List: (1) PEG (percutaneous endoscopic gastrostomy) status ICD Codes: Z93.1 - Gastrostomy status SNOMED: 548357661, 149475904 (2) UGI bleed ICD Codes: K92.2 - Gastrointestinal hemorrhage, unspecified SNOMED: 26253320 (3) DNR no code (do not resuscitate) ICD Codes: Z66 - Do not resuscitate SNOMED: 797523556 (4) Dislodged gastrostomy tube ICD Codes: Z43.1 - Encounter for attention to gastrostomy SNOMED: 851806922 Status: progressing Assessment/Plan: GT has been changed at the bedside to 20 FR GT care and flush monitor for residuals change TF to Jevity per dietitian recommendations skin care Natan Nowak MD May 26, 2020 07:33
[2020-05-26 08:00] VITALS: BP 116/58
[2020-05-26] MEDS: Pantoprazole Inj IVP SCH (09:25)
[2020-05-26] MEDS: Docusate 100mg/10ml Liq GT SCH (09:25)
[2020-05-26] MEDS: Zinc Oxide Oint 2oz TOPIC SCH ×3 (09:25→17:53)
[2020-05-26] MEDS: Lacosamide 50mg tablet ORAL SCH ×2 (09:25→21:11)
[2020-05-26] MEDS: Heparin 5000 units/ml inj SUBQ SCH ×2 (09:26→21:12)
--- NOTE | 2020-05-26 09:57 | Pulmonology Progress Note ---
Subjective ROS Limited/Unobtainable: No Constitutional: Reports: fever, other - T=100 Allergies: Coded Allergies: CHLORHEXIDINE (Verified Allergy, Mild, 07/12/15) CEFTRIAXONE (Unverified Allergy, Unknown, 05/24/20) per Dr. Walker (ID) note LEVOFLOXACIN (Unverified Allergy, Unknown, 05/24/20) Per Dr. Walker (ID) note VANCOMYCIN (Verified Adverse Reaction, Severe, red man syndrome, pruritus, 05/07/20) Objective Last 24 Hour Vital Signs Date Time Temp Pulse Resp B/P (MAP) Pulse Ox O2 Delivery O2 Flow Rate FiO2 05/26/20 08:00 98.1 77 19 116/58 (77) 97 05/26/20 04:00 78 05/26/20 04:00 98.4 78 20 121/58 (79) 97 05/26/20 00:00 98.1 76 20 110/60 (77) 99 05/26/20 00:00 69 05/25/20 21:00 Nasal Cannula 2.0 05/25/20 20:00 75 05/25/20 20:00 97.1 73 20 128/61 (83) 98 05/25/20 16:00 73 05/25/20 16:00 99.0 74 20 96/48 (64) 97 05/25/20 15:11 99.0 05/25/20 12:00 80 05/25/20 12:00 100.2 69 22 97/52 (67) 98 Intake and Output 05/25/20 05/26/20 19:00 07:00 Intake Total 550 ml Output Total 400 ml Balance -400 ml 550 ml Tube Feeding 550 ml Output Urine Total 400 ml # Bowel Movements 2 Microbiology Date/Time Source Procedure Growth Status 05/25/20 06:20 Rectum Received Current Medications Medications (Trade) Dose Ordered Sig/Veronika Route PRN Reason Start Time Stop Time Status Last Admin Dose Admin Acetaminophen (Tylenol) 650 mg Q6H PRN GT Temp >100.5 05/22/20 17:00 06/21/20 16:59 05/25/20 14:41 Acetaminophen (Tylenol) 650 mg Q6H PRN GT Mild Pain (Pain Scale 1-3) 05/22/20 17:00 06/21/20 16:59 Albuterol/ Ipratropium (Albuterol/ Ipratropium) 3 ml Q6HRT PRN HHN Shortness of Breath 05/22/20 23:45 06/21/20 23:45 Diphenhydramine HCl (Benadryl) 25 mg Q6H PRN GT Itching 05/22/20 23:00 06/21/20 22:59 05/22/20 23:07 Docusate Sodium (Colace) 200 mg DAILY GT 05/23/20 09:00 06/22/20 08:59 05/26/20 09:25 Heparin Sodium (Porcine) (Heparin 5000 units/ml) 5,000 units EVERY 12 HOURS SUBQ 05/22/20 21:00 07/06/20 20:59 05/26/20 09:26 Hydralazine HCl (Apresoline) 25 mg Q6H PRN GT SBP >180 05/22/20 23:45 08/20/20 23:44 Lacosamide (Vimpat) 50 mg Q12HR ORAL 05/22/20 21:00 08/20/20 20:59 05/26/20 09:25 Magnesium Hydroxide (Mom) 30 ml DAILYPRN PRN GT Constipation 05/22/20 19:00 06/21/20 17:14 Meropenem 500 mg/ Sodium Chloride 55 ml @ 110 mls/hr Q8HR IVPB 05/23/20 14:00 05/28/20 13:59 05/26/20 05:37 Pantoprazole (Protonix) 40 mg DAILY IVP 05/23/20 09:00 06/22/20 08:59 05/26/20 09:25 Zinc Oxide (Zinc Oxide) 1 applic THREE TIMES A DAY TOPIC 05/23/20 18:00 08/21/20 17:59 05/26/20 09:25 Assessment/Plan Assessment/Plan PULMONARY Progress Note HISTORY OF PRESENT ILLNESS: Patient is a 64-year-old white female admitted from a nursing facility after her G-tube became dislodged. H/o previous CVA, aneurism clipped, craniotomy, AMS, on meropenem for UTI. Patient's G-tube was replaced in ER. Noted to have skin erythema, possible allergic reaction, Cefrtriaxone DC,Benadryl PRN PAST MEDICAL HISTORY: Hypertension, CVA, aneurism ruptute , Craniotomy, right hemiplegia. H/o GI bleeding, h/o constipation, seizure disorder,bladder dysfunction ALLERGIES: Allergic to chlorhexidine,Vancomycin. CODE STATUS: DNR. Physical Exam Vital Signs Noted GENERAL APPEARANCE: No acute distress. AMS HEAD AND NECK: Previous Craniotomy HEART: Normal rate. LUNGS: Clear. ABDOMEN: Soft. GT CDI EXTREMITIES: Has no edema. Has flexion contracture of right wrist. BACKUP SAWYER: R hemiplegia LABORATORY DATA NOTED: COVID-19 test was negative. UA evidence UTI EKG sinus tachycardia. CXR: RLL Infiltrate Impression: UTI Right LL Pneumonia Sepsis Malfunction of gastrostomy tube Previous UGI bleed COVID-19 ruled out by laboratory testing Hypertension CVA Craniotomy Right hemiplegia Seizure history Bladder dysfunction Plan - IV Meropenem - O2 PRN - Duonebs - Sweeney catheter - PPX - Protonix - DNR - Benadryl PRN - AXLE TURNER meds - Monitor labs - imaging improved and will follow up - on DVT prophylaxis Laboratory Tests noted Chest X-Ray: unchanged RLL infiltrate versus atelectasis CT; Abdomen and pelvis 1. No evidence of contrast extravasation in the peritoneum. Appropriate positioned gastrostomy tube in the gastric lumen. 2. Indeterminate right renal mass. Consider further evaluation on nonemergent basis with MRI or CT with contrast (renal protocol) to exclude neoplasm. 3. Cholelithiasis without evidence of acute cholecystitis. 4. Colonic diverticulosis without evidence of acute diverticulitis. 5. Right lower lobe airspace consolidation, which likely represents compressive atelectasis given elevation right hemidiaphragm, but pneumonia should be excluded on a clinical basis Jean-Paul Angel MD May 26, 2020 09:57
--- NOTE | 2020-05-26 10:00 | NUR ---
NURSE NOTES: Gtube site leaking when dressing was removed. Packed with gauze, no more leaking noted.
[2020-05-26 12:00] VITALS: BP 93/61
[2020-05-26 16:00] VITALS: BP 107/54
--- NOTE | 2020-05-26 16:42 | Cardiac Electrophysiology PN ---
Assessment/Plan Assessment/Plan 1. Lactic acidosis and tachycardia, likely due to sepsis. Patient is on meropenem. 2. Hypertension. On p.r.n. hydralazine 25 gt q 6 hr 3. Dysphagia, status post PEG placement. 4. History of CVA. 5. History of craniotomy and seizures. 6. History of hypoxemia, respiratory failure, on 2 liter NC 7. UTI and possible pneumonia, on meropenem per Dr. Francesco Howell. Subjective Subjective Nonverbal in restraints. GT feeding ongoing. Objective Last 24 Hour Vital Signs Date Time Temp Pulse Resp B/P (MAP) Pulse Ox O2 Delivery O2 Flow Rate FiO2 05/26/20 16:00 98.6 76 18 107/54 (71) 94 05/26/20 12:00 97.9 76 18 93/61 (72) 97 05/26/20 12:00 67 05/26/20 09:00 Nasal Cannula 2.0 05/26/20 08:00 78 05/26/20 08:00 98.1 77 19 116/58 (77) 97 05/26/20 04:00 78 05/26/20 04:00 98.4 78 20 121/58 (79) 97 05/26/20 00:00 98.1 76 20 110/60 (77) 99 05/26/20 00:00 69 05/25/20 21:00 Nasal Cannula 2.0 05/25/20 20:00 75 05/25/20 20:00 97.1 73 20 128/61 (83) 98 Intake and Output 05/25/20 05/26/20 19:00 07:00 Intake Total 550 ml Output Total 400 ml Balance -400 ml 550 ml Tube Feeding 550 ml Output Urine Total 400 ml # Bowel Movements 2 Microbiology Date/Time Source Procedure Growth Status 05/25/20 06:20 Rectum Received Objective HEAD AND NECK: No JVD. LUNGS: Coarse rhonchi. CARDIOVASCULAR: Regular S1 and S2 with no gallop. ABDOMEN: Soft. Status post G-tube. EXTREMITIES: No pitting edema.Salas Scanlon MD May 26, 2020 16:42
--- NOTE | 2020-05-26 16:46 | General Progress Note ---
Subjective ROS Limited/Unobtainable: Yes Allergies: Coded Allergies: CHLORHEXIDINE (Verified Allergy, Mild, 07/12/15) CEFTRIAXONE (Unverified Allergy, Unknown, 05/24/20) per Dr. Walker (ID) note LEVOFLOXACIN (Unverified Allergy, Unknown, 05/24/20) Per Dr. Walker (ID) note VANCOMYCIN (Verified Adverse Reaction, Severe, red man syndrome, pruritus, 05/07/20) Objective Last 24 Hour Vital Signs Date Time Temp Pulse Resp B/P (MAP) Pulse Ox O2 Delivery O2 Flow Rate FiO2 05/26/20 16:00 98.6 76 18 107/54 (71) 94 05/26/20 12:00 97.9 76 18 93/61 (72) 97 05/26/20 12:00 67 05/26/20 09:00 Nasal Cannula 2.0 05/26/20 08:00 78 05/26/20 08:00 98.1 77 19 116/58 (77) 97 05/26/20 04:00 78 05/26/20 04:00 98.4 78 20 121/58 (79) 97 05/26/20 00:00 98.1 76 20 110/60 (77) 99 05/26/20 00:00 69 05/25/20 21:00 Nasal Cannula 2.0 05/25/20 20:00 75 05/25/20 20:00 97.1 73 20 128/61 (83) 98 Intake and Output 05/25/20 05/26/20 19:00 07:00 Intake Total 550 ml Output Total 400 ml Balance -400 ml 550 ml Tube Feeding 550 ml Output Urine Total 400 ml # Bowel Movements 2 Height (Feet): 5 Height (Inches): 4.00 Weight (Pounds): 136 Assessment/Plan Problem List: (1) Sepsis ICD Codes: A41.9 - Sepsis, unspecified organism SNOMED: 82979761 Qualifiers: Qualified Codes: A41.9 - Sepsis, unspecified organism (2) UGI bleed ICD Codes: K92.2 - Gastrointestinal hemorrhage, unspecified SNOMED: 13783394 (3) RLL pneumonia ICD Codes: J18.9 - Pneumonia, unspecified organism SNOMED: 307651189 Qualifiers: Qualified Codes: J18.9 - Pneumonia, unspecified organism (4) UTI (urinary tract infection) ICD Codes: N39.0 - Urinary tract infection, site not specified SNOMED: 49218698 Qualifiers: Qualified Codes: N39.0 - Urinary tract infection, site not specified (5) DNR no code (do not resuscitate) ICD Codes: Z66 - Do not resuscitate SNOMED: 447629159 Status: progressing Assessment/Plan: labs good sepsis improving uti is improving afebrile s/p replacement of peg poor prognosis Ruthann Brasher MD May 26, 2020 16:46
--- NOTE | 2020-05-26 18:02 | NUR ---
NURSE HAND-OFF REPORT: Important Events on Shift: Patient Status: stable Diet: Vital AF 1.2 x 50cc/hr Pending Orders: Pending Results/Labs: MRSA, VRE, CRE Pending MD notification: Latest Vital Signs: Temperature 98.6 , Pulse 67 , B/P 107 /54 , Respiratory Rate 18 , O2 SAT 94 , Nasal Cannula, O2 Flow Rate 2.0 . Vital Sign Comment: EKG Rhythm: Sinus Rhythm Rhythm change?: N MD Notified?: N - MD Response: Latest [place] Fall Score: 70 Fall Risk: High Risk Safety Measures: Call light Within Reach, Bed Alarm Zone 1, Side Rails Side Rails x2, Bed position Low and Locked. Fall Precautions: Yellow Socks Yellow Gown Door Sign . Addendum: 05/26/20 at 1936 by Kimberlee Good RN HAND-OFF: Report given to Elenita GARG.
[2020-05-26 20:00] VITALS: BP 103/51
[2020-05-27] VITALS: BP 111/57
[2020-05-27 04:00] VITALS: BP 117/61
[2020-05-27] MEDS: Meropenem 500 MG in NS 55 ML IVPB SCH ×3 (06:35→21:57)
--- NOTE | 2020-05-27 07:35 | NUR ---
NURSE HAND-OFF REPORT: Important Events on Shift: none Patient Status: stable Diet: Vital AF @ 50ml/hr Pending Orders: none Pending Results/Labs: none Pending MD notification: none Latest Vital Signs: Temperature 98.7 , Pulse 67 , B/P 117 /61 , Respiratory Rate 18 , O2 SAT 97 , Room Air, O2 Flow Rate 2.0 . Vital Sign Comment: EKG Rhythm: Sinus Rhythm Rhythm change?: N MD Notified?: N - MD Response: Latest [place] Fall Score: 70 Fall Risk: High Risk Safety Measures: Call light Within Reach, Bed Alarm Zone 1, Side Rails Side Rails x3, Bed position Low and Locked. Fall Precautions: yes Yellow Socks yes Yellow Gown yes Door Sign yes Report given to Rosendo Colunga RN
[2020-05-27 08:00] VITALS: BP 100/55
--- NOTE | 2020-05-27 08:27 | NUR ---
NURSE NOTES: Pt received from BRITANY Kwong. Pt A/O x0. Pt non verbal. No s/s of acute respiratory and cardiac distress. On O2 2L NC. SL on Left hand 22G, asymptomatic, patent and intact. Soft wrist restraint on right arm only. Left hand weakness and contracted. F/C draining by gravity. Bed in low position, side rails up x3 an call light within reach. Will continue to monitor.
--- NOTE | 2020-05-27 08:28 | General Progress Note ---
Subjective ROS Limited/Unobtainable: No Allergies: Coded Allergies: CHLORHEXIDINE (Verified Allergy, Mild, 07/12/15) CEFTRIAXONE (Unverified Allergy, Unknown, 05/24/20) per Dr. Walker (ID) note LEVOFLOXACIN (Unverified Allergy, Unknown, 05/24/20) Per Dr. Walker (ID) note VANCOMYCIN (Verified Adverse Reaction, Severe, red man syndrome, pruritus, 05/07/20) Objective Last 24 Hour Vital Signs Date Time Temp Pulse Resp B/P (MAP) Pulse Ox O2 Delivery O2 Flow Rate FiO2 05/27/20 04:00 98.7 67 18 117/61 (79) 97 05/27/20 04:00 67 05/27/20 00:00 77 05/27/20 00:00 99.3 81 20 111/57 (75) 97 05/26/20 21:00 Room Air 05/26/20 20:00 99.2 74 22 103/51 (68) 96 05/26/20 20:00 74 05/26/20 16:00 98.6 76 18 107/54 (71) 94 05/26/20 16:00 67 05/26/20 12:00 97.9 76 18 93/61 (72) 97 05/26/20 12:00 67 05/26/20 09:00 Nasal Cannula 2.0 Intake and Output 05/26/20 05/27/20 19:00 07:00 Intake Total 20 ml Output Total 800 ml 700 ml Balance -800 ml -680 ml Tube Feeding 20 ml Output Urine Total 800 ml 700 ml Height (Feet): 5 Height (Inches): 4.00 Weight (Pounds): 136 General Appearance: no apparent distress EENT: normal ENT inspection Neck: supple Cardiovascular: normal rate Respiratory/Chest: decreased breath sounds Abdomen: hypoactive bowel sounds Extremities: non-tender Assessment/Plan Problem List: (1) PEG (percutaneous endoscopic gastrostomy) status ICD Codes: Z93.1 - Gastrostomy status SNOMED: 859964476, 210242502 (2) UGI bleed ICD Codes: K92.2 - Gastrointestinal hemorrhage, unspecified SNOMED: 92135538 (3) DNR no code (do not resuscitate) ICD Codes: Z66 - Do not resuscitate SNOMED: 185656517 (4) Dislodged gastrostomy tube ICD Codes: Z43.1 - Encounter for attention to gastrostomy SNOMED: 606700497 Status: progressing Assessment/Plan: GT has been changed at the bedside to 20 FR GT care and flush monitor for residuals change TF to Jevity per dietitian recommendations skin care Natan Nowak MD May 27, 2020 08:28
[2020-05-27] MEDS ORDERED: Tubing IV Secondary IV ONE (09:19)
[2020-05-27] MEDS: Lacosamide 50mg tablet ORAL SCH ×2 (09:26→21:57)
[2020-05-27] MEDS: Docusate 100mg/10ml Liq GT SCH (09:26)
[2020-05-27] MEDS: Pantoprazole Inj IVP SCH (09:26)
[2020-05-27] MEDS: Heparin 5000 units/ml inj SUBQ SCH ×2 (09:27→21:58)
[2020-05-27] MEDS: Zinc Oxide Oint 2oz TOPIC SCH ×3 (09:29→18:03)
[2020-05-27 11:55] VITALS: BP 117/60
--- NOTE | 2020-05-27 14:00 | Hematology/Onc Progress Note ---
Assessment/Plan Assessment/Plan Assessment and Recs # Anemia due to underlying gi bleed per outside report --> per gi eval --> occult is pending x 3 --> hgb 13-->11-->10.7->9.7 --> anemia panel noted --> no evidence of hemolysis # Indeterminate right renal mass. --> Consider further evaluation on nonemergent basis with MRI or CT with contrast (renal protocol) to exclude neoplasm. --> outpatient followup, reimage 3 mo # Dysphagia is s/p G-tube inserted with ease. --> continue per peg feeds # Sepsis due to RLL pneumonia, uti --> ABX jr/levaquin -> abx per pulm, id # UTI (urinary tract infection) --> also abx # EKG sinus tachycardia. # Cholelithiasis without evidence of acute cholecystitis. # Colonic diverticulosis without evidence of acute diverticulitis. # CVA # Craniotomy # Right hemiplegia # Seizure history # Bladder dysfunction # Dnr # Dvt ppx heparin sq Appreciate consultation and dw RN Subjective Constitutional: Denies: no symptoms, chills, fever, malaise, weakness, other Cardiovascular: Denies: no symptoms, chest pain, edema, irregular heart rate, lightheadedness, palpitations, syncope, other Gastrointestinal/Abdominal: Denies: no symptoms, abdomen distended, abdominal pain, black stools, tarry stools, blood in stool, constipated, diarrhea, difficulty swallowing, nausea, poor appetite, poor fluid intake, rectal bleeding, vomiting, other Endocrine: Denies: no symptoms, excessive sweating, flushing, intolerance to cold, intolerance to heat, increased hunger, increased thirst, increased urine, unexplained weight gain, unexplained weight loss, other Allergies: Coded Allergies: CHLORHEXIDINE (Verified Allergy, Mild, 07/12/15) CEFTRIAXONE (Unverified Allergy, Unknown, 05/24/20) per Dr. Walker (ID) note LEVOFLOXACIN (Unverified Allergy, Unknown, 05/24/20) Per Dr. Walker (ID) note VANCOMYCIN (Verified Adverse Reaction, Severe, red man syndrome, pruritus, 05/07/20) Subjective 05/24 labs noted, no bleeding, sleepy in am, cbc pend 05/25 labs reviewed, on jr and levaquin, meds noted, no night sweats 05/27 on jevity, no bleeding, meds noted, labs reviewed, hgb 9.7 Objective Objective Current Medications Medications (Trade) Dose Ordered Sig/Veronika Route PRN Reason Start Time Stop Time Status Last Admin Dose Admin Acetaminophen (Tylenol) 650 mg Q6H PRN GT Temp >100.5 05/22/20 17:00 06/21/20 16:59 05/25/20 14:41 Acetaminophen (Tylenol) 650 mg Q6H PRN GT Mild Pain (Pain Scale 1-3) 05/22/20 17:00 06/21/20 16:59 Albuterol/ Ipratropium (Albuterol/ Ipratropium) 3 ml Q6HRT PRN HHN Shortness of Breath 05/22/20 23:45 06/21/20 23:45 Diphenhydramine HCl (Benadryl) 25 mg Q6H PRN GT Itching 05/22/20 23:00 06/21/20 22:59 05/22/20 23:07 Docusate Sodium (Colace) 200 mg DAILY GT 05/23/20 09:00 06/22/20 08:59 05/27/20 09:26 Heparin Sodium (Porcine) (Heparin 5000 units/ml) 5,000 units EVERY 12 HOURS SUBQ 05/22/20 21:00 07/06/20 20:59 05/27/20 09:27 Hydralazine HCl (Apresoline) 25 mg Q6H PRN GT SBP >180 05/22/20 23:45 08/20/20 23:44 Lacosamide (Vimpat) 50 mg Q12HR ORAL 05/22/20 21:00 08/20/20 20:59 05/27/20 09:26 Magnesium Hydroxide (Mom) 30 ml DAILYPRN PRN GT Constipation 05/22/20 19:00 06/21/20 17:14 Meropenem 500 mg/ Sodium Chloride 55 ml @ 110 mls/hr Q8HR IVPB 05/23/20 14:00 05/29/20 23:59 05/27/20 13:08 Pantoprazole (Protonix) 40 mg DAILY IVP 05/23/20 09:00 06/22/20 08:59 05/27/20 09:26 Zinc Oxide (Zinc Oxide) 1 applic THREE TIMES A DAY TOPIC 05/23/20 18:00 08/21/20 17:59 05/27/20 12:41 Last 24 Hour Vital Signs Date Time Temp Pulse Resp B/P (MAP) Pulse Ox O2 Delivery O2 Flow Rate FiO2 05/27/20 12:00 65 05/27/20 11:55 98.1 83 18 117/60 (79) 99 05/27/20 09:00 Nasal Cannula 2.0 05/27/20 08:00 97.9 69 18 100/55 (70) 98 05/27/20 08:00 65 05/27/20 04:00 98.7 67 18 117/61 (79) 97 05/27/20 04:00 67 05/27/20 00:00 77 05/27/20 00:00 99.3 81 20 111/57 (75) 97 05/26/20 21:00 Room Air 05/26/20 20:00 99.2 74 22 103/51 (68) 96 05/26/20 20:00 74 05/26/20 16:00 98.6 76 18 107/54 (71) 94 05/26/20 16:00 67 05/26/20 12:00 97.9 76 18 93/61 (72) 97 05/26/20 12:00 67 05/26/20 09:00 Nasal Cannula 2.0 05/26/20 08:00 78 05/26/20 08:00 98.1 77 19 116/58 (77) 97 05/26/20 04:00 78 05/26/20 04:00 98.4 78 20 121/58 (79) 97 05/26/20 00:00 98.1 76 20 110/60 (77) 99 05/26/20 00:00 69 05/25/20 21:00 Nasal Cannula 2.0 05/25/20 20:00 75 05/25/20 20:00 97.1 73 20 128/61 (83) 98 05/25/20 16:00 73 05/25/20 16:00 99.0 74 20 96/48 (64) 97 05/25/20 15:11 99.0 Intake and Output 05/26/20 05/27/20 19:00 07:00 Intake Total 20 ml Output Total 800 ml 700 ml Balance -800 ml -680 ml Tube Feeding 20 ml Output Urine Total 800 ml 700 ml Labs Test 05/25/20 06:32 White Blood Count 5.2 K/UL (4.8-10.8) Red Blood Count 3.26 M/UL (4.20-5.40) Hemoglobin 9.7 G/DL (12.0-16.0) Hematocrit 29.2 % (37.0-47.0) Mean Corpuscular Volume 89 FL (80-99) Mean Corpuscular Hemoglobin 29.8 PG (27.0-31.0) Mean Corpuscular Hemoglobin Concent 33.4 G/DL (32.0-36.0) Red Cell Distribution Width 14.3 % (11.6-14.8) Platelet Count 305 K/UL (150-450) Mean Platelet Volume 5.8 FL (6.5-10.1) Neutrophils (%) (Auto) 68.9 % (45.0-75.0) Lymphocytes (%) (Auto) 9.2 % (20.0-45.0) Monocytes (%) (Auto) 8.8 % (1.0-10.0) Eosinophils (%) (Auto) 12.1 % (0.0-3.0) Basophils (%) (Auto) 0.9 % (0.0-2.0) Sodium Level 145 MMOL/L (136-145) Potassium Level 3.6 MMOL/L (3.5-5.1) Chloride Level 112 MMOL/L (98-107) Carbon Dioxide Level 27 MMOL/L (21-32) Anion Gap 7 mmol/L (5-15) Blood Urea Nitrogen 19 mg/dL (7-18) Creatinine 0.7 MG/DL (0.55-1.30) Estimat Glomerular Filtration Rate > 60 mL/min (>60) Glucose Level 110 MG/DL (74-106) Calcium Level 8.1 MG/DL (8.5-10.1) Height (Feet): 5 Height (Inches): 4.00 Weight (Pounds): 136 Objective Physical exam: See documented vital signs. HEENT: Moist mucous membranes, on nrm Neck supple no meningismus Lungs slight tachypnea and decreased breath sounds no rales CV rrr, no mgr Abd: gtube has been replaced Ext: no cce Neuro: alert, mumbling, tracks, unable to converse Arturo Varma MD May 27, 2020 14:00
[2020-05-27 15:02] LABS: BASOPHILS % (AUTO) 1.8 % (0.0-2.0); EOSINOPHILS % (AUTO) 5.6 % (0.0-3.0); HEMATOCRIT 31.8 % (37.0-47.0); HEMOGLOBIN 10.4 G/DL (12.0-16.0); LYMPHOCYTES % (AUTO) 20.4 % (20.0-45.0); MEAN CORPUSCULAR VOLUME 90 FL (80-99); MONOCYTES % (AUTO) 10.2 % (1.0-10.0); NEUTROPHILS % (AUTO) 62.1 % (45.0-75.0); PLATELET COUNT 303 K/UL (150-450); RED BLOOD COUNT 3.55 M/UL (4.20-5.40); WHITE BLOOD COUNT 4.3 K/UL (4.8-10.8)
[2020-05-27 15:06] LABS: ANION GAP 6 mmol/L (5-15); BLOOD UREA NITROGEN 16 mg/dL (7-18); CALCIUM 8.5 MG/DL (8.5-10.1); CARBON DIOXIDE 27 MMOL/L (21-32); CHLORIDE 106 MMOL/L (98-107); CREATININE 0.6 MG/DL (0.55-1.30); POTASSIUM 3.8 MMOL/L (3.5-5.1); SODIUM 139 MMOL/L (136-145)
--- NOTE | 2020-05-27 15:49 | Infectious Diseases Prog Note ---
Assessment/Plan Assessment/Plan IMPRESSION: Pyuria /UTI, Atelectasis, less pneumonia, dDslodgement of G-tube, allergic reaction to ceftriaxone and Levaquin, history of CVA and right hemiplegia, anemia, Diverticulosis, cholelithiasis. RECOMMENDATION: continue meropenem Subjective ROS Limited/Unobtainable: Yes Constitutional: Denies: fever Gastrointestinal/Abdominal: Denies: diarrhea Allergies: Coded Allergies: CHLORHEXIDINE (Verified Allergy, Mild, 07/12/15) CEFTRIAXONE (Unverified Allergy, Unknown, 05/24/20) per Dr. Walker (ID) note LEVOFLOXACIN (Unverified Allergy, Unknown, 05/24/20) Per Dr. Walker (ID) note VANCOMYCIN (Verified Adverse Reaction, Severe, red man syndrome, pruritus, 05/07/20) Objective Last 24 Hour Vital Signs Date Time Temp Pulse Resp B/P (MAP) Pulse Ox O2 Delivery O2 Flow Rate FiO2 05/27/20 12:00 65 05/27/20 11:55 98.1 83 18 117/60 (79) 99 05/27/20 09:00 Nasal Cannula 2.0 05/27/20 08:00 97.9 69 18 100/55 (70) 98 05/27/20 08:00 65 05/27/20 04:00 98.7 67 18 117/61 (79) 97 05/27/20 04:00 67 05/27/20 00:00 77 05/27/20 00:00 99.3 81 20 111/57 (75) 97 05/26/20 21:00 Room Air 05/26/20 20:00 99.2 74 22 103/51 (68) 96 05/26/20 20:00 74 05/26/20 16:00 98.6 76 18 107/54 (71) 94 05/26/20 16:00 67 Height (Feet): 5 Height (Inches): 4.00 Weight (Pounds): 136 General Appearance: no acute distress HEENT: mucous membranes moist Respiratory/Chest: lungs clear Cardiovascular: normal rate Abdomen: soft, non tender Extremities: no edema Skin: rash, other - improving Neurologic/Psychiatric: aphasia, other - opens eyes Microbiology Date/Time Source Procedure Growth Status 05/25/20 06:20 Rectum - Final NO CARBAPENEM-RESISTANT ENTEROBACTERI... Complete 05/25/20 06:20 Rectum VRE Culture - Final Enterococcus Faecalis - Vre Complete Laboratory Tests Test 05/27/20 14:40 White Blood Count 4.3 K/UL (4.8-10.8) L Red Blood Count 3.55 M/UL (4.20-5.40) L Hemoglobin 10.4 G/DL (12.0-16.0) L Hematocrit 31.8 % (37.0-47.0) L Mean Corpuscular Volume 90 FL (80-99) Mean Corpuscular Hemoglobin 29.3 PG (27.0-31.0) Mean Corpuscular Hemoglobin Concent 32.7 G/DL (32.0-36.0) Red Cell Distribution Width 14.0 % (11.6-14.8) Platelet Count 303 K/UL (150-450) Mean Platelet Volume 6.0 FL (6.5-10.1) L Neutrophils (%) (Auto) 62.1 % (45.0-75.0) Lymphocytes (%) (Auto) 20.4 % (20.0-45.0) Monocytes (%) (Auto) 10.2 % (1.0-10.0) H Eosinophils (%) (Auto) 5.6 % (0.0-3.0) H Basophils (%) (Auto) 1.8 % (0.0-2.0) Sodium Level 139 MMOL/L (136-145) Potassium Level 3.8 MMOL/L (3.5-5.1) Chloride Level 106 MMOL/L (98-107) Carbon Dioxide Level 27 MMOL/L (21-32) Anion Gap 6 mmol/L (5-15) Blood Urea Nitrogen 16 mg/dL (7-18) Creatinine 0.6 MG/DL (0.55-1.30) Estimat Glomerular Filtration Rate > 60 mL/min (>60) Glucose Level 100 MG/DL (74-106) Calcium Level 8.5 MG/DL (8.5-10.1) Current Medications Medications (Trade) Dose Ordered Sig/Veronika Route PRN Reason Start Time Stop Time Status Last Admin Dose Admin Acetaminophen (Tylenol) 650 mg Q6H PRN GT Temp >100.5 05/22/20 17:00 06/21/20 16:59 05/25/20 14:41 Acetaminophen (Tylenol) 650 mg Q6H PRN GT Mild Pain (Pain Scale 1-3) 05/22/20 17:00 06/21/20 16:59 Albuterol/ Ipratropium (Albuterol/ Ipratropium) 3 ml Q6HRT PRN HHN Shortness of Breath 05/22/20 23:45 06/21/20 23:45 Diphenhydramine HCl (Benadryl) 25 mg Q6H PRN GT Itching 05/22/20 23:00 06/21/20 22:59 05/22/20 23:07 Docusate Sodium (Colace) 200 mg DAILY GT 05/23/20 09:00 06/22/20 08:59 05/27/20 09:26 Heparin Sodium (Porcine) (Heparin 5000 units/ml) 5,000 units EVERY 12 HOURS SUBQ 05/22/20 21:00 07/06/20 20:59 05/27/20 09:27 Hydralazine HCl (Apresoline) 25 mg Q6H PRN GT SBP >180 05/22/20 23:45 08/20/20 23:44 Lacosamide (Vimpat) 50 mg Q12HR ORAL 05/22/20 21:00 08/20/20 20:59 05/27/20 09:26 Magnesium Hydroxide (Mom) 30 ml DAILYPRN PRN GT Constipation 05/22/20 19:00 06/21/20 17:14 Meropenem 500 mg/ Sodium Chloride 55 ml @ 110 mls/hr Q8HR IVPB 05/23/20 14:00 05/29/20 23:59 05/27/20 13:08 Pantoprazole (Protonix) 40 mg DAILY IVP 05/23/20 09:00 06/22/20 08:59 05/27/20 09:26 Zinc Oxide (Zinc Oxide) 1 applic THREE TIMES A DAY TOPIC 05/23/20 18:00 08/21/20 17:59 05/27/20 12:41 Francesco Howell MD May 27, 2020 15:49
[2020-05-27 16:00] VITALS: BP 100/54
--- NOTE | 2020-05-27 16:28 | Pulmonology Progress Note ---
Subjective ROS Limited/Unobtainable: No Constitutional: Denies: fever Gastrointestinal/Abdominal: Denies: diarrhea Allergies: Coded Allergies: CHLORHEXIDINE (Verified Allergy, Mild, 07/12/15) CEFTRIAXONE (Unverified Allergy, Unknown, 05/24/20) per Dr. Walker (ID) note LEVOFLOXACIN (Unverified Allergy, Unknown, 05/24/20) Per Dr. Walker (ID) note VANCOMYCIN (Verified Adverse Reaction, Severe, red man syndrome, pruritus, 05/07/20) Objective Last 24 Hour Vital Signs Date Time Temp Pulse Resp B/P (MAP) Pulse Ox O2 Delivery O2 Flow Rate FiO2 05/27/20 16:00 98.1 78 18 100/54 (69) 97 05/27/20 12:00 65 05/27/20 11:55 98.1 83 18 117/60 (79) 99 05/27/20 09:00 Nasal Cannula 2.0 05/27/20 08:00 97.9 69 18 100/55 (70) 98 05/27/20 08:00 65 05/27/20 04:00 98.7 67 18 117/61 (79) 97 05/27/20 04:00 67 05/27/20 00:00 77 05/27/20 00:00 99.3 81 20 111/57 (75) 97 05/26/20 21:00 Room Air 05/26/20 20:00 99.2 74 22 103/51 (68) 96 05/26/20 20:00 74 Intake and Output 05/26/20 05/27/20 19:00 07:00 Intake Total 20 ml Output Total 800 ml 700 ml Balance -800 ml -680 ml Tube Feeding 20 ml Output Urine Total 800 ml 700 ml Microbiology Date/Time Source Procedure Growth Status 05/25/20 06:20 Rectum - Final NO CARBAPENEM-RESISTANT ENTEROBACTERI... Complete 05/25/20 06:20 Rectum VRE Culture - Final Enterococcus Faecalis - Vre Complete Laboratory Tests 05/27/20 14:40: White Blood Count 4.3L, Red Blood Count 3.55L, Hemoglobin 10.4L, Hematocrit 31.8L, Mean Corpuscular Volume 90, Mean Corpuscular Hemoglobin 29.3, Mean Corpuscular Hemoglobin Concent 32.7, Red Cell Distribution Width 14.0, Platelet Count 303, Mean Platelet Volume 6.0L, Neutrophils (%) (Auto) 62.1, Lymphocytes (%) (Auto) 20.4, Monocytes (%) (Auto) 10.2H, Eosinophils (%) (Auto) 5.6H, Basophils (%) (Auto) 1.8, Sodium Level 139, Potassium Level 3.8, Chloride Level 106, Carbon Dioxide Level 27, Anion Gap 6, Blood Urea Nitrogen 16, Creatinine 0.6, Estimat Glomerular Filtration Rate > 60, Glucose Level 100, Calcium Level 8.5 Current Medications Medications (Trade) Dose Ordered Sig/Veronika Route PRN Reason Start Time Stop Time Status Last Admin Dose Admin Acetaminophen (Tylenol) 650 mg Q6H PRN GT Temp >100.5 05/22/20 17:00 06/21/20 16:59 05/25/20 14:41 Acetaminophen (Tylenol) 650 mg Q6H PRN GT Mild Pain (Pain Scale 1-3) 05/22/20 17:00 06/21/20 16:59 Albuterol/ Ipratropium (Albuterol/ Ipratropium) 3 ml Q6HRT PRN HHN Shortness of Breath 05/22/20 23:45 06/21/20 23:45 Diphenhydramine HCl (Benadryl) 25 mg Q6H PRN GT Itching 05/22/20 23:00 06/21/20 22:59 05/22/20 23:07 Docusate Sodium (Colace) 200 mg DAILY GT 05/23/20 09:00 06/22/20 08:59 05/27/20 09:26 Heparin Sodium (Porcine) (Heparin 5000 units/ml) 5,000 units EVERY 12 HOURS SUBQ 05/22/20 21:00 07/06/20 20:59 05/27/20 09:27 Hydralazine HCl (Apresoline) 25 mg Q6H PRN GT SBP >180 05/22/20 23:45 08/20/20 23:44 Lacosamide (Vimpat) 50 mg Q12HR ORAL 05/22/20 21:00 08/20/20 20:59 05/27/20 09:26 Magnesium Hydroxide (Mom) 30 ml DAILYPRN PRN GT Constipation 05/22/20 19:00 06/21/20 17:14 Meropenem 500 mg/ Sodium Chloride 55 ml @ 110 mls/hr Q8HR IVPB 05/23/20 14:00 05/29/20 23:59 05/27/20 13:08 Pantoprazole (Protonix) 40 mg DAILY IVP 05/23/20 09:00 06/22/20 08:59 05/27/20 09:26 Zinc Oxide (Zinc Oxide) 1 applic THREE TIMES A DAY TOPIC 05/23/20 18:00 08/21/20 17:59 05/27/20 12:41 Assessment/Plan Assessment/Plan Pulmonary Progress Note HISTORY OF PRESENT ILLNESS: Patient is a 64-year-old white female admitted from a nursing facility after her G-tube became dislodged. H/o previous CVA, aneurism clipped, craniotomy, AMS, on meropenem for UTI. Patient's G-tube was replaced in ER. Noted to have skin erythema, possible allergic reaction, Cefrtriaxone DC,Benadryl PRN PAST MEDICAL HISTORY: Hypertension, CVA, aneurism ruptute , Craniotomy, right hemiplegia. H/o GI bleeding, h/o constipation, seizure disorder,bladder dysfunction ALLERGIES: Allergic to chlorhexidine,Vancomycin. CODE STATUS: DNR. Physical Exam Vital Signs Noted GENERAL APPEARANCE: No acute distress. AMS HEAD AND NECK: Previous Craniotomy HEART: Normal rate. LUNGS: Clear. ABDOMEN: Soft. GT CDI EXTREMITIES: Has no edema. Has flexion contracture of right wrist. INSIDE WIRER: R hemiplegia LABORATORY DATA NOTED: COVID-19 test was negative. UA evidence UTI EKG sinus tachycardia. CXR: RLL Infiltrate Impression: UTI Right LL Pneumonia Sepsis Malfunction of gastrostomy tube Previous UGI bleed COVID-19 ruled out by laboratory testing Hypertension CVA Craniotomy Right hemiplegia Seizure history Bladder dysfunction Plan - IV Meropenem - O2 PRN - Duonebs - Sweeney catheter - PPX - Protonix - DNR - Benadryl PRN - [employer] meds - Monitor labs - imaging improved and will follow up - on DVT prophylaxis Laboratory Tests noted Chest X-Ray: unchanged RLL infiltrate versus atelectasis CT; Abdomen and pelvis 1. No evidence of contrast extravasation in the peritoneum. Appropriate positioned gastrostomy tube in the gastric lumen. 2. Indeterminate right renal mass. Consider further evaluation on nonemergent basis with MRI or CT with contrast (renal protocol) to exclude neoplasm. 3. Cholelithiasis without evidence of acute cholecystitis. 4. Colonic diverticulosis without evidence of acute diverticulitis. 5. Right lower lobe airspace consolidation, which likely represents compressive atelectasis given elevation right hemidiaphragm, but pneumonia should be excluded on a clinical basis Jean-Paul Angel MD May 27, 2020 16:28
--- NOTE | 2020-05-27 17:19 | Cardiac Electrophysiology PN ---
Assessment/Plan Assessment/Plan 1. Lactic acidosis and tachycardia, likely due to sepsis. On Abx 2. Hypertension. On p.r.n. hydralazine 25 gt q 6 hr 3. Dysphagia, status post PEG placement. 4. History of CVA. 5. History of craniotomy and seizures. 6. History of hypoxemia, respiratory failure, on 2 liter NC 7. UTI and possible pneumonia, on meropenem per Dr. Francesco Howell. DC tele. DAVID RN Subjective Subjective Nonverbal in restraints. Eyes open. GT feeding ongoing. Objective Last 24 Hour Vital Signs Date Time Temp Pulse Resp B/P (MAP) Pulse Ox O2 Delivery O2 Flow Rate FiO2 05/27/20 16:00 98.1 78 18 100/54 (69) 97 05/27/20 16:00 78 05/27/20 12:00 65 05/27/20 11:55 98.1 83 18 117/60 (79) 99 05/27/20 09:00 Nasal Cannula 2.0 05/27/20 08:00 97.9 69 18 100/55 (70) 98 05/27/20 08:00 65 05/27/20 04:00 98.7 67 18 117/61 (79) 97 05/27/20 04:00 67 05/27/20 00:00 77 05/27/20 00:00 99.3 81 20 111/57 (75) 97 05/26/20 21:00 Room Air 05/26/20 20:00 99.2 74 22 103/51 (68) 96 05/26/20 20:00 74 Intake and Output 05/26/20 05/27/20 19:00 07:00 Intake Total 20 ml Output Total 800 ml 700 ml Balance -800 ml -680 ml Tube Feeding 20 ml Output Urine Total 800 ml 700 ml Laboratory Tests Test 05/27/20 14:40 White Blood Count 4.3 K/UL (4.8-10.8) L Red Blood Count 3.55 M/UL (4.20-5.40) L Hemoglobin 10.4 G/DL (12.0-16.0) L Hematocrit 31.8 % (37.0-47.0) L Mean Corpuscular Volume 90 FL (80-99) Mean Corpuscular Hemoglobin 29.3 PG (27.0-31.0) Mean Corpuscular Hemoglobin Concent 32.7 G/DL (32.0-36.0) Red Cell Distribution Width 14.0 % (11.6-14.8) Platelet Count 303 K/UL (150-450) Mean Platelet Volume 6.0 FL (6.5-10.1) L Neutrophils (%) (Auto) 62.1 % (45.0-75.0) Lymphocytes (%) (Auto) 20.4 % (20.0-45.0) Monocytes (%) (Auto) 10.2 % (1.0-10.0) H Eosinophils (%) (Auto) 5.6 % (0.0-3.0) H Basophils (%) (Auto) 1.8 % (0.0-2.0) Sodium Level 139 MMOL/L (136-145) Potassium Level 3.8 MMOL/L (3.5-5.1) Chloride Level 106 MMOL/L (98-107) Carbon Dioxide Level 27 MMOL/L (21-32) Anion Gap 6 mmol/L (5-15) Blood Urea Nitrogen 16 mg/dL (7-18) Creatinine 0.6 MG/DL (0.55-1.30) Estimat Glomerular Filtration Rate > 60 mL/min (>60) Glucose Level 100 MG/DL (74-106) Calcium Level 8.5 MG/DL (8.5-10.1) Microbiology Date/Time Source Procedure Growth Status 05/25/20 06:20 Rectum - Final NO CARBAPENEM-RESISTANT ENTEROBACTERI... Complete 05/25/20 06:20 Rectum VRE Culture - Final Enterococcus Faecalis - Vre Complete Objective HEAD AND NECK: No JVD. LUNGS: Coarse rhonchi. CARDIOVASCULAR: Regular S1 and S2 with no gallop. ABDOMEN: Soft. Status post G-tube. EXTREMITIES: No pitting edema.Salas Scanlon MD May 27, 2020 17:19
--- NOTE | 2020-05-27 19:24 | NUR ---
NURSE HAND-OFF REPORT: Important Events on Shift:[] Patient Status: [] Diet: [] Pending Orders: [] Pending Results/Labs:[] Pending MD notification:[] Latest Vital Signs: Temperature 98.1 , Pulse 78 , B/P 100 /54 , Respiratory Rate 18 , O2 SAT 97 , Nasal Cannula, O2 Flow Rate 2.0 . Vital Sign Comment: [] EKG Rhythm: Sinus Rhythm Rhythm change?: N MD Notified?: N - MD Response: Latest Guadarrama Fall Score: 70 Fall Risk: High Risk Safety Measures: Call light Within Reach, Bed Alarm Zone 1, Side Rails Side Rails x3, Bed position Low and Locked. Fall Precautions: Yellow Socks Yellow Gown Door Sign Report given to [BRITANY Kwong].
--- NOTE | 2020-05-27 19:30 | NUR ---
NURSE NOTES: Important Events on Shift: Received report from Taryn Cotto RN. Pt in bed, alert, nonverbal, confused. No signs or symptoms of pain or distress noted at this time. FLACC 0. VS WNL. L wrist soft restraint in place, skin is asymtomatic, sensation intact. Will continue plan of care and close monitoring. Patient Status: Diet: Jevity @ 30ml/hr, goal of 60ml/hr Pending Orders: transfer to [facility] per [facility], waiting for a room. Pending Results/Labs: none Pending MD notification: none Latest Vital Signs: Temperature 98.1 , Pulse 79 , B/P 115 /55 , Respiratory Rate 18 , O2 SAT 99 , Room Air, O2 Flow Rate 2.0 . Vital Sign Comment: reported to stable throughout shift. EKG Rhythm: Sinus Rhythm Rhythm change?: N MD Notified?: N - MD Response: - Latest Guadarrama Fall Score: 70 Fall Risk: High Risk Safety Measures: Call light Within Reach, Bed Alarm Zone 1, Side Rails Side Rails x3, Bed position Low and Locked. Fall Precautions: yes Yellow Socks yes Yellow Gown yes Door Sign yes
[2020-05-27 20:00] VITALS: BP 105/57
--- NOTE | 2020-05-27 20:14 | General Progress Note ---
Subjective ROS Limited/Unobtainable: Yes Allergies: Coded Allergies: CHLORHEXIDINE (Verified Allergy, Mild, 07/12/15) CEFTRIAXONE (Unverified Allergy, Unknown, 05/24/20) per Dr. Walker (ID) note LEVOFLOXACIN (Unverified Allergy, Unknown, 05/24/20) Per Dr. Walker (ID) note VANCOMYCIN (Verified Adverse Reaction, Severe, red man syndrome, pruritus, 05/07/20) Objective Last 24 Hour Vital Signs Date Time Temp Pulse Resp B/P (MAP) Pulse Ox O2 Delivery O2 Flow Rate FiO2 05/27/20 16:00 98.1 78 18 100/54 (69) 97 05/27/20 16:00 78 05/27/20 12:00 65 05/27/20 11:55 98.1 83 18 117/60 (79) 99 05/27/20 09:00 Nasal Cannula 2.0 05/27/20 08:00 97.9 69 18 100/55 (70) 98 05/27/20 08:00 65 05/27/20 04:00 98.7 67 18 117/61 (79) 97 05/27/20 04:00 67 05/27/20 00:00 77 05/27/20 00:00 99.3 81 20 111/57 (75) 97 05/26/20 21:00 Room Air Intake and Output 05/26/20 05/27/20 19:00 07:00 Intake Total 20 ml Output Total 800 ml 700 ml Balance -800 ml -680 ml Tube Feeding 20 ml Output Urine Total 800 ml 700 ml Laboratory Tests 05/27/20 14:40: White Blood Count 4.3L, Red Blood Count 3.55L, Hemoglobin 10.4L, Hematocrit 31.8L, Mean Corpuscular Volume 90, Mean Corpuscular Hemoglobin 29.3, Mean Corpuscular Hemoglobin Concent 32.7, Red Cell Distribution Width 14.0, Platelet Count 303, Mean Platelet Volume 6.0L, Neutrophils (%) (Auto) 62.1, Lymphocytes (%) (Auto) 20.4, Monocytes (%) (Auto) 10.2H, Eosinophils (%) (Auto) 5.6H, Basophils (%) (Auto) 1.8, Sodium Level 139, Potassium Level 3.8, Chloride Level 106, Carbon Dioxide Level 27, Anion Gap 6, Blood Urea Nitrogen 16, Creatinine 0.6, Estimat Glomerular Filtration Rate > 60, Glucose Level 100, Calcium Level 8.5 Height (Feet): 5 Height (Inches): 4.00 Weight (Pounds): 136 Assessment/Plan Problem List: (1) Sepsis ICD Codes: A41.9 - Sepsis, unspecified organism SNOMED: 96724209 Qualifiers: Qualified Codes: A41.9 - Sepsis, unspecified organism (2) UGI bleed ICD Codes: K92.2 - Gastrointestinal hemorrhage, unspecified SNOMED: 65262931 (3) RLL pneumonia ICD Codes: J18.9 - Pneumonia, unspecified organism SNOMED: 311795986 Qualifiers: Qualified Codes: J18.9 - Pneumonia, unspecified organism (4) UTI (urinary tract infection) ICD Codes: N39.0 - Urinary tract infection, site not specified SNOMED: 37465122 Qualifiers: Qualified Codes: N39.0 - Urinary tract infection, site not specified (5) DNR no code (do not resuscitate) ICD Codes: Z66 - Do not resuscitate SNOMED: 093207056 Status: progressing Assessment/Plan: pna no fever vital stable sepsis improving uti s/p replacement of peg Ruthann Brasher MD May 27, 2020 20:13
[2020-05-28] VITALS: BP 115/55
[2020-05-28 04:00] VITALS: BP 100/53
--- NOTE | 2020-05-28 06:00 | NUR ---
TRANSFER TO FLOOR: Patient transferred to [address] [place] [address] Dereje. Report and medications given to Ahmet Prado RN. Pt in stable condition.
[2020-05-28] MEDS: Meropenem 500 MG in NS 55 ML IVPB SCH ×4 (06:54→21:03)
--- NOTE | 2020-05-28 07:01 | Hematology/Onc Progress Note ---
Assessment/Plan Assessment/Plan Assessment and Recs # Anemia due to underlying gi bleed per outside report --> per gi eval --> occult is pending x 3 --> hgb 13-->11-->10.7->9.7 --> anemia panel noted --> no evidence of hemolysis # Indeterminate right renal mass. --> Consider further evaluation on nonemergent basis with MRI or CT with contrast (renal protocol) to exclude neoplasm. --> outpatient followup, reimage 3 mo # Dysphagia is s/p G-tube inserted with ease. --> continue per peg feeds # Sepsis due to RLL pneumonia, uti --> ABX jr/levaquin -> abx per pulm, id # UTI (urinary tract infection) --> also abx # EKG sinus tachycardia. # Cholelithiasis without evidence of acute cholecystitis. # Colonic diverticulosis without evidence of acute diverticulitis. # CVA # Craniotomy # Right hemiplegia # Seizure history # Bladder dysfunction # Dnr # Dvt ppx heparin sq Appreciate consultation and dw RN Subjective HEENT: Denies: no symptoms, eye pain, blurred vision, tearing, double vision, ear pain, ear discharge, nose pain, nose congestion, throat pain, throat swelling, mouth pain, mouth swelling, other Cardiovascular: Denies: no symptoms, chest pain, edema, irregular heart rate, lightheadedness, palpitations, syncope, other Respiratory: Denies: no symptoms, cough, shortness of breath, SOB with excertion, SOB at rest, sputum, wheezing, other Gastrointestinal/Abdominal: Denies: no symptoms, abdomen distended, abdominal pain, black stools, tarry stools, blood in stool, constipated, diarrhea, difficulty swallowing, nausea, poor appetite, poor fluid intake, rectal bleeding, vomiting, other Genitourinary: Denies: no symptoms, burning, discharge, frequency, flank pain, hematuria, incontinence, pain, urgency, other Neurologic/Psychiatric: Denies: no symptoms, anxiety, depressed, emotional problems, headache, numbness, paresthesia, pre-existing deficit, seizure, tingling, tremors, weakness, other Endocrine: Denies: no symptoms, excessive sweating, flushing, intolerance to cold, intolerance to heat, increased hunger, increased thirst, increased urine, unexplained weight gain, unexplained weight loss, other Hematologic/Lymphatic: Denies: no symptoms, anemia, easy bleeding, easy bruisin g, adenopathy, other Allergies: Coded Allergies: CHLORHEXIDINE (Verified Allergy, Mild, 07/12/15) CEFTRIAXONE (Unverified Allergy, Unknown, 05/24/20) per Dr. Walker (ID) note LEVOFLOXACIN (Unverified Allergy, Unknown, 05/24/20) Per Dr. Walker (ID) note VANCOMYCIN (Verified Adverse Reaction, Severe, red man syndrome, pruritus, 05/07/20) Subjective 05/24 labs noted, no bleeding, sleepy in am, cbc pend 05/25 labs reviewed, on jr and levaquin, meds noted, no night sweats 05/27 on jevity, no bleeding, meds noted, labs reviewed, hgb 9.7 05/28 labs reordered, on jevity, comfortable, no other changes Objective Objective Current Medications Medications (Trade) Dose Ordered Sig/Veronika Route PRN Reason Start Time Stop Time Status Last Admin Dose Admin Acetaminophen (Tylenol) 650 mg Q6H PRN GT Temp >100.5 05/22/20 17:00 06/21/20 16:59 05/25/20 14:41 Acetaminophen (Tylenol) 650 mg Q6H PRN GT Mild Pain (Pain Scale 1-3) 05/22/20 17:00 06/21/20 16:59 Albuterol/ Ipratropium (Albuterol/ Ipratropium) 3 ml Q6HRT PRN HHN Shortness of Breath 05/22/20 23:45 06/21/20 23:45 Diphenhydramine HCl (Benadryl) 25 mg Q6H PRN GT Itching 05/22/20 23:00 06/21/20 22:59 05/22/20 23:07 Docusate Sodium (Colace) 200 mg DAILY GT 05/23/20 09:00 06/22/20 08:59 05/27/20 09:26 Heparin Sodium (Porcine) (Heparin 5000 units/ml) 5,000 units EVERY 12 HOURS SUBQ 05/22/20 21:00 07/06/20 20:59 05/27/20 21:58 Hydralazine HCl (Apresoline) 25 mg Q6H PRN GT SBP >180 05/22/20 23:45 08/20/20 23:44 Lacosamide (Vimpat) 50 mg Q12HR ORAL 05/22/20 21:00 08/20/20 20:59 05/27/20 21:57 Magnesium Hydroxide (Mom) 30 ml DAILYPRN PRN GT Constipation 05/22/20 19:00 06/21/20 17:14 Meropenem 500 mg/ Sodium Chloride 55 ml @ 110 mls/hr Q8HR IVPB 05/23/20 14:00 05/29/20 23:59 05/28/20 06:54 Pantoprazole (Protonix) 40 mg DAILY IVP 05/23/20 09:00 06/22/20 08:59 05/27/20 09:26 Zinc Oxide (Zinc Oxide) 1 applic THREE TIMES A DAY TOPIC 05/23/20 18:00 08/21/20 17:59 05/27/20 18:03 Last 24 Hour Vital Signs Date Time Temp Pulse Resp B/P (MAP) Pulse Ox O2 Delivery O2 Flow Rate FiO2 05/28/20 04:00 97.5 87 18 100/53 (69) 100 05/28/20 00:00 98.1 79 18 115/55 (75) 99 05/27/20 21:00 Room Air 05/27/20 20:00 97.5 73 18 105/57 (73) 96 05/27/20 16:00 98.1 78 18 100/54 (69) 97 05/27/20 16:00 78 05/27/20 12:00 65 05/27/20 11:55 98.1 83 18 117/60 (79) 99 05/27/20 09:00 Nasal Cannula 2.0 05/27/20 08:00 97.9 69 18 100/55 (70) 98 05/27/20 08:00 65 05/27/20 04:00 98.7 67 18 117/61 (79) 97 05/27/20 04:00 67 05/27/20 00:00 77 05/27/20 00:00 99.3 81 20 111/57 (75) 97 05/26/20 21:00 Room Air 05/26/20 20:00 99.2 74 22 103/51 (68) 96 05/26/20 20:00 74 05/26/20 16:00 98.6 76 18 107/54 (71) 94 05/26/20 16:00 67 05/26/20 12:00 97.9 76 18 93/61 (72) 97 05/26/20 12:00 67 05/26/20 09:00 Nasal Cannula 2.0 05/26/20 08:00 78 05/26/20 08:00 98.1 77 19 116/58 (77) 97 Intake and Output 05/27/20 05/28/20 19:00 07:00 Output Total 350 ml 800 ml Balance -350 ml -800 ml Output Urine Total 350 ml 800 ml Labs Test 05/27/20 14:40 White Blood Count 4.3 K/UL (4.8-10.8) Red Blood Count 3.55 M/UL (4.20-5.40) Hemoglobin 10.4 G/DL (12.0-16.0) Hematocrit 31.8 % (37.0-47.0) Mean Corpuscular Volume 90 FL (80-99) Mean Corpuscular Hemoglobin 29.3 PG (27.0-31.0) Mean Corpuscular Hemoglobin Concent 32.7 G/DL (32.0-36.0) Red Cell Distribution Width 14.0 % (11.6-14.8) Platelet Count 303 K/UL (150-450) Mean Platelet Volume 6.0 FL (6.5-10.1) Neutrophils (%) (Auto) 62.1 % (45.0-75.0) Lymphocytes (%) (Auto) 20.4 % (20.0-45.0) Monocytes (%) (Auto) 10.2 % (1.0-10.0) Eosinophils (%) (Auto) 5.6 % (0.0-3.0) Basophils (%) (Auto) 1.8 % (0.0-2.0) Sodium Level 139 MMOL/L (136-145) Potassium Level 3.8 MMOL/L (3.5-5.1) Chloride Level 106 MMOL/L (98-107) Carbon Dioxide Level 27 MMOL/L (21-32) Anion Gap 6 mmol/L (5-15) Blood Urea Nitrogen 16 mg/dL (7-18) Creatinine 0.6 MG/DL (0.55-1.30) Estimat Glomerular Filtration Rate > 60 mL/min (>60) Glucose Level 100 MG/DL (74-106) Calcium Level 8.5 MG/DL (8.5-10.1) Height (Feet): 5 Height (Inches): 4.00 Weight (Pounds): 136 Objective Physical exam: See documented vital signs. HEENT: Moist mucous membranes, on nrm Neck supple no meningismus Lungs slight tachypnea and decreased breath sounds no rales CV rrr, no mgr Abd: gtube has been replaced Ext: no cce Neuro: alert, mumbling, tracks, unable to converse Arturo Varma MD May 28, 2020 07:01
--- NOTE | 2020-05-28 07:41 | NUR ---
NURSE HAND-OFF: Important Events on Shift: Patient recent transfer to unit from . Patient is non verbal and non alert. New IV placed. No residual from feeding tube noted. Feeding currently running at 35 cc / hr. Endorsed that goal is 60 cc / hr. Patient Status:DNR/DNI Diet: Jevity 1.2 Pending Orders: none Pending Results/Labs:none Pending MD notification:none Latest Vital Signs: Temperature 97.5 , Pulse 87 , B/P 100 /53 , Respiratory Rate 18 , O2 SAT 100 , Room Air, O2 Flow Rate 2.0 . Vital Sign Comment: Within normal limits. Latest Guadarrama Fall Score: 70 Fall Risk: High Risk Safety Measures: Call light Within Reach, Bed Alarm Zone 1, Side Rails Side Rails x3, Bed position Low and Locked. Fall Precautions: Yellow Socks Yellow Gown Door Sign Report given to Samuel GARG.
--- NOTE | 2020-05-28 07:53 | NUR ---
NURSE NOTES: received report from BRITANY Almanza. Patient seen in bed, Nonverbal, on NC 2L/M. Breathing is even and unlabored, FLACC score of 0. IV site patent and intact. G-tube feeding noted, g-tube patent and intact, tolerating feeding well with no residual. Patient has left soft restraint on. Pulse palpable, circulation maintained. Sweeney is patent and anchored draining yellow urine via gravity. BEd is locked and placed in lowest position with bed alarm on. Call light within reach. Will continue to monitor
[2020-05-28 08:00] VITALS: BP 102/59
--- NOTE | 2020-05-28 08:24 | General Progress Note ---
Subjective ROS Limited/Unobtainable: No Allergies: Coded Allergies: CHLORHEXIDINE (Verified Allergy, Mild, 07/12/15) CEFTRIAXONE (Unverified Allergy, Unknown, 05/24/20) per Dr. Walker (ID) note LEVOFLOXACIN (Unverified Allergy, Unknown, 05/24/20) Per Dr. Walker (ID) note VANCOMYCIN (Verified Adverse Reaction, Severe, red man syndrome, pruritus, 05/07/20) Objective Last 24 Hour Vital Signs Date Time Temp Pulse Resp B/P (MAP) Pulse Ox O2 Delivery O2 Flow Rate FiO2 05/28/20 04:00 97.5 87 18 100/53 (69) 100 05/28/20 00:00 98.1 79 18 115/55 (75) 99 05/27/20 21:00 Room Air 05/27/20 20:00 97.5 73 18 105/57 (73) 96 05/27/20 16:00 98.1 78 18 100/54 (69) 97 05/27/20 16:00 78 05/27/20 12:00 65 05/27/20 11:55 98.1 83 18 117/60 (79) 99 05/27/20 09:00 Nasal Cannula 2.0 Intake and Output 05/27/20 05/28/20 19:00 07:00 Output Total 350 ml 800 ml Balance -350 ml -800 ml Output Urine Total 350 ml 800 ml Laboratory Tests 05/27/20 14:40: White Blood Count 4.3L, Red Blood Count 3.55L, Hemoglobin 10.4L, Hematocrit 31.8L, Mean Corpuscular Volume 90, Mean Corpuscular Hemoglobin 29.3, Mean Corpus cular Hemoglobin Concent 32.7, Red Cell Distribution Width 14.0, Platelet Count 303, Mean Platelet Volume 6.0L, Neutrophils (%) (Auto) 62.1, Lymphocytes (%) (Auto) 20.4, Monocytes (%) (Auto) 10.2H, Eosinophils (%) (Auto) 5.6H, Basophils (%) (Auto) 1.8, Sodium Level 139, Potassium Level 3.8, Chloride Level 106, Carbon Dioxide Level 27, Anion Gap 6, Blood Urea Nitrogen 16, Creatinine 0.6, Estimat Glomerular Filtration Rate > 60, Glucose Level 100, Calcium Level 8.5 Height (Feet): 5 Height (Inches): 4.00 Weight (Pounds): 136 General Appearance: no apparent distress EENT: normal ENT inspection Neck: supple Cardiovascular: normal rate Respiratory/Chest: decreased breath sounds Abdomen: normal bowel sounds, non tender, soft Extremities: non-tender Assessment/Plan Problem List: (1) PEG (percutaneous endoscopic gastrostomy) status ICD Codes: Z93.1 - Gastrostomy status SNOMED: 444412835, 042684071 (2) UGI bleed ICD Codes: K92.2 - Gastrointestinal hemorrhage, unspecified SNOMED: 06534327 (3) DNR no code (do not resuscitate) ICD Codes: Z66 - Do not resuscitate SNOMED: 957973046 (4) Dislodged gastrostomy tube ICD Codes: Z43.1 - Encounter for attention to gastrostomy SNOMED: 317053991 Status: progressing Assessment/Plan: GT has been changed at the bedside to 20 FR GT care and flush monitor for residuals change TF to Jevity per dietitian recommendations skin care Natan Nowak MD May 28, 2020 08:24
[2020-05-28] MEDS: Docusate 100mg/10ml Liq GT SCH (09:07)
[2020-05-28] MEDS: Pantoprazole Inj IVP SCH (09:07)
[2020-05-28] MEDS: Lacosamide 50mg tablet ORAL SCH ×2 (09:07→20:54)
[2020-05-28] MEDS: Heparin 5000 units/ml inj SUBQ SCH ×2 (09:08→20:55)
[2020-05-28] MEDS: Zinc Oxide Oint 2oz TOPIC SCH ×4 (09:10→17:28)
--- NOTE | 2020-05-28 10:26 | Pulmonology Progress Note ---
Subjective ROS Limited/Unobtainable: No Interval Events: None new reported Constitutional: Reports: no symptoms, fever HEENT: Repors: no symptoms Respiratory: Reports: no symptoms Cardiovascular: Reports: no symptoms Gastrointestinal/Abdominal: Reports: no symptoms; Denies: diarrhea Allergies: Coded Allergies: CHLORHEXIDINE (Verified Allergy, Mild, 07/12/15) CEFTRIAXONE (Unverified Allergy, Unknown, 05/24/20) per Dr. Walker (ID) note LEVOFLOXACIN (Unverified Allergy, Unknown, 05/24/20) Per Dr. Walker (ID) note VANCOMYCIN (Verified Adverse Reaction, Severe, red man syndrome, pruritus, 05/07/20) Objective Last 24 Hour Vital Signs Date Time Temp Pulse Resp B/P (MAP) Pulse Ox O2 Delivery O2 Flow Rate FiO2 05/28/20 09:00 Room Air 05/28/20 08:00 97.9 74 18 102/59 (73) 98 05/28/20 04:00 97.5 87 18 100/53 (69) 100 05/28/20 00:00 98.1 79 18 115/55 (75) 99 05/27/20 21:00 Room Air 05/27/20 20:00 97.5 73 18 105/57 (73) 96 05/27/20 16:00 98.1 78 18 100/54 (69) 97 05/27/20 16:00 78 05/27/20 12:00 65 05/27/20 11:55 98.1 83 18 117/60 (79) 99 Intake and Output 05/27/20 05/28/20 19:00 07:00 Output Total 350 ml 800 ml Balance -350 ml -800 ml Output Urine Total 350 ml 800 ml General Appearance: no acute distress HEENT: normocephalic Respiratory: chest wall non-tender, lungs clear Cardiovascular: normal peripheral pulses Abdomen: normal bowel sounds Laboratory Tests 05/27/20 14:40: White Blood Count 4.3L, Red Blood Count 3.55L, Hemoglobin 10.4L, Hematocrit 31.8L, Mean Corpuscular Volume 90, Mean Corpuscular Hemoglobin 29.3, Mean Corpuscular Hemoglobin Concent 32.7, Red Cell Distribution Width 14.0, Platelet Count 303, Mean Platelet Volume 6.0L, Neutrophils (%) (Auto) 62.1, Lymphocytes (%) (Auto) 20.4, Monocytes (%) (Auto) 10.2H, Eosinophils (%) (Auto) 5.6H, Basophils (%) (Auto) 1.8, Sodium Level 139, Potassium Level 3.8, Chloride Level 106, Carbon Dioxide Level 27, Anion Gap 6, Blood Urea Nitrogen 16, Creatinine 0.6, Estimat Glomerular Filtration Rate > 60, Glucose Level 100, Calcium Level 8.5 Current Medications Medications (Trade) Dose Ordered Sig/Veronika Route PRN Reason Start Time Stop Time Status Last Admin Dose Admin Acetaminophen (Tylenol) 650 mg Q6H PRN GT Temp >100.5 05/22/20 17:00 06/21/20 16:59 05/25/20 14:41 Acetaminophen (Tylenol) 650 mg Q6H PRN GT Mild Pain (Pain Scale 1-3) 05/22/20 17:00 06/21/20 16:59 Albuterol/ Ipratropium (Albuterol/ Ipratropium) 3 ml Q6HRT PRN HHN Shortness of Breath 05/22/20 23:45 06/21/20 23:45 Diphenhydramine HCl (Benadryl) 25 mg Q6H PRN GT Itching 05/22/20 23:00 06/21/20 22:59 05/22/20 23:07 Docusate Sodium (Colace) 200 mg DAILY GT 05/23/20 09:00 06/22/20 08:59 05/28/20 09:07 Heparin Sodium (Porcine) (Heparin 5000 units/ml) 5,000 units EVERY 12 HOURS SUBQ 05/22/20 21:00 07/06/20 20:59 05/28/20 09:08 Hydralazine HCl (Apresoline) 25 mg Q6H PRN GT SBP >180 05/22/20 23:45 08/20/20 23:44 Lacosamide (Vimpat) 50 mg Q12HR ORAL 05/22/20 21:00 08/20/20 20:59 05/28/20 09:07 Magnesium Hydroxide (Mom) 30 ml DAILYPRN PRN GT Constipation 05/22/20 19:00 06/21/20 17:14 Meropenem 500 mg/ Sodium Chloride 55 ml @ 110 mls/hr Q8HR IVPB 05/23/20 14:00 05/29/20 23:59 05/28/20 06:54 Pantoprazole (Protonix) 40 mg DAILY IVP 05/23/20 09:00 06/22/20 08:59 05/28/20 09:07 Zinc Oxide (Zinc Oxide) 1 applic THREE TIMES A DAY TOPIC 05/23/20 18:00 08/21/20 17:59 05/28/20 10:07 Assessment/Plan Assessment/Plan UTI Right LL Pneumonia Sepsis Malfunction of gastrostomy tube Previous UGI bleed COVID-19 ruled out Hypertension CVA Craniotomy Right hemiplegia Seizure history Bladder dysfunction Plan - IV abx - O2 PRN; currently saturating well on RA - Duonebs - Sweeney catheter - PPX - Protonix - DNR - Benadryl PRN - ENGRAVER LETTER meds - Monitor labs Leander Golden MD May 28, 2020 10:26
--- NOTE | 2020-05-28 11:14 | NUR ---
NURSE NOTES: As Rn and CHICKEN HATCHERY HELPER were changing the patient, Rn noticed that patient G-tube site was leaking. RN stopped feeding and reassessed patient. RN made charge nurse aware. RN contacted Dr. Nowak, awaiting call back
[2020-05-28 12:00] VITALS: BP 111/66
--- NOTE | 2020-05-28 12:25 | Infectious Diseases Prog Note ---
Assessment/Plan Assessment/Plan IMPRESSION: Pyuria /UTI, Atelectasis, less pneumonia, dDslodgement of G-tube, allergic reaction to ceftriaxone and Levaquin, history of CVA and right hemiplegia, anemia, Diverticulosis, cholelithiasis. RECOMMENDATION: continue meropenem until am Subjective ROS Limited/Unobtainable: Yes Constitutional: Denies: fever Allergies: Coded Allergies: CHLORHEXIDINE (Verified Allergy, Mild, 07/12/15) CEFTRIAXONE (Unverified Allergy, Unknown, 05/24/20) per Dr. Walker (ID) note LEVOFLOXACIN (Unverified Allergy, Unknown, 05/24/20) Per Dr. Walker (ID) note VANCOMYCIN (Verified Adverse Reaction, Severe, red man syndrome, pruritus, 05/07/20) Objective Last 24 Hour Vital Signs Date Time Temp Pulse Resp B/P (MAP) Pulse Ox O2 Delivery O2 Flow Rate FiO2 05/28/20 09:00 Room Air 05/28/20 08:00 97.9 74 18 102/59 (73) 98 05/28/20 04:00 97.5 87 18 100/53 (69) 100 05/28/20 00:00 98.1 79 18 115/55 (75) 99 05/27/20 21:00 Room Air 05/27/20 20:00 97.5 73 18 105/57 (73) 96 05/27/20 16:00 98.1 78 18 100/54 (69) 97 05/27/20 16:00 78 Height (Feet): 5 Height (Inches): 4.00 Weight (Pounds): 136 HEENT: mucous membranes moist Respiratory/Chest: lungs clear Cardiovascular: normal rate Abdomen: soft, non tender Extremities: no edema Skin: rash, other - improving Neurologic/Psychiatric: alert, responsive, aphasia Laboratory Tests Test 05/27/20 14:40 White Blood Count 4.3 K/UL (4.8-10.8) L Red Blood Count 3.55 M/UL (4.20-5.40) L Hemoglobin 10.4 G/DL (12.0-16.0) L Hematocrit 31.8 % (37.0-47.0) L Mean Corpuscular Volume 90 FL (80-99) Mean Corpuscular Hemoglobin 29.3 PG (27.0-31.0) Mean Corpuscular Hemoglobin Concent 32.7 G/DL (32.0-36.0) Red Cell Distribution Width 14.0 % (11.6-14.8) Platelet Count 303 K/UL (150-450) Mean Platelet Volume 6.0 FL (6.5-10.1) L Neutrophils (%) (Auto) 62.1 % (45.0-75.0) Lymphocytes (%) (Auto) 20.4 % (20.0-45.0) Monocytes (%) (Auto) 10.2 % (1.0-10.0) H Eosinophils (%) (Auto) 5.6 % (0.0-3.0) H Basophils (%) (Auto) 1.8 % (0.0-2.0) Sodium Level 139 MMOL/L (136-145) Potassium Level 3.8 MMOL/L (3.5-5.1) Chloride Level 106 MMOL/L (98-107) Carbon Dioxide Level 27 MMOL/L (21-32) Anion Gap 6 mmol/L (5-15) Blood Urea Nitrogen 16 mg/dL (7-18) Creatinine 0.6 MG/DL (0.55-1.30) Estimat Glomerular Filtration Rate > 60 mL/min (>60) Glucose Level 100 MG/DL (74-106) Calcium Level 8.5 MG/DL (8.5-10.1) Current Medications Medications (Trade) Dose Ordered Sig/Veronika Route PRN Reason Start Time Stop Time Status Last Admin Dose Admin Acetaminophen (Tylenol) 650 mg Q6H PRN GT Temp >100.5 05/22/20 17:00 06/21/20 16:59 05/25/20 14:41 Acetaminophen (Tylenol) 650 mg Q6H PRN GT Mild Pain (Pain Scale 1-3) 05/22/20 17:00 06/21/20 16:59 Albuterol/ Ipratropium (Albuterol/ Ipratropium) 3 ml Q6HRT PRN HHN Shortness of Breath 05/22/20 23:45 06/21/20 23:45 Diphenhydramine HCl (Benadryl) 25 mg Q6H PRN GT Itching 05/22/20 23:00 06/21/20 22:59 05/22/20 23:07 Docusate Sodium (Colace) 200 mg DAILY GT 05/23/20 09:00 06/22/20 08:59 05/28/20 09:07 Heparin Sodium (Porcine) (Heparin 5000 units/ml) 5,000 units EVERY 12 HOURS SUBQ 05/22/20 21:00 07/06/20 20:59 05/28/20 09:08 Hydralazine HCl (Apresoline) 25 mg Q6H PRN GT SBP >180 05/22/20 23:45 08/20/20 23:44 Lacosamide (Vimpat) 50 mg Q12HR ORAL 05/22/20 21:00 08/20/20 20:59 05/28/20 09:07 Magnesium Hydroxide (Mom) 30 ml DAILYPRN PRN GT Constipation 05/22/20 19:00 06/21/20 17:14 Meropenem 500 mg/ Sodium Chloride 55 ml @ 110 mls/hr Q8HR IVPB 05/23/20 14:00 05/29/20 23:59 05/28/20 06:54 Pantoprazole (Protonix) 40 mg DAILY IVP 05/23/20 09:00 06/22/20 08:59 05/28/20 09:07 Zinc Oxide (Zinc Oxide) 1 applic THREE TIMES A DAY TOPIC 05/23/20 18:00 08/21/20 17:59 05/28/20 10:07 Francesco Howell MD May 28, 2020 12:25
--- NOTE | 2020-05-28 15:25 | Cardiac Electrophysiology PN ---
Assessment/Plan Assessment/Plan 1. Lactic acidosis and tachycardia due to sepsis. On Abx 2. Hypertension. On p.r.n. hydralazine 25 gt q 6 hr 3. Dysphagia, status post PEG placement. 4. History of CVA. 5. History of craniotomy and seizures. 6. History of hypoxemia, respiratory failure, on 2 liter NC 7. UTI and possible pneumonia, on meropenem per Dr. Francesco Howell. DW RN Subjective Subjective Nonverbal in restraints. GT feeding ongoing. Objective Last 24 Hour Vital Signs Date Time Temp Pulse Resp B/P (MAP) Pulse Ox O2 Delivery O2 Flow Rate FiO2 05/28/20 12:00 97.7 77 18 111/66 (81) 98 05/28/20 09:00 Room Air 05/28/20 08:00 97.9 74 18 102/59 (73) 98 05/28/20 04:00 97.5 87 18 100/53 (69) 100 05/28/20 00:00 98.1 79 18 115/55 (75) 99 05/27/20 21:00 Room Air 05/27/20 20:00 97.5 73 18 105/57 (73) 96 05/27/20 16:00 98.1 78 18 100/54 (69) 97 05/27/20 16:00 78 Intake and Output 05/27/20 05/28/20 19:00 07:00 Output Total 350 ml 800 ml Balance -350 ml -800 ml Output Urine Total 350 ml 800 ml Objective HEAD AND NECK: No JVD. LUNGS: Coarse rhonchi. CARDIOVASCULAR: Regular S1 and S2 with no gallop. ABDOMEN: Soft. Status post G-tube. EXTREMITIES: No pitting edema.Salas Scanlon MD May 28, 2020 15:25
--- NOTE | 2020-05-28 15:33 | NUR ---
NURSE NOTES: Dr. Nowak came and checked on patients g-tube. Per Dr. Nowak, continue g-tube feeding at 40 and flush regularly. RN received order for g-tube replacement tomorrow with size 22. RN made charge nurse aware
[2020-05-28 16:00] VITALS: BP 105/55
--- NOTE | 2020-05-28 16:28 | NUR ---
CASE MANAGEMENT:REVIEW SI;SEPSIS. UPPER GI BLEED. UTI. 98.1 87 18 100/53 96% ON RA IS;MEROPENEM IV Q8 HEPARIN SUBQ Q12 MED SURG STATUS DCP;FROM MARIANA VANESSA
--- NOTE | 2020-05-28 18:38 | NUR ---
NURSE NOTES: RN stopped g-tube feeding due to extreme amount of leaking through the g-tube site. RN tried to flush with 10 cc of water and the fluids came out from g-tube site. RN made Dr. Nowak aware as well as charge nurse of patient current situation. RN awaiting call back from Dr. Nowak
--- NOTE | 2020-05-28 19:20 | NUR ---
NURSE NOTES: RECEIVED PATIENT FROM BRITANY PAGE. PATIENT IS AWAKE, AAOX0, CONFUSED, ON NC 2L, NO ACUTE DISTRESS NOTED. VSS. PATIENT HAS A G-TUBE FEEDING, RUNNING JEVITY 1.2 AT 40ML/HR. G-TUBE SITE IS LEAKING. AWARE. HOB >30 FOR ASPIRATION PRECAUTION.COULTER WITH COULTER ANCHOR IN PLACE, DRAINING WELL. PIV ON LEFT HAND 22G, INTACT AND PATENT. PATIENT HAS A LEFT WRIST RESTRAINT, PULSES PRESENT, NO SWELLING, NO REDNESS NOTED. FALL PRECAUTION IMPLEMENTED. YELLOW SOCKS, YELLOW GOWN AND YELLOW ARMBAND IN PLACE. COMMUNICATED WITH STAFF TO PERFORM FREQUENT ROUNDINGS. BED IS LOCKED AND LOW, SIDE RAILS UPX3 AND PADDED, AND CALL LIGHT IS WITHIN REACH. WILL CONTINUE TO MONITOR.
--- NOTE | 2020-05-28 19:28 | NUR ---
NURSE HAND-OFF: Important Events on Shift: g-tube malfunction, Per Dr. Nowak, will change and reinsert new tube tomorrow Patient Status: stable Diet: Jevity 1.2 Pending Orders: n/a Pending Results/Labs:n/a Pending MD notification:patients g-tube feeding on hold, awaiting call back Latest Vital Signs: Temperature 97.8 , Pulse 75 , B/P 105 /55 , Respiratory Rate 18 , O2 SAT 96 , Room Air, O2 Flow Rate 2.0 . Vital Sign Comment: stable Latest [place] Fall Score: 70 Fall Risk: High Risk Safety Measures: Call light Within Reach, Bed Alarm Zone 1, Side Rails Side Rails x3, Bed position Low and Locked. Fall Precautions: Yellow Socks Yellow Gown Door Sign Report given to BRITANY Cartwright.
[2020-05-28 20:00] VITALS: BP 117/57
--- NOTE | 2020-05-28 21:58 | General Progress Note ---
Subjective ROS Limited/Unobtainable: Yes Allergies: Coded Allergies: CHLORHEXIDINE (Verified Allergy, Mild, 07/12/15) CEFTRIAXONE (Unverified Allergy, Unknown, 05/24/20) per Dr. Walker (ID) note LEVOFLOXACIN (Unverified Allergy, Unknown, 05/24/20) Per Dr. Walker (ID) note VANCOMYCIN (Verified Adverse Reaction, Severe, red man syndrome, pruritus, 05/07/20) Objective Last 24 Hour Vital Signs Date Time Temp Pulse Resp B/P (MAP) Pulse Ox O2 Delivery O2 Flow Rate FiO2 05/28/20 20:11 76 18 98 Nasal Cannula 3.0 32 05/28/20 20:00 98.2 70 20 117/57 (77) 93 05/28/20 16:00 97.8 75 18 105/55 (72) 96 05/28/20 12:00 97.7 77 18 111/66 (81) 98 05/28/20 09:00 Room Air 05/28/20 08:00 97.9 74 18 102/59 (73) 98 05/28/20 04:00 97.5 87 18 100/53 (69) 100 05/28/20 00:00 98.1 79 18 115/55 (75) 99 Intake and Output 05/27/20 05/28/20 19:00 07:00 Intake Total 35 ml Output Total 350 ml 800 ml Balance -350 ml -765 ml Tube Feeding 35 ml Output Urine Total 350 ml 800 ml Height (Feet): 5 Height (Inches): 4.00 Weight (Pounds): 136 Assessment/Plan Problem List: (1) Sepsis ICD Codes: A41.9 - Sepsis, unspecified organism SNOMED: 25135295 Qualifiers: Qualified Codes: A41.9 - Sepsis, unspecified organism (2) UGI bleed ICD Codes: K92.2 - Gastrointestinal hemorrhage, unspecified SNOMED: 47163961 (3) RLL pneumonia ICD Codes: J18.9 - Pneumonia, unspecified organism SNOMED: 437924141 Qualifiers: Qualified Codes: J18.9 - Pneumonia, unspecified organism (4) UTI (urinary tract infection) ICD Codes: N39.0 - Urinary tract infection, site not specified SNOMED: 67456983 Qualifiers: Qualified Codes: N39.0 - Urinary tract infection, site not specified (5) DNR no code (do not resuscitate) ICD Codes: Z66 - Do not resuscitate SNOMED: 963500730 Status: progressing Assessment/Plan: pna abx per id afebrile no gi bleed check h/h sepsis uti s/p replacement of peg Ruthann Brasher MD May 28, 2020 21:58
[2020-05-29] VITALS: BP 104/56
[2020-05-29 04:00] VITALS: BP 101/60
[2020-05-29] MEDS: Meropenem 500 MG in NS 55 ML IVPB SCH ×3 (06:26→22:05)
--- NOTE | 2020-05-29 06:45 | NUR ---
NURSE HAND-OFF: Important Events on Shift: Applied moisture barrier cream and optifoam to sacral and bony prominences for protection. G-tube feeding is still at 40ml/hr, scant drainage at g-tube site, notified Dr. Nowak. Still on restraints, pulled out IV. New IV inserted on right hand 24g. Patient Status: Stable Diet: G-tube feeding, Jevity 1.2 @40ml/hr Pending Orders: G-tube replacement Pending Results/Labs: CBC Pending MD notification: G-tube leaking Latest Vital Signs: Temperature 97.2 , Pulse 92 , B/P 101 /60 , Respiratory Rate 20 , O2 SAT 96 , Room Air, O2 Flow Rate 3.0 . Vital Sign Comment: Stable Latest [place] Fall Score: 70 Fall Risk: High Risk Safety Measures: Call light Within Reach, Bed Alarm Zone 1, Side Rails Side Rails x3, Bed position Low and Locked. Fall Precautions: Implemented Yellow Socks Yellow Gown Door Sign
--- NOTE | 2020-05-29 07:01 | NUR ---
HAND-OFF: Report given to BRITANY Baker.
--- NOTE | 2020-05-29 07:03 | Hematology/Onc Progress Note ---
Assessment/Plan Assessment/Plan Assessment and Recs # Anemia due to underlying gi bleed per outside report --> per gi eval --> occult is pending x 3 --> hgb 13-->11-->10.7->9.7 --> anemia panel noted --> no evidence of hemolysis --> cbc ordered # Indeterminate right renal mass. --> Consider further evaluation on nonemergent basis with MRI or CT with contrast (renal protocol) to exclude neoplasm. --> outpatient followup, reimage 3 mo # Dysphagia is s/p G-tube inserted with ease. --> continue per peg feeds # Sepsis due to RLL pneumonia, uti --> ABX jr/levaquin -> abx per pulm, id # UTI (urinary tract infection) --> also abx # EKG sinus tachycardia. # Cholelithiasis without evidence of acute cholecystitis. # Colonic diverticulosis without evidence of acute diverticulitis. # CVA # Craniotomy # Right hemiplegia # Seizure history # Bladder dysfunction # Dnr # Dvt ppx heparin sq Appreciate consultation and robb RN Subjective HEENT: Denies: no symptoms, eye pain, blurred vision, tearing, double vision, ear pain, ear discharge, nose pain, nose congestion, throat pain, throat swelling, mouth pain, mouth swelling, other Cardiovascular: Denies: no symptoms, chest pain, edema, irregular heart rate, lightheadedness, palpitations, syncope, other Respiratory: Denies: no symptoms, cough, shortness of breath, SOB with excertion, SOB at rest, sputum, wheezing, other Gastrointestinal/Abdominal: Denies: no symptoms, abdomen distended, abdominal pain, black stools, tarry stools, blood in stool, constipated, diarrhea, dif ficulty swallowing, nausea, poor appetite, poor fluid intake, rectal bleeding, vomiting, other Genitourinary: Denies: no symptoms, burning, discharge, frequency, flank pain, hematuria, incontinence, pain, urgency, other Neurologic/Psychiatric: Denies: no symptoms, anxiety, depressed, emotional problems, headache, numbness, paresthesia, pre-existing deficit, seizure, tingling, tremors, weakness, other Endocrine: Denies: no symptoms, excessive sweating, flushing, intolerance to cold, intolerance to heat, increased hunger, increased thirst, increased urine, unexplained weight gain, unexplained weight loss, other Hematologic/Lymphatic: Denies: no symptoms, anemia, easy bleeding, easy bruising, adenopathy, other Allergies: Coded Allergies: CHLORHEXIDINE (Verified Allergy, Mild, 07/12/15) CEFTRIAXONE (Unverified Allergy, Unknown, 05/24/20) per Dr. Walker (ID) note LEVOFLOXACIN (Unverified Allergy, Unknown, 05/24/20) Per Dr. Walker (ID) note VANCOMYCIN (Verified Adverse Reaction, Severe, red man syndrome, pruritus, 05/07/20) Subjective 05/24 labs noted, no bleeding, sleepy in am, cbc pend 05/25 labs reviewed, on jr and levaquin, meds noted, no night sweats 05/27 on jevity, no bleeding, meds noted, labs reviewed, hgb 9.7 05/28 labs reordered, on jevity, comfortable, no other changes 05/29 on gtube replacement for today, no bleeding, cbc ordered Objective Objective Current Medications Medications (Trade) Dose Ordered Sig/Veronika Route PRN Reason Start Time Stop Time Status Last Admin Dose Admin Acetaminophen (Tylenol) 650 mg Q6H PRN GT Temp >100.5 05/22/20 17:00 06/21/20 16:59 05/25/20 14:41 Acetaminophen (Tylenol) 650 mg Q6H PRN GT Mild Pain (Pain Scale 1-3) 05/22/20 17:00 06/21/20 16:59 Albuterol/ Ipratropium (Albuterol/ Ipratropium) 3 ml Q6HRT PRN HHN Shortness of Breath 05/22/20 23:45 06/21/20 23:45 Diphenhydramine HCl (Benadryl) 25 mg Q6H PRN GT Itching 05/22/20 23:00 06/21/20 22:59 05/22/20 23:07 Docusate Sodium (Colace) 200 mg DAILY GT 05/23/20 09:00 06/22/20 08:59 05/28/20 09:07 Heparin Sodium (Porcine) (Heparin 5000 units/ml) 5,000 units EVERY 12 HOURS SUBQ 05/22/20 21:00 07/06/20 20:59 05/28/20 20:55 Hydralazine HCl (Apresoline) 25 mg Q6H PRN GT SBP >180 05/22/20 23:45 08/20/20 23:44 Lacosamide (Vimpat) 50 mg Q12HR ORAL 05/22/20 21:00 08/20/20 20:59 05/28/20 20:54 Magnesium Hydroxide (Mom) 30 ml DAILYPRN PRN GT Constipation 05/22/20 19:00 06/21/20 17:14 Meropenem 500 mg/ Sodium Chloride 55 ml @ 110 mls/hr Q8HR IVPB 05/23/20 14:00 05/29/20 23:59 05/29/20 06:26 Pantoprazole (Protonix) 40 mg DAILY IVP 05/23/20 09:00 06/22/20 08:59 05/28/20 09:07 Zinc Oxide (Zinc Oxide) 1 applic THREE TIMES A DAY TOPIC 05/23/20 18:00 08/21/20 17:59 05/28/20 17:28 Last 24 Hour Vital Signs Date Time Temp Pulse Resp B/P (MAP) Pulse Ox O2 Delivery O2 Flow Rate FiO2 05/29/20 04:00 97.2 92 20 101/60 (74) 96 05/29/20 00:00 98.2 99 20 104/56 (72) 93 05/28/20 21:00 Room Air 05/28/20 20:11 76 18 98 Nasal Cannula 3.0 32 05/28/20 20:00 98.2 70 20 117/57 (77) 93 05/28/20 16:00 97.8 75 18 105/55 (72) 96 05/28/20 12:00 97.7 77 18 111/66 (81) 98 05/28/20 09:00 Room Air 05/28/20 08:00 97.9 74 18 102/59 (73) 98 05/28/20 04:00 97.5 87 18 100/53 (69) 100 05/28/20 00:00 98.1 79 18 115/55 (75) 99 05/27/20 21:00 Room Air 05/27/20 20:00 97.5 73 18 105/57 (73) 96 05/27/20 16:00 98.1 78 18 100/54 (69) 97 05/27/20 16:00 78 05/27/20 12:00 65 05/27/20 11:55 98.1 83 18 117/60 (79) 99 05/27/20 09:00 Nasal Cannula 2.0 05/27/20 08:00 97.9 69 18 100/55 (70) 98 05/27/20 08:00 65 Intake and Output 05/28/20 05/29/20 19:00 07:00 Intake Total 390 ml 660 ml Output Total 800 ml 400 ml Balance -410 ml 260 ml Free Water 50 ml IV Total 220 ml Tube Feeding 340 ml 440 ml Output Urine Total 800 ml 400 ml # Bowel Movements 1 Labs Test 05/27/20 14:40 White Blood Count 4.3 K/UL (4.8-10.8) Red Blood Count 3.55 M/UL (4.20-5.40) Hemoglobin 10.4 G/DL (12.0-16.0) Hematocrit 31.8 % (37.0-47.0) Mean Corpuscular Volume 90 FL (80-99) Mean Corpuscular Hemoglobin 29.3 PG (27.0-31.0) Mean Corpuscular Hemoglobin Concent 32.7 G/DL (32.0-36.0) Red Cell Distribution Width 14.0 % (11.6-14.8) Platelet Count 303 K/UL (150-450) Mean Platelet Volume 6.0 FL (6.5-10.1) Neutrophils (%) (Auto) 62.1 % (45.0-75.0) Lymphocytes (%) (Auto) 20.4 % (20.0-45.0) Monocytes (%) (Auto) 10.2 % (1.0-10.0) Eosinophils (%) (Auto) 5.6 % (0.0-3.0) Basophils (%) (Auto) 1.8 % (0.0-2.0) Sodium Level 139 MMOL/L (136-145) Potassium Level 3.8 MMOL/L (3.5-5.1) Chloride Level 106 MMOL/L (98-107) Carbon Dioxide Level 27 MMOL/L (21-32) Anion Gap 6 mmol/L (5-15) Blood Urea Nitrogen 16 mg/dL (7-18) Creatinine 0.6 MG/DL (0.55-1.30) Estimat Glomerular Filtration Rate > 60 mL/min (>60) Glucose Level 100 MG/DL (74-106) Calcium Level 8.5 MG/DL (8.5-10.1) Height (Feet): 5 Height (Inches): 4.00 Weight (Pounds): 136 Objective Physical exam: See documented vital signs. HEENT: Moist mucous membranes, on nrm Neck supple no meningismus Lungs slight tachypnea and decreased breath sounds no rales CV rrr, no mgr Abd: gtube has been replaced Ext: no cce Neuro: alert, mumbling, tracks, unable to converse Arturo Varma MD May 29, 2020 07:03
--- NOTE | 2020-05-29 07:36 | NUR ---
NURSE NOTES: received report from Gabbie, RN. Patient seen in bed, Nonverbal, on NC 2L/M. Breathing is even and unlabored, FLACC score of 0. IV site patent and intact. G-tube site still leaking, patient running jevity 1.2 @40 cc per hour per Dr. Nowak, will continue to monitor g-tube site. Patient is scheduled to have a replacement of g-tube today, RN will remind Dr. Nowak. Patient has left soft restraint on. Pulse palpable, circulation maintained no skin breakdown noted. Sweeney is patent and anchored draining yellow urine via gravity. BEd is locked and placed in lowest position with bed alarm on. Call light within reach. Will continue to monitor
[2020-05-29 08:00] VITALS: BP 99/62
[2020-05-29] MEDS: Docusate 100mg/10ml Liq GT SCH (08:10)
[2020-05-29] MEDS: Zinc Oxide Oint 2oz TOPIC SCH ×3 (08:10→17:06)
[2020-05-29] MEDS: Pantoprazole Inj IVP SCH (08:11)
[2020-05-29] MEDS: Lacosamide 50mg tablet ORAL SCH ×2 (08:11→21:08)
[2020-05-29] MEDS: Heparin 5000 units/ml inj SUBQ SCH ×2 (08:12→21:09)
[2020-05-29 08:51] LABS: BASOPHILS % (AUTO) 1.1 % (0.0-2.0); EOSINOPHILS % (AUTO) 1.1 % (0.0-3.0); HEMATOCRIT 31.9 % (37.0-47.0); HEMOGLOBIN 10.5 G/DL (12.0-16.0); LYMPHOCYTES % (AUTO) 23.5 % (20.0-45.0); MEAN CORPUSCULAR VOLUME 89 FL (80-99); MONOCYTES % (AUTO) 4.9 % (1.0-10.0); NEUTROPHILS % (AUTO) 69.4 % (45.0-75.0); PLATELET COUNT 308 K/UL (150-450); RED BLOOD COUNT 3.59 M/UL (4.20-5.40); RED CELL DISTRIBUTION WIDTH 13.5 % (11.6-14.8); WHITE BLOOD COUNT 5.1 K/UL (4.8-10.8)
--- NOTE | 2020-05-29 09:28 | Pulmonology Progress Note ---
Subjective ROS Limited/Unobtainable: Yes Interval Events: None new reported Constitutional: Denies: fever HEENT: Repors: no symptoms Respiratory: Reports: no symptoms Cardiovascular: Reports: no symptoms Gastrointestinal/Abdominal: Reports: no symptoms; Denies: diarrhea Allergies: Coded Allergies: CHLORHEXIDINE (Verified Allergy, Mild, 07/12/15) CEFTRIAXONE (Unverified Allergy, Unknown, 05/24/20) per Dr. Walker (ID) note LEVOFLOXACIN (Unverified Allergy, Unknown, 05/24/20) Per Dr. Walker (ID) note VANCOMYCIN (Verified Adverse Reaction, Severe, red man syndrome, pruritus, 05/07/20) Objective Last 24 Hour Vital Signs Date Time Temp Pulse Resp B/P (MAP) Pulse Ox O2 Delivery O2 Flow Rate FiO2 05/29/20 08:00 98.2 94 18 99/62 (74) 96 05/29/20 04:00 97.2 92 20 101/60 (74) 96 05/29/20 00:00 98.2 99 20 104/56 (72) 93 05/28/20 21:00 Room Air 05/28/20 20:11 76 18 98 Nasal Cannula 3.0 32 05/28/20 20:00 98.2 70 20 117/57 (77) 93 05/28/20 16:00 97.8 75 18 105/55 (72) 96 05/28/20 12:00 97.7 77 18 111/66 (81) 98 Intake and Output 05/28/20 05/29/20 19:00 07:00 Intake Total 390 ml 660 ml Output Total 800 ml 400 ml Balance -410 ml 260 ml Free Water 50 ml IV Total 220 ml Tube Feeding 340 ml 440 ml Output Urine Total 800 ml 400 ml # Bowel Movements 1 General Appearance: no acute distress HEENT: normocephalic Respiratory: chest wall non-tender, lungs clear Cardiovascular: normal peripheral pulses Abdomen: normal bowel sounds Laboratory Tests 05/29/20 07:50: White Blood Count 5.1, Red Blood Count 3.59L, Hemoglobin 10.5L, Hematocrit 31.9L , Mean Corpuscular Volume 89, Mean Corpuscular Hemoglobin 29.3, Mean Corpuscular Hemoglobin Concent 33.0, Red Cell Distribution Width 13.5, Platelet Count 308, Mean Platelet Volume 5.6L, Neutrophils (%) (Auto) 69.4, Lymphocytes (%) (Auto) 23.5, Monocytes (%) (Auto) 4.9, Eosinophils (%) (Auto) 1.1, Basophils (%) (Auto) 1.1 Current Medications Medications (Trade) Dose Ordered Sig/Veronika Route PRN Reason Start Time Stop Time Status Last Admin Dose Admin Acetaminophen (Tylenol) 650 mg Q6H PRN GT Temp >100.5 05/22/20 17:00 06/21/20 16:59 05/25/20 14:41 Acetaminophen (Tylenol) 650 mg Q6H PRN GT Mild Pain (Pain Scale 1-3) 05/22/20 17:00 06/21/20 16:59 Albuterol/ Ipratropium (Albuterol/ Ipratropium) 3 ml Q6HRT PRN HHN Shortness of Breath 05/22/20 23:45 06/21/20 23:45 Diphenhydramine HCl (Benadryl) 25 mg Q6H PRN GT Itching 05/22/20 23:00 06/21/20 22:59 05/22/20 23:07 Docusate Sodium (Colace) 200 mg DAILY GT 05/23/20 09:00 06/22/20 08:59 05/29/20 08:10 Heparin Sodium (Porcine) (Heparin 5000 units/ml) 5,000 units EVERY 12 HOURS SUBQ 05/22/20 21:00 07/06/20 20:59 05/28/20 20:55 Hydralazine HCl (Apresoline) 25 mg Q6H PRN GT SBP >180 05/22/20 23:45 08/20/20 23:44 Lacosamide (Vimpat) 50 mg Q12HR ORAL 05/22/20 21:00 08/20/20 20:59 05/29/20 08:11 Magnesium Hydroxide (Mom) 30 ml DAILYPRN PRN GT Constipation 05/22/20 19:00 06/21/20 17:14 Meropenem 500 mg/ Sodium Chloride 55 ml @ 110 mls/hr Q8HR IVPB 05/23/20 14:00 05/29/20 23:59 05/29/20 06:26 Pantoprazole (Protonix) 40 mg DAILY IVP 05/23/20 09:00 06/22/20 08:59 05/29/20 08:11 Zinc Oxide (Zinc Oxide) 1 applic THREE TIMES A DAY TOPIC 05/23/20 18:00 08/21/20 17:59 05/29/20 08:10 Assessment/Plan Assessment/Plan UTI Right LL Pneumonia Sepsis Malfunction of gastrostomy tube Previous UGI bleed COVID-19 ruled out Hypertension CVA Craniotomy Right hemiplegia Seizure history Bladder dysfunction Plan - IV abx - O2 PRN; currently saturating well on RA - Duonebs - Sweeney catheter - PPX - Protonix - DNR - Benadryl PRN - CLAIM BENEFIT SPECIALIST meds - Monitor labs Leander Golden MD May 29, 2020 09:28
--- NOTE | 2020-05-29 09:35 | NUR ---
NURSE NOTES: RN left a message with Dr. Nowak regarding replacement of G-tube today. Patients g-tube still leaking. Awaiting call back
--- NOTE | 2020-05-29 11:51 | NUR ---
RD ASSESSMENT & RECOMMENDATIONS SEE CARE ACTIVITY FOR COMPLETE ASSESSMENT DAILY ESTIMATED NEEDS: Needs based on sepsis, wound 58.4kg abw 25-30 kcals/kg 7847-9660 total kcals 1.25-1.5 g protein/kg 73-88 g total protein 25-30 mL/kg 3310-2987 total fluid mLs NUTRITION DIAGNOSIS: Swallowing difficulty R/t dysphagia as evidenced by pt is GT dep, nwo w/ GT leak, TF held. CURRENT TF: Jevity 1.2 goal of 60ml/hr, running at 40ml/hr ENTERAL NUTRITION RECOMMENDATIONS: Jevity 1.2 goal of 60ml/hr x24 hrs to provide 1440ml, 1728 kcal, 80g pro, 1162ml free H2O - Increase Jevity 1.2 as able to goal rate of 60ml/hr to meet est 100% est needs. - Flush per MD. HOB over 30 degrees. ADDITIONAL RECOMMENDATIONS: 1) TF recs as above as able 2) Monitor BG-> need for carb control formula and/or niss 3) replete lytes, check daily 4) Daily calibrated bed scale wts 5) GT leaking, pending replacement .
[2020-05-29 12:00] VITALS: BP 97/49
--- NOTE | 2020-05-29 12:19 | Infectious Diseases Prog Note ---
Assessment/Plan Assessment/Plan IMPRESSION: Pyuria /UTI, Atelectasis, less pneumonia, Dislodgement of G-tube, replaced allergic reaction to ceftriaxone and Levaquin, history of CVA and right hemiplegia, anemia, Diverticulosis, cholelithiasis. RECOMMENDATION: Discontinue meropenem Observe off antibiotic Subjective ROS Limited/Unobtainable: Yes Neurologic: Reports: confusion, other - on restraint Allergies: Coded Allergies: CHLORHEXIDINE (Verified Allergy, Mild, 07/12/15) CEFTRIAXONE (Unverified Allergy, Unknown, 05/24/20) per Dr. Walker (ID) note LEVOFLOXACIN (Unverified Allergy, Unknown, 05/24/20) Per Dr. Walker (ID) note VANCOMYCIN (Verified Adverse Reaction, Severe, red man syndrome, pruritus, 05/07/20) Objective Last 24 Hour Vital Signs Date Time Temp Pulse Resp B/P (MAP) Pulse Ox O2 Delivery O2 Flow Rate FiO2 05/29/20 12:00 97.9 88 18 97/49 (65) 97 05/29/20 09:00 Room Air 05/29/20 08:00 98.2 94 18 99/62 (74) 96 05/29/20 04:00 97.2 92 20 101/60 (74) 96 05/29/20 00:00 98.2 99 20 104/56 (72) 93 05/28/20 21:00 Room Air 05/28/20 20:11 76 18 98 Nasal Cannula 3.0 32 05/28/20 20:00 98.2 70 20 117/57 (77) 93 05/28/20 16:00 97.8 75 18 105/55 (72) 96 Height (Feet): 5 Height (Inches): 4.00 Weight (Pounds): 136 General Appearance: no acute distress HEENT: mucous membranes moist Respiratory/Chest: lungs clear Cardiovascular: normal rate Abdomen: soft, non tender, other - GT feeding Extremities: no edema Skin: rash, other - improving Neurologic/Psychiatric: aphasia, other - opens eyes Laboratory Tests Test 05/29/20 07:50 White Blood Count 5.1 K/UL (4.8-10.8) Red Blood Count 3.59 M/UL (4.20-5.40) L Hemoglobin 10.5 G/DL (12.0-16.0) L Hematocrit 31.9 % (37.0-47.0) L Mean Corpuscular Volume 89 FL (80-99) Mean Corpuscular Hemoglobin 29.3 PG (27.0-31.0) Mean Corpuscular Hemoglobin Concent 33.0 G/DL (32.0-36.0) Red Cell Distribution Width 13.5 % (11.6-14.8) Platelet Count 308 K/UL (150-450) Mean Platelet Volume 5.6 FL (6.5-10.1) L Neutrophils (%) (Auto) 69.4 % (45.0-75.0) Lymphocytes (%) (Auto) 23.5 % (20.0-45.0) Monocytes (%) (Auto) 4.9 % (1.0-10.0) Eosinophils (%) (Auto) 1.1 % (0.0-3.0) Basophils (%) (Auto) 1.1 % (0.0-2.0) Current Medications Medications (Trade) Dose Ordered Sig/Veronika Route PRN Reason Start Time Stop Time Status Last Admin Dose Admin Acetaminophen (Tylenol) 650 mg Q6H PRN GT Temp >100.5 05/22/20 17:00 06/21/20 16:59 05/25/20 14:41 Acetaminophen (Tylenol) 650 mg Q6H PRN GT Mild Pain (Pain Scale 1-3) 05/22/20 17:00 06/21/20 16:59 Albuterol/ Ipratropium (Albuterol/ Ipratropium) 3 ml Q6HRT PRN HHN Shortness of Breath 05/22/20 23:45 06/21/20 23:45 Diphenhydramine HCl (Benadryl) 25 mg Q6H PRN GT Itching 05/22/20 23:00 06/21/20 22:59 05/22/20 23:07 Docusate Sodium (Colace) 200 mg DAILY GT 05/23/20 09:00 06/22/20 08:59 05/29/20 08:10 Heparin Sodium (Porcine) (Heparin 5000 units/ml) 5,000 units EVERY 12 HOURS SUBQ 05/22/20 21:00 07/06/20 20:59 10/5/20 20:55 Hydralazine HCl (Apresoline) 25 mg Q6H PRN GT SBP >180 05/22/20 23:45 08/20/20 23:44 Lacosamide (Vimpat) 50 mg Q12HR ORAL 05/22/20 21:00 08/20/20 20:59 05/29/20 08:11 Magnesium Hydroxide (Mom) 30 ml DAILYPRN PRN GT Constipation 05/22/20 19:00 06/21/20 17:14 Meropenem 500 mg/ Sodium Chloride 55 ml @ 110 mls/hr Q8HR IVPB 05/23/20 14:00 05/29/20 23:59 05/29/20 06:26 Pantoprazole (Protonix) 40 mg DAILY IVP 05/23/20 09:00 06/22/20 08:59 05/29/20 08:11 Zinc Oxide (Zinc Oxide) 1 applic THREE TIMES A DAY TOPIC 05/23/20 18:00 08/21/20 17:59 05/29/20 12:05 Francesco Howell MD May 29, 2020 12:19
--- NOTE | 2020-05-29 12:56 | General Progress Note ---
Subjective ROS Limited/Unobtainable: No Allergies: Coded Allergies: CHLORHEXIDINE (Verified Allergy, Mild, 07/12/15) CEFTRIAXONE (Unverified Allergy, Unknown, 05/24/20) per Dr. Walker (ID) note LEVOFLOXACIN (Unverified Allergy, Unknown, 05/24/20) Per Dr. Walker (ID) note VANCOMYCIN (Verified Adverse Reaction, Severe, red man syndrome, pruritus, 05/07/20) Objective Last 24 Hour Vital Signs Date Time Temp Pulse Resp B/P (MAP) Pulse Ox O2 Delivery O2 Flow Rate FiO2 05/29/20 12:00 97.9 88 18 97/49 (65) 97 05/29/20 09:00 Room Air 05/29/20 08:00 98.2 94 18 99/62 (74) 96 05/29/20 04:00 97.2 92 20 101/60 (74) 96 05/29/20 00:00 98.2 99 20 104/56 (72) 93 05/28/20 21:00 Room Air 05/28/20 20:11 76 18 98 Nasal Cannula 3.0 32 05/28/20 20:00 98.2 70 20 117/57 (77) 93 05/28/20 16:00 97.8 75 18 105/55 (72) 96 Intake and Output 05/28/20 05/29/20 19:00 07:00 Intake Total 390 ml 660 ml Output Total 800 ml 400 ml Balance -410 ml 260 ml Free Water 50 ml IV Total 220 ml Tube Feeding 340 ml 440 ml Output Urine Total 800 ml 400 ml # Bowel Movements 1 Laboratory Tests 05/29/20 07:50: White Blood Count 5.1, Red Blood Count 3.59L, Hemoglobin 10.5L, Hematocrit 31.9L , Mean Corpuscular Volume 89, Mean Corpuscular Hemoglobin 29.3, Mean Corpuscular Hemoglobin Concent 33.0, Red Cell Distribution Width 13.5, Platelet Count 308, Mean Platelet Volume 5.6L, Neutrophils (%) (Auto) 69.4, Lymphocytes (%) (Auto) 23.5, Monocytes (%) (Auto) 4.9, Eosinophils (%) (Auto) 1.1, Basophils (%) (Auto) 1.1 Height (Feet): 5 Height (Inches): 4.00 Weight (Pounds): 136 General Appearance: lethargic EENT: normal ENT inspection Neck: supple Cardiovascular: normal rate Respiratory/Chest: decreased breath sounds Abdomen: normal bowel sounds, non tender, soft Extremities: non-tender Assessment/Plan Problem List: (1) PEG (percutaneous endoscopic gastrostomy) status ICD Codes: Z93.1 - Gastrostomy status SNOMED: 104242295, 792081311 (2) UGI bleed ICD Codes: K92.2 - Gastrointestinal hemorrhage, unspecified SNOMED: 28527869 (3) DNR no code (do not resuscitate) ICD Codes: Z66 - Do not resuscitate SNOMED: 694875827 (4) Dislodged gastrostomy tube ICD Codes: Z43.1 - Encounter for attention to gastrostomy SNOMED: 190712909 Status: progressing Assessment/Plan: GT has been changed at the bedside to 20 FR>>> will change to 22 Fr GT care and flush monitor for residuals change TF to Jevity per dietitian recommendations skin care Natan Nowak MD May 29, 2020 12:56
--- NOTE | 2020-05-29 13:19 | NUR ---
NURSE NOTES: Dr. Nowak came and in and changed g-tube feeding to 22 [place]. order was given to RN Regvalerio 5mg gtube q6h syrup per Dr. Nowak. Will continue to monitor.
[2020-05-29 16:00] VITALS: BP 107/59
--- NOTE | 2020-05-29 16:33 | NUR ---
NURSE NOTES: Patients g-tube working properly, no evidence of leaking. g-tube rate increased from 40 to 50. Will continue to monitor
[2020-05-29] MEDS: Metoclopramide 10mg/10ml Liq GT SCH (17:05)
--- NOTE | 2020-05-29 17:18 | Cardiac Electrophysiology PN ---
Assessment/Plan Assessment/Plan 1. Lactic acidosis and tachycardia due to sepsis. On Abx 2. Hypertension. On p.r.n. hydralazine 25 gt q 6 hr 3. Dysphagia, status post PEG replacement today. 4. History of CVA. 5. History of craniotomy and seizures. 6. History of hypoxemia, respiratory failure, on 2 liter NC 7. UTI and possible pneumonia, on Abx per Dr. Francesco Howell. DAVID RN Subjective Subjective Nonverbal in restraints. GT was changed at bedside today Objective Last 24 Hour Vital Signs Date Time Temp Pulse Resp B/P (MAP) Pulse Ox O2 Delivery O2 Flow Rate FiO2 05/29/20 16:00 97.7 95 20 107/59 (75) 100 05/29/20 12:00 97.9 88 18 97/49 (65) 97 05/29/20 09:00 Room Air 05/29/20 08:00 98.2 94 18 99/62 (74) 96 05/29/20 04:00 97.2 92 20 101/60 (74) 96 05/29/20 00:00 98.2 99 20 104/56 (72) 93 05/28/20 21:00 Room Air 05/28/20 20:11 76 18 98 Nasal Cannula 3.0 32 05/28/20 20:00 98.2 70 20 117/57 (77) 93 Intake and Output 05/28/20 05/29/20 19:00 07:00 Intake Total 390 ml 660 ml Output Total 800 ml 400 ml Balance -410 ml 260 ml Free Water 50 ml IV Total 220 ml Tube Feeding 340 ml 440 ml Output Urine Total 800 ml 400 ml # Bowel Movements 1 Laboratory Tests Test 05/29/20 07:50 White Blood Count 5.1 K/UL (4.8-10.8) Red Blood Count 3.59 M/UL (4.20-5.40) L Hemoglobin 10.5 G/DL (12.0-16.0) L Hematocrit 31.9 % (37.0-47.0) L Mean Corpuscular Volume 89 FL (80-99) Mean Corpuscular Hemoglobin 29.3 PG (27.0-31.0) Mean Corpuscular Hemoglobin Concent 33.0 G/DL (32.0-36.0) Red Cell Distribution Width 13.5 % (11.6-14.8) Platelet Count 308 K/UL (150-450) Mean Platelet Volume 5.6 FL (6.5-10.1) L Neutrophils (%) (Auto) 69.4 % (45.0-75.0) Lymphocytes (%) (Auto) 23.5 % (20.0-45.0) Monocytes (%) (Auto) 4.9 % (1.0-10.0) Eosinophils (%) (Auto) 1.1 % (0.0-3.0) Basophils (%) (Auto) 1.1 % (0.0-2.0) Objective HEAD AND NECK: No JVD. LUNGS: Coarse rhonchi. CARDIOVASCULAR: Regular S1 and S2 with no gallop. ABDOMEN: Soft. Status post G-tube. EXTREMITIES: No pitting edema.Salas Scanlon MD May 29, 2020 17:18
--- NOTE | 2020-05-29 19:39 | NUR ---
NURSE HAND-OFF: Important Events on Shift: patient keeps getting out of restraints, putting medical devices, Dr. Nowak new g-tube 22 fr Patient Status: stable Diet: jevity 1.2 Pending Orders: n/a Pending Results/Labs:n/a Pending MD notification:n/a Latest Vital Signs: Temperature 97.7 , Pulse 95 , B/P 107 /59 , Respiratory Rate 20 , O2 SAT 100 , Room Air, O2 Flow Rate 3.0 . Vital Sign Comment: stable Latest [place] Fall Score: 70 Fall Risk: High Risk Safety Measures: Call light Within Reach, Bed Alarm Zone 1, Side Rails Side Rails x3, Bed position Low and Locked. Fall Precautions: Yellow Socks Yellow Gown Door Sign Report given to BRITANY Mortensen.
[2020-05-29 20:00] VITALS: BP 114/59
--- NOTE | 2020-05-29 21:51 | General Progress Note ---
Subjective ROS Limited/Unobtainable: Yes Allergies: Coded Allergies: CHLORHEXIDINE (Verified Allergy, Mild, 07/12/15) CEFTRIAXONE (Unverified Allergy, Unknown, 05/24/20) per Dr. Walker (ID) note LEVOFLOXACIN (Unverified Allergy, Unknown, 05/24/20) Per Dr. Walker (ID) note VANCOMYCIN (Verified Adverse Reaction, Severe, red man syndrome, pruritus, 05/07/20) Objective Last 24 Hour Vital Signs Date Time Temp Pulse Resp B/P (MAP) Pulse Ox O2 Delivery O2 Flow Rate FiO2 05/29/20 16:00 97.7 95 20 107/59 (75) 100 05/29/20 12:00 97.9 88 18 97/49 (65) 97 05/29/20 09:00 Room Air 05/29/20 08:00 98.2 94 18 99/62 (74) 96 05/29/20 04:00 97.2 92 20 101/60 (74) 96 05/29/20 00:00 98.2 99 20 104/56 (72) 93 Intake and Output0 05/28/20 05/29/20 19:00 07:00 Intake Total 390 ml 700 ml Output Total 800 ml 400 ml Balance -410 ml 300 ml Free Water 50 ml IV Total 220 ml Tube Feeding 340 ml 480 ml Output Urine Total 800 ml 400 ml # Bowel Movements 1 Laboratory Tests 05/29/20 07:50: White Blood Count 5.1, Red Blood Count 3.59L, Hemoglobin 10.5L, Hematocrit 31.9L , Mean Corpuscular Volume 89, Mean Corpuscular Hemoglobin 29.3, Mean Corpuscular Hemoglobin Concent 33.0, Red Cell Distribution Width 13.5, Platelet Count 308, Mean Platelet Volume 5.6L, Neutrophils (%) (Auto) 69.4, Lymphocytes (%) (Auto) 23.5, Monocytes (%) (Auto) 4.9, Eosinophils (%) (Auto) 1.1, Basophils (%) (Auto) 1.1 Height (Feet): 5 Height (Inches): 4.00 Weight (Pounds): 136 Assessment/Plan Problem List: (1) Sepsis ICD Codes: A41.9 - Sepsis, unspecified organism SNOMED: 42431838 Qualifiers: Qualified Codes: A41.9 - Sepsis, unspecified organism (2) UGI bleed ICD Codes: K92.2 - Gastrointestinal hemorrhage, unspecified SNOMED: 27220591 (3) RLL pneumonia ICD Codes: J18.9 - Pneumonia, unspecified organism SNOMED: 463417014 Qualifiers: Qualified Codes: J18.9 - Pneumonia, unspecified organism (4) UTI (urinary tract infection) ICD Codes: N39.0 - Urinary tract infection, site not specified SNOMED: 57875997 Qualifiers: Qualified Codes: N39.0 - Urinary tract infection, site not specified (5) DNR no code (do not resuscitate) ICD Codes: Z66 - Do not resuscitate SNOMED: 802785123 Status: progressing Assessment/Plan: peg leaking resp insuff afebrile gi bleed sepsis uti s/p replacement of peg malnutrtion reviewed chart and labs Ruthann Brasher MD May 29, 2020 21:51
--- NOTE | 2020-05-29 23:51 | Psych Consult Progress Note ---
Psychiatry Progress Note Psychiatry Progress Note Medications Current Medications Medications (Trade) Dose Ordered Sig/Veronika Route PRN Reason Start Time Stop Time Status Last Admin Dose Admin Acetaminophen (Tylenol) 650 mg Q6H PRN GT Temp >100.5 05/22/20 17:00 06/21/20 16:59 05/25/20 14:41 Acetaminophen (Tylenol) 650 mg Q6H PRN GT Mild Pain (Pain Scale 1-3) 05/22/20 17:00 06/21/20 16:59 Albuterol/ Ipratropium (Albuterol/ Ipratropium) 3 ml Q6HRT PRN HHN Shortness of Breath 05/22/20 23:45 06/21/20 23:45 Diphenhydramine HCl (Benadryl) 25 mg Q6H PRN GT Itching 05/22/20 23:00 06/21/20 22:59 05/22/20 23:07 Docusate Sodium (Colace) 200 mg DAILY GT 05/23/20 09:00 06/22/20 08:59 05/29/20 08:10 Heparin Sodium (Porcine) (Heparin 5000 units/ml) 5,000 units EVERY 12 HOURS SUBQ 05/22/20 21:00 07/06/20 20:59 05/29/20 21:09 Hydralazine HCl (Apresoline) 25 mg Q6H PRN GT SBP >180 05/22/20 23:45 08/20/20 23:44 Lacosamide (Vimpat) 50 mg Q12HR ORAL 05/22/20 21:00 08/20/20 20:59 05/29/20 21:08 Magnesium Hydroxide (Mom) 30 ml DAILYPRN PRN GT Constipation 05/22/20 19:00 06/21/20 17:14 Meropenem 500 mg/ Sodium Chloride 55 ml @ 110 mls/hr Q8HR IVPB 05/23/20 14:00 05/29/20 23:59 05/29/20 22:05 Metoclopramide HCl (Reglan) 5 mg EVERY 6 HOURS GT 05/29/20 18:00 06/28/20 17:59 05/29/20 17:05 Pantoprazole (Protonix) 40 mg DAILY IVP 05/23/20 09:00 06/22/20 08:59 05/29/20 08:11 Zinc Oxide (Zinc Oxide) 1 applic THREE TIMES A DAY TOPIC 05/23/20 18:00 08/21/20 17:59 05/29/20 17:06 Neurological/Psychiatric: Denies: no symptoms, anxiety, depressed, emotional problems, headache, numbness, paresthesia, pre-existing deficit, seizure, tingling, tremors, weakness, other Allergies: Coded Allergies: CHLORHEXIDINE (Verified Allergy, Mild, 07/12/15) CEFTRIAXONE (Unverified Allergy, Unknown, 05/24/20) per Dr. Walker (ID) note LEVOFLOXACIN (Unverified Allergy, Unknown, 05/24/20) Per Dr. Walker (ID) note VANCOMYCIN (Verified Adverse Reaction, Severe, red man syndrome, pruritus, 05/07/20) Objective Data Height (Feet): 5 Height (Inches): 4.00 Weight (Pounds): 136 General Appearance: lethargic Assessment/Plan Status: progressing Kena Srinivasan MD May 29, 2020 23:51
[2020-05-30] VITALS: BP 111/64
[2020-05-30] MEDS: Metoclopramide 10mg/10ml Liq GT SCH ×4 (00:29→18:00)
[2020-05-30 04:00] VITALS: BP 112/65
--- NOTE | 2020-05-30 06:25 | NUR ---
NURSE NOTES: All meds given via GT, patent and intact when checked. Tolerating feeding well. Slept at short intervals. No residual noted. No bleeding on GT site noted. HOB kept elevated at all times.Turned and repositioned q2h for comfort and circulation. Kept warm and comfortable at all times. With left wrist restraints, with no skin breakdown, with good circulation. Pt. is restless at most times and trying to take off restraints. Released q2h with supervision. Morning care provided. Kept clean and dry at all times. oral care provided. Will continue with plan of care.
--- NOTE | 2020-05-30 06:37 | NUR ---
Pt. was able to sleep in long intervals and with no seizure noted and as verbalized by pt. Sat down in front of pt.'s room at all times for close monitoring. All due meds given. Vitals signs within stable. Turned and repositioned for comfort and circulation. Able to void freely with assistance. Kept clean and dry at all times. Will continue with plan of care. Addendum: 05/30/20 at 0659 by Janet Mortensen RN wrong entry
--- NOTE | 2020-05-30 06:51 | Hematology/Onc Progress Note ---
Assessment/Plan Assessment/Plan Assessment and Recs # Anemia due to underlying gi bleed per outside report --> per gi eval --> occult is pending x 3 --> hgb 13-->11-->10.7->9.7 --> anemia panel noted --> no evidence of hemolysis --> cbc ordered # Indeterminate right renal mass. --> Consider further evaluation on nonemergent basis with MRI or CT with contrast (renal protocol) to exclude neoplasm. --> outpatient followup, reimage 3 mo # Dysphagia is s/p G-tube inserted with ease. --> continue per peg feeds # Sepsis due to RLL pneumonia, uti --> ABX jr/levaquin -> abx per pulm, id # UTI (urinary tract infection) --> also abx # EKG sinus tachycardia. # Cholelithiasis without evidence of acute cholecystitis. # Colonic diverticulosis without evidence of acute diverticulitis. # CVA # Craniotomy # Right hemiplegia # Seizure history # Bladder dysfunction # Dnr # Dvt ppx heparin sq Appreciate consultation and dw RN Subjective Constitutional: Denies: no symptoms, chills, fever, malaise, weakness, other HEENT: Denies: no symptoms, eye pain, blurred vision, tearing, double vision, ear pain, ear discharge, nose pain, nose congestion, throat pain, throat swelling, mouth pain, mouth swelling, other Respiratory: Denies: no symptoms, cough, shortness of breath, SOB with excertion, SOB at rest, sputum, wheezing, other Genitourinary: Denies: no symptoms, burning, discharge, frequency, flank pain, hematuria, incontinence, pain, urgency, other Neurologic/Psychiatric: Denies: no symptoms, anxiety, depressed, emotional problems, headache, numbness, paresthesia, pre-existing deficit, seizure, tingling, tremors, weakness, other Endocrine: Denies: no symptoms, excessive sweating, flushing, intolerance to cold, intolerance to heat, increased hunger, increased thirst, increased urine, unexplained weight gain, unexplained weight loss, other Allergies: Coded Allergies: CHLORHEXIDINE (Verified Allergy, Mild, 07/12/15) CEFTRIAXONE (Unverified Allergy, Unknown, 05/24/20) per Dr. Walker (ID) note LEVOFLOXACIN (Unverified Allergy, Unknown, 05/24/20) Per Dr. Walker (ID) note VANCOMYCIN (Verified Adverse Reaction, Severe, red man syndrome, pruritus, 05/07/20) Subjective 05/24 labs noted, no bleeding, sleepy in am, cbc pend 05/25 labs reviewed, on jr and levaquin, meds noted, no night sweats 05/27 on jevity, no bleeding, meds noted, labs reviewed, hgb 9.7 05/28 labs reordered, on jevity, comfortable, no other changes 05/29 on gtube replacement for today, no bleeding, cbc ordered 05/30 s/p peg placement, labs reviewed, no bleeding, comfortable Objective Objective Current Medications Medications (Trade) Dose Ordered Sig/Veronika Route PRN Reason Start Time Stop Time Status Last Admin Dose Admin Acetaminophen (Tylenol) 650 mg Q6H PRN GT Temp >100.5 05/22/20 17:00 06/21/20 16:59 05/25/20 14:41 Acetaminophen (Tylenol) 650 mg Q6H PRN GT Mild Pain (Pain Scale 1-3) 05/22/20 17:00 06/21/20 16:59 Albuterol/ Ipratropium (Albuterol/ Ipratropium) 3 ml Q6HRT PRN HHN Shortness of Breath 05/22/20 23:45 06/21/20 23:45 Diphenhydramine HCl (Benadryl) 25 mg Q6H PRN GT Itching 05/22/20 23:00 06/21/20 22:59 05/22/20 23:07 Docusate Sodium (Colace) 200 mg DAILY GT 05/23/20 09:00 06/22/20 08:59 05/29/20 08:10 Heparin Sodium (Porcine) (Heparin 5000 units/ml) 5,000 units EVERY 12 HOURS SUBQ 05/22/20 21:00 07/06/20 20:59 05/29/20 21:09 Hydralazine HCl (Apresoline) 25 mg Q6H PRN GT SBP >180 05/22/20 23:45 08/20/20 23:44 Lacosamide (Vimpat) 50 mg Q12HR ORAL 05/22/20 21:00 08/20/20 20:59 05/29/20 21:08 Magnesium Hydroxide (Mom) 30 ml DAILYPRN PRN GT Constipation 05/22/20 19:00 06/21/20 17:14 Metoclopramide HCl (Reglan) 5 mg EVERY 6 HOURS GT 05/29/20 18:00 06/28/20 17:59 05/30/20 05:37 Pantoprazole (Protonix) 40 mg DAILY IVP 05/23/20 09:00 06/22/20 08:59 05/29/20 08:11 Zinc Oxide (Zinc Oxide) 1 applic THREE TIMES A DAY TOPIC 05/23/20 18:00 08/21/20 17:59 05/29/20 17:06 Last 24 Hour Vital Signs Date Time Temp Pulse Resp B/P (MAP) Pulse Ox O2 Delivery O2 Flow Rate FiO2 05/30/20 04:00 97.9 83 18 112/65 (81) 93 05/30/20 00:00 98.1 92 20 111/64 (80) 95 05/29/20 21:00 Room Air 05/29/20 20:00 97.5 98 18 114/59 (77) 98 05/29/20 16:00 97.7 95 20 107/59 (75) 100 05/29/20 12:00 97.9 88 18 97/49 (65) 97 05/29/20 09:00 Room Air 05/29/20 08:00 98.2 94 18 99/62 (74) 96 05/29/20 04:00 97.2 92 20 101/60 (74) 96 05/29/20 00:00 98.2 99 20 104/56 (72) 93 05/28/20 21:00 Room Air 05/28/20 20:11 76 18 98 Nasal Cannula 3.0 32 05/28/20 20:00 98.2 70 20 117/57 (77) 93 05/28/20 16:00 97.8 75 18 105/55 (72) 96 05/28/20 12:00 97.7 77 18 111/66 (81) 98 05/28/20 09:00 Room Air 05/28/20 08:00 97.9 74 18 102/59 (73) 98 Intake and Output 05/29/20 05/30/20 19:00 07:00 Intake Total 500 ml Output Total 600 ml Balance 500 ml -600 ml Free Water 30 ml Tube Feeding 470 ml Output Urine Total 600 ml Labs Test 05/27/20 14:40 05/29/20 07:50 White Blood Count 4.3 K/UL (4.8-10.8) 5.1 K/UL (4.8-10.8) Red Blood Count 3.55 M/UL (4.20-5.40) 3.59 M/UL (4.20-5.40) Hemoglobin 10.4 G/DL (12.0-16.0) 10.5 G/DL (12.0-16.0) Hematocrit 31.8 % (37.0-47.0) 31.9 % (37.0-47.0) Mean Corpuscular Volume 90 FL (80-99) 89 FL (80-99) Mean Corpuscular Hemoglobin 29.3 PG (27.0-31.0) 29.3 PG (27.0-31.0) Mean Corpuscular Hemoglobin Concent 32.7 G/DL (32.0-36.0) 33.0 G/DL (32.0-36.0) Red Cell Distribution Width 14.0 % (11.6-14.8) 13.5 % (11.6-14.8) Platelet Count 303 K/UL (150-450) 308 K/UL (150-450) Mean Platelet Volume 6.0 FL (6.5-10.1) 5.6 FL (6.5-10.1) Neutrophils (%) (Auto) 62.1 % (45.0-75.0) 69.4 % (45.0-75.0) Lymphocytes (%) (Auto) 20.4 % (20.0-45.0) 23.5 % (20.0-45.0) Monocytes (%) (Auto) 10.2 % (1.0-10.0) 4.9 % (1.0-10.0) Eosinophils (%) (Auto) 5.6 % (0.0-3.0) 1.1 % (0.0-3.0) Basophils (%) (Auto) 1.8 % (0.0-2.0) 1.1 % (0.0-2.0) Sodium Level 139 MMOL/L (136-145) Potassium Level 3.8 MMOL/L (3.5-5.1) Chloride Level 106 MMOL/L (98-107) Carbon Dioxide Level 27 MMOL/L (21-32) Anion Gap 6 mmol/L (5-15) Blood Urea Nitrogen 16 mg/dL (7-18) Creatinine 0.6 MG/DL (0.55-1.30) Estimat Glomerular Filtration Rate > 60 mL/min (>60) Glucose Level 100 MG/DL (74-106) Calcium Level 8.5 MG/DL (8.5-10.1) Height (Feet): 5 Height (Inches): 4.00 Weight (Pounds): 136 Objective Physical exam: See documented vital signs. HEENT: Moist mucous membranes, on nrm Neck supple no meningismus Lungs slight tachypnea and decreased breath sounds no rales CV rrr, no mgr Abd: gtube has been replaced Ext: no cce Neuro: alert, mumbling, tracks, unable to converse Arturo Varma MD May 30, 2020 06:51
--- NOTE | 2020-05-30 07:45 | NUR ---
NURSE NOTES: Received patient in bed. Pt nonverbal, on NC 2L/M. Breathing is even and unlabored, No non verbal s/s of pain noted. IV site patent and intact. G-tube in placed running jevity 1.2 @60 cc per hour. Noted with left soft restraint on. Pulse palpable, circulation maintained no skin breakdown noted. Sweeney is patent and anchored draining yellow urine. Bed is locked and placed in lowest position with bed alarm on. Call light within reach. Will continue to monitor
[2020-05-30 08:00] VITALS: BP 110/53
[2020-05-30 08:14] LABS: BASOPHILS % (AUTO) 1.4 % (0.0-2.0); HEMOGLOBIN 10.9 G/DL (12.0-16.0); LYMPHOCYTES % (AUTO) 24.3 % (20.0-45.0); MEAN CORPUSCULAR VOLUME 89 FL (80-99); NEUTROPHILS % (AUTO) 63.3 % (45.0-75.0); PLATELET COUNT 295 K/UL (150-450); RED BLOOD COUNT 3.71 M/UL (4.20-5.40); RED CELL DISTRIBUTION WIDTH 13.5 % (11.6-14.8); WHITE BLOOD COUNT 4.6 K/UL (4.8-10.8)
[2020-05-30] MEDS: Zinc Oxide Oint 2oz TOPIC SCH ×3 (09:25→18:00)
[2020-05-30] MEDS: Lacosamide 50mg tablet ORAL SCH ×2 (09:26→22:26)
[2020-05-30] MEDS: Docusate 100mg/10ml Liq GT SCH (09:26)
[2020-05-30] MEDS: Pantoprazole Inj IVP SCH (09:26)
[2020-05-30] MEDS: Heparin 5000 units/ml inj SUBQ SCH ×2 (09:27→22:28)
--- NOTE | 2020-05-30 09:37 | General Progress Note ---
Subjective ROS Limited/Unobtainable: No Allergies: Coded Allergies: CHLORHEXIDINE (Verified Allergy, Mild, 07/12/15) CEFTRIAXONE (Unverified Allergy, Unknown, 05/24/20) per Dr. Walker (ID) note LEVOFLOXACIN (Unverified Allergy, Unknown, 05/24/20) Per Dr. Walker (ID) note VANCOMYCIN (Verified Adverse Reaction, Severe, red man syndrome, pruritus, 05/07/20) Objective Last 24 Hour Vital Signs Date Time Temp Pulse Resp B/P (MAP) Pulse Ox O2 Delivery O2 Flow Rate FiO2 05/30/20 04:00 97.9 83 18 112/65 (81) 93 05/30/20 00:00 98.1 92 20 111/64 (80) 95 05/29/20 21:00 Room Air 05/29/20 20:00 97.5 98 18 114/59 (77) 98 05/29/20 16:00 97.7 95 20 107/59 (75) 100 05/29/20 12:00 97.9 88 18 97/49 (65) 97 Intake and Output0 05/29/20 05/30/20 19:00 07:00 Intake Total 500 ml Output Total 600 ml Balance 500 ml -600 ml Free Water 30 ml Tube Feeding 470 ml Output Urine Total 600 ml Laboratory Tests 05/30/20 07:30: White Blood Count 4.6L, Red Blood Count 3.71L, Hemoglobin 10.9L, Hematocrit 33 .0L, Mean Corpuscular Volume 89, Mean Corpuscular Hemoglobin 29.3, Mean Corpuscular Hemoglobin Concent 33.0, Red Cell Distribution Width 13.5, Platelet Count 295, Mean Platelet Volume 6.0L, Neutrophils (%) (Auto) 63.3, Lymphocytes (%) (Auto) 24.3, Monocytes (%) (Auto) 10.0, Eosinophils (%) (Auto) 1.0, Basophils (%) (Auto) 1.4 Height (Feet): 5 Height (Inches): 4.00 Weight (Pounds): 136 General Appearance: no apparent distress EENT: normal ENT inspection Neck: supple Cardiovascular: normal rate Respiratory/Chest: decreased breath sounds Abdomen: normal bowel sounds, non tender, soft Extremities: non-tender Assessment/Plan Problem List: (1) PEG (percutaneous endoscopic gastrostomy) status ICD Codes: Z93.1 - Gastrostomy status SNOMED: 005036911, 908770834 (2) UGI bleed ICD Codes: K92.2 - Gastrointestinal hemorrhage, unspecified SNOMED: 70860484 (3) DNR no code (do not resuscitate) ICD Codes: Z66 - Do not resuscitate SNOMED: 668205222 (4) Dislodged gastrostomy tube ICD Codes: Z43.1 - Encounter for attention to gastrostomy SNOMED: 513424152 Status: progressing Assessment/Plan: GT has been changed at the bedside to 22 Fr GT care and flush monitor for residuals change TF to Jevity per dietitian recommendations skin care Natan Nowak MD May 30, 2020 09:37
--- NOTE | 2020-05-30 10:38 | Pulmonology Progress Note ---
Subjective ROS Limited/Unobtainable: No Interval Events: None new reported Constitutional: Denies: fever HEENT: Repors: no symptoms Respiratory: Reports: no symptoms Cardiovascular: Reports: no symptoms Gastrointestinal/Abdominal: Reports: no symptoms; Denies: diarrhea Allergies: Coded Allergies: CHLORHEXIDINE (Verified Allergy, Mild, 07/12/15) CEFTRIAXONE (Unverified Allergy, Unknown, 05/24/20) per Dr. Walker (ID) note LEVOFLOXACIN (Unverified Allergy, Unknown, 05/24/20) Per Dr. Walker (ID) note VANCOMYCIN (Verified Adverse Reaction, Severe, red man syndrome, pruritus, 05/07/20) Objective Last 24 Hour Vital Signs Date Time Temp Pulse Resp B/P (MAP) Pulse Ox O2 Delivery O2 Flow Rate FiO2 05/30/20 09:00 Room Air 05/30/20 08:00 97.0 76 18 110/53 (72) 96 05/30/20 04:00 97.9 83 18 112/65 (81) 93 05/30/20 00:00 98.1 92 20 111/64 (80) 95 05/29/20 21:00 Room Air 05/29/20 20:00 97.5 98 18 114/59 (77) 98 05/29/20 16:00 97.7 95 20 107/59 (75) 100 05/29/20 12:00 97.9 88 18 97/49 (65) 97 Intake and Output 05/29/20 05/30/20 19:00 07:00 Intake Total 500 ml Output Total 600 ml Balance 500 ml -600 ml Free Water 30 ml Tube Feeding 470 ml Output Urine Total 600 ml General Appearance: no acute distress HEENT: normocephalic Respiratory: chest wall non-tender, lungs clear Cardiovascular: normal peripheral pulses Abdomen: normal bowel sounds Laboratory Tests 05/30/20 07:30: White Blood Count 4.6L, Red Blood Count 3.71L, Hemoglobin 10.9L, Hematocrit 33.0L, Mean Corpuscular Volume 89, Mean Corpuscular Hemoglobin 29.3, Mean Corpuscular Hemoglobin Concent 33.0, Red Cell Distribution Width 13.5, Platelet Count 295, Mean Platelet Volume 6.0L, Neutrophils (%) (Auto) 63.3, Lymphocytes (%) (Auto) 24.3, Monocytes (%) (Auto) 10.0, Eosinophils (%) (Auto) 1.0, Basophils (%) (Auto) 1.4 Current Medications Medications (Trade) Dose Ordered Sig/Veronika Route PRN Reason Start Time Stop Time Status Last Admin Dose Admin Acetaminophen (Tylenol) 650 mg Q6H PRN GT Temp >100.5 05/22/20 17:00 06/21/20 16:59 05/25/20 14:41 Acetaminophen (Tylenol) 650 mg Q6H PRN GT Mild Pain (Pain Scale 1-3) 05/22/20 17:00 06/21/20 16:59 Albuterol/ Ipratropium (Albuterol/ Ipratropium) 3 ml Q6HRT PRN HHN Shortness of Breath 05/22/20 23:45 06/21/20 23:45 Diphenhydramine HCl (Benadryl) 25 mg Q6H PRN GT Itching 05/22/20 23:00 06/21/20 22:59 05/22/20 23:07 Docusate Sodium (Colace) 200 mg DAILY GT 05/23/20 09:00 06/22/20 08:59 05/30/20 09:26 Heparin Sodium (Porcine) (Heparin 5000 units/ml) 5,000 units EVERY 12 HOURS SUBQ 05/22/20 21:00 07/06/20 20:59 05/30/20 09:27 Hydralazine HCl (Apresoline) 25 mg Q6H PRN GT SBP >180 05/22/20 23:45 08/20/20 23:44 Lacosamide (Vimpat) 50 mg Q12HR ORAL 05/22/20 21:00 08/20/20 20:59 05/30/20 09:26 Magnesium Hydroxide (Mom) 30 ml DAILYPRN PRN GT Constipation 05/22/20 19:00 06/21/20 17:14 Metoclopramide HCl (Reglan) 5 mg EVERY 6 HOURS GT 05/29/20 18:00 06/28/20 17:59 05/30/20 05:37 Pantoprazole (Protonix) 40 mg DAILY IVP 05/23/20 09:00 06/22/20 08:59 05/30/20 09:26 Zinc Oxide (Zinc Oxide) 1 applic THREE TIMES A DAY TOPIC 05/23/20 18:00 08/21/20 17:59 05/30/20 09:25 Assessment/Plan Assessment/Plan UTI Right LL Pneumonia Sepsis Malfunction of gastrostomy tube Previous UGI bleed COVID-19 ruled out Hypertension CVA Craniotomy Right hemiplegia Seizure history Bladder dysfunction Plan - IV abx - O2 PRN; currently saturating well on RA - Duonebs - Sweeney catheter - PPX - Protonix - DNR - Benadryl PRN - [employer] meds - Monitor labs Leander Golden MD May 30, 2020 10:38
[2020-05-30 12:00] VITALS: BP 102/59
--- NOTE | 2020-05-30 14:08 | Cardiac Electrophysiology PN ---
Assessment/Plan Assessment/Plan 1. Lactic acidosis and tachycardia due to sepsis. On Abx 2. Hypertension. On p.r.n. hydralazine 25 gt q 6 hr 3. Dysphagia, status post PEG replacement 4. History of CVA. 5. History of craniotomy and seizures. 6. History of hypoxemia, respiratory failure, on 2 liter NC 7. UTI and possible pneumonia, on Abx per Dr. Francesco Howell. DAVID RN Subjective Subjective Nonverbal in restraints.No events. GT was changed at bedside yesterday Objective Last 24 Hour Vital Signs Date Time Temp Pulse Resp B/P (MAP) Pulse Ox O2 Delivery O2 Flow Rate FiO2 05/30/20 12:00 97.2 71 20 102/59 (73) 96 05/30/20 09:00 Room Air 05/30/20 08:00 97.0 76 18 110/53 (72) 96 05/30/20 04:00 97.9 83 18 112/65 (81) 93 05/30/20 00:00 98.1 92 20 111/64 (80) 95 05/29/20 21:00 Room Air 05/29/20 20:00 97.5 98 18 114/59 (77) 98 05/29/20 16:00 97.7 95 20 107/59 (75) 100 Intake and Output 05/29/20 05/30/20 19:00 07:00 Intake Total 500 ml Output Total 600 ml Balance 500 ml -600 ml Free Water 30 ml Tube Feeding 470 ml Output Urine Total 600 ml Laboratory Tests Test 05/30/20 07:30 White Blood Count 4.6 K/UL (4.8-10.8) L Red Blood Count 3.71 M/UL (4.20-5.40) L Hemoglobin 10.9 G/DL (12.0-16.0) L Hematocrit 33.0 % (37.0-47.0) L Mean Corpuscular Volume 89 FL (80-99) Mean Corpuscular Hemoglobin 29.3 PG (27.0-31.0) Mean Corpuscular Hemoglobin Concent 33.0 G/DL (32.0-36.0) Red Cell Distribution Width 13.5 % (11.6-14.8) Platelet Count 295 K/UL (150-450) Mean Platelet Volume 6.0 FL (6.5-10.1) L Neutrophils (%) (Auto) 63.3 % (45.0-75.0) Lymphocytes (%) (Auto) 24.3 % (20.0-45.0) Monocytes (%) (Auto) 10.0 % (1.0-10.0) Eosinophils (%) (Auto) 1.0 % (0.0-3.0) Basophils (%) (Auto) 1.4 % (0.0-2.0) Objective HEAD AND NECK: No JVD. LUNGS: Coarse rhonchi. CARDIOVASCULAR: Regular S1 and S2 with no gallop. ABDOMEN: Soft. Status post G-tube. EXTREMITIES: No pitting edema.Salas Scanlon MD May 30, 2020 14:08
[2020-05-30 16:00] VITALS: BP 116/66
--- NOTE | 2020-05-30 16:12 | Cardiology Report ---
APPROVED REPORT EKG Measurement Heart [id number] [id number] <Conclusion> Sinus tachycardia Low voltage QRS Possible Inferior infarct, age undetermined Abnormal ECG
--- NOTE | 2020-05-30 16:13 | NUR ---
CASE MANAGEMENT:REVIEW SI;SEPSIS. UPPER GI BLEED. UTI. RLL PNA. 98.1 92 20 102/59 93% ON RA H/H 10.9/33.0 IS; REGLAN GT Q6 PROTONIX IV QD HEPARIN SUBQ Q12 MED SURG STATUS DCP;FROM [facility]
--- NOTE | 2020-05-30 16:14 | Infectious Diseases Prog Note ---
Assessment/Plan Assessment/Plan IMPRESSION: Pyuria /UTI, Atelectasis, less pneumonia, Dislodgement of G-tube, replaced allergic reaction to ceftriaxone and Levaquin, history of CVA and right hemiplegia, anemia, Diverticulosis, cholelithiasis. RECOMMENDATION: Observe off antibiotic Subjective ROS Limited/Unobtainable: Yes Constitutional: Denies: fever Neurologic: Reports: confusion, other - on restraint Allergies: Coded Allergies: CHLORHEXIDINE (Verified Allergy, Mild, 07/12/15) CEFTRIAXONE (Unverified Allergy, Unknown, 05/24/20) per Dr. Walker (ID) note LEVOFLOXACIN (Unverified Allergy, Unknown, 05/24/20) Per Dr. Walker (ID) note VANCOMYCIN (Verified Adverse Reaction, Severe, red man syndrome, pruritus, 05/07/20) Objective Last 24 Hour Vital Signs Date Time Temp Pulse Resp B/P (MAP) Pulse Ox O2 Delivery O2 Flow Rate FiO2 05/30/20 12:00 97.2 71 20 102/59 (73) 96 05/30/20 09:00 Room Air 05/30/20 08:00 97.0 76 18 110/53 (72) 96 05/30/20 04:00 97.9 83 18 112/65 (81) 93 05/30/20 00:00 98.1 92 20 111/64 (80) 95 05/29/20 21:00 Room Air 05/29/20 20:00 97.5 98 18 114/59 (77) 98 Height (Feet): 5 Height (Inches): 4.00 Weight (Pounds): 136 HEENT: mucous membranes moist Respiratory/Chest: lungs clear Cardiovascular: normal rate Abdomen: soft, non tender, other - GT feeding Extremities: no edema Neurologic/Psychiatric: aphasia, other - awake Laboratory Tests Test 05/30/20 07:30 White Blood Count 4.6 K/UL (4.8-10.8) L Red Blood Count 3.71 M/UL (4.20-5.40) L Hemoglobin 10.9 G/DL (12.0-16.0) L Hematocrit 33.0 % (37.0-47.0) L Mean Corpuscular Volume 89 FL (80-99) Mean Corpuscular Hemoglobin 29.3 PG (27.0-31.0) Mean Corpuscular Hemoglobin Concent 33.0 G/DL (32.0-36.0) Red Cell Distribution Width 13.5 % (11.6-14.8) Platelet Count 295 K/UL (150-450) Mean Platelet Volume 6.0 FL (6.5-10.1) L Neutrophils (%) (Auto) 63.3 % (45.0-75.0) Lymphocytes (%) (Auto) 24.3 % (20.0-45.0) Monocytes (%) (Auto) 10.0 % (1.0-10.0) Eosinophils (%) (Auto) 1.0 % (0.0-3.0) Basophils (%) (Auto) 1.4 % (0.0-2.0) Current Medications Medications (Trade) Dose Ordered Sig/Veronika Route PRN Reason Start Time Stop Time Status Last Admin Dose Admin Acetaminophen (Tylenol) 650 mg Q6H PRN GT Temp >100.5 05/22/20 17:00 06/21/20 16:59 05/25/20 14:41 Acetaminophen (Tylenol) 650 mg Q6H PRN GT Mild Pain (Pain Scale 1-3) 05/22/20 17:00 06/21/20 16:59 Albuterol/ Ipratropium (Albuterol/ Ipratropium) 3 ml Q6HRT PRN HHN Shortness of Breath 05/22/20 23:45 06/21/20 23:45 Diphenhydramine HCl (Benadryl) 25 mg Q6H PRN GT Itching 05/22/20 23:00 06/21/20 22:59 05/22/20 23:07 Docusate Sodium (Colace) 200 mg DAILY GT 05/23/20 09:00 06/22/20 08:59 05/30/20 09:26 Heparin Sodium (Porcine) (Heparin 5000 units/ml) 5,000 units EVERY 12 HOURS SUBQ 05/22/20 21:00 07/06/20 20:59 05/30/20 09:27 Hydralazine HCl (Apresoline) 25 mg Q6H PRN GT SBP >180 05/22/20 23:45 08/20/20 23:44 Lacosamide (Vimpat) 50 mg Q12HR ORAL 05/22/20 21:00 08/20/20 20:59 05/30/20 09:26 Magnesium Hydroxide (Mom) 30 ml DAILYPRN PRN GT Constipation 05/22/20 19:00 06/21/20 17:14 Metoclopramide HCl (Reglan) 5 mg EVERY 6 HOURS GT 05/29/20 18:00 06/28/20 17:59 05/30/20 12:41 Pantoprazole (Protonix) 40 mg DAILY IVP 05/23/20 09:00 06/22/20 08:59 05/30/20 09:26 Zinc Oxide (Zinc Oxide) 1 applic THREE TIMES A DAY TOPIC 05/23/20 18:00 08/21/20 17:59 05/30/20 12:42 Francesco Howell MD May 30, 2020 16:14
--- NOTE | 2020-05-30 19:30 | NUR ---
NURSE NOTES: Report received from Ginger GARG. Pt. is asleep in bed, on semi fowlers position. No sob noted, breathing even and unlabored. With O2 @ 2lpm via nc, tolerating well. With GT, patent and intact when checked, with feeding infusing well. With bed in it's lowest position, with alarm on and locked. With block attached to drainage bad, draining to dario colored urine. With left wrist restaints attached, with good circulation when checked. Will continue to monitor.
--- NOTE | 2020-05-30 19:46 | NUR ---
NURSE HAND-OFF: Important Events on Shift:[No leaking GT] Patient Status: [stable] Diet: [GT feeding] Pending Orders: [] Pending Results/Labs:[] Pending MD notification:[] Latest Vital Signs: Temperature 98.1 , Pulse 85 , B/P 116 /66 , Respiratory Rate 18 , O2 SAT 98 , Room Air, O2 Flow Rate 3.0 . Vital Sign Comment: [stable] Latest [place] Fall Score: 70 Fall Risk: High Risk Safety Measures: Call light Within Reach, Bed Alarm Zone 1, Side Rails Side Rails x3, Bed position Low and Locked. Fall Precautions: Yellow Socks Yellow Gown Door Sign Report given to [Adiel,RN].
[2020-05-30 20:00] VITALS: BP 122/70
--- NOTE | 2020-05-30 20:51 | General Progress Note ---
Subjective ROS Limited/Unobtainable: Yes Allergies: Coded Allergies: CHLORHEXIDINE (Verified Allergy, Mild, 07/12/15) CEFTRIAXONE (Unverified Allergy, Unknown, 05/24/20) per Dr. Walker (ID) note LEVOFLOXACIN (Unverified Allergy, Unknown, 05/24/20) Per Dr. Walker (ID) note VANCOMYCIN (Verified Adverse Reaction, Severe, red man syndrome, pruritus, 05/07/20) Objective Last 24 Hour Vital Signs Date Time Temp Pulse Resp B/P (MAP) Pulse Ox O2 Delivery O2 Flow Rate FiO2 05/30/20 20:00 97 Nasal Cannula 3.0 32 05/30/20 20:00 88 18 97 Nasal Cannula 3.0 32 05/30/20 16:00 98.1 85 18 116/66 (83) 98 05/30/20 12:00 97.2 71 20 102/59 (73) 96 05/30/20 09:00 Room Air 05/30/20 08:00 97.0 76 18 110/53 (72) 96 05/30/20 04:00 97.9 83 18 112/65 (81) 93 05/30/20 00:00 98.1 92 20 111/64 (80) 95 05/29/20 21:00 Room Air Intake and Output 0 05/29/20 05/30/20 19:00 07:00 Intake Total 500 ml Output Total 600 ml Balance 500 ml -600 ml Free Water 30 ml Tube Feeding 470 ml Output Urine Total 600 ml Laboratory Tests 05/30/20 07:30: White Blood Count 4.6L, Red Blood Count 3.71L, Hemoglobin 10.9L, Hematocrit 33.0L, Mean Corpuscular Volume 89, Mean Corpuscular Hemoglobin 29.3, Mean Corpuscular Hemoglobin Concent 33.0, Red Cell Distribution Width 13.5, Platelet Count 295, Mean Platelet Volume 6.0L, Neutrophils (%) (Auto) 63.3, Lymphocytes (%) (Auto) 24.3, Monocytes (%) (Auto) 10.0, Eosinophils (%) (Auto) 1.0, Basophils (%) (Auto) 1.4 Height (Feet): 5 Height (Inches): 4.00 Weight (Pounds): 136 Assessment/Plan Problem List: (1) Sepsis ICD Codes: A41.9 - Sepsis, unspecified organism SNOMED: 88718309 Qualifiers: Qualified Codes: A41.9 - Sepsis, unspecified organism (2) UGI bleed ICD Codes: K92.2 - Gastrointestinal hemorrhage, unspecified SNOMED: 04552739 (3) RLL pneumonia ICD Codes: J18.9 - Pneumonia, unspecified organism SNOMED: 555510883 Qualifiers: Qualified Codes: J18.9 - Pneumonia, unspecified organism (4) UTI (urinary tract infection) ICD Codes: N39.0 - Urinary tract infection, site not specified SNOMED: 56518503 Qualifiers: Qualified Codes: N39.0 - Urinary tract infection, site not specified (5) DNR no code (do not resuscitate) ICD Codes: Z66 - Do not resuscitate SNOMED: 479282466 Status: progressing Assessment/Plan: afebrile weak no change favor comfort care sepsis uti s/p replacement of peg leaking peg reviewed chart and labs Ruthann Brasher MD May 30, 2020 20:51
--- NOTE | 2020-05-30 23:19 | Psych Consult Progress Note ---
Psychiatry Progress Note Psychiatry Progress Note Medications Current Medications Medications (Trade) Dose Ordered Sig/Veronika Route PRN Reason Start Time Stop Time Status Last Admin Dose Admin Acetaminophen (Tylenol) 650 mg Q6H PRN GT Temp >100.5 05/22/20 17:00 06/21/20 16:59 05/25/20 14:41 Acetaminophen (Tylenol) 650 mg Q6H PRN GT Mild Pain (Pain Scale 1-3) 05/22/20 17:00 06/21/20 16:59 Albuterol/ Ipratropium (Albuterol/ Ipratropium) 3 ml Q6HRT PRN HHN Shortness of Breath 05/22/20 23:45 06/21/20 23:45 Diphenhydramine HCl (Benadryl) 25 mg Q6H PRN GT Itching 05/22/20 23:00 06/21/20 22:59 05/22/20 23:07 Docusate Sodium (Colace) 200 mg DAILY GT 05/23/20 09:00 06/22/20 08:59 05/30/20 09:26 Heparin Sodium (Porcine) (Heparin 5000 units/ml) 5,000 units EVERY 12 HOURS SUBQ 05/22/20 21:00 07/06/20 20:59 05/30/20 22:28 Hydralazine HCl (Apresoline) 25 mg Q6H PRN GT SBP >180 05/22/20 23:45 08/20/20 23:44 Lacosamide (Vimpat) 50 mg Q12HR ORAL 05/22/20 21:00 08/20/20 20:59 05/30/20 22:26 Magnesium Hydroxide (Mom) 30 ml DAILYPRN PRN GT Constipation 05/22/20 19:00 06/21/20 17:14 Metoclopramide HCl (Reglan) 5 mg EVERY 6 HOURS GT 05/29/20 18:00 06/28/20 17:59 05/30/20 18:00 Pantoprazole (Protonix) 40 mg DAILY IVP 05/23/20 09:00 06/22/20 08:59 05/30/20 09:26 Zinc Oxide (Zinc Oxide) 1 applic THREE TIMES A DAY TOPIC 05/23/20 18:00 08/21/20 17:59 05/30/20 18:00 Neurological/Psychiatric: Denies: no symptoms, anxiety, depressed, emotional problems, headache, numbness, paresthesia, pre-existing deficit, seizure, tingling, tremors, weakness, other Allergies: Coded Allergies: CHLORHEXIDINE (Verified Allergy, Mild, 07/12/15) CEFTRIAXONE (Unverified Allergy, Unknown, 05/24/20) per Dr. Walker (ID) note LEVOFLOXACIN (Unverified Allergy, Unknown, 05/24/20) Per Dr. Walker (ID) note VANCOMYCIN (Verified Adverse Reaction, Severe, red man syndrome, pruritus, 05/07/20) Objective Data Height (Feet): 5 Height (Inches): 4.00 Weight (Pounds): 136 General Appearance: no apparent distress Assessment/Plan Status: Kena Manley MD May 30, 2020 23:19
[2020-05-30] MEDS ORDERED: Haloperidol 5mg/ml Inj IM PRN (23:30)
[2020-05-31] VITALS: BP 125/66
--- NOTE | 2020-05-31 00:15 | Consultation ---
DATE OF CONSULTATION: 05/30/2020 CONSULTING PHYSICIAN: Kena Srinivasan MD. 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 Patient is confused, disoriented, and is not able to be engaged during evaluation. Patient attempted to pull out her lines. Confused, disoriented. PAST PSYCHIATRIC HISTORY: Significant for vascular dementia. PAST MEDICAL HISTORY: As above. ALLERGIES: Ceftriaxone, chlorhexidine, levopropoxyphene, and vancomycin. SUBSTANCE ABUSE HISTORY: No known history of illicit drug use or alcohol. MENTAL STATUS EXAMINATION: Patient is awake, confused, disoriented. Mood is neutral to anxious. Affect is blunted, congruent with mood. Thought process concrete. Thought content, no suicidal or homicidal ideation. Cognition is impaired. Insight and judgment is impaired. ASSESSMENT: [place] I Vascular dementia. Anxiety disorder. [place] II Deferred. [place] III As above. [place] IV Low. [place] V 25. PLAN: 1. Haldol as needed. 2. Soft restraints. 3. Continue to follow and readjust the medications. Kena Srinivasan M.D. DR: BREANNA JOB#: [id number] CC:
[2020-05-31] MEDS: Metoclopramide 10mg/10ml Liq GT SCH ×3 (00:20→13:22)
--- NOTE | 2020-05-31 01:22 | NUR ---
Meds given through GT, patent and intact when checked. HOB kept elevated for maximum lung expansion and aspiration precaution. Slept at long intervals. Turned and repositioned q2h for comfort and circulation. Kept warm and comfortable at all times.On continued isolation precaution, observed at all times. Pericare rendered, kept clean and dry at all times. No residual on gt when checked. Tolerating gt feeding well. No bleeding on gt site. Will continue to monitor pt.
[2020-05-31] MEDS: DiphenhydrAMINE 25mg/10ml Elixir GT PRN (01:58)
[2020-05-31 04:00] VITALS: BP 118/73
[2020-05-31 06:00] LABS: BASOPHILS % (AUTO) 0.9 % (0.0-2.0); EOSINOPHILS % (AUTO) 1.9 % (0.0-3.0); HEMATOCRIT 33.4 % (37.0-47.0); HEMOGLOBIN 11.1 G/DL (12.0-16.0); LYMPHOCYTES % (AUTO) 40.7 % (20.0-45.0); MEAN CORPUSCULAR VOLUME 89 FL (80-99); MONOCYTES % (AUTO) 7.7 % (1.0-10.0); NEUTROPHILS % (AUTO) 48.7 % (45.0-75.0); PLATELET COUNT 292 K/UL (150-450); RED BLOOD COUNT 3.78 M/UL (4.20-5.40); RED CELL DISTRIBUTION WIDTH 13.6 % (11.6-14.8); WHITE BLOOD COUNT 4.4 K/UL (4.8-10.8)
--- NOTE | 2020-05-31 07:04 | NUR ---
NURSE HAND-OFF: Important Events on Shift:GT feeding,able to tolerate Patient Status: stable Diet: GT feeding of Jevity 1.2 Pending Orders: Pending Results/Labs: Pending MD notification: Latest Vital Signs: Temperature 98.4 , Pulse 86 , B/P 118 /73 , Respiratory Rate 18 , O2 SAT 96 , Room Air, O2 Flow Rate 3.0 . Vital Sign Comment: Latest [place] Fall Score: 70 Fall Risk: High Risk Safety Measures: Call light Within Reach, Bed Alarm Zone 1, Side Rails Side Rails x3, Bed position Low and Locked. Fall Precautions: Yellow Socks Yellow Gown Door Sign Report given to Staci GARG .
--- NOTE | 2020-05-31 07:30 | Hematology/Onc Progress Note ---
Assessment/Plan Assessment/Plan Assessment and Recs # Anemia due to underlying gi bleed per outside report --> per gi eval --> occult is pending x 3 --> hgb 13-->11-->10.7->9.7 --> anemia panel noted --> no evidence of hemolysis --> cbc ordered # Leukopenia reactive v other process --> wbc 4.4 # Indeterminate right renal mass. --> Consider further evaluation on nonemergent basis with MRI or CT with contrast (renal protocol) to exclude neoplasm. --> outpatient followup, reimage 3 mo # Dysphagia is s/p G-tube inserted with ease. --> continue per peg feeds # Sepsis due to RLL pneumonia, uti --> ABX jr/levaquin -> abx per pulm, id # UTI (urinary tract infection) --> also abx # EKG sinus tachycardia. # Cholelithiasis without evidence of acute cholecystitis. # Colonic diverticulosis without evidence of acute diverticulitis. # CVA # Craniotomy # Right hemiplegia # Seizure history # Bladder dysfunction # Dnr # Dvt ppx heparin sq Appreciate consultation and dw RN Subjective HEENT: Denies: no symptoms, eye pain, blurred vision, tearing, double vision, ear pain, ear discharge, nose pain, nose congestion, throat pain, throat swelling, mouth pain, mouth swelling, other Cardiovascular: Denies: no symptoms, chest pain, edema, irregular heart rate, lightheadedness, palpitations, syncope, other Respiratory: Denies: no symptoms, cough, shortness of breath, SOB with excertion, SOB at rest, sputum, wheezing, other Gastrointestinal/Abdominal: Denies: no symptoms, abdomen distended, abdominal pain, black stools, tarry stools, blood in stool, constipated, diarrhea, difficulty swallowing, nausea, poor appetite, poor fluid intake, rectal bleeding, vomiting, other Genitourinary: Denies: no symptoms, burning, discharge, frequency, flank pain, hematuria, incontinence, pain, urgency, other Neurologic/Psychiatric: Denies: no symptoms, anxiety, depressed, emotional problems, headache, numbness, paresthesia, pre-existing deficit, seizure, tingling, tremors, weakness, other Allergies: Coded Allergies: CHLORHEXIDINE (Verified Allergy, Mild, 07/12/15) CEFTRIAXONE (Unverified Allergy, Unknown, 05/24/20) per Dr. Walker (ID) note LEVOFLOXACIN (Unverified Allergy, Unknown, 05/24/20) Per Dr. Walker (ID) note VANCOMYCIN (Verified Adverse Reaction, Severe, red man syndrome, pruritus, 05/07/20) Subjective 05/24 labs noted, no bleeding, sleepy in am, cbc pend 05/25 labs reviewed, on jr and levaquin, meds noted, no night sweats 05/27 on jevity, no bleeding, meds noted, labs reviewed, hgb 9.7 05/28 labs reordered, on jevity, comfortable, no other changes 05/29 on gtube replacement for today, no bleeding, cbc ordered 05/30 s/p peg placement, labs reviewed, no bleeding, comfortable 05/31 labs reviewed, no bleeding, wbc 4.4, hgb 11, no bleeding, meds noted Objective Objective Current Medications Medications (Trade) Dose Ordered Sig/Veronika Route PRN Reason Start Time Stop Time Status Last Admin Dose Admin Acetaminophen (Tylenol) 650 mg Q6H PRN GT Temp >100.5 05/22/20 17:00 06/21/20 16:59 05/25/20 14:41 Acetaminophen (Tylenol) 650 mg Q6H PRN GT Mild Pain (Pain Scale 1-3) 05/22/20 17:00 06/21/20 16:59 Albuterol/ Ipratropium (Albuterol/ Ipratropium) 3 ml Q6HRT PRN HHN Shortness of Breath 05/22/20 23:45 06/21/20 23:45 Diphenhydramine HCl (Benadryl) 25 mg Q6H PRN GT Itching 05/22/20 23:00 06/21/20 22:59 05/31/20 01:58 Docusate Sodium (Colace) 200 mg DAILY GT 05/23/20 09:00 06/22/20 08:59 05/30/20 09:26 Haloperidol Lactate (Haldol) 5 mg Q6H PRN IM Agitation 05/30/20 23:30 07/14/20 23:29 Heparin Sodium (Porcine) (Heparin 5000 units/ml) 5,000 units EVERY 12 HOURS SUBQ 05/22/20 21:00 07/06/20 20:59 05/30/20 22:28 Hydralazine HCl (Apresoline) 25 mg Q6H PRN GT SBP >180 05/22/20 23:45 08/20/20 23:44 Lacosamide (Vimpat) 50 mg Q12HR ORAL 05/22/20 21:00 08/20/20 20:59 05/30/20 22:26 Magnesium Hydroxide (Mom) 30 ml DAILYPRN PRN GT Constipation 05/22/20 19:00 06/21/20 17:14 Metoclopramide HCl (Reglan) 5 mg EVERY 6 HOURS GT 05/29/20 18:00 06/28/20 17:59 05/31/20 05:15 Pantoprazole (Protonix) 40 mg DAILY IVP 05/23/20 09:00 06/22/20 08:59 05/30/20 09:26 Zinc Oxide (Zinc Oxide) 1 applic THREE TIMES A DAY TOPIC 05/23/20 18:00 08/21/20 17:59 05/30/20 18:00 Last 24 Hour Vital Signs Date Time Temp Pulse Resp B/P (MAP) Pulse Ox O2 Delivery O2 Flow Rate FiO2 05/31/20 04:00 98.4 86 18 118/73 (88) 96 05/31/20 00:00 98.2 93 17 125/66 (85) 96 05/30/20 21:00 Room Air 05/30/20 20:00 97 Nasal Cannula 3.0 32 05/30/20 20:00 88 18 97 Nasal Cannula 3.0 32 05/30/20 20:00 98.4 89 18 122/70 (87) 96 05/30/20 16:00 98.1 85 18 116/66 (83) 98 05/30/20 12:00 97.2 71 20 102/59 (73) 96 05/30/20 09:00 Room Air 05/30/20 08:00 97.0 76 18 110/53 (72) 96 05/30/20 04:00 97.9 83 18 112/65 (81) 93 05/30/20 00:00 98.1 92 20 111/64 (80) 95 05/29/20 21:00 Room Air 05/29/20 20:00 97.5 98 18 114/59 (77) 98 05/29/20 16:00 97.7 95 20 107/59 (75) 100 05/29/20 12:00 97.9 88 18 97/49 (65) 97 05/29/20 09:00 Room Air 05/29/20 08:00 98.2 94 18 99/62 (74) 96 Intake and Output 05/30/20 05/31/20 18:59 06:59 Intake Total 60 ml Output Total 450 ml 300 ml Balance -390 ml -300 ml Tube Feeding 60 ml Output Urine Total 450 ml 300 ml # Voids 1 # Bowel Movements 1 Labs Test 05/29/20 07:50 05/30/20 07:30 05/31/20 04:47 White Blood Count 5.1 K/UL (4.8-10.8) 4.6 K/UL (4.8-10.8) 4.4 K/UL (4.8-10.8) Red Blood Count 3.59 M/UL (4.20-5.40) 3.71 M/UL (4.20-5.40) 3.78 M/UL (4.20-5.40) Hemoglobin 10.5 G/DL (12.0-16.0) 10.9 G/DL (12.0-16.0) 11.1 G/DL (12.0-16.0) Hematocrit 31.9 % (37.0-47.0) 33.0 % (37.0-47.0) 33.4 % (37.0-47.0) Mean Corpuscular Volume 89 FL (80-99) 89 FL (80-99) 89 FL (80-99) Mean Corpuscular Hemoglobin 29.3 PG (27.0-31.0) 29.3 PG (27.0-31.0) 29.5 PG (27.0-31.0) Mean Corpuscular Hemoglobin Concent 33.0 G/DL (32.0-36.0) 33.0 G/DL (32.0-36.0) 33.3 G/DL (32.0-36.0) Red Cell Distribution Width 13.5 % (11.6-14.8) 13.5 % (11.6-14.8) 13.6 % (11.6-14.8) Platelet Count 308 K/UL (150-450) 295 K/UL (150-450) 292 K/UL (150-450) Mean Platelet Volume 5.6 FL (6.5-10.1) 6.0 FL (6.5-10.1) 5.7 FL (6.5-10.1) Neutrophils (%) (Auto) 69.4 % (45.0-75.0) 63.3 % (45.0-75.0) 48.7 % (45.0-75.0) Lymphocytes (%) (Auto) 23.5 % (20.0-45.0) 24.3 % (20.0-45.0) 40.7 % (20.0-45.0) Monocytes (%) (Auto) 4.9 % (1.0-10.0) 10.0 % (1.0-10.0) 7.7 % (1.0-10.0) Eosinophils (%) (Auto) 1.1 % (0.0-3.0) 1.0 % (0.0-3.0) 1.9 % (0.0-3.0) Basophils (%) (Auto) 1.1 % (0.0-2.0) 1.4 % (0.0-2.0) 0.9 % (0.0-2.0) Height (Feet): 5 Height (Inches): 4.00 Weight (Pounds): 136 Objective Physical exam: See documented vital signs. HEENT: Moist mucous membranes, on nrm Neck supple no meningismus Lungs slight tachypnea and decreased breath sounds no rales CV rrr, no mgr Abd: gtube has been replaced Ext: no cce Neuro: alert, mumbling, tracks, unable to converse Arturo Varma MD May 31, 2020 07:30
--- NOTE | 2020-05-31 07:52 | NUR ---
NURSE NOTES: Report received from Ruthann RN. Patient seen on rounds, asleep but easily rousable, FLACC score 0, not in distress on room air, AxOx1. Gtube patent and infusing Jevity 1.2 @ 60ml/hr. HOB elevated at 45 degrees. Wrist restraint noted on left hand, good circulation and pulses palpable. Sweeney catheter secured and draining well. PIV on left hand patent and intact. Bed low and locked, siderails up x2 and padded, zone alarms on 1, will continue to monitor.
[2020-05-31 08:00] VITALS: BP 107/61
[2020-05-31] MEDS: Lacosamide 50mg tablet ORAL SCH (08:43)
[2020-05-31] MEDS: Docusate 100mg/10ml Liq GT SCH (08:43)
[2020-05-31] MEDS: Pantoprazole Inj IVP SCH (08:43)
[2020-05-31] MEDS: Zinc Oxide Oint 2oz TOPIC SCH ×2 (08:44→13:22)
[2020-05-31] MEDS: Heparin 5000 units/ml inj SUBQ SCH (08:45)
--- NOTE | 2020-05-31 09:46 | Pulmonology Progress Note ---
Subjective ROS Limited/Unobtainable: Yes Interval Events: None new reported Constitutional: Denies: fever HEENT: Repors: no symptoms Respiratory: Reports: no symptoms Cardiovascular: Reports: no symptoms Gastrointestinal/Abdominal: Reports: no symptoms; Denies: diarrhea Allergies: Coded Allergies: CHLORHEXIDINE (Verified Allergy, Mild, 07/12/15) CEFTRIAXONE (Unverified Allergy, Unknown, 05/24/20) per Dr. Walker (ID) note LEVOFLOXACIN (Unverified Allergy, Unknown, 05/24/20) Per Dr. Walker (ID) note VANCOMYCIN (Verified Adverse Reaction, Severe, red man syndrome, pruritus, 05/07/20) Objective Last 24 Hour Vital Signs Date Time Temp Pulse Resp B/P (MAP) Pulse Ox O2 Delivery O2 Flow Rate FiO2 05/31/20 07:00 96 Room Air 21 05/31/20 07:00 86 18 96 Room Air 21 05/31/20 04:00 98.4 86 18 118/73 (88) 96 05/31/20 00:00 98.2 93 17 125/66 (85) 96 05/30/20 21:00 Room Air 05/30/20 20:00 97 Nasal Cannula 3.0 32 05/30/20 20:00 88 18 97 Nasal Cannula 3.0 32 05/30/20 20:00 98.4 89 18 122/70 (87) 96 05/30/20 16:00 98.1 85 18 116/66 (83) 98 05/30/20 12:00 97.2 71 20 102/59 (73) 96 Intake and Output 05/30/20 05/31/20 18:59 06:59 Intake Total 60 ml Output Total 450 ml 300 ml Balance -390 ml -300 ml Tube Feeding 60 ml Output Urine Total 450 ml 300 ml # Voids 1 # Bowel Movements 1 General Appearance: no acute distress HEENT: normocephalic Respiratory: chest wall non-tender, lungs clear Cardiovascular: normal peripheral pulses Abdomen: normal bowel sounds Laboratory Tests 05/31/20 04:47: White Blood Count 4.4L, Red Blood Count 3.78L, Hemoglobin 11.1L, Hematocrit 33.4L, Mean Corpuscular Volume 89, Mean Corpuscular Hemoglobin 29.5, Mean Corpuscular Hemoglobin Concent 33.3, Red Cell Distribution Width 13.6, Platelet Count 292, Mean Platelet Volume 5.7L, Neutrophils (%) (Auto) 48.7, Lymphocytes (%) (Auto) 40.7, Monocytes (%) (Auto) 7.7, Eosinophils (%) (Auto) 1.9, Basophils (%) (Auto) 0.9 Current Medications Medications (Trade) Dose Ordered Sig/Veronika Route PRN Reason Start Time Stop Time Status Last Admin Dose Admin Acetaminophen (Tylenol) 650 mg Q6H PRN GT Temp >100.5 05/22/20 17:00 06/21/20 16:59 05/25/20 14:41 Acetaminophen (Tylenol) 650 mg Q6H PRN GT Mild Pain (Pain Scale 1-3) 05/22/20 17:00 06/21/20 16:59 Albuterol/ Ipratropium (Albuterol/ Ipratropium) 3 ml Q6HRT PRN HHN Shortness of Breath 05/22/20 23:45 06/21/20 23:45 Diphenhydramine HCl (Benadryl) 25 mg Q6H PRN GT Itching 05/22/20 23:00 06/21/20 22:59 05/31/20 01:58 Docusate Sodium (Colace) 200 mg DAILY GT 05/23/20 09:00 06/22/20 08:59 05/31/20 08:43 Haloperidol Lactate (Haldol) 5 mg Q6H PRN IM Agitation 05/30/20 23:30 07/14/20 23:29 Heparin Sodium (Porcine) (Heparin 5000 units/ml) 5,000 units EVERY 12 HOURS SUBQ 05/22/20 21:00 07/06/20 20:59 05/31/20 08:45 Hydralazine HCl (Apresoline) 25 mg Q6H PRN GT SBP >180 05/22/20 23:45 08/20/20 23:44 Lacosamide (Vimpat) 50 mg Q12HR ORAL 05/22/20 21:00 08/20/20 20:59 05/31/20 08:43 Magnesium Hydroxide (Mom) 30 ml DAILYPRN PRN GT Constipation 05/22/20 19:00 06/21/20 17:14 Metoclopramide HCl (Reglan) 5 mg EVERY 6 HOURS GT 05/29/20 18:00 06/28/20 17:59 05/31/20 05:15 Pantoprazole (Protonix) 40 mg DAILY IVP 05/23/20 09:00 06/22/20 08:59 05/31/20 08:43 Zinc Oxide (Zinc Oxide) 1 applic THREE TIMES A DAY TOPIC 05/23/20 18:00 08/21/20 17:59 05/31/20 08:44 Assessment/Plan Assessment/Plan UTI Right LL Pneumonia Sepsis Malfunction of gastrostomy tube Previous UGI bleed COVID-19 ruled out Hypertension CVA Craniotomy Right hemiplegia Seizure history Bladder dysfunction Plan - IV abx - O2 PRN; currently saturating well on RA - Duonebs - Sweeney catheter - PPX - Protonix - DNR - Benadryl PRN - GAS PU[employer]ING [employer]PER[employer] meds - Monitor labs Leander Golden MD May 31, 2020 09:46
--- NOTE | 2020-05-31 10:18 | NUR ---
*-*DISCHARGE PLANNING*-* PATIENT HAS BEEN REFERRED BACK TO: [facility] P: [phone] S/W GLEN, WILL CALL BACK AFTER REVIEW
--- NOTE | 2020-05-31 11:09 | NUR ---
*-*DISCHARGE PLANNED*-* PATIENT HAS BEEN ACCEPTED AND WILL BE DISCHARGED BACK TO: [facility] P: [phone] FOR NURSE TO NURSE REPORT ROOM# 30.[facility]ULANCE TRANSPORTATION SET FOR 2PM S/W CINDY [id number]. PLACED A CALL TO DEBORAH MUHAMMAD, PATIENTS DAUGHTER, NO ANSWER UNABLE TO LEAVE VOICE MESSAGE, PLACE A CALL TO SHAREE PARKS, NO ANSWER, LEFT VOICE MESSAGE IN REGARDS TO DISCHARGE PLAN.
--- NOTE | 2020-05-31 11:14 | NUR ---
RD ASSESSMENT & RECOMMENDATIONS SEE CARE ACTIVITY FOR COMPLETE ASSESSMENT DAILY ESTIMATED NEEDS: Needs based on sepsis, wound 58.4kg abw 25-30 kcals/kg 1089-2407 total kcals 1.25-1.5 g protein/kg 73-88 g total protein 25-30 mL/kg 3285-4218 total fluid mLs NUTRITION DIAGNOSIS: Swallowing difficulty R/t dysphagia as evidenced by pt is GT dep, now w/ GT leak, S/p repair, TF at goal. CURRENT TF: Jevity 1.2 goal of 60ml/hr ENTERAL NUTRITION RECOMMENDATIONS: Jevity 1.2 goal of 60ml/hr x24 hrs to provide 1440ml, 1728 kcal, 80g pro, 1162ml free H2O - Maintain Jevity 1.2 @60ml/hr to meet 100% est needs - Flush per MD. HOB over 30 degrees. ADDITIONAL RECOMMENDATIONS: 1) TF recs as above as able 2) Monitor BG-> need for carb control formula and/or niss 3) replete lytes, check daily - updated chem panel 4) Daily calibrated bed scale wts 5) GT leaking, pending replacement-> now s/p replacement, TF at goal .
[2020-05-31 12:00] VITALS: BP 105/58
--- NOTE | 2020-05-31 12:17 | General Progress Note ---
Subjective ROS Limited/Unobtainable: No Allergies: Coded Allergies: CHLORHEXIDINE (Verified Allergy, Mild, 07/12/15) CEFTRIAXONE (Unverified Allergy, Unknown, 05/24/20) per Dr. Walker (ID) note LEVOFLOXACIN (Unverified Allergy, Unknown, 05/24/20) Per Dr. Walker (ID) note VANCOMYCIN (Verified Adverse Reaction, Severe, red man syndrome, pruritus, 05/07/20) Objective Last 24 Hour Vital Signs Date Time Temp Pulse Resp B/P (MAP) Pulse Ox O2 Delivery O2 Flow Rate FiO2 05/31/20 09:00 Room Air 05/31/20 08:00 98.6 70 20 107/61 (76) 97 05/31/20 07:00 96 Room Air 21 05/31/20 07:00 86 18 96 Room Air 21 05/31/20 04:00 98.4 86 18 118/73 (88) 96 05/31/20 00:00 98.2 93 17 125/66 (85) 96 05/30/20 21:00 Room Air 05/30/20 20:00 97 Nasal Cannula 3.0 32 05/30/20 20:00 88 18 97 Nasal Cannula 3.0 32 05/30/20 20:00 98.4 89 18 122/70 (87) 96 05/30/20 16:00 98.1 85 18 116/66 (83) 98 Intake and Output 05/30/20 05/31/20 19:00 07:00 Intake Total 60 ml Output Total 450 ml 300 ml Balance -390 ml -300 ml Tube Feeding 60 ml Output Urine Total 450 ml 300 ml # Voids 1 # Bowel Movements 1 Laboratory Tests 05/31/20 04:47: White Blood Count 4.4L, Red Blood Count 3.78L, Hemoglobin 11.1L, Hematocrit 33.4L, Mean Corpuscular Volume 89, Mean Corpuscular Hemoglobin 29.5, Mean Corpuscular Hemoglobin Concent 33.3, Red Cell Distribution Width 13.6, Platelet Count 292, Mean Platelet Volume 5.7L, Neutrophils (%) (Auto) 48.7, Lymphocytes (%) (Auto) 40.7, Monocytes (%) (Auto) 7.7, Eosinophils (%) (Auto) 1.9, Basophils (%) (Auto) 0.9 Height (Feet): 5 Height (Inches): 4.00 Weight (Pounds): 136 General Appearance: no apparent distress EENT: normal ENT inspection Neck: supple Cardiovascular: normal rate Respiratory/Chest: decreased breath sounds Abdomen: normal bowel sounds, non tender, soft Extremities: non-tender Assessment/Plan Problem List: (1) PEG (percutaneous endoscopic gastrostomy) status ICD Codes: Z93.1 - Gastrostomy status SNOMED: 390576808, 286811579 (2) UGI bleed ICD Codes: K92.2 - Gastrointestinal hemorrhage, unspecified SNOMED: 78686596 (3) DNR no code (do not resuscitate) ICD Codes: Z66 - Do not resuscitate SNOMED: 810348320 (4) Dislodged gastrostomy tube ICD Codes: Z43.1 - Encounter for attention to gastrostomy SNOMED: 705505942 Status: progressing Assessment/Plan: GT has been changed at the bedside to 22 Fr GT care and flush monitor for residuals change TF to Jevity per dietitian recommendations skin care Natan Nowak MD May 31, 2020 12:17
--- NOTE | 2020-05-31 14:21 | NUR ---
NURSE NOTES: Patient discharged back to [facility] to resume all SNF medications, AxOx0, not in distress or pain, vitals stable prior to discharge, on O2 at 2lpm via NC. Sacrum cleaned and moisture barrier and optifoam applied. Patient had positive urine output after block cath was discontinued in AM. GTube patent and intact, dressing changed. All discharge instructions sent with ambulance personnel. Report given to BRITANY Mendiola at [place]. PIV discontinued. Patient has no belongings. Patient left via ambulance transport at 2:15pm.
--- NOTE | 2020-05-31 15:03 | Cardiac Electrophysiology PN ---
Assessment/Plan Assessment/Plan 1. Lactic acidosis and tachycardia due to sepsis. On Abx 2. Hypertension. Stable 3. Dysphagia, status post PEG replacement 4. History of CVA. 5. History of craniotomy and seizures. 6. History of hypoxemia, respiratory failure, on 2 liter NC 7. UTI and pneumonia, on Abx per Dr. Francesco Howell. DC today Subjective Subjective Nonverbal in restraints.No events. DC in progress Objective Last 24 Hour Vital Signs Date Time Temp Pulse Resp B/P (MAP) Pulse Ox O2 Delivery O2 Flow Rate FiO2 05/31/20 12:00 98.1 69 20 105/58 (74) 97 05/31/20 09:00 Room Air 05/31/20 08:00 98.6 70 20 107/61 (76) 97 05/31/20 07:00 96 Room Air 21 05/31/20 07:00 86 18 96 Room Air 21 05/31/20 04:00 98.4 86 18 118/73 (88) 96 05/31/20 00:00 98.2 93 17 125/66 (85) 96 05/30/20 21:00 Room Air 05/30/20 20:00 97 Nasal Cannula 3.0 32 05/30/20 20:00 88 18 97 Nasal Cannula 3.0 32 05/30/20 20:00 98.4 89 18 122/70 (87) 96 05/30/20 16:00 98.1 85 18 116/66 (83) 98 Intake and Output 05/30/20 05/31/20 19:00 07:00 Intake Total 60 ml Output Total 450 ml 300 ml Balance -390 ml -300 ml Tube Feeding 60 ml Output Urine Total 450 ml 300 ml # Voids 1 # Bowel Movements 1 Laboratory Tests Test 05/31/20 04:47 White Blood Count 4.4 K/UL (4.8-10.8) L Red Blood Count 3.78 M/UL (4.20-5.40) L Hemoglobin 11.1 G/DL (12.0-16.0) L Hematocrit 33.4 % (37.0-47.0) L Mean Corpuscular Volume 89 FL (80-99) Mean Corpuscular Hemoglobin 29.5 PG (27.0-31.0) Mean Corpuscular Hemoglobin Concent 33.3 G/DL (32.0-36.0) Red Cell Distribution Width 13.6 % (11.6-14.8) Platelet Count 292 K/UL (150-450) Mean Platelet Volume 5.7 FL (6.5-10.1) L Neutrophils (%) (Auto) 48.7 % (45.0-75.0) Lymphocytes (%) (Auto) 40.7 % (20.0-45.0) Monocytes (%) (Auto) 7.7 % (1.0-10.0) Eosinophils (%) (Auto) 1.9 % (0.0-3.0) Basophils (%) (Auto) 0.9 % (0.0-2.0) Objective HEAD AND NECK: No JVD. LUNGS: Coarse rhonchi. CARDIOVASCULAR: Regular S1 and S2 with no gallop. ABDOMEN: Soft. Status post G-tube. EXTREMITIES: No pitting edema.Salas Scanlon MD May 31, 2020 15:02
--- NOTE | 2020-06-01 11:57 | Discharge Summary ---
Discharge Summary Discharge Summary _ DATE OF ADMISSION: 05/22/2020 DATE OF DISCHARGE: 05/31/2020 DISCHARGED BY: Dr Brasher REASON FOR ADMISSION: 64 years old female with past medical history of CVA with hemiplegia, diabetes mellitus, sent by the SNF due to dislodged G tube. Sweeney catheter was placed prior at the facility to keep stoma open. Emergency room physician was able to reinsert the G-tube. Laboratory work-up revealed lactic acid 3.1. No leukocytosis, stable hemoglobin, hematocrit. Stable electrolytes and renal parameters. Urinalysis revealed finding of probable UTI. Chest x-ray showed right lower lobe pneumonia. Rapid COVID-19 in ED was negative. Patient subsequently admitted for further management. CONSULTANTS: director talent Dr. Moe pulmonary Dr. Golden ID specialist Dr. Francesco Howell GI specialist Dr. Nowak material reprocessing associate/oncologist Dr. Varma psychiatrist [facility] COURSE: Patient admitted and started on broad-spectrum antibiotics. Urine culture revealed mixed urogenital contaminant. Patient was follow-up with chest x-ray. Supplemental oxygen provided and titrated to keep pulse oximetry above 92%. Pulmonary toilet provided. Patient completed antibiotic while in the hospital. DVT and GI prophylaxis provided. Seizure precaution maintained. Anticonvulsant continued. Lactic acid and tachycardia were likely due to sepsis and resolved patient clini gabriel improved. Blood pressure was closely monitored and remained stable. As mentioned above, G-tube was changed by emergency room physician. G-tube had been further changed at the bedside to 22. G-tube site care provided. Tube feeding with tube feeding formula and goal rate provided as per registered dietitian recommendation. Patient was able to tolerate tube feeding. Strict aspiration precaution maintained. Hemoglobin and hematocrit were closely monitored with goal to keep hemoglobin above 7. No need for transfusion. Prior to discharge hemoglobin 10.7 ,hematocrit 32.[address] of the abdomen and pelvis revealed indeterminate right renal mass. Recommended nonemergent evaluation with MRI or CT with contrast per renal protocol to exclude neoplasm. Bowel regimen instituted. Supportive care provided. Patient clinically stabilized and was ready for discharge back to halfway facility for continuation of care FINAL DIAGNOSES: Sepsis Right lower lobe pneumonia Pyuria/UTI Lactic acidosis-resolved Malfunctioning gastrostomy tube/dislodged G-tube Dysphagia, feeding by G-tube Previous upper GI bleeding Hypertension History of CVA with right hemiplegia Indeterminate right renal mass Seizure disorder History of craniotomy Vascular dementia Anemia DNR status DISCHARGE MEDICATIONS: See Medication Reconciliation list. DISCHARGE INSTRUCTIONS: Patient was discharged to the halfway facility. Follow up with medical doctor at the facility. I have been assigned to dictate discharge summary for this account. I was not involved in the patient's management. Sandy Puga NP Jun 01, 2020 11:57
== END 2020-05-31 14:18 | DRG 871 ==
LOC: EDBD 10:13 → EMR 10:30 → UNDOADMIN 11:30 → 4E 11:30 → 2W 11:34 → EDBEDREQ 12:22 → 2W 17:27 → 2E 05-23 18:43 → 4E 05-28 05:54
PROC: 0D20XUZ Change Feeding Device in Upper Intestinal Tract, External Approach (ICD-10-PCS; principal; 2020-05-22)
PROC: 5A09357 Assistance with Respiratory Ventilation, Less than 24 Consecutive Hours, Continuous Positive Airway Pressure (ICD-10-PCS; principal; 2020-05-22)
DX: A41.9 Sepsis, unspecified organism (principal); J18.9 Pneumonia, unspecified organism; N39.0 Urinary tract infection, site not specified; I69.351 Hemiplegia and hemiparesis following cerebral infarction affecting right dominant side; K94.23 Gastrostomy malfunction; J98.11 Atelectasis; K92.2 Gastrointestinal hemorrhage, unspecified; Y83.3 Surgical operation with formation of external stoma as the cause of abnormal reaction of the patient, or of later complication, without mention of misadventure at the time of the procedure; I10 Essential (primary) hypertension; R13.10 Dysphagia, unspecified; R09.02 Hypoxemia; E11.9 Type 2 diabetes mellitus without complications; N28.89 Other specified disorders of kidney and ureter; G40.909 Epilepsy, unspecified, not intractable, without status epilepticus; Z66 Do not resuscitate; Z88.1 Allergy status to other antibiotic agents; Z88.8 Allergy status to other drugs, medicaments and biological substances; K57.90 Diverticulosis of intestine, part unspecified, without perforation or abscess without bleeding; K80.20 Calculus of gallbladder without cholecystitis without obstruction; F41.9 Anxiety disorder, unspecified; N31.9 Neuromuscular dysfunction of bladder, unspecified
CPT/HCPCS: 36415; 71045; 74018; 74176; 80048; 80053; 81003; 82550; 82728; 82803; 83605; 83615; 83690; 83735; 83880; 84484; 85007; 85025; 85610; 85730; 86140; 87081; 87086; 93005; 94640; 94664; 96361; 96365; 96368; 96375; 99291; J7030; J7620; U0002